=== PATIENT | male | born 1945 | race Caucasian/White ===

== ENCOUNTER 2018-05-30 20:02 | Inpatient (IN) | payer MEDICARE, SELFPAY ==
[2018-05-30 20:11] VITALS: BMI 27.1
--- NOTE | 2018-05-30 20:47 | ED PDOC ---
Arrival/HPI - General Chief Complaint: Trauma Time Seen by Provider: 05/30/18 20:22 Historian: Patient - History of Present Illness Narrative History of Present Illness (Text): 05/30/18 20:35 A 73 year old male, whose past medical history includes diabetes type 2 and hypertension, presents to the emergency department complaining of head trauma, headache, and neck pain s/p fall. Patient reports he was walking down flight of stairs, tripped, and fell over backwards, hitting his head. However per family, they are concerned that he did not trip but had episode of syncope. Family reports that patient has had multiple falls over the last 3 months and has had an unsteady gait during the same period. Family wants patient to be admitted to the hospital for evaluation. Patient denies any other complaints at this time. PMD: Dr. Siddiqui (requesting hospitalist as does not admit here) Past Medical History - Provider Review Nursing Documentation Reviewed: Yes - Cardiac Hx Hypertension: Yes - Endocrine/Metabolic Hx Diabetes Mellitus Type 2: Yes - Psychiatric Hx Psychophysiologic Disorder: No Hx Substance Use: No - Anesthesia Hx Anesthesia: No Family/Social History - Physician Review Nursing Documentation Reviewed: Yes Family/Social History: No Known Family HX Smoking Status: Never Smoked Hx Alcohol Use: No Hx Substance Use: No Allergies/Home Meds Allergies/Adverse Reactions: Allergies No Known Allergies Allergy (Verified 05/30/18 20:11) Home Medications: Home Meds Medication Instructions Recorded Confirmed Unobtainable 05/30/18 05/30/18 Review of Systems - Review of Systems Constitutional: absent: Fevers, Night Sweats Eyes: absent: Vision Changes ENT: absent: Hearing Changes Respiratory: absent: SOB Cardiovascular: absent: Chest Pain Gastrointestinal: Vomiting (1 episode BEEF LUGGER). absent: Abdominal Pain, Nausea Genitourinary Male: absent: Dysuria, Frequency, Hematuria, Urinary Output Changes Musculoskeletal: Neck Pain Neurological: Headache Psychiatric: absent: Anxiety Physical Exam Vital Signs Reviewed: Yes Vital Signs Temp Pulse Resp BP Pulse Ox 05/30/18 20:50 98.8 F 05/30/18 20:16 88 18 142/68 98 05/30/18 20:11 88 16 142/68 98 Temperature: Afebrile Blood Pressure: Normal Pulse: Regular Respiratory Rate: Normal Appearance: Positive for: Well-Appearing, Non-Toxic, Comfortable Pain Distress: None Mental Status: Positive for: Alert and Oriented X 3 - Systems Exam Head: Present: Atraumatic, Normocephalic Pupils: Present: PERRL Extroacular Muscles: Present: EOMI Conjunctiva: Present: Normal Neck: Present: Paraspinal Tenderness (cervical paraspinal tenderness) Respiratory/Chest: Present: Clear to Auscultation, Good Air Exchange. No: Respiratory Distress, Accessory Muscle Use Cardiovascular: Present: Regular Rate and Rhythm, Normal S1, S2. No: Murmurs Abdomen: No: Tenderness, Distention, Peritoneal Signs Back: Present: Normal Inspection Upper Extremity: Present: Normal Inspection. No: Cyanosis, Edema Lower Extremity: Present: Normal Inspection. No: Edema Neurological: Present: GCS=15, CN II-XII Intact, Speech Normal Skin: Present: Warm, Dry, Normal Color. No: Rashes Psychiatric: Present: Alert, Oriented x 3 Medical Decision Making ED Course and Treatment: 05/30/18 20:40 Impression: 73 year old male with head pain after fall. ?syncope vs mechanical fall Plan: -- Head CT -- Cervical Spinal CT -- Chest X-ray -- Labs -- Reassess and disposition Progress Notes: 05/30/18 21:06 EKG shows NSR at 79bpm with pr interval:220. T wave inversions in AVL, V5, v6. Troponin 0.11. No complaint of chest pain. Reports no prior cardiac evaluation. 05/30/18 22:46 CT FINDINGS: Brain: Mild to moderate brain volume loss. Periventricular and subcortical hypodensities are nonspecific and could reflect chronic microvascular ischemic changes. No definite evidence of acute intracranial hemorrhage, infarction, or mass. Ventricles: Normal. No ventriculomegaly. Bones/joints: Normal. No acute fracture. Sinuses: Normal as visualized. No acute sinusitis. Mastoid air cells: Normal as visualized. No mastoid effusion. Soft tissues: Parietal soft tissue edema. Vasculature: Calcific atherosclerosis of the bilateral carotid siphon. IMPRESSION: No definite evidence of acute intracranial hemorrhage, infarction, or mass. 05/30/18 22:50 CT c-spine 1. Multilevel degenerative changes including disc osteophytes. Findings probably worst at C5-C6 where there is probably moderate canal stenosis. MRI can be performed if clinically indicated for further evaluation. 2. No acute displaced fracture 05/30/18 22:[address] head, given aspirin. Also requesting motrin for headache. Will need observation for cardiac and neuro evaluation for frequent falls/ syncope and unsteady gait - Lab Interpretations Lab Results: 05/30/18 20:40 05/30/18 20:40 Lab Results 05/30/18 22:12: PT 11.6, INR 1.02, APTT 27.0 05/30/18 20:40: Sodium 138, Potassium 5.1 H, Chloride 102, Carbon Dioxide 22, Anion Gap 19, BUN 14, Creatinine 1.4, Est GFR ( Amer) > 60, Est GFR (Non- Af Amer) 50, Random Glucose 202 H, Calcium 9.1, Phosphorus 2.6, Magnesium 1.4 L , Total Bilirubin 0.8, AST 24, ALT 26, Alkaline Phosphatase 41, Total Creatine Kinase 139, Troponin I 0.11, Total Protein 7.9, Albumin 4.5, Globulin 3.4, Albumin/Globulin Ratio 1.3 05/30/18 20:40: WBC 10.3, RBC 3.77, Hgb 9.9 L, Hct 29.7 L, MCV 78.8 L, MCH 26.3 , MCHC 33.3, RDW 15.0 H, Plt Count 233, MPV 10.4, Gran % 78.7 H, Lymph % (Auto) 13.5 L, [place] % (Auto) 6.9 H, Eos % (Auto) 0.6 L, Baso % (Auto) 0.3, Gran # 8.07 H, Lymph # (Auto) 1.4, [place] # (Auto) 0.7 H, Eos # (Auto) 0.1, Baso # (Auto) 0.03 - RAD Interpretation Radiology Orders: 05/30/18 20:23 CERVICAL SPINE W/O CONTRAST [CT] Stat HEAD W/O CONTRAST [CT] Stat 05/30/18 20:24 CHEST PORTABLE [RAD] Stat - Medication Orders Current Medication Orders: Ibuprofen (Motrin Tab) 400 mg PO STAT STA Stop: 05/30/18 22:54 Discontinued Medications Aspirin (Aspirin Chewable) 81 mg PO STAT STA Stop: 05/30/18 22:52 - Scribe Statement The provider has reviewed the documentation as recorded by the Cinda Lopez Provider Scribe Attestation: All medical record entries made by the Scribe were at my direction and personally dictated by me. I have reviewed the chart and agree that the record accurately reflects my personal performance of the history, physical exam, medical decision making, and the department course for this patient. I have also personally directed, reviewed, and agree with the discharge instructions and disposition. Disposition/Present on Arrival - Present on Arrival Any Indicators Present on Arrival: No History of DVT/PE: No History of Uncontrolled Diabetes: No Urinary Catheter: No History of Decub. Ulcer: No History Surgical Site Infection Following: None - Disposition Have Diagnosis and Disposition been Completed?: Yes Diagnosis: Anemia, Hyperglycemia, Falls, Syncope, Unsteady gait Disposition: HOSPITALIZED Disposition Time: 22:47 Patient Plan: Observation Patient Problems: Current Active Problems Problem Status Onset Anemia Acute Hyperglycemia Acute Falls Acute Syncope Acute Unsteady gait Acute Condition: FAIR Discharge Instructions (ExitCare): Syncope (ED) Forms: [facility] (Portuguese)
[2018-05-30 20:51] LABS: BASO # 0.03 K/mm3 (0.0-2.0); BASO % 0.3 % (0.0-3.0); EOS # 0.1 (0.0-0.7); EOS % 0.6 % (1.5-5.0); GRAN # 8.07 (1.4-6.5); GRAN % 78.7 % (50.0-68.0); HEMOGLOBIN 9.9 g/dL (14.0-18.0); LYMPH # 1.4 (1.2-3.4); LYMPH % 13.5 % (22.0-35.0); MEAN CELL VOLUME 78.8 fl (80.0-105.0); MEAN CORPUSCULAR HEMOGLOBIN 26.3 pg (25.0-35.0); MEAN CORPUSCULAR HGB CONC 33.3 g/dl (31.0-37.0); MEAN PLATELET VOLUME 10.4 fl (7.0-11.0); MONO # 0.7 (0.1-0.6); MONO % 6.9 % (1.0-6.0); RBC 3.77 10^6/uL (3.5-6.1); WHITE BLOOD COUNT 10.3 10^3/ul (4.5-11.0)
[2018-05-30 21:12] LABS: ALB/GLOB RATIO 1.3 (1.1-1.8); ALBUMIN 4.5 g/dL (3.0-4.8); ALT/SGPT 26 U/L (7-56); AST/SGOT 24 U/L (17-59); BLOOD UREA NITROGEN 14 mg/dL (7-21); CALCIUM 9.1 mg/dL (8.4-10.5); GFR AFRICAN-AMERICAN > 60; GFR NON-AFRICAN AMERICAN 50
[2018-05-30 21:25] LABS: TROPONIN I 0.11 ng/mL
[2018-05-30 22:28] LABS: INR 1.02 (0.93-1.08); PROTHROMBIN TIME 11.6 SECONDS (9.4-12.5)
[2018-05-31] MEDS ORDERED: Magnesium Sulfate 1 gm in D5W 1 GM/100 ML BAG IVPB ONE (01:01)
[2018-05-31 01:33] LABS: IRON 26 ug/dL (45-180)
[2018-05-31 01:43] LABS: % IRON SATURATION 5 % (20-55); TOTAL IRON BINDING CAPACITY 499 ug/dL (261-462)
[2018-05-31 01:47] LABS: TROPONIN I 0.17 ng/mL
--- NOTE | 2018-05-31 03:01 | CP.PCM.HP ---
<Edi Bradshaw - Last Filed: 05/31/18 03:33> History of Present Illness - History of Present Illness History of Present Illness: Edi Bradshaw DO PGY1 IM Deputy Head - Hospital H&P Note 73M w/ PMH of HTN, HLD, DM [place] [facility] [place] w/ a CC of syncopal episode. Per family, pt is a poor historian and some HPI supplemented by daughter and at bedside. Pt reported hours prior to arrival he had an episode on which he experienced a brief moment dizziness/ light headedness followed by a LOC. Pt reports this is not his first episode, and family reports that similar episodes have been increasing in frequency over the past months. Per after event today pt appeared to be confused after episode. He reports some ambulatory/ gait issues at baseline as well. Denies any chest pain, palpitations, blurry vision, visual disturbances, Abd pain, N/D/C, hematuria, dysuria. Pt. did however report x1 episode NBNB vomit during EMS transport. Denies any hx of CVA or Seizure. Remainder of 12 point ROS otherwise unremarkable. Per the patient's daughter she reports that he is having some difficulty speaking; however pt. denies any slurred speech. Of note family says patient is non compliant on medication. Additional HP: In ED pt asymptomatic w/ troponin upper limit normal 0.11 at 2030 ; follow up troponin at 0200 elevated at 0.17 PMD: Dr. ERIN Siddiqui Pharmacy: [facility] PMH: HTN, HLD, DM, Home Rx: Gabapentin, Metformin, Valsartan, Rosuvastatin Social: No EtOH, Remote smoking hx, denies illicit drug use; lives with family at home; ambulates w/o assistance Present on Admission - Present on Admission Any Indicators Present on Admission: Yes History of Uncontrolled Diabetes: Yes Review of Systems - Constitutional Constitutional: As Per HPI - EENT Eyes: As Per HPI Nose/Mouth/Throat: As Per HPI - Cardiovascular Cardiovascular: As Per HPI - Respiratory Respiratory: As Per HPI - Gastrointestinal Gastrointestinal: As Per HPI - Genitourinary Genitourinary: As Per HPI - Reproductive: Male Reproductive:Male: As Per HPI - Musculoskeletal Musculoskeletal: As Per HPI - Integumentary Integumentary: As Per HPI - Neurological Neurological: As Per HPI - Psychiatric Psychiatric: As Per HPI - Endocrine Endocrine: As Per HPI - Hematologic/Lymphatic Hematologic: As Per HPI Past Patient History - Past Social History Smoking Status: Never Smoked - CARDIAC Hx Cardiac Disorders: Yes Hx Hypertension: Yes - PULMONARY Hx Respiratory Disorders: No - NEUROLOGICAL Hx Neurological Disorder: No - HEENT Hx HEENT Problems: No - RENAL Hx Chronic Kidney Disease: No - ENDOCRINE/METABOLIC Hx Endocrine Disorders: Yes Hx Diabetes Mellitus Type 2: Yes (diabetic neuropathy) - HEMATOLOGICAL/ONCOLOGICAL Hx Blood Disorders: No - INTEGUMENTARY Hx Dermatological Problems: No - MUSCULOSKELETAL/RHEUMATOLOGICAL Hx Musculoskeletal Disorders: Yes Hx Falls: Yes Hx Unsteady Gait: Yes - GASTROINTESTINAL Hx Gastrointestinal Disorders: No - GENITOURINARY/GYNECOLOGICAL Hx Genitourinary Disorders: No - PSYCHIATRIC Hx Psychophysiologic Disorder: No Hx Substance Use: No - SURGICAL HISTORY Hx Surgeries: No - ANESTHESIA Hx Anesthesia: No Meds Allergies/Adverse Reactions: Allergies Allergy/AdvReac Type Severity Reaction Status Date / Time No Known Allergies Allergy Verified 05/30/18 20:11 Physical Exam - Constitutional Appears: Well, Non-toxic, No Acute Distress - Head Exam Head Exam: ATRAUMATIC, NORMOCEPHALIC - Eye Exam Eye Exam: EOMI, PERRL. absent: Scleral icterus - ENT Exam ENT Exam: Mucous Membranes Moist, Normal Exam - Neck Exam Additional comments: +R side carotid bruit vs radiating murmur - Cardiovascular Exam Cardiovascular Exam: RRR, +S1, +S2, Systolic Murmur (high pitched) - GI/Abdominal Exam GI & Abdominal Exam: Normal Bowel Sounds, Soft. absent: Tenderness - Extremities Exam Extremities exam: Positive for: pedal pulses present (2+ PT/DP BL). Negative for: tenderness - Neurological Exam Neurological exam: Alert, CN II-XII Intact, Oriented x3 Additional comments: UE / LE Gross Strength 5/5 BL - Psychiatric Exam Psychiatric exam: Normal Affect, Normal Mood - Skin Skin Exam: Dry, Intact, Warm Results - Vital Signs Recent Vital Signs: Last Vital Signs Temp 98.9 F 05/31/18 01:26 Pulse 76 05/31/18 02:00 Resp 18 05/31/18 01:26 BP 140/57 L 05/31/18 01:26 Pulse Ox 100 05/30/18 23:00 - Labs Result Diagrams: 05/30/18 20:40 05/30/18 23:39 Labs: Laboratory Results - last 24 hr 05/30/18 05/30/18 23:39 23:39 Potassium 4.8 Troponin I 0.17 H* D Triglycerides 92 Cholesterol 110 L LDL Cholesterol Direct 41 HDL Cholesterol 46 Assessment & Plan - Assessment and Plan (Free Text) Assessment: 73M w/ PMH of HTN, HLD, DM presents to [facility] [place]29 [place] w/ a CC of syncopal episode. Found to have troponin elevation during admission. ACS Workup w/ Troponin Elevation: 2030 = 0.11; 0230 = 0.17; Pt has remained asymptomatic throughout ED and Admission EKG on admission w/ non specific ST/ T wave abnormalities Pt. given x1 dose [id number] in ED Started heparin 8 units/mg/kg A1C / Lipid AM EKG Tele Cardiology Consult Syncopal Episodes Neurogenic vs cardiogenic vs seizure EKG on adm non spec ST/T wave changes; CT head/spine negative for acute changes ; POC Carotid U/s Echo AM EKG Othostatic blood pressures EEG AM CBC/CMP/Mag/Phos EEG Neuro consult Cardio consult Seizure precaution pt/ot EVAL Microcytic Anemia pt asx/ hemodynamically stable B12/Folic Acid/Iron Study Occult Stool r/o GI bleed Hx HTN resume home valsartan; monitor pressures heart healthy diet/ low salt Hx HLD resume home rosuvastatin Hx DM A1C pending hold metformin start ISS regular accucheck Q6H GI/DVT PPX: Protonix/ Heparin Drip as above Dispo: Admit to tele for monitoring and ACS workup Pt. seen examined, and discussed at length w/ attending physician Dr. Kaden Bradshaw DO PGY1 IM internal communications writer - Date & Time Date: 05/31/18 Time: 03:44 <Kaden Soriano N - Last Filed: 05/31/18 23:58> Results - Vital Signs Recent Vital Signs: Last Vital Signs Temp 99.9 F H 05/31/18 17:27 Pulse 72 05/31/18 22:00 Resp 20 05/31/18 17:27 BP 128/57 L 05/31/18 17:27 Pulse Ox 100 05/31/18 06:00 - Labs Result Diagrams: 05/31/18 16:55 05/31/18 06:00 Labs: Laboratory Results - last 24 hr 05/31/18 05/31/18 16:55 16:55 WBC 7.5 RBC 3.65 Hgb 9.3 L Hct 28.9 L MCV 79.2 L MCH 25.5 MCHC 32.2 RDW 15.1 H Plt Count 224 MPV 10.0 Gran % 71.0 H Lymph % (Auto) 20.9 L [place] % (Auto) 7.2 H Eos % (Auto) 0.8 L Baso % (Auto) 0.1 Gran # 5.30 Lymph # (Auto) 1.6 [place] # (Auto) 0.5 Eos # (Auto) 0.1 Baso # (Auto) 0.01 APTT 30.3
[2018-05-31] MEDS: Heparin25000 units/250ml 1/2NS 25,000 UNITS/250 ML BAG IV SCH ×2 (03:16→13:11)
[2018-05-31 06:42] LABS: BASO # 0.02 K/mm3 (0.0-2.0); BASO % 0.2 % (0.0-3.0); EOS # 0.1 (0.0-0.7); GRAN # 4.97 (1.4-6.5); HEMOGLOBIN 8.8 g/dL (14.0-18.0); LYMPH # 2.3 (1.2-3.4); LYMPH % 28.9 % (22.0-35.0); MEAN CELL VOLUME 79.4 fl (80.0-105.0); MEAN CORPUSCULAR HEMOGLOBIN 25.6 pg (25.0-35.0); MEAN CORPUSCULAR HGB CONC 32.2 g/dl (31.0-37.0); MEAN PLATELET VOLUME 10.9 fl (7.0-11.0); MONO # 0.6 (0.1-0.6); MONO % 7.9 % (1.0-6.0); RBC 3.44 10^6/uL (3.5-6.1); RED CELL DISTRIBUTION WIDTH 15.2 % (11.5-14.5)
[2018-05-31 06:56] LABS: ALB/GLOB RATIO 1.3 (1.1-1.8); ALBUMIN 3.6 g/dL (3.0-4.8); CALCIUM 8.9 mg/dL (8.4-10.5)
[2018-05-31] MEDS: Insulin Reg-LOW-Coverage SC SCH ×4 (08:33→22:29)
[2018-05-31 08:36] LABS: PARTIAL THROMBOPLASTIN TIME 42.2 Seconds (25.1-36.5)
--- NOTE | 2018-05-31 08:57 | RAD ---
Date of service: 05/30/2018 HISTORY: Fall COMPARISON: No prior. FINDINGS: LUNGS: The lungs are well inflated and clear. There is mild pulmonary venous congestion. PLEURA: No significant pleural effusion identified, no pneumothorax apparent. CARDIOVASCULAR: The heart is normal in size. Atherosclerotic aortic arch calcifications are present. OSSEOUS STRUCTURES: No significant abnormalities. VISUALIZED UPPER ABDOMEN: Normal. OTHER FINDINGS: None. IMPRESSION: No acute findings.
--- NOTE | 2018-05-31 09:02 | CT ---
Date of service: 05/30/2018 PROCEDURE: CT HEAD WITHOUT CONTRAST. HISTORY: fall COMPARISON: None available. TECHNIQUE: Axial computed tomography images were obtained through the head/brain without intravenous contrast. Radiation dose: Total exam DLP = 807 mGy-cm. This CT exam was performed using one or more of the following dose reduction techniques: Automated exposure control, adjustment of the mA and/or kV according to patient size, and/or use of iterative reconstruction technique. FINDINGS: HEMORRHAGE: No intracranial hemorrhage. BRAIN: No mass effect or edema. No atrophy or chronic microvascular ischemic changes. VENTRICLES: Unremarkable. No hydrocephalus. CALVARIUM: Unremarkable. PARANASAL SINUSES: Unremarkable as visualized. No significant inflammatory changes. MASTOID AIR CELLS: Unremarkable as visualized. No inflammatory changes. OTHER FINDINGS: The report concurs with the preliminary [facility] report IMPRESSION: No acute findings
--- NOTE | 2018-05-31 09:05 | CT ---
Date of service: 05/30/2018 PROCEDURE: CT Cervical Spine without contrast HISTORY: fall, neck pain COMPARISON: None available. TECHNIQUE: Axial computed tomography images were obtained of the cervical spine without the use of intravenous contrast. Coronal and sagittal reformatted images were created and reviewed. Radiation dose: Total exam DLP = 441 mGy-cm. This CT exam was performed using one or more of the following dose reduction techniques: Automated exposure control, adjustment of the mA and/or kV according to patient size, and/or use of iterative reconstruction technique. FINDINGS: VERTEBRAE: No fracture. Normal alignment. No destructive bony lesion. DISCS/SPINAL CANAL/NEURAL FORAMINA: No significant central canal or neural foraminal stenosis. Disc degeneration at multiple levels. Severe left-sided foraminal stenosis at C3-4. Severe bilateral foraminal stenosis at C6-7. Mild foraminal stenosis at C5-6. PARASPINAL SOFT TISSUES: Unremarkable. OTHER FINDINGS: The report concurs with the preliminary [facility] report IMPRESSION: No acute findings
[2018-05-31] MEDS ORDERED: Iohexol 350 MG/100 ML VIAL ONE (09:22)
--- NOTE | 2018-05-31 09:44 | CP.PCM.CON ---
History of Present Illness - History of Present Illness History of Present Illness: Patient is a 73 year old male with past medical history of HTN, hyperlipidemia, type 2 diabetes with neuropathy presenting with chief complaint of falls. Patient states that in the past two months he has had multiple episodes of falling. The first two episodes were while he was going downstairs into his basement. The third episode was when he was ambulating outside his home. During these episodes, patient reports not being able to stand up secondary to generalized weakness. During the most recent episode, he also sustained trauma to the back of his head. He states that he has been eating and drinking at his baseline. He denies any headache, dizziness, loss of consciousness, vision changes, hearing changes, bowel or bladder incontinence associated with these falls. He also denies fevers, chills, weight loss, palpitations, chest pain, abdominal pain, changes in bowel movements. He denies history of seizures or any recent adjustments in medications. He checks his glucose and blood pressure at home regularly. He states glucose levels are usually in 170s and systolic BP is in the 140s to 150s. Patient's family reports that patient was very pale and had slowed slurred speech. However, patient was able to be aroused, was alert and oriented to person, and had no focal neurological deficits. Patient has had issues with gait stability for the past few weeks. 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 PMH: HTN, hyperlipidemia, type 2 diabetes with neuropathy Past surgical: none Social: 33 year history 1 PPD. Quit in 1985. Denies alcohol or recreational drug use. Lives at home with and daughter. FHx: Father had maxillary cancer Home medications: metformin, gabapentin, atorvastatin 12 point ROS was benign except as stated above. Past Patient History - Past Social History Smoking Status: Former Smoker Alcohol: None Drugs: Denies Home Situation {Lives}: With Family - CARDIAC Hx Cardiac Disorders: Yes Hx Hypertension: Yes - PULMONARY Hx Respiratory Disorders: No - NEUROLOGICAL Hx Neurological Disorder: No - HEENT Hx HEENT Problems: No - RENAL Hx Chronic Kidney Disease: No - ENDOCRINE/METABOLIC Hx Endocrine Disorders: Yes Hx Diabetes Mellitus Type 2: Yes (diabetic neuropathy) - HEMATOLOGICAL/ONCOLOGICAL Hx Blood Disorders: No - INTEGUMENTARY Hx Dermatological Problems: No - MUSCULOSKELETAL/RHEUMATOLOGICAL Hx Musculoskeletal Disorders: Yes Hx Falls: Yes Hx Unsteady Gait: Yes - GASTROINTESTINAL Hx Gastrointestinal Disorders: No - GENITOURINARY/GYNECOLOGICAL Hx Genitourinary Disorders: No - PSYCHIATRIC Hx Psychophysiologic Disorder: No Hx Substance Use: No - SURGICAL HISTORY Hx Surgeries: No - ANESTHESIA Hx Anesthesia: No Meds Allergies/Adverse Reactions: Allergies Allergy/AdvReac Type Severity Reaction Status Date / Time No Known Allergies Allergy Verified 05/30/18 20:11 - Medications Medications: Current Medications Atorvastatin Calcium (Lipitor) 10 mg PO DIN SHAKA Ferrous Sulfate (Feosol) 324 mg PO TID SHAKA Gabapentin (Neurontin) 300 mg PO BID SHAKA PRN Reason: Protocol Heparin Sodium/Sodium Chloride (Heparin 97042 Units/250ml 1/2 Normal Saline) 25 ,000 units in 250 mls @ 5.733 mls/hr IV .Q24H SHAKA; 8 UNITS/KG/HR PRN Reason: Protocol Last Admin: 05/31/18 03:16 Dose: 8 units/kg/hr, 5.733 mls/hr Insulin Human Regular (Humulin R Low) 0 units SC ACHS SHAKA PRN Reason: Protocol Last Admin: 05/31/18 08:33 Dose: 1 u Losartan Potassium (Cozaar) 25 mg PO DAILY SHAKA Pantoprazole Sodium (Protonix Inj) 40 mg IVP DAILY SHAKA Physical Exam - Constitutional Appears: Non-toxic, No Acute Distress - Head Exam Head Exam: NORMAL INSPECTION, NORMOCEPHALIC - Eye Exam Eye Exam: EOMI, Normal appearance, PERRL Pupil Exam: NORMAL ACCOMODATION - ENT Exam ENT Exam: Mucous Membranes Moist, Normal Exam - Neck Exam Neck exam: Positive for: Normal Inspection - Respiratory Exam Respiratory Exam: Clear to Auscultation Bilateral, NORMAL BREATHING PATTERN. absent: Rales, Rhonchi, Wheezes, Respiratory Distress - Cardiovascular Exam Cardiovascular Exam: RRR, +S1, +S2 - GI/Abdominal Exam GI & Abdominal Exam: Normal Bowel Sounds, Soft. absent: Distended, Firm, Tenderness - Extremities Exam Extremities exam: Positive for: full ROM, normal inspection - Back Exam Back exam: NORMAL INSPECTION - Neurological Exam Neurological exam: Alert, CN II-XII Intact, Normal Gait, Oriented x3 Additional comments: Muscle strength +5/5. Mild dysmetria bilaterally. Nystagmus with rightward graze. Negative Romberg. - Skin Skin Exam: Dry, Intact, Normal Color, Warm Results - Vital Signs Recent Vital Signs: Last Vital Signs Temp 98 F 05/31/18 06:00 Pulse 65 05/31/18 06:00 Resp 20 05/31/18 06:00 BP 135/59 L 05/31/18 06:00 Pulse Ox 100 05/31/18 06:00 - Labs Result Diagrams: 05/31/18 06:00 05/31/18 06:00 Labs: Laboratory Results - last 24 hr 05/30/18 05/30/18 05/31/18 23:39 23:39 05:40 WBC RBC Hgb Hct MCV MCH MCHC RDW Plt Count MPV Gran % Lymph % (Auto) [place] % (Auto) Eos % (Auto) Baso % (Auto) Gran # Lymph # (Auto) [place] # (Auto) Eos # (Auto) Baso # (Auto) APTT D-Dimer, Quantitative Sodium Potassium 4.8 Chloride Carbon Dioxide Anion Gap BUN Creatinine Est GFR ( Amer) Est GFR (Non-Af Amer) Random Glucose Calcium Phosphorus Magnesium Total Bilirubin AST ALT Alkaline Phosphatase Troponin I 0.17 H* D Total Protein Albumin Globulin Albumin/Globulin Ratio Triglycerides 92 Cholesterol 110 L LDL Cholesterol Direct 41 HDL Cholesterol 46 Blood Type O POSITIVE Blood Type Confirm Antibody Screen Negative BBK History Checked No verified bt 05/31/18 05/31/18 05/31/18 06:00 06:00 06:30 WBC 8.0 D RBC 3.44 L Hgb 8.8 L Hct 27.3 L MCV 79.4 L MCH 25.6 MCHC 32.2 RDW 15.2 H Plt Count 234 MPV 10.9 Gran % 62.0 Lymph % (Auto) 28.9 [place] % (Auto) 7.9 H Eos % (Auto) 1.0 L Baso % (Auto) 0.2 Gran # 4.97 Lymph # (Auto) 2.3 [place] # (Auto) 0.6 Eos # (Auto) 0.1 Baso # (Auto) 0.02 APTT D-Dimer, Quantitative Sodium 141 Potassium 4.3 Chloride 105 Carbon Dioxide 26 Anion Gap 15 BUN 15 Creatinine 1.5 Est GFR ( Amer) 56 Est GFR (Non-Af Amer) 46 Random Glucose 139 H Calcium 8.9 Phosphorus 3.1 Magnesium 1.9 Total Bilirubin 0.6 AST 17 D ALT 27 Alkaline Phosphatase 35 L Troponin I 0.15 H* Total Protein 6.5 Albumin 3.6 Globulin 2.9 Albumin/Globulin Ratio 1.3 Triglycerides Cholesterol LDL Cholesterol Direct HDL Cholesterol Blood Type Blood Type Confirm Antibody Screen BBK History Checked 05/31/18 05/31/18 08:15 08:15 WBC RBC Hgb Hct MCV MCH MCHC RDW Plt Count MPV Gran % Lymph % (Auto) [place] % (Auto) Eos % (Auto) Baso % (Auto) Gran # Lymph # (Auto) [place] # (Auto) Eos # (Auto) Baso # (Auto) APTT 42.2 H D-Dimer, Quantitative 496 H Sodium Potassium Chloride Carbon Dioxide Anion Gap BUN Creatinine Est GFR ( Amer) Est GFR (Non-Af Amer) Random Glucose Calcium Phosphorus Magnesium Total Bilirubin AST ALT Alkaline Phosphatase Troponin I Total Protein Albumin Globulin Albumin/Globulin Ratio Triglycerides Cholesterol LDL Cholesterol Direct HDL Cholesterol Blood Type Blood Type Confirm O POSITIVE Antibody Screen BBK History Checked Assessment & Plan - Assessment and Plan (Free Text) Assessment: Patient is a 73 year old male with past medical history of HTN, hyperlipidemia, type 2 diabetes with neuropathy admitted for workup and management of pre- syncope and found to have microcytic anemia, elevated troponins, negative CT head. Plan: Pre-syncope vs. syncopal episode - Likely neurocardiogenic in nature - Head CT w/o contrast shows no intracranial hemorrhage, mass effect, edema. No atrophy or chronic microvascular ischemic changes. - EKG shows 1st degree av block, ST depressions in lateral leads. No previous EKGs to refer to. - Followup orthostatic vital signs - Followup carotid & vertebral duplex US - Followup MRI brain w/o contrast - Followup MRA head w/o contrast for evaluation of posterior circulation - EEG preliminary read normal - Neurochecks - Cardiology consulted - PT/OT consulted Case discussed and plan approved by attending physician Dr. Zackery Sanders PGY-1
--- NOTE | 2018-05-31 10:45 | CT ---
Date of service: 05/31/2018 PROCEDURE: CT Chest with contrast (Pulmonary Angiogram) HISTORY: r/o PE COMPARISON: None available. TECHNIQUE: Axial computed tomography images were obtained of the chest in the pulmonary arterial phase of enhancement. Coronal and sagittal reformatted images were created and reviewed. Intravenous contrast dose: 100 cc of Omni 350 Radiation dose: Total exam DLP = 437 mGy-cm. This CT exam was performed using one or more of the following dose reduction techniques: Automated exposure control, adjustment of the mA and/or kV according to patient size, and/or use of iterative reconstruction technique. FINDINGS: PULMONARY ARTERIES: Unremarkable. No pulmonary embolism. AORTA: No acute findings. No thoracic aortic aneurysm. LUNGS: Unremarkable. No nodule, mass or pulmonary consolidation. PLEURAL SPACES: Small pleural effusions HEART: Unremarkable. No cardiomegaly. No significant pericardial effusion. LYMPH NODES: No lymphadenopathy. BONES, CHEST WALL: Unremarkable. No fracture or destructive lesion OTHER FINDINGS: Unremarkable. IMPRESSION: Unremarkable CT pulmonary angiogram. No pulmonary embolus.
--- NOTE | 2018-05-31 12:17 | CARD ---
APPROVED REPORT Date of service: 05/30/2018 EKG Measurement Heart [id number] <Conclusion> Sinus rhythm with 1st degree AV block ST & T wave abnormality Correlate Clinically. Abnormal ECG
[2018-05-31 12:39] LABS: FOLATE > 20.0 ng/mL
--- NOTE | 2018-05-31 14:44 | CP.PCM.CON ---
<Edmond Joseph - Last Filed: 05/31/18 20:59> History of Present Illness - History of Present Illness History of Present Illness: GI Consult Note for Dr. Munoz Service Edmond Joseph, PGY-3 IM This is a 73 yo Iranian M with PMH of HTN, HLD, DM, and reported hx of medication non-compliance (as per family report to primary team) who presented to [facility] s/p reported syncopal episode at home with fall. Patient reports no recall of actual syncope, and believes he just fell, which has happened several times at home over the last month. Patient reports no head trauma with any falls, no LOC with any falls (disputed by family), and denies any focal weakness /paresthesias. GI was consulted due to anemia (Hgb 8.8, baseline reported by family to be 11) and reported bright red blood per rectum on exam by primary team. Patient resting comfortably in bed at time of exam. Denies any hx of rectal bleeding, melena/blood in stool, diarrhea, constipation, dysuria, hematuria, fevers, chills. Reports feeling good overall. Reports routine follow up with PMD, Dr. Siddiqui, but denies ever being followed by GI. Denies ever undergoing EGD or Colonoscopy. Denies any family hx of colon cancer. No abdominal tenderness, and no PO intolerance. Of note, in addition to presenting problems, patient was also found to have indeterminate trop of 0.11 on arrival, which increased to 0.17 on recheck, but decreased to 0.15 on last trop. Cardio following and aware, pending possible cath. PMH: as above PSH: denies Social Hx: No EtOH, Remote smoking hx, denies illicit drug use; lives with family at home; ambulates w/o assistance Fam Hx: denies any fam hx of colon cancer PMD: Dr. ERIN Siddiqui Review of Systems - Review of Systems All systems: reviewed and no additional remarkable complaints except (as per HPI ) Past Patient History - Past Social History Smoking Status: Former Smoker Alcohol: None Drugs: Denies Home Situation {Lives}: With Family - CARDIAC Hx Cardiac Disorders: Yes Hx Hypertension: Yes - PULMONARY Hx Respiratory Disorders: No - NEUROLOGICAL Hx Neurological Disorder: No - HEENT Hx HEENT Problems: No - RENAL Hx Chronic Kidney Disease: No - ENDOCRINE/METABOLIC Hx Endocrine Disorders: Yes Hx Diabetes Mellitus Type 2: Yes (diabetic neuropathy) - HEMATOLOGICAL/ONCOLOGICAL Hx Blood Disorders: No - INTEGUMENTARY Hx Dermatological Problems: No - MUSCULOSKELETAL/RHEUMATOLOGICAL Hx Musculoskeletal Disorders: Yes Hx Falls: Yes Hx Unsteady Gait: Yes - GASTROINTESTINAL Hx Gastrointestinal Disorders: No - GENITOURINARY/GYNECOLOGICAL Hx Genitourinary Disorders: No - PSYCHIATRIC Hx Psychophysiologic Disorder: No Hx Substance Use: No - SURGICAL HISTORY Hx Surgeries: No - ANESTHESIA Hx Anesthesia: No Meds Allergies/Adverse Reactions: Allergies Allergy/AdvReac Type Severity Reaction Status Date / Time No Known Allergies Allergy Verified 05/30/18 20:11 - Medications Medications: Current Medications Atorvastatin Calcium (Lipitor) 40 mg PO DIN SHAKA Carvedilol (Coreg) 3.125 mg PO BID SHAKA Ferrous Sulfate (Feosol) 324 mg PO TID [facility] Last Admin: 05/31/18 13:05 Dose: 324 mg Gabapentin (Neurontin) 300 mg PO BID [facility] PRN Reason: Protocol Last Admin: 05/31/18 12:55 Dose: Not Given Insulin Human Regular (Humulin R Low) 0 units SC ACHS [facility] PRN Reason: Protocol Last Admin: 05/31/18 13:04 Dose: 1 u Losartan Potassium (Cozaar) 25 mg PO DAILY [facility] Last Admin: 05/31/18 13:05 Dose: 25 mg Pantoprazole Sodium (Protonix Ec Tab) 40 mg PO ACB [facility] Physical Exam - Constitutional Appears: Non-toxic, No Acute Distress - Head Exam Head Exam: ATRAUMATIC, NORMAL INSPECTION, NORMOCEPHALIC - Eye Exam Eye Exam: EOMI, Normal appearance. absent: Conjunctival injection, Scleral icterus Pupil Exam: absent: Fixed, Irregular - ENT Exam ENT Exam: Mucous Membranes Moist - Neck Exam Neck exam: Positive for: Normal Inspection - Respiratory Exam Respiratory Exam: Clear to Auscultation Bilateral, NORMAL BREATHING PATTERN. absent: Accessory Muscle Use, Chest Wall Tenderness, Decreased Breath Sounds, Rales, Rhonchi, Wheezes - Cardiovascular Exam Cardiovascular Exam: REGULAR RHYTHM, RRR, +S1, +S2, Systolic Murmur ( holosystolic murmur most prominent at R 2nd intercostal space but also very prominent at L 2nd intercostal space, not palpable with hand on chest). absent : Bradycardia, Tachycardia, Irregular Rhythm, JVD, +S4 - GI/Abdominal Exam GI & Abdominal Exam: Normal Bowel Sounds, Soft. absent: Diminished Bowel Sounds , Distended, Firm, Hyperactive Bowel Sounds, Hypoactive Bowel Sounds, Rigid, Tenderness - Extremities Exam Extremities exam: Negative for: calf tenderness, joint swelling, pedal edema Additional comments: healing abrasion along L anterior knee, not actively bleeding but appears fairly fresh/recent (likely 2/2 fall prior to presentation) - Back Exam Back exam: absent: CVA tenderness (L), CVA tenderness (R) - Neurological Exam Additional comments: awake and alert, oriented to self/location/year, following all commands appropriately, moving all extremities spontaneously and on command - Psychiatric Exam Psychiatric exam: Normal Affect, Normal Mood - Skin Skin Exam: Dry, Intact (except as documented on extremities exam), Normal Color , Warm Results - Vital Signs Recent Vital Signs: Last Vital Signs Temp 98 F 05/31/18 06:00 Pulse 76 05/31/18 13:05 Resp 20 05/31/18 06:00 BP 152/56 H 05/31/18 13:05 Pulse Ox 100 05/31/18 06:00 - Labs Result Diagrams: 05/31/18 16:55 05/31/18 06:00 Labs: Laboratory Results - last 24 hr 05/30/18 05/30/18 05/31/18 23:39 23:39 05:40 WBC RBC Hgb Hct MCV MCH MCHC RDW Plt Count MPV Gran % Lymph % (Auto) Brewster % (Auto) Eos % (Auto) Baso % (Auto) Gran # Lymph # (Auto) Brewster # (Auto) Eos # (Auto) Baso # (Auto) APTT D-Dimer, Quantitative Sodium Potassium 4.8 Chloride Carbon Dioxide Anion Gap BUN Creatinine Est GFR ( Amer) Est GFR (Non-Af Amer) Random Glucose Calcium Phosphorus Magnesium Total Bilirubin AST ALT Alkaline Phosphatase Troponin I 0.17 H* D Total Protein Albumin Globulin Albumin/Globulin Ratio Triglycerides 92 Cholesterol 110 L LDL Cholesterol Direct 41 HDL Cholesterol 46 Stool Occult Blood Blood Type O POSITIVE Blood Type Confirm Antibody Screen Negative BBK History Checked No verified bt 05/31/18 05/31/18 05/31/18 06:00 06:00 06:30 WBC 8.0 D RBC 3.44 L Hgb 8.8 L Hct 27.3 L MCV 79.4 L MCH 25.6 MCHC 32.2 RDW 15.2 H Plt Count 234 MPV 10.9 Gran % 62.0 Lymph % (Auto) 28.9 Brewster % (Auto) 7.9 H Eos % (Auto) 1.0 L Baso % (Auto) 0.2 Gran # 4.97 Lymph # (Auto) 2.3 Brewster # (Auto) 0.6 Eos # (Auto) 0.1 Baso # (Auto) 0.02 APTT D-Dimer, Quantitative Sodium 141 Potassium 4.3 Chloride 105 Carbon Dioxide 26 Anion Gap 15 BUN 15 Creatinine 1.5 Est GFR ( Amer) 56 Est GFR (Non-Af Amer) 46 Random Glucose 139 H Calcium 8.9 Phosphorus 3.1 Magnesium 1.9 Total Bilirubin 0.6 AST 17 D ALT 27 Alkaline Phosphatase 35 L Troponin I 0.15 H* Total Protein 6.5 Albumin 3.6 Globulin 2.9 Albumin/Globulin Ratio 1.3 Triglycerides Cholesterol LDL Cholesterol Direct HDL Cholesterol Stool Occult Blood Blood Type Blood Type Confirm Antibody Screen BBK History Checked 05/31/18 05/31/18 05/31/18 08:15 08:15 13:00 WBC RBC Hgb Hct MCV MCH MCHC RDW Plt Count MPV Gran % Lymph % (Auto) Brewster % (Auto) Eos % (Auto) Baso % (Auto) Gran # Lymph # (Auto) Brewster # (Auto) Eos # (Auto) Baso # (Auto) APTT 42.2 H D-Dimer, Quantitative 496 H Sodium Potassium Chloride Carbon Dioxide Anion Gap BUN Creatinine Est GFR ( Amer) Est GFR (Non-Af Amer) Random Glucose Calcium Phosphorus Magnesium Total Bilirubin AST ALT Alkaline Phosphatase Troponin I Total Protein Albumin Globulin Albumin/Globulin Ratio Triglycerides Cholesterol LDL Cholesterol Direct HDL Cholesterol Stool Occult Blood Negative Blood Type Blood Type Confirm O POSITIVE Antibody Screen BBK History Checked Assessment & Plan - Assessment and Plan (Free Text) Assessment: This is a 73 yo Iranian M with PMH of HTN, HLD, DM, and reported hx of medication non-compliance (as per family report to primary team) who presented to [facility] s/p reported syncopal episode at home with fall. GI was consulted due to anemia (Hgb 8.8, baseline reported by family to be 11) and reported bright red blood per rectum on exam by primary team. Plan: DM HTN HLD Reported medication non-compliance Elevated trops, NSTEMI? Ddx: acute GI bleeding 2/2 heparin drip started for elevated trops vs occult GI malignancy -Ideally, this patient needs an EGD and Colonoscopy, but in setting of acute cardiac condition, need Cardiac assessment and clearance -While cardiac cath understandable for this patient, there is a concern for possible acute GI bleed, which would be made more difficult to manage if patient has HOA placed and is on dual antiplatelet therapy, would prefer to have pt undergo endoscopic assessment for active bleeding site first (if feasible) -Heart murmur consistent with Aortic Stenosis, would advise cautious BP management as too-depressed BP will decrease preload, which is needed to enable sufficient cardiac output in setting of aortic stenosis; Echo obtained, pending official read, will f/u -if severe aortic stenosis present, then needs cardiac assessment and clearance prior to any procedure involving anesthesia -CT abd/pelvis with PO contrast ordered -Monitor H&H daily; microcytic RBCs with wide RDW suggestive of iron deficiency anemia, iron studies also supportive of iron deficiency Seen, reviewed, and discussed with attending, Dr. Munoz <Alexandr Munoz V - Last Filed: 05/31/18 22:15> Meds - Medications Medications: Current Medications Atorvastatin Calcium (Lipitor) 40 mg PO DIN [facility] Last Admin: 05/31/18 17:26 Dose: 40 mg Carvedilol (Coreg) 3.125 mg PO BID SHAKA Last Admin: 05/31/18 17:25 Dose: 3.125 mg Ferrous Sulfate (Feosol) 324 mg PO TID [facility] Last Admin: 05/31/18 17:26 Dose: 324 mg Gabapentin (Neurontin) 300 mg PO BID [facility] PRN Reason: Protocol Last Admin: 05/31/18 17:26 Dose: 300 mg Insulin Human Regular (Humulin R Low) 0 units SC ACHS [facility] PRN Reason: Protocol Last Admin: 05/31/18 18:24 Dose: 1 u Losartan Potassium (Cozaar) 25 mg PO DAILY [facility] Last Admin: 05/31/18 13:05 Dose: 25 mg Pantoprazole Sodium (Protonix Ec Tab) 40 mg PO ACB [facility] Results - Vital Signs Recent Vital Signs: Last Vital Signs Temp 99.9 F H 05/31/18 17:27 Pulse 72 05/31/18 17:27 Resp 20 05/31/18 17:27 BP 128/57 L 05/31/18 17:27 Pulse Ox 100 05/31/18 06:00 - Labs Result Diagrams: 05/31/18 16:55 05/31/18 06:00 Labs: Laboratory Results - last 24 hr 05/30/18 05/30/18 05/31/18 23:39 23:39 05:40 WBC RBC Hgb Hct MCV MCH MCHC RDW Plt Count MPV Gran % Lymph % (Auto) Brewster % (Auto) Eos % (Auto) Baso % (Auto) Gran # Lymph # (Auto) Brewster # (Auto) Eos # (Auto) Baso # (Auto) APTT D-Dimer, Quantitative Sodium Potassium 4.8 Chloride Carbon Dioxide Anion Gap BUN Creatinine Est GFR ( Amer) Est GFR (Non-Af Amer) Random Glucose Calcium Phosphorus Magnesium Total Bilirubin AST ALT Alkaline Phosphatase Troponin I 0.17 H* D Total Protein Albumin Globulin Albumin/Globulin Ratio Triglycerides 92 Cholesterol 110 L LDL Cholesterol Direct 41 HDL Cholesterol 46 Stool Occult Blood Blood Type O POSITIVE Blood Type Confirm Antibody Screen Negative BBK History Checked No verified bt 05/31/18 05/31/18 05/31/18 06:00 06:00 06:30 WBC 8.0 D RBC 3.44 L Hgb 8.8 L Hct 27.3 L MCV 79.4 L MCH 25.6 MCHC 32.2 RDW 15.2 H Plt Count 234 MPV 10.9 Gran % 62.0 Lymph % (Auto) 28.9 Brewster % (Auto) 7.9 H Eos % (Auto) 1.0 L Baso % (Auto) 0.2 Gran # 4.97 Lymph # (Auto) 2.3 Brewster # (Auto) 0.6 Eos # (Auto) 0.1 Baso # (Auto) 0.02 APTT D-Dimer, Quantitative Sodium 141 Potassium 4.3 Chloride 105 Carbon Dioxide 26 Anion Gap 15 BUN 15 Creatinine 1.5 Est GFR ( Amer) 56 Est GFR (Non-Af Amer) 46 Random Glucose 139 H Calcium 8.9 Phosphorus 3.1 Magnesium 1.9 Total Bilirubin 0.6 AST 17 D ALT 27 Alkaline Phosphatase 35 L Troponin I 0.15 H* Total Protein 6.5 Albumin 3.6 Globulin 2.9 Albumin/Globulin Ratio 1.3 Triglycerides Cholesterol LDL Cholesterol Direct HDL Cholesterol Stool Occult Blood Blood Type Blood Type Confirm Antibody Screen BBK History Checked 05/31/18 05/31/18 05/31/18 08:15 08:15 13:00 WBC RBC Hgb Hct MCV MCH MCHC RDW Plt Count MPV Gran % Lymph % (Auto) Brewster % (Auto) Eos % (Auto) Baso % (Auto) Gran # Lymph # (Auto) Brewster # (Auto) Eos # (Auto) Baso # (Auto) APTT 42.2 H D-Dimer, Quantitative 496 H Sodium Potassium Chloride Carbon Dioxide Anion Gap BUN Creatinine Est GFR ( Amer) Est GFR (Non-Af Amer) Random Glucose Calcium Phosphorus Magnesium Total Bilirubin AST ALT Alkaline Phosphatase Troponin I Total Protein Albumin Globulin Albumin/Globulin Ratio Triglycerides Cholesterol LDL Cholesterol Direct HDL Cholesterol Stool Occult Blood Negative Blood Type Blood Type Confirm O POSITIVE Antibody Screen BBK History Checked 05/31/18 05/31/18 16:55 16:55 WBC 7.5 RBC 3.65 Hgb 9.3 L Hct 28.9 L MCV 79.2 L MCH 25.5 MCHC 32.2 RDW 15.1 H Plt Count 224 MPV 10.0 Gran % 71.0 H Lymph % (Auto) 20.9 L Brewster % (Auto) 7.2 H Eos % (Auto) 0.8 L Baso % (Auto) 0.1 Gran # 5.30 Lymph # (Auto) 1.6 Brewster # (Auto) 0.5 Eos # (Auto) 0.1 Baso # (Auto) 0.01 APTT 30.3 D-Dimer, Quantitative Sodium Potassium Chloride Carbon Dioxide Anion Gap BUN Creatinine Est GFR ( Amer) Est GFR (Non-Af Amer) Random Glucose Calcium Phosphorus Magnesium Total Bilirubin AST ALT Alkaline Phosphatase Troponin I Total Protein Albumin Globulin Albumin/Globulin Ratio Triglycerides Cholesterol LDL Cholesterol Direct HDL Cholesterol Stool Occult Blood Blood Type Blood Type Confirm Antibody Screen BBK History Checked Attending/Attestation - Attestation I have personally seen and examined this patient.: Yes I have fully participated in the care of the patient.: Yes I have reviewed all pertinent clinical information: Yes Notes (Text): This is an addendum to GI consult report dictated by the Medical Assistant Cardiology.The patient was seen and examined earlier. Medical records, lab studies, imagings were reviewed. Last 24 hours events reviewed. Agreed with the above treatment plan as outlined in Medical Assistant Cardiology 's notes the with the addition of the following this patient with microcytic anemia, iron deficiency anemia aortic stenosis Admitted with a syncopal episode Blood per rectum on examination Physical examination has systolic murmur, abdomen soft no masses no tenderness Would recommend 1. CT abdomen and pelvi only po contrast in view of low GFR 2. Close follow-up of hb/hct 3. Empiric therapy with PPI Would benefit from eating endoscopy possibly colonoscopy after review of the CT and cardiac optimization and evaluation This patient never had EGD or colonoscopy 05/31/18 22:09 05/31/18 22:13
--- NOTE | 2018-05-31 14:51 | PCM.EEG ---
Electroencephalogram Report - Electroencephalogram Report Procedure Date: 05/31/18 Interpretation: Indication: Fall with confusion. Medications were reviewed. Technical: This is a digitally recorded electroencephalogram. The international 10-20 electrode placement system is used for scalp electrode placement. Eighteen channels of scalp EEG are recorded Another channel was used for for ECG. The data are stored digitally and reviewed in reformatted montages for optimal display. Background: 9 to 10 hertz alpha activity was seen. Maximal over the posterior head region. These activities are symmetric on both sides. They attenuated with eye opening. Small amount of beta activities are seen. Description: No focal slowing was seen. No seizure like activity was observed during this recording. Patient entered into periods of drowsiness and light sleep. No abnormality was seen. Impression: Normal EEG. No focal slowing no seizure like activity was observed. Correlation with clinical findings is needed.
--- NOTE | 2018-05-31 16:57 | CON ---
DATE: 05/31/2018 CARDIOLOGY CONSULT REASON FOR CONSULTATION: Recurrent syncope. HISTORY OF PRESENT ILLNESS: The patient is a 73-year-old Irish male, who has history of hypertension and diabetes mellitus. No known prior cardiac history. The patient presented because of a total of 4 consecutive syncopal episodes in a period of few weeks, the last one was yesterday when he collapsed while he was walking hitting the back of the head. According to the , the patient was unconscious for a few seconds. No reported seizure activity. The patient does not recall experiencing palpitation or dizziness prior to his collapse. Only thing that he noticed that he does not see in front of him. The patient denies retrosternal chest pain or shortness of breath. SOCIAL HISTORY: Nonsmoker. Nondrinker. , lives with his . Retired. MEDICATIONS: Cozaar 25 mg once a day, Feosol 324 mg t.i.d., Lipitor 40 mg once a day, Neurontin 300 mg twice a day, Protonix 40 mg p.o. once a day. REVIEW OF SYSTEMS: No melena. No fever or chills. The patient does not recall experiencing palpitation. No associated diaphoresis. PHYSICAL EXAMINATION: GENERAL: The patient is an elderly male who does not appear to be in any acute distress. VITAL SIGNS: Blood pressure 152/56, heart rate 76, temperature 98, respirations 20. HEENT: Bruising on the back of the head noted. NECK: No JVD. CHEST: Clear. HEART: S1 and S2 regular. Grade IV/ ejection systolic murmur over left sternal border with late peaking with an early diastolic murmur over the same area. LUNGS: Clear. ABDOMEN: Soft. EXTREMITIES: No edema. LABORATORY DATA: D-dimer is 496. PT, PTT are within normal limit. SMA-7: Sodium 141, potassium 4.3, chloride 105, CO2 of 26, glucose 139, BUN 15, creatinine 1.5, troponin 0.17 and 0.15. Hemoglobin and hematocrit 8.8 and 27.3. White count and platelet count are within normal limit. Chest CT angio with PE protocol negative for pulmonary embolism. EKG revealed sinus rhythm, first-degree AV block, ST-T wave abnormality, correlate clinically. I did review the echocardiography study, which revealed calcific aortic stenosis of moderate to severe degree. Normal ejection fraction and mild aortic and mild mitral insufficiency. ASSESSMENT: 1. Recurrent syncopal episode. 2. Aortic stenosis. 3. Borderline troponin elevation. Rule out [id number] myocardial infarction. 4. Hypertension, diabetes mellitus. RECOMMENDATIONS: Continue Cozaar 25 mg once a day, Lipitor 40 mg once a day. Start aspirin at 81 mg daily. Cardiac catheterization was recommended. The patient is at risk for and agreed for the procedure. The patient is scheduled for the procedure tomorrow around noontime. The case was discussed with referring physician, Dr. Wise and the patient will be kept n.p.o. after midnight except for meds. Metformin will be withheld. An intravenous heparin will be withheld upon arrival to the cardiac research laboratory technician. In the meantime, I will start Coreg at 3.125 mg twice a day. Jamin Vickers MD
[2018-05-31 17:02] LABS: BASO # 0.01 K/mm3 (0.0-2.0); BASO % 0.1 % (0.0-3.0); EOS # 0.1 (0.0-0.7); EOS % 0.8 % (1.5-5.0); GRAN # 5.3 (1.4-6.5); HEMOGLOBIN 9.3 g/dL (14.0-18.0); LYMPH # 1.6 (1.2-3.4); LYMPH % 20.9 % (22.0-35.0); MEAN CELL VOLUME 79.2 fl (80.0-105.0); MEAN CORPUSCULAR HEMOGLOBIN 25.5 pg (25.0-35.0); MEAN CORPUSCULAR HGB CONC 32.2 g/dl (31.0-37.0); MONO # 0.5 (0.1-0.6); MONO % 7.2 % (1.0-6.0); RBC 3.65 10^6/uL (3.5-6.1); RED CELL DISTRIBUTION WIDTH 15.1 % (11.5-14.5); WHITE BLOOD COUNT 7.5 10^3/ul (4.5-11.0)
--- NOTE | 2018-05-31 19:15 | CARD ---
APPROVED REPORT Date of service: 05/31/2018 EXAM: Two-dimensional and M-mode echocardiogram with Doppler and color Doppler. INDICATION Syncope 2D DIMENSIONS Left Atrium (2D)4.7 (1.6-4.0cm)IVSd1.6 (0.7-1.1cm) LVDd4.5 (3.9-5.9cm)LVOT Diameter1.8 (1.8-2.4cm) PWd1.4 (0.7-1.1cm)LVDs2.8 (2.5-4.0cm) FS (%) 37.1 %LVEF (%)67.2 (>50%) M-Mode DIMENSIONS Aortic Root3.20 (2.2-3.7cm)Aortic Cusp Exc.0.60 (1.5-2.0cm) Aortic Valve AoV Peak Mycppoqx866.0cm/sAoV VTI83.4cmAO Peak GR.61mmHg LVOT Peak Pgbefdel99.8cm/sLVOT VTI24.30cmAO Mean GR.33mmHg NEVIN (VMAX)0.09yz9LKN (VTI)0.01eb8KO P 1/2 [id number] Mitral Valve MV E Qbgdfuhx017.0cm/sMV A Fxdgkezp92.3cm/sE/A ratio1.1 TDI Lateral E' Peak V9.65cm/sMedial E' Peak V6.24cm/sE/Lateral E'10.9 E/Medial E'16.8 Pulmonary Valve PV Peak Pgynrpvx73.9cm/sPV Peak Grad.3mmHg Tricuspid Valve TR Peak Qognftgd670id/sRAP TAIYIOCE61zeFhOJ Peak Gr.24mmHg [id number] LEFT VENTRICLE The left ventricle is normal size. There is moderate concentric left ventricular hypertrophy. The left ventricular function is normal.EF-60-65% There is normal LV segmental wall motion. The left ventricular diastolic function is normal. No left ventricle thrombus noted on this study. There is no ventricular septal defect visualized. There is no left ventricular aneurysm. There is no mass noted in the left ventricle. RIGHT VENTRICLE The right ventricle is normal size. There is normal right ventricular wall thickness. The right ventricular systolic function is normal. ATRIA The left atrium is mildly dilated. The right atrium size is normal. The interatrial septum is intact with no evidence for an atrial septal defect. AORTIC VALVE The aortic valve is calcified and displays decreased opening. There is mild aortic regurgitation. There is moderate to severe valvular aortic stenosis. There is no aortic valvular vegetation. MITRAL VALVE The mitral valve is thickened but opens well. Mitral regurgitation is mild. There is no mitral valve stenosis. There is no evidence of mitral valve prolapse. TRICUSPID VALVE The tricuspid valve leaflets are thickened , but open well. There is trace to mild tricuspid regurgitation.RVSP-34 mmof Hg. There is no tricuspid valve stenosis. There is no tricuspid valve prolapse or vegetation. PULMONIC VALVE The pulmonic valve is borderline thickened. There is no pulmonic valvular regurgitation. There is no pulmonic valvular stenosis. GREAT VESSELS The aortic root is normal in size. The ascending aorta is normal in size. The pulmonary artery is normal. The IVC is normal in size and collapses >50% with inspiration. PERICARDIAL EFFUSION There is no pleural effusion. There is no pericardial effusion. <Conclusion> The left ventricle is normal size. There is moderate concentric left ventricular hypertrophy. The left ventricular function is normal.EF-60-65% There is mild aortic regurgitation. There is moderate to severe valvular aortic stenosis. Mitral regurgitation is mild. There is trace to mild tricuspid regurgitation.RVSP-34 mmof Hg. The IVC is normal in size and collapses >50% with inspiration. There is no pericardial effusion.
[2018-05-31] MEDS ORDERED: Iohexol 240 (50 ml) ONE (19:27)
--- NOTE | 2018-05-31 20:19 | US ---
PROCEDURE: Bilateral carotid artery duplex ultrasound HISTORY: Carotid stenosis syncope PHYSICIAN(S): Alli Blackmon MD. TECHNIQUE: Duplex sonography and color-flow Doppler were used to evaluate the carotid bifurcations and limited segments of the vertebral arteries bilaterally. FINDINGS: There is mild to moderate smooth heterogeneous plaque noted at the carotid bifurcations bilaterally. The peak systolic velocity in the proximal right internal carotid artery is 178 cm/sec. This corresponds to a 60-79 percent proximal right ICA stenosis. Mildly elevated systolic velocities are noted in the proximal right external carotid artery. There is antegrade flow in the right vertebral artery. The peak systolic velocity in the proximal left internal carotid artery is 94 cm/sec. This corresponds to a 20 to 39% proximal left ICA stenosis. Normal systolic velocities are noted in the proximal left external carotid artery. There is antegrade flow in the left vertebral artery. IMPRESSION: 1. 60-79 percent proximal right ICA stenosis 2. 20-39 percent proximal left ICA stenosis 3. Antegrade flow in both vertebral arteries. .
[2018-06-01 07:01] LABS: BASO # 0.03 K/mm3 (0.0-2.0); BASO % 0.4 % (0.0-3.0); EOS # 0.1 (0.0-0.7); EOS % 1.9 % (1.5-5.0); GRAN # 3.84 (1.4-6.5); GRAN % 52.1 % (50.0-68.0); HEMOGLOBIN 8.7 g/dL (14.0-18.0); LYMPH # 2.6 (1.2-3.4); LYMPH % 35.6 % (22.0-35.0); MEAN CELL VOLUME 78.8 fl (80.0-105.0); MEAN CORPUSCULAR HEMOGLOBIN 25.6 pg (25.0-35.0); MEAN CORPUSCULAR HGB CONC 32.5 g/dl (31.0-37.0); MEAN PLATELET VOLUME 10.7 fl (7.0-11.0); MONO # 0.7 (0.1-0.6); RBC 3.4 10^6/uL (3.5-6.1); RED CELL DISTRIBUTION WIDTH 15.1 % (11.5-14.5); WHITE BLOOD COUNT 7.4 10^3/ul (4.5-11.0)
[2018-06-01 07:14] LABS: ALB/GLOB RATIO 1.1 (1.1-1.8); ALBUMIN 3.9 g/dL (3.0-4.8); CALCIUM 9.4 mg/dL (8.4-10.5)
[2018-06-01] MEDS: Pantoprazole 40 mg EC Tab PO SCH (08:16)
[2018-06-01] MEDS: Insulin Reg-LOW-Coverage SC SCH ×4 (08:24→22:10)
--- NOTE | 2018-06-01 08:30 | CP.PCM.PN ---
<Tammy,Kovil V - Last Filed: 06/01/18 23:32> Objective - Vital Signs/Intake and Output Vital Signs (last 24 hours): Temp Pulse Resp BP Pulse Ox 97.8 F 56 L 18 113/58 L 95 06/01/18 20:00 06/01/18 20:40 06/01/18 20:40 06/01/18 20:00 06/01/18 20:40 Intake and Output: 06/01/18 06/02/18 18:59 06:59 Intake Total 640 Output Total 0 Balance 640 - Medications Medications: Current Medications Atorvastatin Calcium (Lipitor) 40 mg PO DIN [facility] Last Admin: 06/01/18 16:22 Dose: 40 mg Carvedilol (Coreg) 3.125 mg PO BID [facility] Last Admin: 06/01/18 17:25 Dose: 3.125 mg Ferrous Sulfate (Feosol) 324 mg PO TID [facility] Last Admin: 06/01/18 14:10 Dose: Not Given Gabapentin (Neurontin) 300 mg PO BID [facility] PRN Reason: Protocol Last Admin: 06/01/18 16:25 Dose: 300 mg Hydralazine HCl (Apresoline) 50 mg PO BID [facility] Last Admin: 06/01/18 17:24 Dose: 50 mg Hydralazine HCl (Apresoline) 10 mg PO QID PRN PRN Reason: For SBP>160 Sodium Chloride (Sodium Chloride 0.9%) 1,000 mls @ 50 mls/hr IV .Q20H [facility] Stop: 06/02/18 07:00 Last Admin: 06/01/18 16:21 Dose: 50 mls/hr Ibuprofen (Motrin Tab) 400 mg PO Q6H PRN PRN Reason: Pain, Mild (1-3) Last Admin: 06/01/18 17:43 Dose: 400 mg Insulin Human Regular (Humulin R Low) 0 units SC ACHS [facility] PRN Reason: Protocol Last Admin: 06/01/18 22:10 Dose: Not Given Isosorbide Mononitrate (Imdur Er) 60 mg PO DAILY [facility] Losartan Potassium (Cozaar) 25 mg PO DAILY [facility] Last Admin: 06/01/18 13:55 Dose: Not Given Pantoprazole Sodium (Protonix Ec Tab) 40 mg PO ACB [facility] Last Admin: 06/01/18 08:16 Dose: 40 mg - Labs Labs: 06/01/18 17:05 06/01/18 06:00 PT 11.6 SECONDS (9.4-12.5) 05/30/18 22:12 INR 1.02 (0.93-1.08) 05/30/18 22:12 APTT 30.3 Seconds (25.1-36.5) 05/31/18 16:55 Attending/Attestation - Attestation I have personally seen and examined this patient.: Yes I have fully participated in the care of the patient.: Yes I have reviewed all pertinent clinical information, including history, physical exam and plan: Yes Notes (Text): This is an addendum to GI progress report dictated by the Baker Pie.The patient was seen and examined earlier. Medical records, lab studies, imagings were reviewed. Last 24 hours events reviewed. Agreed with the above treatment plan as outlined in Baker Pie 's notes the with the addition of the following 06/01/18 23:33 <Edmond Joseph - Last Filed: 06/02/18 11:27> Subjective - Date & Time of Evaluation Date of Evaluation: 06/01/18 Time of Evaluation: 08:30 - Subjective Subjective: GI Progress Note for Dr. Tammy Joseph, PGY-3 IM Patient seen and examined at bedside. No acute complaints. No acute events reported overnight. After discussion with Primary Team, GI attending, and Cardio, pt will go for diagnostic cardiac cath today, further decisions regarding possible GI procedures to be made base on discoveries from cath. Objective - Vital Signs/Intake and Output Vital Signs (last 24 hours): Temp Pulse Resp BP Pulse Ox 99.0 F 64 20 144/63 97 06/01/18 06:00 06/01/18 08:18 06/01/18 06:00 06/01/18 08:18 06/01/18 06:00 Intake and Output: 06/01/18 06/01/18 06:59 18:59 Intake Total 120 Balance 120 - Medications Medications: Current Medications Atorvastatin Calcium (Lipitor) 40 mg PO DIN [facility] Last Admin: 05/31/18 17:26 Dose: 40 mg Carvedilol (Coreg) 3.125 mg PO BID [facility] Last Admin: 06/01/18 08:18 Dose: 3.125 mg Ferrous Sulfate (Feosol) 324 mg PO TID [facility] Last Admin: 05/31/18 17:26 Dose: 324 mg Gabapentin (Neurontin) 300 mg PO BID [facility] PRN Reason: Protocol Last Admin: 05/31/18 17:26 Dose: 300 mg Insulin Human Regular (Humulin R Low) 0 units SC ACHS [facility] PRN Reason: Protocol Last Admin: 06/01/18 08:24 Dose: Not Given Losartan Potassium (Cozaar) 25 mg PO DAILY [facility] Last Admin: 06/01/18 08:16 Dose: 25 mg Pantoprazole Sodium (Protonix Ec Tab) 40 mg PO ACB [facility] Last Admin: 06/01/18 08:16 Dose: 40 mg - Labs Labs: 06/01/18 06:00 06/01/18 06:00 PT 11.6 SECONDS (9.4-12.5) 05/30/18 22:12 INR 1.02 (0.93-1.08) 05/30/18 22:12 APTT 30.3 Seconds (25.1-36.5) 05/31/18 16:55 - Additional Findings Additional findings: - Constitutional Appears: Non-toxic, No Acute Distress - Head Exam Head Exam: ATRAUMATIC, NORMAL INSPECTION, NORMOCEPHALIC - Eye Exam Eye Exam: EOMI, Normal appearance. absent: Conjunctival injection, Scleral icterus Pupil Exam: absent: Fixed, Irregular - ENT Exam ENT Exam: Mucous Membranes Moist - Neck Exam Neck exam: Positive for: Normal Inspection - Respiratory Exam Respiratory Exam: Clear to Auscultation Bilateral, NORMAL BREATHING PATTERN. absent: Accessory Muscle Use, Chest Wall Tenderness, Decreased Breath Sounds, Rales, Rhonchi, Wheezes - Cardiovascular Exam Cardiovascular Exam: REGULAR RHYTHM, RRR, +S1, +S2, Systolic Murmur ( holosystolic murmur most prominent at R 2nd intercostal space but also very prominent at L 2nd intercostal space, not palpable with hand on chest). absent : Bradycardia, Tachycardia, Irregular Rhythm, JVD, +S4 - GI/Abdominal Exam GI & Abdominal Exam: Normal Bowel Sounds, Soft. absent: Diminished Bowel Sounds , Distended, Firm, Hyperactive Bowel Sounds, Hypoactive Bowel Sounds, Rigid, Tenderness - Extremities Exam Extremities exam: Negative for: calf tenderness, joint swelling, pedal edema healing abrasion along L anterior knee - Neurological Exam awake and alert, following all commands appropriately, moving all extremities spontaneously and on command, answering questions appropriately - Psychiatric Exam Psychiatric exam: Normal Affect, Normal Mood - Skin Skin Exam: Dry, Intact (except as documented on extremities exam), Normal Color , Warm Assessment and Plan - Assessment and Plan (Free Text) Assessment: This is a 73 yo Azerbaij[place] M with PMH of HTN, HLD, DM, and reported hx of medication non-compliance (as per family report to primary team) who presented to [facility] s/p reported syncopal episode at home with fall. GI was consulted due to anemia (Hgb 8.8, baseline reported by family to be 11) and reported bright red blood per rectum on exam by primary team. Plan: DM HTN HLD Reported medication non-compliance Elevated trops, NSTEMI? Ddx: acute GI bleeding 2/2 heparin drip started for elevated trops vs occult GI malignancy -Ideally, this patient needs an EGD and Colonoscopy, but in setting of acute cardiac condition, need Cardiac assessment and clearance -To undergo diagnostic cath only, as per cardio, before determining further course from both Cardiac and GI standpoint -Heart murmur consistent with Aortic Stenosis, would advise cautious BP management as too-depressed BP will decrease preload, which is needed to enable sufficient cardiac output in setting of aortic stenosis; Echo obtained, read notable for mod-severe -severe aortic stenosis present, needs cardiac assessment and clearance prior to any procedure involving anesthesia -CT abd/pelvis with PO contrast notable for small solid pulmonary nodules, no acute intra-abdominal findings, no reported masses -Monitor H&H daily; microcytic RBCs with wide RDW suggestive of iron deficiency anemia, iron studies also supportive of iron deficiency Seen, reviewed, and discussed with attending, Dr. Munoz
--- NOTE | 2018-06-01 10:29 | CT ---
Date of service: 05/31/2018 PROCEDURE: CT Abdomen and Pelvis with contrast HISTORY: syncope/anemia, GI bleed? assess for colon mass COMPARISON: None. TECHNIQUE: Oral contrast only. Radiation dose: Total exam DLP = 496.48 mGy-cm. This CT exam was performed using one or more of the following dose reduction techniques: Automated exposure control, adjustment of the mA and/or kV according to patient size, and/or use of iterative reconstruction technique. FINDINGS: LOWER THORAX: 8 mm pulmonary nodule lateral segment right middle lobe. Additional smaller pulmonary nodules identified both lower lobes non larger than 5 mm. Trace bilateral pleural effusions. LIVER: Unremarkable. No gross lesion or ductal dilatation. GALLBLADDER AND BILE DUCTS: Unremarkable. PANCREAS: Unremarkable. No gross lesion or ductal dilatation. SPLEEN: Unremarkable. ADRENALS: Unremarkable. No mass. KIDNEYS AND URETERS: Unremarkable. No hydronephrosis. No solid mass. VASCULATURE: Unremarkable. No aortic aneurysm. BOWEL: Diverticulosis without an acute inflammatory component or other associated pathologic process. APPENDIX: No abnormalities to suggest acute appendicitis. No right lower quadrant inflammatory processes identified. PERITONEUM: Unremarkable. No free fluid. No free air. LYMPH NODES: Unremarkable. No enlarged lymph nodes. BLADDER: Contrast in the urinary bladder related to recent contrast injection for CT pulmonary angiogram. REPRODUCTIVE: Unremarkable. BONES: No acute fracture. OTHER FINDINGS: None. IMPRESSION: 1. CT abdomen and pelvis: No acute findings related to/accounting for the clinical presentation. 2. There are multiple, solid, pulmonary nodules that are 6-8 mm in size. According to the 2017 Fleischner criteria, if the patient is low risk, CT at 3-6 months is recommended, then consider CT at 18-24 months. If the patient is high risk, CT at 3-6 months is recommended, then at 18-24 months Concordant results (preliminary interpretation) provided by [employer]. Procedure Completed: 21:37 Preliminary ([employer]) Report: Dictated and Authenticated: 22:07 Final Interpretation: 10:23 June 01, 2018.
--- NOTE | 2018-06-01 10:53 | CP.PCM.CON ---
History of Present Illness - History of Present Illness History of Present Illness: Myriam Sanders PGY-1, Private Duty Lpn, Neurology Consult Note No acute events overnight. Patient states he is feeling fine. Denies any falls since last reported episode, changes in vision or hearing, loss of consciousness , numbness or weakness. States he was evaluated by PT/OT and was able to ambulate with no difficulty. Past Patient History - Past Social History Smoking Status: Former Smoker Alcohol: None Drugs: Denies Home Situation {Lives}: With Family - CARDIAC Hx Cardiac Disorders: Yes Hx Hypertension: Yes - PULMONARY Hx Respiratory Disorders: No - NEUROLOGICAL Hx Neurological Disorder: No - HEENT Hx HEENT Problems: No - RENAL Hx Chronic Kidney Disease: No - ENDOCRINE/METABOLIC Hx Endocrine Disorders: Yes Hx Diabetes Mellitus Type 2: Yes (diabetic neuropathy) - HEMATOLOGICAL/ONCOLOGICAL Hx Blood Disorders: No - INTEGUMENTARY Hx Dermatological Problems: No - MUSCULOSKELETAL/RHEUMATOLOGICAL Hx Musculoskeletal Disorders: Yes Hx Falls: Yes Hx Unsteady Gait: Yes - GASTROINTESTINAL Hx Gastrointestinal Disorders: No - GENITOURINARY/GYNECOLOGICAL Hx Genitourinary Disorders: No - PSYCHIATRIC Hx Psychophysiologic Disorder: No Hx Substance Use: No - SURGICAL HISTORY Hx Surgeries: No - ANESTHESIA Hx Anesthesia: No Meds Allergies/Adverse Reactions: Allergies Allergy/AdvReac Type Severity Reaction Status Date / Time No Known Allergies Allergy Verified 05/30/18 20:11 - Medications Medications: Current Medications Atorvastatin Calcium (Lipitor) 40 mg PO DIN [facility] Last Admin: 05/31/18 17:26 Dose: 40 mg Carvedilol (Coreg) 3.125 mg PO BID [facility] Last Admin: 06/01/18 08:18 Dose: 3.125 mg Ferrous Sulfate (Feosol) 324 mg PO TID [facility] Last Admin: 05/31/18 17:26 Dose: 324 mg Gabapentin (Neurontin) 300 mg PO BID [facility] PRN Reason: Protocol Last Admin: 05/31/18 17:26 Dose: 300 mg Insulin Human Regular (Humulin R Low) 0 units SC ACHS [facility] PRN Reason: Protocol Last Admin: 06/01/18 08:24 Dose: Not Given Losartan Potassium (Cozaar) 25 mg PO DAILY [facility] Last Admin: 06/01/18 08:16 Dose: 25 mg Pantoprazole Sodium (Protonix Ec Tab) 40 mg PO ACB [facility] Last Admin: 07/19/18 08:16 Dose: 40 mg Physical Exam - Additional Findings Additional findings: - Constitutional Appears: Non-toxic, No Acute Distress - Head Exam Head Exam: NORMAL INSPECTION, NORMOCEPHALIC - Eye Exam Eye Exam: EOMI, Normal appearance, PERRL Pupil Exam: NORMAL ACCOMODATION - ENT Exam ENT Exam: Mucous Membranes Moist, Normal Exam - Neck Exam Neck exam: Positive for: Normal Inspection - Respiratory Exam Respiratory Exam: Clear to Auscultation Bilateral, NORMAL BREATHING PATTERN. absent: Rales, Rhonchi, Wheezes, Respiratory Distress - Cardiovascular Exam Cardiovascular Exam: RRR, +S1, +S2 - GI/Abdominal Exam GI & Abdominal Exam: Normal Bowel Sounds, Soft. absent: Distended, Firm, Tenderness - Extremities Exam Extremities exam: Positive for: full ROM, normal inspection - Back Exam Back exam: NORMAL INSPECTION - Neurological Exam Neurological exam: Alert, CN II-XII Intact, Normal Gait, Oriented x3 Additional comments: Muscle strength +5/5. Mild dysmetria bilaterally. Nystagmus with rightward graze. Negative Romberg. - Skin Skin Exam: Dry, Intact, Normal Color, Warm Results - Vital Signs Recent Vital Signs: Last Vital Signs Temp 99.0 F 06/01/18 06:00 Pulse 64 06/01/18 08:18 Resp 20 06/01/18 06:00 BP 144/63 06/01/18 08:18 Pulse Ox 97 06/01/18 06:00 - Labs Result Diagrams: 06/01/18 06:00 06/01/18 06:00 Labs: Laboratory Results - last 24 hr 05/31/18 05/31/18 06/01/18 16:55 16:55 06:00 WBC 7.5 7.4 RBC 3.65 3.40 L Hgb 9.3 L 8.7 L Hct 28.9 L 26.8 L MCV 79.2 L 78.8 L MCH 25.5 25.6 MCHC 32.2 32.5 RDW 15.1 H 15.1 H Plt Count 224 224 MPV 10.0 10.7 Gran % 71.0 H 52.1 Lymph % (Auto) 20.9 L 35.6 H Cassia % (Auto) 7.2 H 10.0 H Eos % (Auto) 0.8 L 1.9 Baso % (Auto) 0.1 0.4 Gran # 5.30 3.84 Lymph # (Auto) 1.6 2.6 Cassia # (Auto) 0.5 0.7 H Eos # (Auto) 0.1 0.1 Baso # (Auto) 0.01 0.03 APTT 30.3 Sodium Potassium Chloride Carbon Dioxide Anion Gap BUN Creatinine Est GFR ( Amer) Est GFR (Non-Af Amer) Random Glucose Calcium Total Bilirubin AST ALT Alkaline Phosphatase Total Protein Albumin Globulin Albumin/Globulin Ratio 06/01/18 06:00 WBC RBC Hgb Hct MCV MCH MCHC RDW Plt Count MPV Gran % Lymph % (Auto) Cassia % (Auto) Eos % (Auto) Baso % (Auto) Gran # Lymph # (Auto) Cassia # (Auto) Eos # (Auto) Baso # (Auto) APTT Sodium 138 Potassium 4.5 Chloride 102 Carbon Dioxide 26 Anion Gap 15 BUN 17 Creatinine 1.6 H Est GFR ( Amer) 52 Est GFR (Non-Af Amer) 43 Random Glucose 173 H Calcium 9.4 Total Bilirubin 0.5 AST 21 ALT 22 Alkaline Phosphatase 38 Total Protein 7.3 Albumin 3.9 Globulin 3.4 Albumin/Globulin Ratio 1.1 Assessment & Plan - Assessment and Plan (Free Text) Assessment: Patient is a 73 year old male with past medical history of HTN, hyperlipidemia, type 2 diabetes with neuropathy admitted for workup and management of pre- syncope and found to have microcytic anemia, elevated troponins, negative CT head, negative EEG. Plan: Pre-syncope vs. syncopal episode - Likely neurocardiogenic in nature - Head CT w/o contrast shows no intracranial hemorrhage, mass effect, edema. No atrophy or chronic microvascular ischemic changes. - EKG shows 1st degree av block, ST depressions in lateral leads. No previous EKGs to refer to. - Followup orthostatic vital signs - Carotid & vertebral duplex US shows 60-79% proximal right ICA stenosis, 20-39 % proximal left ICA stenosis, antegrade flow in both vertebral arteries - MRI brain w/o contrast and MRA head w/o contrast unable to taken due to patient's claustrophobia - EEG read normal - Neurochecks - Cardiology consulted - PT/OT consulted - Recommend loop recorder and patient followup with neurology after discharge - Further recommendations per Dr. Vizcarra. Case discussed and plan approved by attending physician Dr. Zackery Sanders PGY-1
[2018-06-01] MEDS ORDERED: Lidocaine 2 GM/50 ML Vial (4%) IV ONE (12:35)
[2018-06-01] MEDS ORDERED: Nitroglycerin 50mg in D5W 0 MG/0 ML BOTTLE IV ONE (12:36)
[2018-06-01] MEDS ORDERED: Iodixanol 320 MG/ML 200 ML BOTTLE IV ONE (12:36)
--- NOTE | 2018-06-01 12:46 | CP.PCM.PN ---
<Blayne Hernandez - Last Filed: 06/01/18 21:16> Subjective - Date & Time of Evaluation Date of Evaluation: 06/01/18 Time of Evaluation: 07:30 - Subjective Subjective: Blayne Hernandez DO PGY-1, Train Braker Medicine Progress Note Pt seen at bedside, states he had a bowel movement yesterday and did not notice any blood in his stool. Denies chest pain, dyspnea, abd pain, n/v, dizziness, headache, or problems with ambulation. Pt to have diagnostic catheterization. No acute concerns at this time. No acute events reported overnight. Objective - Vital Signs/Intake and Output Vital Signs (last 24 hours): Temp Pulse Resp BP Pulse Ox 97.8 F 61 16 155/69 H 97 06/01/18 12:00 06/01/18 12:00 06/01/18 12:00 06/01/18 12:00 06/01/18 06:00 Intake and Output: 06/01/18 06/01/18 06:59 18:59 Intake Total 120 Balance 120 - Medications Medications: Current Medications Atorvastatin Calcium (Lipitor) 40 mg PO DIN [facility] Last Admin: 05/31/18 17:26 Dose: 40 mg Carvedilol (Coreg) 3.125 mg PO BID [facility] Last Admin: 06/01/18 08:18 Dose: 3.125 mg Ferrous Sulfate (Feosol) 324 mg PO TID [facility] Last Admin: 05/31/18 17:26 Dose: 324 mg Gabapentin (Neurontin) 300 mg PO BID [facility] PRN Reason: Protocol Last Admin: 05/31/18 17:26 Dose: 300 mg Insulin Human Regular (Humulin R Low) 0 units SC ACHS [facility] PRN Reason: Protocol Last Admin: 06/01/18 08:24 Dose: Not Given Losartan Potassium (Cozaar) 25 mg PO DAILY [facility] Last Admin: 06/01/18 08:16 Dose: 25 mg Pantoprazole Sodium (Protonix Ec Tab) 40 mg PO ACB [facility] Last Admin: 06/01/18 08:16 Dose: 40 mg - Labs Labs: 06/01/18 06:00 06/01/18 06:00 PT 11.6 SECONDS (9.4-12.5) 05/30/18 22:12 INR 1.02 (0.93-1.08) 05/30/18 22:12 APTT 30.3 Seconds (25.1-36.5) 05/31/18 16:55 - Constitutional Appears: Non-toxic, No Acute Distress - Head Exam Head Exam: ATRAUMATIC, NORMAL INSPECTION, NORMOCEPHALIC - Eye Exam Eye Exam: EOMI, Normal appearance, PERRL - ENT Exam ENT Exam: Mucous Membranes Moist, Normal Oropharynx - Neck Exam Neck Exam: Full ROM, Normal Inspection - Respiratory Exam Respiratory Exam: Clear to Ausculation Bilateral, NORMAL BREATHING PATTERN - Cardiovascular Exam Cardiovascular Exam: REGULAR RHYTHM, +S1, +S2 Additional comments: Holosystolic murmur auscultated - GI/Abdominal Exam GI & Abdominal Exam: Soft, Normal Bowel Sounds - Extremities Exam Extremities Exam: Full ROM, Normal Capillary Refill, Normal Inspection - Back Exam Back Exam: Full ROM, NORMAL INSPECTION - Neurological Exam Neurological Exam: Alert, Awake, CN II-XII Intact, Oriented x3 - Psychiatric Exam Psychiatric exam: Normal Affect, Normal Mood - Skin Skin Exam: Dry, Intact, Normal Color, Warm Assessment and Plan - Assessment and Plan (Free Text) Assessment: 73 y o male PMhx HTN, HLD, type 2 DM with neuropathy, who presented to the ED with a chief complaint of falls 2/2 weakness, admitted for syncope work-up. Was found on admission to have new-onset anemia. Pt also found to have elevated troponins on admission. GI, Cardiology, Neurology, and Vascular Surgery consulted. Plan: ACS Workup w/ Troponin Elevation Troponins x3: 0.11, 0.17, 0.15 Pt has remained asymptomatic throughout ED and Admission EKG on admission w/ non specific ST/ T wave abnormalities Pt. given x1 dose [id number] in ED Visible red blood on rectal exam, heparin d/c'd yesterday due to possible GI bleed A1C 9.3, improved from prior level in Dr. Siddiqui's clinic Lipid panel Cardiology and GI consulted, recs appreciated Pt to have diagnostic catheterization today for possible NSTEMI, f/u results Syncopal Episodes Neurogenic vs cardiogenic vs seizure EKG on adm non spec ST/T wave changes; CT head/spine negative for acute changes Carotid U/s demonstrated 60-79% stenosis in R ICA Vascular surgery consulted, recs appreciated Echo demonstrated EF 60-65%, mild aortic regurgitation, moderate to severe aortic stenosis Orthostatic blood pressures wnl EEG showed no evidence of seizure activity Neuro consulted, recs appreciated Per PT: home without PT services at discharge Microcytic Anemia, possible iron deficiency anemia from blood loss H/H on admission 8.8/27.3 decreased from baseline of 11.0/34 as per chart in Dr. Siddiqui's clinic in March 2018 pt asx/ hemodynamically stable Cont to trend H/H Occult Stool pos Pt scheduled for EGD tomorrow as per GI C/w ferrous sulfate 324 mg PO TID Hx HTN C/w carevdilol 3.125 mg PO BID, Losartan 25 mg PO daily heart healthy diet/ low salt Hx HLD C/w atorvastatin Hx DM A1C 9.3 hold metformin ISS regular accucheck Q6H GI/DVT PPX: Protonix/ Heparin d/c'd due to possible GI bleed Pt seen, examined with, and plan d/w Dr. Wise, attending Blayne Hernandez DO PGY-1, Train Braker Pager #[phone] <Paul Wise - Last Filed: 06/02/18 07:59> Objective - Vital Signs/Intake and Output Vital Signs (last 24 hours): Temp Pulse Resp BP Pulse Ox 97.5 F L 50 L 18 113/58 L 95 06/02/18 04:00 06/02/18 04:00 06/01/18 20:40 06/01/18 20:00 06/01/18 20:40 Intake and Output: 06/02/18 06/02/18 06:59 18:59 Intake Total 1050 Output Total 800 Balance 250 - Medications Medications: Current Medications Atorvastatin Calcium (Lipitor) 40 mg PO DIN [facility] Last Admin: 06/01/18 16:22 Dose: 40 mg Carvedilol (Coreg) 3.125 mg PO BID [facility] Last Admin: 06/01/18 17:25 Dose: 3.125 mg Ferrous Sulfate (Feosol) 324 mg PO TID [facility] Last Admin: 06/01/18 14:10 Dose: Not Given Gabapentin (Neurontin) 300 mg PO BID [facility] PRN Reason: Protocol Last Admin: 06/01/18 16:25 Dose: 300 mg Hydralazine HCl (Apresoline) 50 mg PO BID [facility] Last Admin: 06/01/18 17:24 Dose: 50 mg Hydralazine HCl (Apresoline) 10 mg PO QID PRN PRN Reason: For SBP>160 Ibuprofen (Motrin Tab) 400 mg PO Q6H PRN PRN Reason: Pain, Mild (1-3) Last Admin: 06/01/18 17:43 Dose: 400 mg Insulin Human Regular (Humulin R Low) 0 units SC ACHS [facility] PRN Reason: Protocol Last Admin: 06/01/18 22:10 Dose: Not Given Isosorbide Mononitrate (Imdur Er) 60 mg PO DAILY [facility] Losartan Potassium (Cozaar) 25 mg PO DAILY [facility] Last Admin: 06/01/18 13:55 Dose: Not Given Pantoprazole Sodium (Protonix Ec Tab) 40 mg PO ACB [facility] Last Admin: 06/01/18 08:16 Dose: 40 mg - Labs Labs: 06/02/18 05:50 06/02/18 05:50 PT 11.6 SECONDS (9.4-12.5) 05/30/18 22:12 INR 1.02 (0.93-1.08) 05/30/18 22:12 APTT 30.3 Seconds (25.1-36.5) 05/31/18 16:55 Attending/Attestation - Attestation I have personally seen and examined this patient.: Yes I have fully participated in the care of the patient.: Yes I have reviewed all pertinent clinical information, including history, physical exam and plan: Yes Notes (Text): 06/01/18 73 year old male with past medical history of hypertension and diabetes who presented with complaint of falls and syncope. On admitted he was found to have elevated cardiac enzymes; possible NSTEMI and started on aspirin, statin, coreg and heparin drip. However he was also found to have new onset anemia, microcytic, rule out GIB. Aspirin and heparin drip were held. GI and cardiology are following. Plan is for diagnostic cardiac cath today. Patient may also need EGD/colonoscopy to follow. Echocardiogram also showed moderate to severe aortic stenosis. Neurology is following for syncope. Carotid doppler showed 60-79% LYSSA stenosis. Vascular surgery evaluation was requested. Creatinine slightly elevated today; losartan is held and patient is started on iv fluids. Monitor creatinine post cath and CT contrast study. Plan of care was discussed at length with daughter at bedside. Paul Wise MD Hospitalist.
[2018-06-01] MEDS ORDERED: Iodixanol 320 MG/ML 100 ML BOTTLE IV ONE (12:50)
[2018-06-01] MEDS ORDERED: Midazolam 2 MG/2 ML VIAL ONE (13:06)
--- NOTE | 2018-06-01 14:07 | CARDCATH ---
PROCEDURE DATE: 06/01/2018 LEFT HEART CATHETERIZATION The patient is a 73-year-old [place] male, who was admitted because of recurrent syncopal episode and has borderline troponin elevation and has GI bleeding. Cardiac catheterization was recommended. The procedure and its risks fully explained to the patient who understood and agreed for the procedure. PROCEDURE: After local infiltration with 1% lidocaine, a 6-Omani sheath was placed in the right femoral artery. Left and right coronary angiography were performed with 6-Omani and 5-Omani JL4 diagnostic catheter and 6-Omani JR4 diagnostic catheter. Left ventriculogram was performed with a 6-Omani AR2 diagnostic catheter. Aortogram was performed with 6-Omani pigtail catheter. The patient tolerated the procedure well without any complications. HEMODYNAMICS: There was a 40-mm [id number] gradient across the aortic valve. ANGIOGRAPHIC FINDINGS: Selective injection of left coronary artery revealed a 50% proximal left main disease. The 6-Omani catheter completely damped the pressure and instead the 5-Omani diagnostic catheter was used with significant but not complete damping at the site of the left main stenosis. Left main bifurcated into a medium-sized LAD and medium-sized circumflex artery. LAD circulation was angiographically unremarkable. Circumflex artery has critical stenosis in its middle portion, which is most likely the culprit lesion for the patient's elevated troponin. Selective injection of right coronary artery revealed a medium-sized dominant vessel that has mid segment 70% as well as distal segment 70% stenosis. A left ventriculogram performed in the MEJIAS projection revealed normal wall motion. Overall ejection fraction estimated at 55%. Aortography performed in the AO projection revealed calcific aortic root. There was mild aortic insufficiency. CONCLUSION: A 50% proximal left main disease with critical mid circumflex artery about 90% and a 70% mid and distal right coronary artery lesions with severe aortic stenosis with [id number] gradient of 40 mmHg and mild aortic insufficiency. RECOMMENDATIONS: The patient can be observed in the ICU for now. If the patient remained stable for tomorrow, upper endoscopy can be performed. However, colonoscopy may involve a significant cardiac risk and can be postponed at the next week. Further decisions about cardiac surgery will be discussed with the family as well as Dr. Bearden, whom the patient's family requested. Jamin Vickers MD [facility] # [id number] XAVIER
--- NOTE | 2018-06-01 15:00 | CP.PCM.CON ---
History of Present Illness - History of Present Illness History of Present Illness: Vascular Surgery consult note for Dr. Remy Consulted for: carotid artery stenosis Pt is a 73M with PMH of HTN, HLD, and DM who is of high functioning status who lives at home with who was brought to ER after falling from standing outside his home. Patient denies tripping, hitting his head, but sustained an abrasion to his left knee. Neighbor, who is a nurse, came to his assistance and stated that he was confused and had dysarthria for the next 10 minutes, though patient denies any confusion. Per daughter, patient had fallen 3 times prior that day and has been falling after getting light headed with increasing frequency the past month. She also noted a change in his gait. Patient denies any headache, vision changes, palpitations, chest pain, SOB, numbness or tingling, focal weakness, or any other symptoms. Patient's head CT was negative for stroke, Carotid ultrasound showed 60-79% stenosis of the R ICA, 20-39% stenosis of the L ICA, and patent antegrade vertebral arter flow. Of note EKG showed ST wave abnormalities, ECHO showed aortic stenosis, patient was found to be anemic with elevated troponins and is going for diagnostic cardiac catheterization. Per daughter, patient's mother had history of cardiac disease but no family history of strokes PMH: HTN, DM, HLD PSH: denies ALL: none Social: used to smoke 1PPD, quit 32 years ago. Denies ETOH or illicit substances Review of Systems - Review of Systems All systems: reviewed and no additional remarkable complaints except (as per HPI ) Past Patient History - Past Medical History & Family History Past Medical History?: Yes Pertinent Family History: Mother with cardiac disease - Past Social History Smoking Status: Former Smoker Alcohol: None Drugs: Denies Home Situation {Lives}: With Family - CARDIAC Hx Cardiac Disorders: Yes Hx Hypertension: Yes - PULMONARY Hx Respiratory Disorders: No - NEUROLOGICAL Hx Neurological Disorder: No - HEENT Hx HEENT Problems: No - RENAL Hx Chronic Kidney Disease: No - ENDOCRINE/METABOLIC Hx Endocrine Disorders: Yes Hx Diabetes Mellitus Type 2: Yes (diabetic neuropathy) - HEMATOLOGICAL/ONCOLOGICAL Hx Blood Disorders: No - INTEGUMENTARY Hx Dermatological Problems: No - MUSCULOSKELETAL/RHEUMATOLOGICAL Hx Musculoskeletal Disorders: Yes Hx Falls: Yes Hx Unsteady Gait: Yes - GASTROINTESTINAL Hx Gastrointestinal Disorders: No - GENITOURINARY/GYNECOLOGICAL Hx Genitourinary Disorders: No - PSYCHIATRIC Hx Psychophysiologic Disorder: No Hx Substance Use: No - SURGICAL HISTORY Hx Surgeries: No - ANESTHESIA Hx Anesthesia: No Meds Allergies/Adverse Reactions: Allergies Allergy/AdvReac Type Severity Reaction Status Date / Time No Known Allergies Allergy Verified 05/30/18 20:11 - Medications Medications: Current Medications Atorvastatin Calcium (Lipitor) 40 mg PO DIN [facility] Last Admin: 05/31/18 17:26 Dose: 40 mg Carvedilol (Coreg) 3.125 mg PO BID [facility] Last Admin: 06/01/18 13:54 Dose: Not Given Ferrous Sulfate (Feosol) 324 mg PO TID [facility] Last Admin: 06/01/18 14:10 Dose: Not Given Gabapentin (Neurontin) 300 mg PO BID [facility] PRN Reason: Protocol Last Admin: 06/01/18 13:56 Dose: Not Given Insulin Human Regular (Humulin R Low) 0 units SC ACHS [facility] PRN Reason: Protocol Last Admin: 06/01/18 13:56 Dose: Not Given Losartan Potassium (Cozaar) 25 mg PO DAILY [facility] Last Admin: 06/01/18 13:55 Dose: Not Given Pantoprazole Sodium (Protonix Ec Tab) 40 mg PO ACB [facility] Last Admin: 06/01/18 08:16 Dose: 40 mg Physical Exam - Constitutional Appears: Well, Non-toxic, No Acute Distress - Head Exam Head Exam: ATRAUMATIC, NORMAL INSPECTION, NORMOCEPHALIC - Eye Exam Eye Exam: EOMI, Normal appearance, PERRL. absent: Conjunctival injection, Scleral icterus Pupil Exam: PERRL - ENT Exam ENT Exam: Mucous Membranes Moist, Normal Oropharynx - Neck Exam Neck exam: Positive for: Normal Inspection. Negative for: Tenderness - Respiratory Exam Respiratory Exam: NORMAL BREATHING PATTERN. absent: Accessory Muscle Use, Respiratory Distress - Cardiovascular Exam Cardiovascular Exam: RRR Additional comments: V/ systolic murmur in all post, most prominent 2nd intercostal space right, radiating to BL carotids - GI/Abdominal Exam GI & Abdominal Exam: Soft. absent: Distended, Tenderness - Extremities Exam Extremities exam: Positive for: pedal pulses present. Negative for: calf tenderness, pedal edema Additional comments: left knee with superficial abrasion - Neurological Exam Neurological exam: Alert, CN II-XII Intact, Oriented x3 Additional comments: no motor sensory deficit - Psychiatric Exam Psychiatric exam: Normal Affect, Normal Mood - Skin Skin Exam: Dry, Normal Color, Warm Results - Vital Signs Recent Vital Signs: Last Vital Signs Temp 97.8 F 06/01/18 12:00 Pulse 61 06/01/18 12:00 Resp 16 06/01/18 12:00 BP 155/69 H 06/01/18 12:00 Pulse Ox 97 06/01/18 06:00 - Labs Result Diagrams: 06/01/18 17:05 06/01/18 06:00 Labs: Laboratory Results - last 24 hr 05/31/18 05/31/18 05/31/18 16:48 16:55 16:55 WBC 7.5 RBC 3.65 Hgb 9.3 L Hct 28.9 L MCV 79.2 L MCH 25.5 MCHC 32.2 RDW 15.1 H Plt Count 224 MPV 10.0 Gran % 71.0 H Lymph % (Auto) 20.9 L [place] % (Auto) 7.2 H Eos % (Auto) 0.8 L Baso % (Auto) 0.1 Gran # 5.30 Lymph # (Auto) 1.6 [place] # (Auto) 0.5 Eos # (Auto) 0.1 Baso # (Auto) 0.01 APTT 30.3 Sodium Potassium Chloride Carbon Dioxide Anion Gap BUN Creatinine Est GFR ( Amer) Est GFR (Non-Af Amer) POC Glucose (mg/dL) 154 H Random Glucose Calcium Total Bilirubin AST ALT Alkaline Phosphatase Total Protein Albumin Globulin Albumin/Globulin Ratio 05/31/18 06/01/18 06/01/18 21:44 06:00 06:00 WBC 7.4 RBC 3.40 L Hgb 8.7 L Hct 26.8 L MCV 78.8 L MCH 25.6 MCHC 32.5 RDW 15.1 H Plt Count 224 MPV 10.7 Gran % 52.1 Lymph % (Auto) 35.6 H [place] % (Auto) 10.0 H Eos % (Auto) 1.9 Baso % (Auto) 0.4 Gran # 3.84 Lymph # (Auto) 2.6 [place] # (Auto) 0.7 H Eos # (Auto) 0.1 Baso # (Auto) 0.03 APTT Sodium 138 Potassium 4.5 Chloride 102 Carbon Dioxide 26 Anion Gap 15 BUN 17 Creatinine 1.6 H Est GFR ( Amer) 52 Est GFR (Non-Af Amer) 43 POC Glucose (mg/dL) 163 H Random Glucose 173 H Calcium 9.4 Total Bilirubin 0.5 AST 21 ALT 22 Alkaline Phosphatase 38 Total Protein 7.3 Albumin 3.9 Globulin 3.4 Albumin/Globulin Ratio 1.1 06/01/18 06/01/18 07:36 11:04 WBC RBC Hgb Hct MCV MCH MCHC RDW Plt Count MPV Gran % Lymph % (Auto) [place] % (Auto) Eos % (Auto) Baso % (Auto) Gran # Lymph # (Auto) [place] # (Auto) Eos # (Auto) Baso # (Auto) APTT Sodium Potassium Chloride Carbon Dioxide Anion Gap BUN Creatinine Est GFR ( Amer) Est GFR (Non-Af Amer) POC Glucose (mg/dL) 176 H 177 H Random Glucose Calcium Total Bilirubin AST ALT Alkaline Phosphatase Total Protein Albumin Globulin Albumin/Globulin Ratio Assessment & Plan - Assessment and Plan (Free Text) Assessment: 73M with falling--likely syncopal episodes--and carotid artery stenosis of the R ICA Plan: Patient's current symptoms are likely not due to carotid artery stenosis, no immediate surgical intervention planned at this time. Patient's ultrasound results may warrant further work up and discussion with vascular surgeon to determine if Carotid endarterectomy will be beneficial in the future. Patient's cardiac status and anemia from GI bleed are currently more pressing and should be the focus of current treatment Primary management per medical team, cardiology, and GI Further recommendations per Dr. Jonel Shoemaker, PGY2
--- NOTE | 2018-06-01 15:58 | CP.PCM.CON ---
<Wander Campbell - Last Filed: 06/01/18 15:16> History of Present Illness - History of Present Illness History of Present Illness: Wander Campbell PGY-1, ICU Consult note for Dr. Montgomery This is a 73 year old [place] male who presented to the ED on 05/30 for multiple syncopal episodes for the past 3 months. Pt denies any prodromal symptoms such as dizziness or lightheadedness. He does endorse weakness in his legs which causes him to fall, at which point he is unable to get up. Pt was admitted to telemetry and work up for evaluation of the syncope was done. Carotid US showed 60-79% right ICA stenosis. Troponin was indeterminate at 0.11 on admission. Pt was also noted to have a hemoglobin of 9.9 (baseline is 11.0 per primary team), Hgb is currently 8.7. The primary care team noted bright red blood per rectum, which prompted a GI consult. For cardiac clearance, pt underwent a diagnostic cath which showed triple vessel disease (50% left main disease with critical mid circumflex artery 90%, 70% proximal and mid right coronary artery lesions), with severe aortic stenosis and a peak to peak gradient of 60. Pt was admitted to the ICU for neurological and cardiovascular monitoring s/p catheterization. Pt seen and evaluated in the ICU. He denies headache, dizziness, lightheadedness , visual changes, chest pain, shortness of breath, abdominal pain, nausea, vomiting, numbness or tingling. As per Dr. Bearden, pt should undergo upper endoscopy tomorrow, with plan to do an MRA of the neck, followed by a colonoscopy on Tuesday. Vascular surgery is following for evaluation of carotid artery stenosis. PMH: HTN, HLD, DM. Pt is noncompliant with his medications PSH: none Home Rx: Gabapentin, Metformin, Valsartan, Rosuvastatin Allergies: NKDA Social: No EtOH, former smoking history, denies illicit drug use; lives with family at home; ambulates w/o assistance Review of Systems - Review of Systems All systems: reviewed and no additional remarkable complaints except (as per HPI ) Past Patient History - Past Social History Smoking Status: Former Smoker Alcohol: None Drugs: Denies Home Situation {Lives}: With Family - CARDIAC Hx Cardiac Disorders: Yes (chronic bradycardia) Hx Hypercholesterolemia: Yes Hx Hypertension: Yes - PULMONARY Hx Respiratory Disorders: No - NEUROLOGICAL Hx Neurological Disorder: No - HEENT Hx HEENT Problems: No - RENAL Hx Chronic Kidney Disease: No - ENDOCRINE/METABOLIC Hx Endocrine Disorders: Yes Hx Diabetes Mellitus Type 2: Yes (diabetic neuropathy) - HEMATOLOGICAL/ONCOLOGICAL Hx Blood Disorders: No - INTEGUMENTARY Hx Dermatological Problems: No - MUSCULOSKELETAL/RHEUMATOLOGICAL Hx Musculoskeletal Disorders: Yes Hx Falls: Yes Hx Unsteady Gait: Yes - GASTROINTESTINAL Hx Gastrointestinal Disorders: No - GENITOURINARY/GYNECOLOGICAL Hx Genitourinary Disorders: No - PSYCHIATRIC Hx Psychophysiologic Disorder: No Hx Substance Use: No - SURGICAL HISTORY Hx Surgeries: No - ANESTHESIA Hx Anesthesia: No Meds Allergies/Adverse Reactions: Allergies Allergy/AdvReac Type Severity Reaction Status Date / Time No Known Allergies Allergy Verified 05/30/18 20:11 - Medications Medications: Current Medications Atorvastatin Calcium (Lipitor) 40 mg PO DIN [facility] Last Admin: 05/31/18 17:26 Dose: 40 mg Carvedilol (Coreg) 3.125 mg PO BID [facility] Last Admin: 06/01/18 13:54 Dose: Not Given Ferrous Sulfate (Feosol) 324 mg PO TID [facility] Last Admin: 06/01/18 14:10 Dose: Not Given Gabapentin (Neurontin) 300 mg PO BID [facility] PRN Reason: Protocol Last Admin: 06/01/18 13:56 Dose: Not Given Insulin Human Regular (Humulin R Low) 0 units SC ACHS [facility] PRN Reason: Protocol Last Admin: 06/01/18 13:56 Dose: Not Given Losartan Potassium (Cozaar) 25 mg PO DAILY [facility] Last Admin: 06/01/18 13:55 Dose: Not Given Pantoprazole Sodium (Protonix Ec Tab) 40 mg PO ACB [facility] Last Admin: 06/01/18 08:16 Dose: 40 mg Physical Exam - Constitutional Appears: Well, Non-toxic, No Acute Distress - Head Exam Head Exam: ATRAUMATIC, NORMAL INSPECTION - Eye Exam Eye Exam: EOMI, Normal appearance, PERRL - ENT Exam ENT Exam: Mucous Membranes Moist - Neck Exam Neck exam: Positive for: Normal Inspection Additional comments: (+) bruit right carotid artery - Respiratory Exam Respiratory Exam: Clear to Auscultation Bilateral, NORMAL BREATHING PATTERN - Cardiovascular Exam Cardiovascular Exam: Bradycardia, Systolic Murmur (harsh, blowing murmur, best heard in the aortic valve) - GI/Abdominal Exam GI & Abdominal Exam: Normal Bowel Sounds, Soft. absent: Tenderness - Extremities Exam Extremities exam: Positive for: normal inspection, pedal pulses present. Negative for: tenderness Additional comments: (+) pressure dressing over right groin no hematoma noted, dressing is clean, dry and intact - Neurological Exam Neurological exam: Alert, Oriented x3 - Psychiatric Exam Psychiatric exam: Normal Affect, Normal Mood - Skin Skin Exam: Dry, Normal Color, Warm Results - Vital Signs Recent Vital Signs: Last Vital Signs Temp 97.8 F 06/01/18 12:00 Pulse 61 06/01/18 12:00 Resp 16 06/01/18 12:00 BP 155/69 H 06/01/18 12:00 Pulse Ox 97 06/01/18 06:00 - Labs Result Diagrams: 06/01/18 06:00 06/01/18 06:00 Labs: Laboratory Results - last 24 hr 05/31/18 05/31/18 05/31/18 16:48 16:55 16:55 WBC 7.5 RBC 3.65 Hgb 9.3 L Hct 28.9 L MCV 79.2 L MCH 25.5 MCHC 32.2 RDW 15.1 H Plt Count 224 MPV 10.0 Gran % 71.0 H Lymph % (Auto) 20.9 L [place] % (Auto) 7.2 H Eos % (Auto) 0.8 L Baso % (Auto) 0.1 Gran # 5.30 Lymph # (Auto) 1.6 [place] # (Auto) 0.5 Eos # (Auto) 0.1 Baso # (Auto) 0.01 APTT 30.3 Sodium Potassium Chloride Carbon Dioxide Anion Gap BUN Creatinine Est GFR ( Amer) Est GFR (Non-Af Amer) POC Glucose (mg/dL) 154 H Random Glucose Calcium Total Bilirubin AST ALT Alkaline Phosphatase Total Protein Albumin Globulin Albumin/Globulin Ratio 05/31/18 06/01/18 06/01/18 21:44 06:00 06:00 WBC 7.4 RBC 3.40 L Hgb 8.7 L Hct 26.8 L MCV 78.8 L MCH 25.6 MCHC 32.5 RDW 15.1 H Plt Count 224 MPV 10.7 Gran % 52.1 Lymph % (Auto) 35.6 H [place] % (Auto) 10.0 H Eos % (Auto) 1.9 Baso % (Auto) 0.4 Gran # 3.84 Lymph # (Auto) 2.6 [place] # (Auto) 0.7 H Eos # (Auto) 0.1 Baso # (Auto) 0.03 APTT Sodium 138 Potassium 4.5 Chloride 102 Carbon Dioxide 26 Anion Gap 15 BUN 17 Creatinine 1.6 H Est GFR ( Amer) 52 Est GFR (Non-Af Amer) 43 POC Glucose (mg/dL) 163 H Random Glucose 173 H Calcium 9.4 Total Bilirubin 0.5 AST 21 ALT 22 Alkaline Phosphatase 38 Total Protein 7.3 Albumin 3.9 Globulin 3.4 Albumin/Globulin Ratio 1.1 06/01/18 06/01/18 07:36 11:04 WBC RBC Hgb Hct MCV MCH MCHC RDW Plt Count MPV Gran % Lymph % (Auto) [place] % (Auto) Eos % (Auto) Baso % (Auto) Gran # Lymph # (Auto) [place] # (Auto) Eos # (Auto) Baso # (Auto) APTT Sodium Potassium Chloride Carbon Dioxide Anion Gap BUN Creatinine Est GFR ( Amer) Est GFR (Non-Af Amer) POC Glucose (mg/dL) 176 H 177 H Random Glucose Calcium Total Bilirubin AST ALT Alkaline Phosphatase Total Protein Albumin Globulin Albumin/Globulin Ratio Assessment & Plan - Assessment and Plan (Free Text) Assessment: This is a 73 year old male with a PMHx of DM, HLD, HTN (noncompliant with meds) who presented to the ED on 05/30 for a 3 month history of syncopal episodes described as weakness in the legs causing him to fall. 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 Pt is s/p diagnostic LHC which showed triple vessel disease. Pt is cleared for endoscopy as per cardio. Pt is in ICU for post -cath monitoring. 1. post cardiac catheterization care - monitor for neurological changes - monitor for cardiovascular changes - will keep in ICU with recommendations from Dr. Vickers - BP management as per Dr. Suleiman 2. syncope - neurological work up has been negative so far - likely secondary to severe aortic stenosis, continue management as per cardio recs - BP managed as per cardio - vascular surgery is consulted, recs appreciated - PT once pt is able to ambulate - MRA recommended by cardiology - continue statin 3. anemia (iron defiiency) - Hgb stable but decreased from baseline - CBC q12h - planned EGD tomorrow, colonoscopy on tuesday - further recs per GI - continue ferrous sulfate 4. Hx Dm2 - continue ISS - accuchecks ACHS - continue CCD - diabetic education 5. HTN, noncompliant - continue with home meds - management as per cardio - mantain MAP>65 mmHg 6. PPX - continue protonix - avoiding anticoagulation at this time due to planned procedure tomorrow Case was reviewed and discussed with attending physician, Dr. Montgomery <Eduardo Montgomery - Last Filed: 06/02/18 09:39> Meds - Medications Medications: Current Medications Atorvastatin Calcium (Lipitor) 40 mg PO DIN [facility] Last Admin: 06/01/18 16:22 Dose: 40 mg Carvedilol (Coreg) 3.125 mg PO BID [facility] Last Admin: 06/01/18 13:54 Dose: Not Given Ferrous Sulfate (Feosol) 324 mg PO TID [facility] Last Admin: 06/01/18 14:10 Dose: Not Given Gabapentin (Neurontin) 300 mg PO BID [facility] PRN Reason: Protocol Last Admin: 06/01/18 13:56 Dose: Not Given Hydralazine HCl (Apresoline) 50 mg PO BID [facility] Hydralazine HCl (Apresoline) 10 mg PO QID PRN PRN Reason: For SBP>160 Sodium Chloride (Sodium Chloride 0.9%) 1,000 mls @ 50 mls/hr IV .Q20H [facility] Stop: 06/02/18 07:00 Last Admin: 06/01/18 16:21 Dose: 50 mls/hr Insulin Human Regular (Humulin R Low) 0 units SC ACHS [facility] PRN Reason: Protocol Last Admin: 06/01/18 16:22 Dose: Not Given Isosorbide Mononitrate (Imdur Er) 60 mg PO DAILY [facility] Losartan Potassium (Cozaar) 25 mg PO DAILY [facility] Last Admin: 06/01/18 13:55 Dose: Not Given Pantoprazole Sodium (Protonix Ec Tab) 40 mg PO ACB [facility] Last Admin: 06/01/18 08:16 Dose: 40 mg Results - Vital Signs Recent Vital Signs: Last Vital Signs Temp 97.8 F 06/01/18 12:00 Pulse 57 L 06/01/18 16:10 Resp 20 06/01/18 16:10 BP 149/69 06/01/18 16:03 Pulse Ox 99 06/01/18 16:10 - Labs Result Diagrams: 06/02/18 07:30 06/02/18 05:50 Labs: Laboratory Results - last 24 hr 05/31/18 05/31/18 05/31/18 16:48 16:55 16:55 WBC 7.5 RBC 3.65 Hgb 9.3 L Hct 28.9 L MCV 79.2 L MCH 25.5 MCHC 32.2 RDW 15.1 H Plt Count 224 MPV 10.0 Gran % 71.0 H Lymph % (Auto) 20.9 L [place] % (Auto) 7.2 H Eos % (Auto) 0.8 L Baso % (Auto) 0.1 Gran # 5.30 Lymph # (Auto) 1.6 [place] # (Auto) 0.5 Eos # (Auto) 0.1 Baso # (Auto) 0.01 APTT 30.3 Sodium Potassium Chloride Carbon Dioxide Anion Gap BUN Creatinine Est GFR ( Amer) Est GFR (Non-Af Amer) POC Glucose (mg/dL) 154 H Random Glucose Calcium Total Bilirubin AST ALT Alkaline Phosphatase Total Protein Albumin Globulin Albumin/Globulin Ratio 05/31/18 06/01/18 06/01/18 21:44 06:00 06:00 WBC 7.4 RBC 3.40 L Hgb 8.7 L Hct 26.8 L MCV 78.8 L MCH 25.6 MCHC 32.5 RDW 15.1 H Plt Count 224 MPV 10.7 Gran % 52.1 Lymph % (Auto) 35.6 H [place] % (Auto) 10.0 H Eos % (Auto) 1.9 Baso % (Auto) 0.4 Gran # 3.84 Lymph # (Auto) 2.6 [place] # (Auto) 0.7 H Eos # (Auto) 0.1 Baso # (Auto) 0.03 APTT Sodium 138 Potassium 4.5 Chloride 102 Carbon Dioxide 26 Anion Gap 15 BUN 17 Creatinine 1.6 H Est GFR ( Amer) 52 Est GFR (Non-Af Amer) 43 POC Glucose (mg/dL) 163 H Random Glucose 173 H Calcium 9.4 Total Bilirubin 0.5 AST 21 ALT 22 Alkaline Phosphatase 38 Total Protein 7.3 Albumin 3.9 Globulin 3.4 Albumin/Globulin Ratio 1.1 06/01/18 06/01/18 06/01/18 07:36 11:04 16:13 WBC RBC Hgb Hct MCV MCH MCHC RDW Plt Count MPV Gran % Lymph % (Auto) [place] % (Auto) Eos % (Auto) Baso % (Auto) Gran # Lymph # (Auto) [place] # (Auto) Eos # (Auto) Baso # (Auto) APTT Sodium Potassium Chloride Carbon Dioxide Anion Gap BUN Creatinine Est GFR ( Amer) Est GFR (Non-Af Amer) POC Glucose (mg/dL) 176 H 177 H 167 H Random Glucose Calcium Total Bilirubin AST ALT Alkaline Phosphatase Total Protein Albumin Globulin Albumin/Globulin Ratio Attending/Attestation - Attestation I have personally seen and examined this patient.: Yes I have fully participated in the care of the patient.: Yes I have reviewed all pertinent clinical information: Yes Notes (Text): 06/01/18 16:23 The patient was seen and examined at the bedside. Patient care was discussed with resident Medical records, lab studies were reviewed and management issues were discussed and formulated. Last 24H events reviewed. Agree with above treatment plans as outlined in ' note with addition of the following: Syncope \ CAD \ GIB \ Anemia \ BERNARDA \ DM 2 \ HTN \ Aortic Stenosis \ Pulmonary nodules -hemodynamic monitoring to maintain MAP>65 -continue coreg, statin, losartan , imdur and hydralazine as per cardiology team -pt is s\p PCI where triple vessel disease is noted and pt needs CABG after clearance -o2 supplementation to maintain Spo2>90 Pao2>60; currently comfortable on NC -f\u Bun\Cr and U\o; continue NS to prevent contrast nephropathy -PO diet (cardiac ) and aspiration precautions -ISS and BGM monitoring -LE pulse checks and groin checks post- PCI -GI team f\u; EGD planned for tomorrow -monitor serial H\H and for bleeding -neurology team following; f\u MRA -pulmonary nodule w\u and f\u when condition improves -DVT \ PUD prophylaxis CCM eval 34min
[2018-06-01] MEDS ORDERED: Sodium Chloride 0.9% 1,000 ML IV SCH ×2 (16:00→16:01)
[2018-06-01 17:16] LABS: BASO # 0.01 K/mm3 (0.0-2.0); BASO % 0.1 % (0.0-3.0); EOS # 0.1 (0.0-0.7); EOS % 2.1 % (1.5-5.0); GRAN # 3.75 (1.4-6.5); GRAN % 55.4 % (50.0-68.0); HEMOGLOBIN 8.9 g/dL (14.0-18.0); LYMPH # 2.3 (1.2-3.4); LYMPH % 33.7 % (22.0-35.0); MEAN CORPUSCULAR HEMOGLOBIN 25.2 pg (25.0-35.0); MEAN CORPUSCULAR HGB CONC 31.9 g/dl (31.0-37.0); MEAN PLATELET VOLUME 9.8 fl (7.0-11.0); MONO # 0.6 (0.1-0.6); MONO % 8.7 % (1.0-6.0); RBC 3.53 10^6/uL (3.5-6.1); RED CELL DISTRIBUTION WIDTH 14.9 % (11.5-14.5); WHITE BLOOD COUNT 6.8 10^3/ul (4.5-11.0)
[2018-06-02] MEDS ORDERED: Sodium Chloride 0.9% 1,000 ML IV SCH ×3 (02:35→13:00)
[2018-06-02 06:41] LABS: BASO # 0.03 K/mm3 (0.0-2.0); BASO % 0.5 % (0.0-3.0); EOS # 0.2 (0.0-0.7); EOS % 3.1 % (1.5-5.0); GRAN # 2.8 (1.4-6.5); GRAN % 47.8 % (50.0-68.0); HEMOGLOBIN 7.9 g/dL (14.0-18.0); LYMPH # 2.1 (1.2-3.4); LYMPH % 36.6 % (22.0-35.0); MEAN CELL VOLUME 78.3 fl (80.0-105.0); MEAN CORPUSCULAR HEMOGLOBIN 25.6 pg (25.0-35.0); MEAN CORPUSCULAR HGB CONC 32.6 g/dl (31.0-37.0); MEAN PLATELET VOLUME 10.4 fl (7.0-11.0); MONO # 0.7 (0.1-0.6); RBC 3.09 10^6/uL (3.5-6.1); RED CELL DISTRIBUTION WIDTH 15.1 % (11.5-14.5); WHITE BLOOD COUNT 5.9 10^3/ul (4.5-11.0)
[2018-06-02 07:08] LABS: ALB/GLOB RATIO 1.1 (1.1-1.8); ALBUMIN 3.5 g/dL (3.0-4.8); CALCIUM 8.6 mg/dL (8.4-10.5)
[2018-06-02 07:57] LABS: BASO # 0.02 K/mm3 (0.0-2.0); BASO % 0.4 % (0.0-3.0); EOS # 0.2 (0.0-0.7); EOS % 2.8 % (1.5-5.0); GRAN # 2.91 (1.4-6.5); GRAN % 51.1 % (50.0-68.0); LYMPH # 1.9 (1.2-3.4); LYMPH % 33.6 % (22.0-35.0); MEAN CELL VOLUME 78.1 fl (80.0-105.0); MEAN CORPUSCULAR HEMOGLOBIN 25.7 pg (25.0-35.0); MEAN CORPUSCULAR HGB CONC 32.9 g/dl (31.0-37.0); MEAN PLATELET VOLUME 9.9 fl (7.0-11.0); MONO # 0.7 (0.1-0.6); MONO % 12.1 % (1.0-6.0); RBC 3.11 10^6/uL (3.5-6.1); RED CELL DISTRIBUTION WIDTH 14.9 % (11.5-14.5); WHITE BLOOD COUNT 5.7 10^3/ul (4.5-11.0)
[2018-06-02] MEDS: Insulin Reg-LOW-Coverage SC SCH ×3 (08:02→17:39)
[2018-06-02] MEDS ORDERED: Magnesium Sulfate 1 gm in D5W 1 GM/100 ML BAG IVPB ONE (09:01)
--- NOTE | 2018-06-02 09:25 | CP.CCUPN ---
<ShannanWander - Last Filed: 06/02/18 10:22> CCU Subjective - Physician Review Subjective (Free Text): Wander Campbell DO PGY-1, ICU progress note for Dr. Montgomery Pt seen and examined at bedside. Overnight, there was an abnormality on the case monitor. Pt was asymptomatic at this time. After evaluation of the rhythm strip, the internal affairs investigator states that the pauses are due to lead malfunction as other lead shows corresponding qrs during times of "pause." Pt has no complaints at this time. Pt denies fever, headache, dizziness, weakness, lightheadedness, changes in vision, chest pain, shortness of breath, abdominal pain, n/v/d, hematochezia, melena. Pt states that his last BM was yesterday morning, and that it was normal, and nonbloody. Pt produced 800 mL of mia urine over the past 12 hours. A 12-point ROS was reviewed and is unremarkable except as above. CCU Objective - Vital Signs / Intake & Output Intake and Output (Last 8hrs): Intake & Output 06/01/18 06/02/18 06/02/18 22:59 06:59 14:59 Intake Total 640 1050 Output Total 0 800 Balance 640 250 Weight 68.039 kg Intake: IV 400 850 Left Antecubital 400 850 Oral 240 200 Output: Urine 0 800 Urine, Voided 0 800 Other: # Bowel Movements 0 - Physical Exam Head: Positive for: Atraumatic, Normocephalic Pupils: Positive for: PERRL Extroacular Muscles: Positive for: EOMI Conjunctiva: Positive for: Normal Mouth: Positive for: Moist Mucous Membranes Respiratory/Chest: Positive for: Clear to Auscultation, Good Air Exchange. Negative for: Respiratory Distress, Accessory Muscle Use Cardiovascular: Positive for: Regular Rate and Rhythm, Murmurs (harsh, blowing grade 5/6 murmur; most prominent at right 2/3 intercostal) Abdomen: Positive for: Normal Bowel Sounds. Negative for: Tenderness, Distention, Peritoneal Signs Back: Positive for: Normal Inspection Upper Extremity: Positive for: Normal Inspection. Negative for: Cyanosis, Edema Lower Extremity: Positive for: Normal Inspection, Other (catherterization site nontender; dressing is clean, dry and intact; no hematoma, bleeding, ecchymosis) . Negative for: Edema Neurological: Positive for: GCS=15, CN II-XII Intact, Speech Normal Skin: Positive for: Warm, Dry, Normal Color. Negative for: Rashes Psychiatric: Positive for: Alert, Oriented x 3 - Medications Active Medications: Active Medications Generic Name Dose Route Start Last Admin Trade Name Freq PRN Reason Stop Dose Admin Atorvastatin Calcium 40 mg 05/31/18 12:54 06/01/18 16:22 Lipitor PO 40 mg DIN SHAKA Administration Ferrous Sulfate 324 mg 05/31/18 10:00 06/01/18 14:10 Feosol PO Not Given TID SHAKA Gabapentin 300 mg 05/31/18 10:00 06/01/18 16:25 Neurontin PO 300 mg BID SHAKA Administration Protocol Hydralazine HCl 50 mg 06/01/18 18:00 06/01/18 17:24 Apresoline PO 50 mg BID SHAKA Administration Hydralazine HCl 10 mg 06/01/18 16:04 Apresoline PO QID PRN For SBP>160 Magnesium Sulfate/Dextrose 1 gm in 100 mls @ 100 mls/hr 06/02/18 09:01 Magnesium Sulfate 1 Gm/100 Ml D5w IVPB 06/02/18 10:00 ONCE ONE Insulin Human Regular 0 units 05/31/18 07:30 06/02/18 08:02 Humulin R Low SC Not Given ACHS [facility] Protocol Isosorbide Mononitrate 60 mg 06/02/18 10:00 Imdur Er PO DAILY [facility] Losartan Potassium 25 mg 05/31/18 10:00 06/01/18 13:55 Cozaar PO Not Given DAILY SHAKA Pantoprazole Sodium 40 mg 06/01/18 07:30 06/01/18 08:16 Protonix Ec Tab PO 40 mg ACB SHAKA Administration - Patient Studies Lab Studies: Lab Studies 06/02/18 06/02/18 06/02/18 Range/Units 08:34 07:30 05:50 WBC 5.7 (4.5-11.0) 10^3/ul RBC 3.11 L (3.5-6.1) 10^6/uL Hgb 8.0 L (14.0-18.0) g/dL Hct 24.3 L (42.0-52.0) % MCV 78.1 L (80.0-105.0) fl MCH 25.7 (25.0-35.0) pg MCHC 32.9 (31.0-37.0) g/dl RDW 14.9 H (11.5-14.5) % Plt Count 202 (120.0-450.0) 10^3/uL MPV 9.9 (7.0-11.0) fl Gran % 51.1 (50.0-68.0) % Lymph % (Auto) 33.6 (22.0-35.0) % [place] % (Auto) 12.1 H (1.0-6.0) % Eos % (Auto) 2.8 (1.5-5.0) % Baso % (Auto) 0.4 (0.0-3.0) % Gran # 2.91 (1.4-6.5) Lymph # (Auto) 1.9 (1.2-3.4) [place] # (Auto) 0.7 H (0.1-0.6) Eos # (Auto) 0.2 (0.0-0.7) Baso # (Auto) 0.02 (0.0-2.0) K/mm3 Sodium 140 (132-148) mmol/L Potassium 4.9 (3.6-5.0) mmol/L Chloride 104 (98-107) mmol/L Carbon Dioxide 24 (21-33) mmol/L Anion Gap 16 (10-20) BUN 31 H (7-21) mg/dL Creatinine 2.0 H (0.8-1.5) mg/dl Est GFR ( Amer) 40 Est GFR (Non-Af Amer) 33 POC Glucose (mg/dL) 161 H (65-110) mg/dL Random Glucose 163 H (70-110) mg/dL Calcium 8.6 (8.4-10.5) mg/dL Phosphorus 4.7 H (2.5-4.5) mg/dL Magnesium 1.9 (1.7-2.2) mg/dL Total Bilirubin 0.4 (0.2-1.3) mg/dL AST 19 (17-59) U/L ALT 21 (7-56) U/L Alkaline Phosphatase 34 L (38-126) U/L Total Protein 6.7 (5.8-8.3) g/dL Albumin 3.5 (3.0-4.8) g/dL Globulin 3.2 gm/dL Albumin/Globulin Ratio 1.1 (1.1-1.8) TSH 3rd Generation (0.46-4.68) mIU/mL 06/02/18 06/02/18 06/01/18 Range/Units 05:50 05:50 21:51 WBC 5.9 (4.5-11.0) 10^3/ul RBC 3.09 L (3.5-6.1) 10^6/uL Hgb 7.9 L (14.0-18.0) g/dL Hct 24.2 L (42.0-52.0) % MCV 78.3 L (80.0-105.0) fl MCH 25.6 (25.0-35.0) pg MCHC 32.6 (31.0-37.0) g/dl RDW 15.1 H (11.5-14.5) % Plt Count 218 (120.0-450.0) 10^3/uL MPV 10.4 (7.0-11.0) fl Gran % 47.8 L (50.0-68.0) % Lymph % (Auto) 36.6 H (22.0-35.0) % [place] % (Auto) 12.0 H (1.0-6.0) % Eos % (Auto) 3.1 (1.5-5.0) % Baso % (Auto) 0.5 (0.0-3.0) % Gran # 2.80 (1.4-6.5) Lymph # (Auto) 2.1 (1.2-3.4) [place] # (Auto) 0.7 H (0.1-0.6) Eos # (Auto) 0.2 (0.0-0.7) Baso # (Auto) 0.03 (0.0-2.0) K/mm3 Sodium (132-148) mmol/L Potassium (3.6-5.0) mmol/L Chloride (98-107) mmol/L Carbon Dioxide (21-33) mmol/L Anion Gap (10-20) BUN (7-21) mg/dL Creatinine (0.8-1.5) mg/dl Est GFR ( Amer) Est GFR (Non-Af Amer) POC Glucose (mg/dL) 237 H (65-110) mg/dL Random Glucose (70-110) mg/dL Calcium (8.4-10.5) mg/dL Phosphorus (2.5-4.5) mg/dL Magnesium (1.7-2.2) mg/dL Total Bilirubin (0.2-1.3) mg/dL AST (17-59) U/L ALT (7-56) U/L Alkaline Phosphatase (38-126) U/L Total Protein (5.8-8.3) g/dL Albumin (3.0-4.8) g/dL Globulin gm/dL Albumin/Globulin Ratio (1.1-1.8) TSH 3rd Generation 2.31 (0.46-4.68) mIU/mL 06/01/18 06/01/18 06/01/18 Range/Units 17:05 16:13 11:04 WBC 6.8 (4.5-11.0) 10^3/ul RBC 3.53 (3.5-6.1) 10^6/uL Hgb 8.9 L (14.0-18.0) g/dL Hct 27.9 L (42.0-52.0) % MCV 79.0 L (80.0-105.0) fl MCH 25.2 (25.0-35.0) pg MCHC 31.9 (31.0-37.0) g/dl RDW 14.9 H (11.5-14.5) % Plt Count 226 (120.0-450.0) 10^3/uL MPV 9.8 (7.0-11.0) fl Gran % 55.4 (50.0-68.0) % Lymph % (Auto) 33.7 (22.0-35.0) % [place] % (Auto) 8.7 H (1.0-6.0) % Eos % (Auto) 2.1 (1.5-5.0) % Baso % (Auto) 0.1 (0.0-3.0) % Gran # 3.75 (1.4-6.5) Lymph # (Auto) 2.3 (1.2-3.4) [place] # (Auto) 0.6 (0.1-0.6) Eos # (Auto) 0.1 (0.0-0.7) Baso # (Auto) 0.01 (0.0-2.0) K/mm3 Sodium (132-148) mmol/L Potassium (3.6-5.0) mmol/L Chloride (98-107) mmol/L Carbon Dioxide (21-33) mmol/L Anion Gap (10-20) BUN (7-21) mg/dL Creatinine (0.8-1.5) mg/dl Est GFR ( Amer) Est GFR (Non-Af Amer) POC Glucose (mg/dL) 167 H 177 H (65-110) mg/dL Random Glucose (70-110) mg/dL Calcium (8.4-10.5) mg/dL Phosphorus (2.5-4.5) mg/dL Magnesium (1.7-2.2) mg/dL Total Bilirubin (0.2-1.3) mg/dL AST (17-59) U/L ALT (7-56) U/L Alkaline Phosphatase (38-126) U/L Total Protein (5.8-8.3) g/dL Albumin (3.0-4.8) g/dL Globulin gm/dL Albumin/Globulin Ratio (1.1-1.8) TSH 3rd Generation (0.46-4.68) mIU/mL 06/01/18 05/31/18 05/31/18 Range/Units 07:36 21:44 16:48 WBC (4.5-11.0) 10^3/ul RBC (3.5-6.1) 10^6/uL Hgb (14.0-18.0) g/dL Hct (42.0-52.0) % MCV (80.0-105.0) fl MCH (25.0-35.0) pg MCHC (31.0-37.0) g/dl RDW (11.5-14.5) % Plt Count (120.0-450.0) 10^3/uL MPV (7.0-11.0) fl Gran % (50.0-68.0) % Lymph % (Auto) (22.0-35.0) % [place] % (Auto) (1.0-6.0) % Eos % (Auto) (1.5-5.0) % Baso % (Auto) (0.0-3.0) % Gran # (1.4-6.5) Lymph # (Auto) (1.2-3.4) [place] # (Auto) (0.1-0.6) Eos # (Auto) (0.0-0.7) Baso # (Auto) (0.0-2.0) K/mm3 Sodium (132-148) mmol/L Potassium (3.6-5.0) mmol/L Chloride (98-107) mmol/L Carbon Dioxide (21-33) mmol/L Anion Gap (10-20) BUN (7-21) mg/dL Creatinine (0.8-1.5) mg/dl Est GFR ( Amer) Est GFR (Non-Af Amer) POC Glucose (mg/dL) 176 H 163 H 154 H (65-110) mg/dL Random Glucose (70-110) mg/dL Calcium (8.4-10.5) mg/dL Phosphorus (2.5-4.5) mg/dL Magnesium (1.7-2.2) mg/dL Total Bilirubin (0.2-1.3) mg/dL AST (17-59) U/L ALT (7-56) U/L Alkaline Phosphatase (38-126) U/L Total Protein (5.8-8.3) g/dL Albumin (3.0-4.8) g/dL Globulin gm/dL Albumin/Globulin Ratio (1.1-1.8) TSH 3rd Generation (0.46-4.68) mIU/mL Laboratory Results - last 24 hr 05/31/18 05/31/18 06/01/18 16:48 21:44 07:36 WBC RBC Hgb Hct MCV MCH MCHC RDW Plt Count MPV Gran % Lymph % (Auto) [place] % (Auto) Eos % (Auto) Baso % (Auto) Gran # Lymph # (Auto) [place] # (Auto) Eos # (Auto) Baso # (Auto) Sodium Potassium Chloride Carbon Dioxide Anion Gap BUN Creatinine Est GFR ( Amer) Est GFR (Non-Af Amer) POC Glucose (mg/dL) 154 H 163 H 176 H Random Glucose Calcium Phosphorus Magnesium Total Bilirubin AST ALT Alkaline Phosphatase Total Protein Albumin Globulin Albumin/Globulin Ratio [facility] 3rd Generation 06/01/18 06/01/18 06/01/18 11:04 16:13 17:05 WBC 6.8 RBC 3.53 Hgb 8.9 L Hct 27.9 L MCV 79.0 L MCH 25.2 MCHC 31.9 RDW 14.9 H Plt Count 226 MPV 9.8 Gran % 55.4 Lymph % (Auto) 33.7 [place] % (Auto) 8.7 H Eos % (Auto) 2.1 Baso % (Auto) 0.1 Gran # 3.75 Lymph # (Auto) 2.3 [place] # (Auto) 0.6 Eos # (Auto) 0.1 Baso # (Auto) 0.01 Sodium Potassium Chloride Carbon Dioxide Anion Gap BUN Creatinine Est GFR ( Amer) Est GFR (Non-Af Amer) POC Glucose (mg/dL) 177 H 167 H Random Glucose Calcium Phosphorus Magnesium Total Bilirubin AST ALT Alkaline Phosphatase Total Protein Albumin Globulin Albumin/Globulin Ratio [facility] 3rd Generation 06/01/18 06/02/18 06/02/18 21:51 05:50 05:50 WBC 5.9 RBC 3.09 L Hgb 7.9 L Hct 24.2 L MCV 78.3 L MCH 25.6 MCHC 32.6 RDW 15.1 H Plt Count 218 MPV 10.4 Gran % 47.8 L Lymph % (Auto) 36.6 H [place] % (Auto) 12.0 H Eos % (Auto) 3.1 Baso % (Auto) 0.5 Gran # 2.80 Lymph # (Auto) 2.1 [place] # (Auto) 0.7 H Eos # (Auto) 0.2 Baso # (Auto) 0.03 Sodium Potassium Chloride Carbon Dioxide Anion Gap BUN Creatinine Est GFR ( Amer) Est GFR (Non-Af Amer) POC Glucose (mg/dL) 237 H Random Glucose Calcium Phosphorus Magnesium Total Bilirubin AST ALT Alkaline Phosphatase Total Protein Albumin Globulin Albumin/Globulin Ratio [facility] 3rd Generation 2.31 06/02/18 06/02/18 06/02/18 05:50 07:30 08:34 WBC 5.7 RBC 3.11 L Hgb 8.0 L Hct 24.3 L MCV 78.1 L MCH 25.7 MCHC 32.9 RDW 14.9 H Plt Count 202 MPV 9.9 Gran % 51.1 Lymph % (Auto) 33.6 [place] % (Auto) 12.1 H Eos % (Auto) 2.8 Baso % (Auto) 0.4 Gran # 2.91 Lymph # (Auto) 1.9 [place] # (Auto) 0.7 H Eos # (Auto) 0.2 Baso # (Auto) 0.02 Sodium 140 Potassium 4.9 Chloride 104 Carbon Dioxide 24 Anion Gap 16 BUN 31 H Creatinine 2.0 H Est GFR ( Amer) 40 Est GFR (Non-Af Amer) 33 POC Glucose (mg/dL) 161 H Random Glucose 163 H Calcium 8.6 Phosphorus 4.7 H Magnesium 1.9 Total Bilirubin 0.4 AST 19 ALT 21 Alkaline Phosphatase 34 L Total Protein 6.7 Albumin 3.5 Globulin 3.2 Albumin/Globulin Ratio 1.1 TSH 3rd Generation EKG/Cardiology Studies: Cardiology / EKG Studies 06/02/18 07:32 EKG [ELECTROCARDIOGRAM] Stat Comment: Reason For Exam: arrythmia PRE OP:: N Does Patient Have a Pacemaker?: No Fingerstick Blood Sugar Results: 163 Review of Systems - Review of Systems All systems: reviewed and no additional remarkable complaints except (as per HPI ) Critical Care Progress Note - Prophylaxis GI Prophylaxis GI: PPI - Prophylaxis DVT Prophylaxis DVT: SCDs - Nutrition Nutrition: Nutrition Category Date Time Status NPO Diet [DIET] Diets 06/02/18 Breakfast Ordered Assessment/Plan - Assessment and Plan (Free Text) Assessment: This is a 73 year old male with a PMHx of DM, HLD, HTN (noncompliant with meds) who presented to the ED on 05/30 for a 3 month history of syncopal episodes described as weakness in the legs causing him to fall. 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 Pt is cleared for endoscopy as per cardio, which is scheduled for this afternoon (06/02). Pt is in ICU for cardiovascular and neurological monitoring. Plan: Neuro: - monitor for mental status changes - EEG (05/30) normal - Head CT (05/30) was normal - continue home gabapentin Cardio: - BP meds as per cardio - Maintain MAP>65 mmHg - due to right ICA 60-79% stenosis, cardiology recommending MRA to evaluate the stenosis - decrease coreg dosage as per cardio due to bradycardia - management of triple vessel disease noted on LVH as per Cardio Pulm: - maintain sp2>90% - CXR (05/30) showed no active disease GI: - NPO, with scheduled EGD for this afternoon - colonoscopy for tuesday (06/05) as per GI - f/u Gi recs - continue cbc q12 to monitor hgb - continue protonix for gi ppx - continue ferrous sulfate Renal: - NS IVF for bernarda on ckd likely due to contrast from [facility] [place]; creatinine increased from 1.6 (2.0); making adequate urine - maintain euvolemia - goal urine output is 0.5-2.0 mL/kg/24 hours - continue to replete electrolytes as needed Endo: - maintain glood sugar between 140-180 as per NICE-SUGAR trial - continue ISS high - continue accucheck ACHS Heme: - continue cbc q12h - f/u EGD results and GI recs PPX: Protonix for GI; SCDs for vte, no anticoagulation due to planned EGD Disp: Pt will undergo EGD for evaluation of possible GI bleed; continue Case reviewed and discussed with attending physician, Dr. Montgomery <Eduardo Montgomery - Last Filed: 06/02/18 10:47> CCU Objective - Vital Signs / Intake & Output Vital Signs (Last 4 hours): Vital Signs Pulse Resp BP Pulse Ox 06/02/18 10:10 59 L 98/52 L 06/02/18 09:40 61 10 L 99 06/02/18 09:30 53 L 15 116/49 L 98 06/02/18 09:20 56 L 17 98 06/02/18 09:15 56 L 14 121/50 L 98 06/02/18 09:10 57 L 19 98 06/02/18 09:00 58 L 23 136/53 L 98 06/02/18 08:50 57 L 19 98 06/02/18 08:45 64 15 160/71 H 99 06/02/18 08:40 62 11 L 99 07/20/18 08:30 57 L 19 137/57 L 99 06/02/18 08:20 54 L 14 98 06/02/18 08:15 55 L 14 130/57 L 99 06/02/18 08:10 55 L 11 L 99 06/02/18 08:00 55 L 40 H 131/50 L 99 06/02/18 07:50 55 L 20 99 06/02/18 07:45 55 L 19 128/52 L 100 06/02/18 07:40 56 L 31 H 99 06/02/18 07:30 53 L 16 135/48 L 100 06/02/18 07:20 57 L 20 100 06/02/18 07:15 52 L 19 107/49 L 98 06/02/18 07:10 53 L 26 H 98 06/02/18 07:00 55 L 14 108/56 L 100 06/02/18 06:50 54 L 18 99 Intake and Output (Last 8hrs): Intake & Output 06/01/18 06/02/18 06/02/18 22:59 06:59 14:59 Intake Total 640 1050 Output Total 0 800 Balance 640 250 Weight 150 lb Intake: IV 400 850 Left Antecubital 400 850 Oral 240 200 Output: Urine 0 800 Urine, Voided 0 800 Other: # Bowel Movements 0 - Medications Active Medications: Active Medications Generic Name Dose Route Start Last Admin Trade Name Freq PRN Reason Stop Dose Admin Atorvastatin Calcium 40 mg 05/31/18 12:54 06/01/18 16:22 Lipitor PO 40 mg DIN SHAKA Administration Ferrous Sulfate 324 mg 05/31/18 10:00 06/02/18 10:11 Feosol PO 324 mg TID SHAKA Administration Gabapentin 300 mg 05/31/18 10:00 06/02/18 10:13 Neurontin PO 300 mg BID SHAKA Administration Protocol Hydralazine HCl 50 mg 06/01/18 18:00 06/02/18 10:10 Apresoline PO Not Given BID SHAKA Hydralazine HCl 10 mg 06/01/18 16:04 Apresoline PO QID PRN For SBP>160 Sodium Chloride 1,000 mls @ 50 mls/hr 06/02/18 10:00 Sodium Chloride 0.9% IV 06/03/18 23:59 .Q20H [facility] Insulin Human Regular 0 units 05/31/18 07:30 06/02/18 08:02 Humulin R Low SC Not Given ACHS [facility] Protocol Isosorbide Mononitrate 60 mg 06/02/18 10:00 Imdur Er PO DAILY SHAKA Losartan Potassium 25 mg 05/31/18 10:00 06/01/18 13:55 Cozaar PO Not Given DAILY SHAKA Pantoprazole Sodium 40 mg 06/01/18 07:30 06/02/18 10:15 Protonix Ec Tab PO 40 mg ACB SHAKA Administration - Patient Studies Lab Studies: Lab Studies 06/02/18 06/02/18 06/02/18 Range/Units 08:34 07:30 05:50 WBC 5.7 (4.5-11.0) 10^3/ul RBC 3.11 L (3.5-6.1) 10^6/uL Hgb 8.0 L (14.0-18.0) g/dL Hct 24.3 L (42.0-52.0) % MCV 78.1 L (80.0-105.0) fl MCH 25.7 (25.0-35.0) pg MCHC 32.9 (31.0-37.0) g/dl RDW 14.9 H (11.5-14.5) % Plt Count 202 (120.0-450.0) 10^3/uL MPV 9.9 (7.0-11.0) fl Gran % 51.1 (50.0-68.0) % Lymph % (Auto) 33.6 (22.0-35.0) % [place] % (Auto) 12.1 H (1.0-6.0) % Eos % (Auto) 2.8 (1.5-5.0) % Baso % (Auto) 0.4 (0.0-3.0) % Gran # 2.91 (1.4-6.5) Lymph # (Auto) 1.9 (1.2-3.4) [place] # (Auto) 0.7 H (0.1-0.6) Eos # (Auto) 0.2 (0.0-0.7) Baso # (Auto) 0.02 (0.0-2.0) K/mm3 Sodium 140 (132-148) mmol/L Potassium 4.9 (3.6-5.0) mmol/L Chloride 104 (98-107) mmol/L Carbon Dioxide 24 (21-33) mmol/L Anion Gap 16 (10-20) BUN 31 H (7-21) mg/dL Creatinine 2.0 H (0.8-1.5) mg/dl Est GFR ( Amer) 40 Est GFR (Non-Af Amer) 33 POC Glucose (mg/dL) 161 H (65-110) mg/dL Random Glucose 163 H (70-110) mg/dL Calcium 8.6 (8.4-10.5) mg/dL Phosphorus 4.7 H (2.5-4.5) mg/dL Magnesium 1.9 (1.7-2.2) mg/dL Total Bilirubin 0.4 (0.2-1.3) mg/dL AST 19 (17-59) U/L ALT 21 (7-56) U/L Alkaline Phosphatase 34 L (38-126) U/L Total Protein 6.7 (5.8-8.3) g/dL Albumin 3.5 (3.0-4.8) g/dL Globulin 3.2 gm/dL Albumin/Globulin Ratio 1.1 (1.1-1.8) TSH 3rd Generation (0.46-4.68) mIU/mL 06/02/18 06/02/18 06/01/18 Range/Units 05:50 05:50 21:51 WBC 5.9 (4.5-11.0) 10^3/ul RBC 3.09 L (3.5-6.1) 10^6/uL Hgb 7.9 L (14.0-18.0) g/dL Hct 24.2 L (42.0-52.0) % MCV 78.3 L (80.0-105.0) fl MCH 25.6 (25.0-35.0) pg MCHC 32.6 (31.0-37.0) g/dl RDW 15.1 H (11.5-14.5) % Plt Count 218 (120.0-450.0) 10^3/uL MPV 10.4 (7.0-11.0) fl Gran % 47.8 L (50.0-68.0) % Lymph % (Auto) 36.6 H (22.0-35.0) % [place] % (Auto) 12.0 H (1.0-6.0) % Eos % (Auto) 3.1 (1.5-5.0) % Baso % (Auto) 0.5 (0.0-3.0) % Gran # 2.80 (1.4-6.5) Lymph # (Auto) 2.1 (1.2-3.4) [place] # (Auto) 0.7 H (0.1-0.6) Eos # (Auto) 0.2 (0.0-0.7) Baso # (Auto) 0.03 (0.0-2.0) K/mm3 Sodium (132-148) mmol/L Potassium (3.6-5.0) mmol/L Chloride (98-107) mmol/L Carbon Dioxide (21-33) mmol/L Anion Gap (10-20) BUN (7-21) mg/dL Creatinine (0.8-1.5) mg/dl Est GFR ( Amer) Est GFR (Non-Af Amer) POC Glucose (mg/dL) 237 H (65-110) mg/dL Random Glucose (70-110) mg/dL Calcium (8.4-10.5) mg/dL Phosphorus (2.5-4.5) mg/dL Magnesium (1.7-2.2) mg/dL Total Bilirubin (0.2-1.3) mg/dL AST (17-59) U/L ALT (7-56) U/L Alkaline Phosphatase (38-126) U/L Total Protein (5.8-8.3) g/dL Albumin (3.0-4.8) g/dL Globulin gm/dL Albumin/Globulin Ratio (1.1-1.8) TSH 3rd Generation 2.31 (0.46-4.68) mIU/mL 06/01/18 06/01/18 06/01/18 Range/Units 17:05 16:13 11:04 WBC 6.8 (4.5-11.0) 10^3/ul RBC 3.53 (3.5-6.1) 10^6/uL Hgb 8.9 L (14.0-18.0) g/dL Hct 27.9 L (42.0-52.0) % MCV 79.0 L (80.0-105.0) fl MCH 25.2 (25.0-35.0) pg MCHC 31.9 (31.0-37.0) g/dl RDW 14.9 H (11.5-14.5) % Plt Count 226 (120.0-450.0) 10^3/uL MPV 9.8 (7.0-11.0) fl Gran % 55.4 (50.0-68.0) % Lymph % (Auto) 33.7 (22.0-35.0) % [place] % (Auto) 8.7 H (1.0-6.0) % Eos % (Auto) 2.1 (1.5-5.0) % Baso % (Auto) 0.1 (0.0-3.0) % Gran # 3.75 (1.4-6.5) Lymph # (Auto) 2.3 (1.2-3.4) [place] # (Auto) 0.6 (0.1-0.6) Eos # (Auto) 0.1 (0.0-0.7) Baso # (Auto) 0.01 (0.0-2.0) K/mm3 Sodium (132-148) mmol/L Potassium (3.6-5.0) mmol/L Chloride (98-107) mmol/L Carbon Dioxide (21-33) mmol/L Anion Gap (10-20) BUN (7-21) mg/dL Creatinine (0.8-1.5) mg/dl Est GFR ( Amer) Est GFR (Non-Af Amer) POC Glucose (mg/dL) 167 H 177 H (65-110) mg/dL Random Glucose (70-110) mg/dL Calcium (8.4-10.5) mg/dL Phosphorus (2.5-4.5) mg/dL Magnesium (1.7-2.2) mg/dL Total Bilirubin (0.2-1.3) mg/dL AST (17-59) U/L ALT (7-56) U/L Alkaline Phosphatase (38-126) U/L Total Protein (5.8-8.3) g/dL Albumin (3.0-4.8) g/dL Globulin gm/dL Albumin/Globulin Ratio (1.1-1.8) TSH 3rd Generation (0.46-4.68) mIU/mL 06/01/18 05/31/18 05/31/18 Range/Units 07:36 21:44 16:48 WBC (4.5-11.0) 10^3/ul RBC (3.5-6.1) 10^6/uL Hgb (14.0-18.0) g/dL Hct (42.0-52.0) % MCV (80.0-105.0) fl MCH (25.0-35.0) pg MCHC (31.0-37.0) g/dl RDW (11.5-14.5) % Plt Count (120.0-450.0) 10^3/uL MPV (7.0-11.0) fl Gran % (50.0-68.0) % Lymph % (Auto) (22.0-35.0) % [place] % (Auto) (1.0-6.0) % Eos % (Auto) (1.5-5.0) % Baso % (Auto) (0.0-3.0) % Gran # (1.4-6.5) Lymph # (Auto) (1.2-3.4) [place] # (Auto) (0.1-0.6) Eos # (Auto) (0.0-0.7) Baso # (Auto) (0.0-2.0) K/mm3 Sodium (132-148) mmol/L Potassium (3.6-5.0) mmol/L Chloride (98-107) mmol/L Carbon Dioxide (21-33) mmol/L Anion Gap (10-20) BUN (7-21) mg/dL Creatinine (0.8-1.5) mg/dl Est GFR ( Amer) Est GFR (Non-Af Amer) POC Glucose (mg/dL) 176 H 163 H 154 H (65-110) mg/dL Random Glucose (70-110) mg/dL Calcium (8.4-10.5) mg/dL Phosphorus (2.5-4.5) mg/dL Magnesium (1.7-2.2) mg/dL Total Bilirubin (0.2-1.3) mg/dL AST (17-59) U/L ALT (7-56) U/L Alkaline Phosphatase (38-126) U/L Total Protein (5.8-8.3) g/dL Albumin (3.0-4.8) g/dL Globulin gm/dL Albumin/Globulin Ratio (1.1-1.8) [facility] 3rd Generation (0.46-4.68) mIU/mL Laboratory Results - last 24 hr 05/31/18 05/31/18 06/01/18 16:48 21:44 07:36 WBC RBC Hgb Hct MCV MCH MCHC RDW Plt Count MPV Gran % Lymph % (Auto) [place] % (Auto) Eos % (Auto) Baso % (Auto) Gran # Lymph # (Auto) [place] # (Auto) Eos # (Auto) Baso # (Auto) Sodium Potassium Chloride Carbon Dioxide Anion Gap BUN Creatinine Est GFR ( Amer) Est GFR (Non-Af Amer) POC Glucose (mg/dL) 154 H 163 H 176 H Random Glucose Calcium Phosphorus Magnesium Total Bilirubin AST ALT Alkaline Phosphatase Total Protein Albumin Globulin Albumin/Globulin Ratio [facility] 3rd Generation 06/01/18 06/01/18 06/01/18 11:04 16:13 17:05 WBC 6.8 RBC 3.53 Hgb 8.9 L Hct 27.9 L MCV 79.0 L MCH 25.2 MCHC 31.9 RDW 14.9 H Plt Count 226 MPV 9.8 Gran % 55.4 Lymph % (Auto) 33.7 [place] % (Auto) 8.7 H Eos % (Auto) 2.1 Baso % (Auto) 0.1 Gran # 3.75 Lymph # (Auto) 2.3 [place] # (Auto) 0.6 Eos # (Auto) 0.1 Baso # (Auto) 0.01 Sodium Potassium Chloride Carbon Dioxide Anion Gap BUN Creatinine Est GFR ( Amer) Est GFR (Non-Af Amer) POC Glucose (mg/dL) 177 H 167 H Random Glucose Calcium Phosphorus Magnesium Total Bilirubin AST ALT Alkaline Phosphatase Total Protein Albumin Globulin Albumin/Globulin Ratio [facility] 3rd Generation 06/01/18 06/02/18 06/02/18 21:51 05:50 05:50 WBC 5.9 RBC 3.09 L Hgb 7.9 L Hct 24.2 L MCV 78.3 L MCH 25.6 MCHC 32.6 RDW 15.1 H Plt Count 218 MPV 10.4 Gran % 47.8 L Lymph % (Auto) 36.6 H [place] % (Auto) 12.0 H Eos % (Auto) 3.1 Baso % (Auto) 0.5 Gran # 2.80 Lymph # (Auto) 2.1 [place] # (Auto) 0.7 H Eos # (Auto) 0.2 Baso # (Auto) 0.03 Sodium Potassium Chloride Carbon Dioxide Anion Gap BUN Creatinine Est GFR ( Amer) Est GFR (Non-Af Amer) POC Glucose (mg/dL) 237 H Random Glucose Calcium Phosphorus Magnesium Total Bilirubin AST ALT Alkaline Phosphatase Total Protein Albumin Globulin Albumin/Globulin Ratio TSH 3rd Generation 2.31 06/02/18 06/02/18 06/02/18 05:50 07:30 08:34 WBC 5.7 RBC 3.11 L Hgb 8.0 L Hct 24.3 L MCV 78.1 L MCH 25.7 MCHC 32.9 RDW 14.9 H Plt Count 202 MPV 9.9 Gran % 51.1 Lymph % (Auto) 33.6 [place] % (Auto) 12.1 H Eos % (Auto) 2.8 Baso % (Auto) 0.4 Gran # 2.91 Lymph # (Auto) 1.9 [place] # (Auto) 0.7 H Eos # (Auto) 0.2 Baso # (Auto) 0.02 Sodium 140 Potassium 4.9 Chloride 104 Carbon Dioxide 24 Anion Gap 16 BUN 31 H Creatinine 2.0 H Est GFR ( Amer) 40 Est GFR (Non-Af Amer) 33 POC Glucose (mg/dL) 161 H Random Glucose 163 H Calcium 8.6 Phosphorus 4.7 H Magnesium 1.9 Total Bilirubin 0.4 AST 19 ALT 21 Alkaline Phosphatase 34 L Total Protein 6.7 Albumin 3.5 Globulin 3.2 Albumin/Globulin Ratio 1.1 TSH 3rd Generation EKG/Cardiology Studies: Cardiology / EKG Studies 06/02/18 02:48 EKG [ELECTROCARDIOGRAM] Routine Comment: done Reason For Exam: pause 06/02/18 07:32 EKG [ELECTROCARDIOGRAM] Stat Comment: Reason For Exam: arrythmia PRE OP:: N Does Patient Have a Pacemaker?: No Critical Care Progress Note - Nutrition Nutrition: Nutrition Category Date Time Status NPO Diet [DIET] Diets 06/02/18 Breakfast Ordered Attending/Attestation - Attestation I have personally seen and examined this patient.: Yes I have fully participated in the care of the patient.: Yes I have reviewed all pertinent clinical information: Yes Notes (Text): 06/02/18 10:45 The patient was seen and examined at the bedside. Patient care was discussed with resident Medical records, lab studies were reviewed and management issues were discussed and formulated. Last 24H events reviewed. Agree with above treatment plans as outlined in ' note with addition of the following: Syncope \\ CAD \\ GIB \\ Anemia \\ BERNARDA \\ DM 2 \\ HTN \\ Aortic Stenosis \\ Pulmonary nodules -hemodynamic monitoring to maintain MAP>65 -continue statin, imdur and hydralazine as per cardiology team -pt is s\\p PCI where triple vessel disease is noted and pt needs CABG after clearance -o2 supplementation to maintain Spo2>90 Pao2>60; currently comfortable on NC -f\\u Bun\\Cr and U\\o; continue NS; consider renal team eval if Bun\\Cr worsens -PO diet (cardiac ) and aspiration precautions -ISS and BGM monitoring -LE pulse checks and groin checks post- PCI -GI team f\\u; EGD planned for today and colonoscopy on tuesday -monitor serial H\\H and for bleeding -neurology team following; f\\u MRA -pulmonary nodule w\\u and f\\u when condition improves -DVT \\ PUD prophylaxis CCM f\\u 30min
--- NOTE | 2018-06-02 10:06 | CARD ---
APPROVED REPORT Date of service: 06/02/2018 EKG Measurement Heart [id number] <Conclusion> Sinus bradycardia with 1st degree AV block ST_T Changes. Abnormal ECG
[2018-06-02] MEDS: Pantoprazole 40 mg EC Tab PO SCH (10:15)
--- NOTE | 2018-06-02 10:59 | CARD ---
APPROVED REPORT Date of service: 06/02/2018 EKG Measurement Heart [id number] <Conclusion> Sinus bradycardia with sinus arrhythmia with 1st degree AV block ST_T Changes. Abnormal ECG
--- NOTE | 2018-06-02 11:23 | CP.PCM.PN ---
Subjective - Date & Time of Evaluation Date of Evaluation: 06/02/18 Time of Evaluation: 07:00 - Subjective Subjective: Patient seen and examine this AM. No adverse events overnight. Patient underwent cardiac diagnostic cath yesterday which found severe triple vessel disease but no intervention was performed at that time. Patient denies any light headedness, weakness, paralysis, numbness or tingling, vision changes, or any other symptoms. Objective - Vital Signs/Intake and Output Vital Signs (last 24 hours): Temp Pulse Resp BP Pulse Ox 97.5 F L 59 L 10 L 98/52 L 99 06/02/18 04:00 06/02/18 10:10 06/02/18 09:40 06/02/18 10:10 06/02/18 09:40 Intake and Output: 06/02/18 06/02/18 06:59 18:59 Intake Total 1050 Output Total 800 Balance 250 - Medications Medications: Current Medications Atorvastatin Calcium (Lipitor) 40 mg PO DIN [facility] Last Admin: 06/01/18 16:22 Dose: 40 mg Ferrous Sulfate (Feosol) 324 mg PO TID [facility] Last Admin: 06/02/18 10:11 Dose: 324 mg Gabapentin (Neurontin) 300 mg PO BID [facility] PRN Reason: Protocol Last Admin: 06/02/18 10:13 Dose: 300 mg Hydralazine HCl (Apresoline) 50 mg PO BID [facility] Last Admin: 06/02/18 10:10 Dose: Not Given Hydralazine HCl (Apresoline) 10 mg PO QID PRN PRN Reason: For SBP>160 Sodium Chloride (Sodium Chloride 0.9%) 1,000 mls @ 50 mls/hr IV .Q20H [facility] Stop: 06/03/18 23:59 Insulin Human Regular (Humulin R Low) 0 units SC ACHS [facility] PRN Reason: Protocol Last Admin: 06/02/18 08:02 Dose: Not Given Isosorbide Mononitrate (Imdur Er) 60 mg PO DAILY [facility] Losartan Potassium (Cozaar) 25 mg PO DAILY [facility] Last Admin: 06/01/18 13:55 Dose: Not Given Pantoprazole Sodium (Protonix Ec Tab) 40 mg PO ACB [facility] Last Admin: 06/02/18 10:15 Dose: 40 mg - Labs Labs: 06/02/18 07:30 06/02/18 05:50 PT 11.6 SECONDS (9.4-12.5) 05/30/18 22:12 INR 1.02 (0.93-1.08) 05/30/18 22:12 APTT 30.3 Seconds (25.1-36.5) 05/31/18 16:55 - Constitutional Appears: Well, Non-toxic, No Acute Distress - Head Exam Head Exam: ATRAUMATIC, NORMOCEPHALIC - Eye Exam Eye Exam: EOMI, Normal appearance, PERRL. absent: Conjunctival injection, Scleral icterus - ENT Exam ENT Exam: Mucous Membranes Moist, Normal Oropharynx - Respiratory Exam Respiratory Exam: NORMAL BREATHING PATTERN. absent: Accessory Muscle Use, Respiratory Distress - Cardiovascular Exam Cardiovascular Exam: RRR - GI/Abdominal Exam GI & Abdominal Exam: Soft. absent: Distended, Tenderness - Extremities Exam Extremities Exam: absent: Calf Tenderness, Pedal Edema, Tenderness - Neurological Exam Neurological Exam: Alert, Awake, CN II-XII Intact, Oriented x3. absent: Motor Sensory Deficit Neuro motor strength exam: Left Upper Extremity: 5, Right Upper Extremity: 5, Left Lower Extremity: 5, Right Lower Extremity: 5 - Psychiatric Exam Psychiatric exam: Normal Affect, Normal Mood - Skin Skin Exam: Dry, Intact, Normal Color, Warm Assessment and Plan - Assessment and Plan (Free Text) Assessment: 73M with asymptomatic 60-79% LYSSA carotid stenosis Plan: No surgical intervention at this time--patient's cardiovascular status and GI bleed are more pressing at this time. After they are stabilized patient may benefit from further work up for carotid stenosis and follow up outpatiently with vascular surgeon Continue management per primary team, GI, and cardiology Control patient's blood pressure and monitor for any signs of stroke Discussed with Dr. Remy, further recs per her Monica Shoemaker, PGY2
--- NOTE | 2018-06-02 12:33 | CP.PCM.PN ---
<Jj Peraza - Last Filed: 06/02/18 14:16> Subjective - Date & Time of Evaluation Date of Evaluation: 06/02/18 Time of Evaluation: 14:16 - Subjective Subjective: Medicine progress note for Dr. Flood's service - Ricky Peraza PGY3 Patient seen and examined at bedside. Spoke to the patient and his son at length. He is pending an EGD this afternoon to rule out GI bleed as a source of his anemia. He is currently comfortable and not complaining of any chest pain, palpitations or SOB. He reported ambulating with PT yesterday without issue. Objective - Vital Signs/Intake and Output Vital Signs (last 24 hours): Temp Pulse Resp BP Pulse Ox 97.5 F L 59 L 41 H 134/53 L 99 06/02/18 04:00 06/02/18 11:45 06/02/18 11:40 06/02/18 11:45 06/02/18 11:45 Intake and Output: 06/02/18 06/02/18 06:59 18:59 Intake Total 1050 Output Total 800 Balance 250 - Medications Medications: Current Medications Atorvastatin Calcium (Lipitor) 40 mg PO DIN [facility] Last Admin: 06/01/18 16:22 Dose: 40 mg Ferrous Sulfate (Feosol) 324 mg PO TID [facility] Last Admin: 06/02/18 10:11 Dose: 324 mg Gabapentin (Neurontin) 300 mg PO BID [facility] PRN Reason: Protocol Last Admin: 06/02/18 10:13 Dose: 300 mg Hydralazine HCl (Apresoline) 50 mg PO BID [facility] Last Admin: 06/02/18 10:10 Dose: Not Given Hydralazine HCl (Apresoline) 10 mg PO QID PRN PRN Reason: For SBP>160 Sodium Chloride (Sodium Chloride 0.9%) 1,000 mls @ 50 mls/hr IV .Q20H [facility] Stop: 06/03/18 23:59 Insulin Human Regular (Humulin R Low) 0 units SC ACHS [facility] PRN Reason: Protocol Last Admin: 06/02/18 08:02 Dose: Not Given Isosorbide Mononitrate (Imdur Er) 60 mg PO DAILY [facility] Losartan Potassium (Cozaar) 25 mg PO DAILY [facility] Last Admin: 06/01/18 13:55 Dose: Not Given Pantoprazole Sodium (Protonix Ec Tab) 40 mg PO ACB [facility] Last Admin: 06/02/18 10:15 Dose: 40 mg - Labs Labs: 06/02/18 07:30 06/02/18 05:50 PT 11.6 SECONDS (9.4-12.5) 05/30/18 22:12 INR 1.02 (0.93-1.08) 05/30/18 22:12 APTT 30.3 Seconds (25.1-36.5) 05/31/18 16:55 - Constitutional Appears: No Acute Distress - Head Exam Head Exam: ATRAUMATIC, NORMAL INSPECTION, NORMOCEPHALIC - Eye Exam Eye Exam: EOMI Pupil Exam: PERRL - ENT Exam ENT Exam: Mucous Membranes Moist - Neck Exam Neck Exam: Normal Inspection - Respiratory Exam Respiratory Exam: Clear to Ausculation Bilateral. absent: Rales, Rhonchi, Wheezes - Cardiovascular Exam Cardiovascular Exam: RRR, +S1, +S2, Murmur. absent: Gallop, JVD, Rubs Additional comments: systolic murmur - GI/Abdominal Exam GI & Abdominal Exam: Soft. absent: Distended, Firm, Guarding, Rigid, Tenderness , Rebound - Extremities Exam Extremities Exam: Normal Inspection. absent: Pedal Edema - Neurological Exam Neurological Exam: Alert, Awake, CN II-XII Intact, Oriented x3 - Psychiatric Exam Psychiatric exam: Normal Affect, Normal Mood - Skin Skin Exam: Dry, Intact, Normal Color, Warm Assessment and Plan - Assessment and Plan (Free Text) Plan: 73yo male with history of HTN, HLD, type 2 DM with neuropathy, CAD presented to [facility] with c/o weakness with report of syncopal episode. Was found on admission to have new-onset anemia. Pt also found to have elevated troponins on admission. GI, Cardiology, Neurology, and Vascular Surgery consulted. 1. NSTEMI 2. Microcytic Anemia 3. CAD 4. Right ICA stenosis 5. Mod-severe aortic stenosis 6. Weakness/Syncopal episodes 7. Hx of hypertension 8. Hx of hyperlipidemia 9. DM type 2 -Patient is presently awaiting EGD this afternoon to evaluate for possible GI bleed -Colonoscopy potentially anticipated on Tuesday -Troponin was elevated on admission and he was started on ASA/heparin drip however this was discontinued due to worsening anemia with possibility of GI bleed -Cardiac catherization was notable for left main (50%), circumflex (90%) and RCA (70%) stenosis -He is currently on ferrous sulfate for iron deficiency anemia, coreg/losartan/ atorvastatin for CAD/NSTEMI/HLD and insulin sliding scale with fingerstick coverage for DM -Protonix for GI prophlyaxis -Baseline H/H from PMD (Dr. Siddiqui's) said to be ; we will continue to trend H/H -CXR revealed no active disease -Head CT revealed no acute intracranial abnormalities -EKG reviewed and showed sinus rhythm with 1st degree AV block, ST/T wave abnormality -Carotid US revealed 60-79% stenosis in R ICA -Echocardiogram reviewed; EF 60-65%, mod-sev , mild AR, see full report -EEG showed no evidence of seizure activity -Cardiology consulted - Dr. Bearden -GI consulted - Dr. Munoz -Neurology consulted - Dr. Vizcarra -Vascular surgery consulted - Dr. Remy -[facility] > 30' -PT/OT Patient seen and case discussed/reviewed with attending, Dr. Flood <Jose Flood S - Last Filed: 06/04/18 08:26> Objective - Vital Signs/Intake and Output Vital Signs (last 24 hours): Temp Pulse Resp BP Pulse Ox 98.2 F 53 L 18 121/54 L 98 06/03/18 17:16 06/04/18 06:00 06/03/18 17:16 06/03/18 17:53 06/03/18 17:16 Intake and Output: 06/04/18 06/04/18 06:59 18:59 Intake Total 240 Balance 240 - Medications Medications: Current Medications Atorvastatin Calcium (Lipitor) 40 mg PO DIN [facility] Last Admin: 06/03/18 17:54 Dose: 40 mg Ferrous Sulfate (Feosol) 324 mg PO TID [facility] Last Admin: 06/03/18 22:45 Dose: 324 mg Gabapentin (Neurontin) 300 mg PO BID [facility] PRN Reason: Protocol Last Admin: 06/03/18 17:55 Dose: 300 mg Hydralazine HCl (Apresoline) 50 mg PO BID [facility] Last Admin: 06/03/18 17:53 Dose: Not Given Hydralazine HCl (Apresoline) 10 mg PO QID PRN PRN Reason: For SBP>160 Insulin Human Regular (Humulin R Low) 0 units SC ACHS [facility] PRN Reason: Protocol Last Admin: 06/03/18 22:41 Dose: Not Given Isosorbide Mononitrate (Imdur Er) 60 mg PO DAILY [facility] Last Admin: 06/03/18 09:15 Dose: 60 mg Losartan Potassium (Cozaar) 25 mg PO DAILY [facility] Last Admin: 06/01/18 13:55 Dose: Not Given Pantoprazole Sodium (Protonix Ec Tab) 40 mg PO ACB [facility] Last Admin: 06/03/18 09:17 Dose: 40 mg - Labs Labs: 06/04/18 06:00 06/04/18 06:00 PT 11.6 SECONDS (9.4-12.5) 05/30/18 22:12 INR 1.02 (0.93-1.08) 05/30/18 22:12 APTT 30.3 Seconds (25.1-36.5) 05/31/18 16:55 Assessment and Plan - Assessment and Plan (Free Text) Plan: Pt seen and examined. This is a late entry. I have reviewed the note of the medical assistant and agree with it. I have discussed the assessment and plan with the resident. I have reviewed the patient's labs and medications. I spoke to Dr Wise who updated me on the pt. I spoke to the pt at length in [facility] to get his history. He is awaiting endoscopy from GI. He is comfortable.
[2018-06-02] MEDS ORDERED: Propofol 10 mg/ml Inj (20 ML) ONE (15:47)
[2018-06-02 19:35] LABS: HEMOGLOBIN 8.9 g/dL (14.0-18.0); MEAN CELL VOLUME 77.7 fl (80.0-105.0); MEAN CORPUSCULAR HEMOGLOBIN 25.5 pg (25.0-35.0); MEAN CORPUSCULAR HGB CONC 32.8 g/dl (31.0-37.0); MEAN PLATELET VOLUME 10.4 fl (7.0-11.0); RBC 3.49 10^6/uL (3.5-6.1); WHITE BLOOD COUNT 6.4 10^3/ul (4.5-11.0)
--- NOTE | 2018-06-02 23:04 | PN ---
DATE: 06/02/2018 SUBJECTIVE: The patient denies any chest pain or shortness of breath. He tolerates upper endoscopy, which was consistent with gastritis and duodenitis. No overactive bleeding. PHYSICAL EXAMINATION: VITAL SIGNS: Blood pressure 162/72, heart rate 61, respirations 20, temperature 97.5. HEENT: Pale conjunctivae. CHEST: Clear. HEART: S1, S2 regular. EXTREMITIES: No hematoma, 2+ . LABORATORY DATA: Today's BUN and creatinine is 31 and 2. Glucose 163. Hemoglobin and hematocrit 8 and 24.3. White count and platelet count are within normal limits. ASSESSMENT: 1. Severe aortic stenosis and 50% left main disease with critical stenosis of circumflex artery and 70% stenosis of the right coronary artery. 2. Recurrent syncope. 3. Anemia. RECOMMENDATIONS: Continue hydralazine 10 mg p.o. four times a day p.r.n. Continue Lipitor 40 mg once a day and normal saline at 50 mL an hour. The plan is to perform a colonoscopy at the bedside on Tuesday. The case was discussed with Dr. Bearden as the patient is being considered for coronary artery bypass surgery and aortic valve replacement at Hospital. In the meantime, the patient is considered for carotid MRA prior to his coronary artery bypass and valve surgery. Jamin Vickers MD
--- NOTE | 2018-06-03 03:23 | CON ---
DATE: 06/02/2018 I was asked by Dr. Vickers to evaluate for transfer for open heart surgery. BRIEF CLINICAL HISTORY: This is a 73-year-old [place]ian male with past medical history of hypertension, diabetes and hyperlipidemia, was admitted here with recurrent syncope. The patient was seen by Dr. Vickers and did cardiac catheterization, and found to be left main disease, circumflex and distal RCA disease, as well as the echo shows severe aortic stenosis. The patient is anemic. The patient chart reviewed, CAT film reviewed, echo reviewed which was read by me 2 days ago. Discussed with the family in length. IMPRESSION: A 73-year-old male with past medical history significant for diabetes, hypertension, hyperlipidemia, admitted with recurrent syncope, [id number] myocardial infarction. Echocardiogram shows severe aortic stenosis, dated 05/31/2018, moderate to severe aortic stenosis, mild aortic regurgitation, mild mitral regurgitation, [id number] tricuspid regurgitation. Right ventricular systolic pressure 65, dated 05/31/2018. CAT shows left main disease, circumflex, and a film revealed right coronary artery disease as well. The patient has also some issues including severe anemia, renal insufficiency, and carotid duplex showed the patient had right internal carotid artery 60% to 79% stenosis, whereas the left internal carotid artery 20% to 39% stenosis. In view of above, the management would be, since the patient has baseline bradycardia, he is very active, so we will avoid the beta candida, avoid angiotensin-converting enzyme inhibitor because of renal insufficiency, today creatinine is up, we will start IV fluid gentle, continue nitrate, p.r.n. hydralazine, and if needed we can add on clonidine p.r.n. Suggested to complete the GI workup, endoscopy today, colonoscopy on Tuesday to rule out any occult malignancy. MRA to assess the carotid artery significant stenosis. If no significant carotid artery stenosis and GI workup is negative, we will transfer the patient by Tuesday to [facility] for possible aortic valve replacement plus coronary artery bypass surgery. Discussed with the patient's family. Discussed with the ICU dye room helper as well as discussed with the resident taking care of the team. Also, discussed with Dr. Munoz. We will follow with you. Stills were taken and given to office and Cardiothoracic at [facility] for possible transfer on Tuesday after the GI workup is done. As I mentioned, interim, continue IV hydration, monitor renal function, monitor H and H for GI bleed. Have him endoscopy, colonoscopy and neurologic evaluation, and vascular evaluation for right carotid artery, then we will transfer the patient on Tuesday. Thank you, Dr. Wise for providing us the opportunity in taking care of the patient, Reji Chand. Bala Bearden MD
[2018-06-03 06:15] LABS: BASO # 0.02 K/mm3 (0.0-2.0); BASO % 0.3 % (0.0-3.0); EOS # 0.2 (0.0-0.7); EOS % 2.4 % (1.5-5.0); GRAN # 3.33 (1.4-6.5); GRAN % 54.2 % (50.0-68.0); HEMOGLOBIN 8.6 g/dL (14.0-18.0); LYMPH # 2.1 (1.2-3.4); LYMPH % 33.7 % (22.0-35.0); MEAN CELL VOLUME 77.1 fl (80.0-105.0); MEAN CORPUSCULAR HEMOGLOBIN 25.2 pg (25.0-35.0); MEAN CORPUSCULAR HGB CONC 32.7 g/dl (31.0-37.0); MEAN PLATELET VOLUME 10.2 fl (7.0-11.0); MONO # 0.6 (0.1-0.6); MONO % 9.4 % (1.0-6.0); RBC 3.41 10^6/uL (3.5-6.1); RED CELL DISTRIBUTION WIDTH 15.2 % (11.5-14.5); WHITE BLOOD COUNT 6.2 10^3/ul (4.5-11.0)
[2018-06-03 07:20] LABS: ALB/GLOB RATIO 1.1 (1.1-1.8); ALBUMIN 3.6 g/dL (3.0-4.8); CALCIUM 8.8 mg/dL (8.4-10.5)
--- NOTE | 2018-06-03 08:09 | PN ---
DATE: 06/03/2018 MARRIAGE COUNSELOR MINISTER NOTE LOCATION: [facility]. SUBJECTIVE: The patient is awake and alert, comfortable in bed with no complaints of shortness of breath, cough, wheezing, chest congestion. No abdominal pain. No diarrhea. No complaints of any vomiting. The patient is scheduled for a colonoscopy on Tuesday. PHYSICAL EXAMINATION: VITAL SIGNS: Physical exam note that his temperature is 97.5, pulse is 63, respirations are 18 and BP is 165/72. SKIN: Warm and dry. HEENT: Head atraumatic, normocephalic. Eyes reactive to light. Ears, nose and throat seemed to be within normal limits. NECK: Supple. No JVD. No thyroid enlargement. No lymph nodes. HEART: Has regular rate and rhythm. Normal S1, S2. LUNGS: Reveal good breath sounds bilaterally. ABDOMEN: Soft. Decreased bowel sounds. GENITALIA AND RECTAL: Deferred. MUSCULOSKELETAL: No joint deformities. EXTREMITIES: Reveal trace lower extremity edema. NEUROLOGICAL: He seemed to be grossly intact. LABORATORY DATA: As far as laboratories are concerned, his white count is 6.2, hemoglobin is 8.6, hematocrit 26.3 with platelets of 259,000. Sodium is 142, potassium 4.8, chloride 105, CO2 of 26 with a BUN of 24, creatinine of 1.5 and a glucose of 197. IMPRESSION: This patient has coronary artery disease, noted to have triple-vessel disease. He presents with syncope and anemia and is being worked up for possible GI bleed. The patient has history of diabetes, hyperlipidemia, hypertension and coronary artery disease. PLAN: As far as our plan, he is scheduled for a colonoscopy on Tuesday and the patient is being evaluated for possible CABG or coronary artery surgery. He is to continue his hydralazine as well as his Cozaar and Lipitor, Neurontin and Protonix. The patient will be followed closely and treated aggressively along with the other consultants and the primary care doctor. Stoney Clay MD
[2018-06-03] MEDS: Insulin Reg-LOW-Coverage SC SCH ×4 (09:15→22:41)
[2018-06-03] MEDS: Pantoprazole 40 mg EC Tab PO SCH (09:17)
--- NOTE | 2018-06-03 15:13 | CP.PCM.PN ---
<Sherron Burgos - Last Filed: 06/03/18 15:13> Subjective - Date & Time of Evaluation Date of Evaluation: 06/03/18 Time of Evaluation: 11:30 - Subjective Subjective: GI Fellow PGY5 Progress Note Pt seen and evaluated at bedside, pt feeling okay this am, no acute events over night. No reports GI bleeding at this time. ROS: A 12pt ROS was negative except as above Objective - Vital Signs/Intake and Output Vital Signs (last 24 hours): Temp Pulse Resp BP Pulse Ox 97.5 F L 62 22 114/34 L 97 06/02/18 04:00 06/03/18 11:06 06/03/18 11:00 06/03/18 11:00 06/03/18 11:00 Intake and Output: 06/03/18 06/03/18 06:59 18:59 Intake Total 30 750 Output Total 1350 400 Balance -1320 350 - Medications Medications: Current Medications Atorvastatin Calcium (Lipitor) 40 mg PO DIN [facility] Last Admin: 06/02/18 17:37 Dose: 40 mg Ferrous Sulfate (Feosol) 324 mg PO TID [facility] Last Admin: 06/03/18 09:16 Dose: 324 mg Gabapentin (Neurontin) 300 mg PO BID [facility] PRN Reason: Protocol Last Admin: 06/03/18 09:16 Dose: 300 mg Hydralazine HCl (Apresoline) 50 mg PO BID [facility] Last Admin: 06/03/18 09:16 Dose: 50 mg Hydralazine HCl (Apresoline) 10 mg PO QID PRN PRN Reason: For SBP>160 Sodium Chloride (Sodium Chloride 0.9%) 1,000 mls @ 50 mls/hr IV .Q20H [facility] Stop: 06/03/18 23:59 Last Admin: 06/03/18 06:48 Dose: 50 mls/hr Insulin Human Regular (Humulin R Low) 0 units SC ACHS [facility] PRN Reason: Protocol Last Admin: 06/03/18 11:41 Dose: 3 u Isosorbide Mononitrate (Imdur Er) 60 mg PO DAILY [facility] Last Admin: 06/03/18 09:15 Dose: 60 mg Losartan Potassium (Cozaar) 25 mg PO DAILY [facility] Last Admin: 06/01/18 13:55 Dose: Not Given Pantoprazole Sodium (Protonix Ec Tab) 40 mg PO ACB [facility] Last Admin: 06/03/18 09:17 Dose: 40 mg - Labs Labs: 06/03/18 05:30 06/03/18 05:30 PT 11.6 SECONDS (9.4-12.5) 05/30/18 22:12 INR 1.02 (0.93-1.08) 05/30/18 22:12 APTT 30.3 Seconds (25.1-36.5) 05/31/18 16:55 - Constitutional Appears: Non-toxic, No Acute Distress - Head Exam Head Exam: ATRAUMATIC, NORMAL INSPECTION, NORMOCEPHALIC - Eye Exam Eye Exam: EOMI, Normal appearance, PERRL Pupil Exam: PERRL - ENT Exam ENT Exam: Mucous Membranes Moist - Neck Exam Neck Exam: Full ROM, Normal Inspection - Respiratory Exam Respiratory Exam: Clear to Ausculation Bilateral, NORMAL BREATHING PATTERN - Cardiovascular Exam Cardiovascular Exam: RRR, +S1, +S2 - GI/Abdominal Exam GI & Abdominal Exam: Soft, Normal Bowel Sounds. absent: Tenderness - Rectal Exam Rectal Exam: Deferred - Extremities Exam Extremities Exam: Full ROM, Normal Inspection - Back Exam Back Exam: NORMAL INSPECTION - Neurological Exam Neurological Exam: Alert, Awake, Oriented x3 - Psychiatric Exam Psychiatric exam: Normal Affect, Normal Mood - Skin Skin Exam: Dry, Intact, Normal Color, Warm Assessment and Plan - Assessment and Plan (Free Text) Assessment: This is a 73 yo Maur[place] M with PMH of HTN, HLD, DM, and reported hx of medication non-compliance (as per family report to primary team) who [place] [facility] reported syncopal episode at home with fall. GI was consulted due to anemia (Hgb 8.8, baseline reported by family to be 11) and reported bright red blood per rectum on exam by primary team. 1. Anemia 2. Gastritis, duodenitis with erosions 3. Elevated trops 4. Aortic stenosis 5. CAD with multivesel disease Plan: -Continue supportive care -Anemia, Hgb stable no no active gI bleeding at this time -s/p EGD with gastritis and duodentis with duodenal erosion likely from NSAID use -Continue PPI daily -Pt with cardiac disease and , plan for possible surgery with cardiology -Further management per primary team -Will continue to follow closely Seen, reviewed, and discussed with attending, Dr. Munoz <Alexandr Munoz V - Last Filed: 06/04/18 09:07> Objective - Vital Signs/Intake and Output Vital Signs (last 24 hours): Temp Pulse Resp BP Pulse Ox 98.2 F 65 18 121/54 L 98 06/03/18 17:16 06/03/18 17:16 06/03/18 17:16 06/03/18 17:53 06/03/18 17:16 Intake and Output: 06/03/18 06/04/18 18:59 06:59 Intake Total 1190 Output Total 1050 Balance 140 - Medications Medications: Current Medications Atorvastatin Calcium (Lipitor) 40 mg PO DIN [facility] Last Admin: 06/03/18 17:54 Dose: 40 mg Ferrous Sulfate (Feosol) 324 mg PO TID [facility] Last Admin: 06/03/18 15:44 Dose: 324 mg Gabapentin (Neurontin) 300 mg PO BID [facility] PRN Reason: Protocol Last Admin: 06/03/18 17:55 Dose: 300 mg Hydralazine HCl (Apresoline) 50 mg PO BID [facility] Last Admin: 06/03/18 17:53 Dose: Not Given Hydralazine HCl (Apresoline) 10 mg PO QID PRN PRN Reason: For SBP>160 Sodium Chloride (Sodium Chloride 0.9%) 1,000 mls @ 50 mls/hr IV .Q20H [facility] Stop: 06/03/18 23:59 Last Admin: 06/03/18 06:48 Dose: 50 mls/hr Insulin Human Regular (Humulin R Low) 0 units SC ACHS [facility] PRN Reason: Protocol Last Admin: 06/03/18 17:54 Dose: 3 u Isosorbide Mononitrate (Imdur Er) 60 mg PO DAILY [facility] Last Admin: 06/03/18 09:15 Dose: 60 mg Losartan Potassium (Cozaar) 25 mg PO DAILY [facility] Last Admin: 06/01/18 13:55 Dose: Not Given Pantoprazole Sodium (Protonix Ec Tab) 40 mg PO ACB [facility] Last Admin: 06/03/18 09:17 Dose: 40 mg - Labs Labs: 06/03/18 05:30 06/03/18 05:30 PT 11.6 SECONDS (9.4-12.5) 05/30/18 22:12 INR 1.02 (0.93-1.08) 05/30/18 22:12 APTT 30.3 Seconds (25.1-36.5) 05/31/18 16:55 Attending/Attestation - Attestation I have personally seen and examined this patient.: Yes I have fully participated in the care of the patient.: Yes I have reviewed all pertinent clinical information, including history, physical exam and plan: Yes Notes (Text): This is an addendum to GI progress report dictated by the GI Fellow.The patient was seen and examined earlier. Medical records, lab studies, imagings were reviewed. Last 24 hours events reviewed. Agreed with the above treatment plan as outlined in GI Fellow 's notes the with the addition of the following patient comfortable No bleeding per rectum or Abdomen soft no tenderness Scheduled for colonoscopy We will change the diet to clear liquids a.m. 06/03/18 21:37
--- NOTE | 2018-06-03 15:55 | PN ---
DATE: 06/03/2018 REASON FOR CONSULTATION AND FOLLOWUP: Covering Dr. Vickers, status post cardiac cath, triple-vessel disease, aortic stenosis, anemia, renal insufficiency. SUBJECTIVE: The patient denies any chest pain, shortness of breath, or any palpitations. OBJECTIVE: GENERAL: Not in apparent distress. VITAL SIGNS: As follows, temperature afebrile, heart rate 64, blood pressure 159/63. HEENT: PERRLA. Extraocular muscles intact. NECK: Supple. No carotid bruits or thyromegaly. CHEST: Clear to auscultation. HEART: S1 and S2 regular. ABDOMEN: Soft. EXTREMITIES: Clubbing and cyanosis negative. LABORATORY DATA: WBC 6.2, hemoglobin 8.6, hematocrit 26.3, platelet count 259. Chemistry shows sodium 140, potassium 4.8, chloride 105, carbon dioxide 26, anion gap of 15, BUN 24, creatinine 1.5. IMPRESSION: Recurrent syncope. A 73-year-old male with past medical history of diabetes and, hypertension. He presents with recurrent syncope, [id number] myocardial infarction. Workup shows aortic stenosis, severe; left main disease and circumflex artery disease, anemia, rule out colonic mass. RECOMMENDATIONS: Avoid CADENCE for now because the patient's acute kidney injury is improving. Continue hydralazine, not on beta-candida because the patient has a baseline bradycardic . Continue gentle hydration. Repeat the blood workup in the morning. The patient is cleared to go for colonoscopy tomorrow. Once the colonoscopy is done and carotid artery MRA done, Afib, found to be no significant coronary artery disease. Then we can subject the patient for open heart surgery to transfer probably Tuesday. Interim, continue IV fluid, continue hydralazine, continue atorvastatin, continue nitrates. Repeat the blood workup in the morning. We will obtain mag level also. BUN and creatinine is improving with hydration. We will continue hydration for next 12 to 14 hours. We will transfer to Telemetry. Thank you, Dr. Wise, for providing us the opportunity in taking care of the patient, Sheikh Reji. They will transfer care on Tuesday to Dr. Vickers. Bala Bearden MD [facility] # [phone]
[2018-06-04 06:42] LABS: BASO # 0.03 K/mm3 (0.0-2.0); BASO % 0.4 % (0.0-3.0); EOS # 0.2 (0.0-0.7); EOS % 2.7 % (1.5-5.0); GRAN # 3.31 (1.4-6.5); GRAN % 49.5 % (50.0-68.0); HEMOGLOBIN 8.3 g/dL (14.0-18.0); LYMPH # 2.5 (1.2-3.4); LYMPH % 37.4 % (22.0-35.0); MEAN CORPUSCULAR HEMOGLOBIN 25.4 pg (25.0-35.0); MEAN CORPUSCULAR HGB CONC 32.5 g/dl (31.0-37.0); MEAN PLATELET VOLUME 10.2 fl (7.0-11.0); MONO # 0.7 (0.1-0.6); RBC 3.27 10^6/uL (3.5-6.1); WHITE BLOOD COUNT 6.7 10^3/ul (4.5-11.0)
[2018-06-04 07:43] LABS: ALBUMIN 3.6 g/dL (3.0-4.8); ALT/SGPT 27 U/L (7-56); AST/SGOT 15 U/L (17-59); BLOOD UREA NITROGEN 21 mg/dL (7-21); CALCIUM 9.2 mg/dL (8.4-10.5); GFR AFRICAN-AMERICAN > 60; GFR NON-AFRICAN AMERICAN 54
--- NOTE | 2018-06-04 08:29 | CP.PCM.PN ---
Subjective - Date & Time of Evaluation Date of Evaluation: 06/04/18 Time of Evaluation: 06:35 - Subjective Subjective: Awake, alert, denies chest pain ,no distress Reason for consultation and follow up: Covering for Dr. Sanchez, status post cardiac catheterization, coronary artery disease, triple vessel disease,aortic stenosis,admitted due to recurrent syncope, history of hypertension and diabetes mellitus Seen and examined by me and Dr. Bearden Covering for Dr. Sanchez Objective - Vital Signs/Intake and Output Vital Signs (last 24 hours): Temp Pulse Resp BP Pulse Ox 98.2 F 53 L 18 121/54 L 98 06/03/18 17:16 06/04/18 06:00 06/03/18 17:16 06/03/18 17:53 06/03/18 17:16 Intake and Output: 06/04/18 06/04/18 06:59 18:59 Intake Total 240 Balance 240 - Medications Medications: Current Medications Atorvastatin Calcium (Lipitor) 40 mg PO DIN [facility] Last Admin: 06/03/18 17:54 Dose: 40 mg Ferrous Sulfate (Feosol) 324 mg PO TID [facility] Last Admin: 06/03/18 22:45 Dose: 324 mg Gabapentin (Neurontin) 300 mg PO BID [facility] PRN Reason: Protocol Last Admin: 06/03/18 17:55 Dose: 300 mg Hydralazine HCl (Apresoline) 50 mg PO BID [facility] Last Admin: 06/03/18 17:53 Dose: Not Given Hydralazine HCl (Apresoline) 10 mg PO QID PRN PRN Reason: For SBP>160 Insulin Human Regular (Humulin R Low) 0 units SC ACHS [facility] PRN Reason: Protocol Last Admin: 06/03/18 22:41 Dose: Not Given Isosorbide Mononitrate (Imdur Er) 60 mg PO DAILY [facility] Last Admin: 06/03/18 09:15 Dose: 60 mg Losartan Potassium (Cozaar) 25 mg PO DAILY [facility] Last Admin: 06/01/18 13:55 Dose: Not Given Pantoprazole Sodium (Protonix Ec Tab) 40 mg PO ACB [facility] Last Admin: 06/03/18 09:17 Dose: 40 mg - Labs Labs: 06/04/18 06:00 06/04/18 06:00 PT 11.6 SECONDS (9.4-12.5) 05/30/18 22:12 INR 1.02 (0.93-1.08) 05/30/18 22:12 APTT 30.3 Seconds (25.1-36.5) 05/31/18 16:55 - Constitutional Appears: No Acute Distress - Eye Exam Eye Exam: Normal appearance - ENT Exam ENT Exam: Mucous Membranes Moist - Respiratory Exam Respiratory Exam: Clear to Ausculation Bilateral, NORMAL BREATHING PATTERN - Cardiovascular Exam Cardiovascular Exam: Bradycardia, +S1, +S2 - GI/Abdominal Exam GI & Abdominal Exam: Soft, Normal Bowel Sounds - Extremities Exam Extremities Exam: Normal Capillary Refill - Neurological Exam Neurological Exam: Alert, Awake, Oriented x3 - Psychiatric Exam Psychiatric exam: Normal Affect - Skin Skin Exam: Dry, Warm Assessment and Plan - Assessment and Plan (Free Text) Assessment: A 73 year old male who came in to the ER due to syncopal episode, status post fall. History of diabetes type 2 and hypertension,status post cardiac catheterization, coronary artery disease, triple vessel disease,aortic stenosis. Plan: For colonoscopy Tuesday for transfer to [facility] for open heart surgery Denies chest pain or shortness of breath Stable heart rate and blood pressure Continue current treatment Continue current medications Care will be followed up by Dr. Sanchez on Tuesday Will follow up Plan and treatment discussed with Dr. Bearden
[2018-06-04] MEDS ORDERED: Peg-Electrolyte Oral Soln 4L (Golytely) PO ONE (09:51)
[2018-06-04] MEDS: Pantoprazole 40 mg EC Tab PO SCH (10:01)
[2018-06-04] MEDS: Insulin Reg-LOW-Coverage SC SCH ×4 (10:04→21:26)
[2018-06-04] MEDS: Sodium Chloride 0.9% 1,000 ML IV SCH (10:05)
[2018-06-04] MEDS ORDERED: Gadodiamide 287 MG/ML VIAL (20ML) IV ONE (13:23)
--- NOTE | 2018-06-04 15:09 | CP.PCM.PN ---
<Sherron Burgos - Last Filed: 06/04/18 15:09> Subjective - Date & Time of Evaluation Date of Evaluation: 06/04/18 Time of Evaluation: 11:00 - Subjective Subjective: GI Fellow PGY5 Progress Note Pt seen and evaluated at bedside, pt feeling okay, no acute events over night. No reports GI bleeding at this time. Tolerating liquid diet. ROS: A 12pt ROS was negative except as above Objective - Vital Signs/Intake and Output Vital Signs (last 24 hours): Temp Pulse Resp BP Pulse Ox 98 F 62 18 127/56 L 98 06/04/18 12:00 06/04/18 12:00 06/04/18 12:00 06/04/18 12:00 06/03/18 17:16 Intake and Output: 06/04/18 06/04/18 06:59 18:59 Intake Total 240 Balance 240 - Medications Medications: Current Medications Atorvastatin Calcium (Lipitor) 40 mg PO DIN [facility] Last Admin: 06/03/18 17:54 Dose: 40 mg Ferrous Sulfate (Feosol) 324 mg PO TID [facility] Last Admin: 06/04/18 14:19 Dose: 324 mg Gabapentin (Neurontin) 300 mg PO BID [facility] PRN Reason: Protocol Last Admin: 06/04/18 10:01 Dose: 300 mg Hydralazine HCl (Apresoline) 50 mg PO BID [facility] Last Admin: 06/04/18 10:03 Dose: 50 mg Hydralazine HCl (Apresoline) 10 mg PO QID PRN PRN Reason: For SBP>160 Sodium Chloride (Sodium Chloride 0.9%) 1,000 mls @ 50 mls/hr IV .Q20H [facility] Stop: 06/05/18 23:59 Last Admin: 06/04/18 10:05 Dose: 50 mls/hr Insulin Human Regular (Humulin R Low) 0 units SC ACHS [facility] PRN Reason: Protocol Last Admin: 06/04/18 12:23 Dose: 5 u Isosorbide Mononitrate (Imdur Er) 60 mg PO DAILY [facility] Last Admin: 06/04/18 10:00 Dose: 60 mg Lorazepam (Ativan) 1 mg IVP ONCE PRN; Protocol PRN Reason: Anxiety Losartan Potassium (Cozaar) 25 mg PO DAILY [facility] Last Admin: 06/01/18 13:55 Dose: Not Given Pantoprazole Sodium (Protonix Ec Tab) 40 mg PO ACB [facility] Last Admin: 06/04/18 10:01 Dose: 40 mg - Labs Labs: 06/04/18 06:00 06/04/18 06:00 PT 11.6 SECONDS (9.4-12.5) 05/30/18 22:12 INR 1.02 (0.93-1.08) 05/30/18 22:12 APTT 30.3 Seconds (25.1-36.5) 05/31/18 16:55 - Constitutional Appears: Non-toxic, No Acute Distress - Head Exam Head Exam: ATRAUMATIC, NORMAL INSPECTION, NORMOCEPHALIC - Eye Exam Eye Exam: EOMI, Normal appearance, PERRL Pupil Exam: PERRL - ENT Exam ENT Exam: Mucous Membranes Moist - Neck Exam Neck Exam: Normal Inspection - Respiratory Exam Respiratory Exam: Clear to Ausculation Bilateral, NORMAL BREATHING PATTERN - Cardiovascular Exam Cardiovascular Exam: REGULAR RHYTHM, +S1, +S2 - GI/Abdominal Exam GI & Abdominal Exam: Soft, Normal Bowel Sounds. absent: Tenderness, Organomegaly - Extremities Exam Extremities Exam: Full ROM - Neurological Exam Neurological Exam: Alert, Awake, Oriented x3 - Psychiatric Exam Psychiatric exam: Normal Affect, Normal Mood - Skin Skin Exam: Dry, Intact, Normal Color, Warm Assessment and Plan - Assessment and Plan (Free Text) Assessment: This is a 73 yo [place]isian M with PMH of HTN, HLD, DM, and reported hx of medication non-compliance (as per family report to primary team) who presented to [facility] s/p reported syncopal episode at home with fall. GI was consulted due to anemia (Hgb 8.8, baseline reported by family to be 11) and reported bright red blood per rectum on exam by primary team. 1. Anemia 2. Gastritis, duodenitis with erosions 3. Elevated trops 4. Aortic stenosis 5. CAD with multivessel disease Plan: -Continue supportive care -Anemia, Hgb stable no no active GI bleeding at this time -s/p EGD with gastritis and duodentis with duodenal erosion likely from NSAID use -Continue PPI daily -Pt with cardiac disease and , plan for possible surgery with cardiology -Colonoscopy planned for tomorrow -Clear liquid diet, NPO after midnight -Bowel prep with golytely -Further management per primary team -Will continue to follow closely <Alexandr Munoz V - Last Filed: 06/04/18 22:50> Objective - Vital Signs/Intake and Output Vital Signs (last 24 hours): Temp Pulse Resp BP Pulse Ox 98 F 62 18 184/77 H 98 06/04/18 12:00 06/04/18 12:00 06/04/18 12:00 06/04/18 20:27 06/03/18 17:16 Intake and Output: 06/04/18 06/05/18 18:59 06:59 Intake Total 300 Output Total 600 Balance -300 - Medications Medications: Current Medications Atorvastatin Calcium (Lipitor) 40 mg PO DIN [facility] Last Admin: 06/04/18 17:58 Dose: 40 mg Gabapentin (Neurontin) 300 mg PO BID [facility] PRN Reason: Protocol Last Admin: 06/04/18 17:59 Dose: 300 mg Hydralazine HCl (Apresoline) 50 mg PO BID [facility] Last Admin: 06/04/18 20:27 Dose: 50 mg Hydralazine HCl (Apresoline) 10 mg PO QID PRN PRN Reason: For SBP>160 Sodium Chloride (Sodium Chloride 0.9%) 1,000 mls @ 50 mls/hr IV .Q20H [facility] Stop: 06/05/18 23:59 Last Admin: 06/04/18 10:05 Dose: 50 mls/hr Insulin Human Regular (Humulin R Low) 0 units SC ACHS [facility] PRN Reason: Protocol Last Admin: 06/04/18 21:26 Dose: Not Given Isosorbide Mononitrate (Imdur Er) 60 mg PO DAILY [facility] Last Admin: 06/04/18 10:00 Dose: 60 mg Lorazepam (Ativan) 1 mg IVP ONCE PRN; Protocol PRN Reason: Anxiety Last Admin: 06/04/18 16:23 Dose: 1 mg Losartan Potassium (Cozaar) 25 mg PO DAILY [facility] Last Admin: 06/01/18 13:55 Dose: Not Given Pantoprazole Sodium (Protonix Ec Tab) 40 mg PO ACB [facility] Last Admin: 06/04/18 10:01 Dose: 40 mg - Labs Labs: 06/04/18 06:00 06/04/18 06:00 PT 11.6 SECONDS (9.4-12.5) 05/30/18 22:12 INR 1.02 (0.93-1.08) 05/30/18 22:12 APTT 30.3 Seconds (25.1-36.5) 05/31/18 16:55 Attending/Attestation - Attestation Notes (Text): This is an addendum to GI progress report dictated by the GI Fellow.The patient was seen and examined earlier. Medical records, lab studies, imagings were reviewed. Last 24 hours events reviewed. Agreed with the above treatment plan as outlined in GI Fellow 's notes the with the addition of the following patient is scheduled for colnoscopy tomorrow Follow-up of hemoglobin Continue PPI Patient was drinking GoLYTELY he time of the examination 06/04/18 22:49
--- NOTE | 2018-06-04 19:05 | CON ---
DATE: 06/04/2018 CONSULT REQUESTED BY: Dr. Wise. REASON FOR CONSULTATION: Severe anemia. HISTORY OF PRESENT ILLNESS: Mr. Chand is a 73-year-old male, admitted to the hospital with severe iron-deficiency anemia. He underwent cardiac catheterization, which shows severe triple-vessel disease. He has aortic stenosis and chronic renal insufficiency. He underwent EGD, which shows erosive gastritis. Colonoscopy is planned for Tuesday. CAT scan of the chest showed multiple pulmonary nodules, 6-8 mm in size and also in the both lower lobes. Denies any chest pain. He is comfortable in bed. No events overnight. PAST MEDICAL HISTORY: Hypertension, hyperlipidemia, diabetes mellitus type 2, history of syncopal episodes. PAST SURGICAL HISTORY: None. ALLERGIES: NO KNOWN DRUG ALLERGIES. REVIEW OF SYSTEMS: As per HPI. Rest of 12-point review of systems reviewed negative. FAMILY HISTORY: Noncontributory. PHYSICAL EXAMINATION: GENERAL: Comfortable in bed, in no acute distress. VITAL SIGNS: Temperature 98.9, heart rate 76 per minute, respiratory rate 18 per minute, blood pressure 140/70, pulse ox is 100% on room air. HEENT: Pallor positive. NECK: No lymphadenopathy. CHEST: Air entry present and equal bilateral. No added sounds. CARDIOVASCULAR: S1, S2 normal. No murmur, no gallop. ABDOMEN: Soft, nontender. No hepatosplenomegaly. EXTREMITY: No edema. CUSTOM HARVESTER: Alert, oriented x3. No focal sensorimotor deficits. LABORATORY DATA: White count 6.2, hemoglobin 8.6, hematocrit 26.3, platelet count 259. Creatinine 1.5. Electrolytes within normal limits. Iron is 26, iron saturation 5%. B12 of 442. MEDICATIONS: Lipitor 40 mg daily, iron 325 mg p.o. t.i.d., Neurontin 300 mg p.o. b.i.d., hydralazine 10 mg four times a day p.r.n., insulin sliding scale, Imdur 60 mg daily, lorazepam 1 mg IV p.r.n. for anxiety, losartan 25 mg daily, Protonix 40 mg daily, IV fluid at 50 mL an hour. ASSESSMENT: 1. Coronary artery disease, severe triple-vessel disease. He will be transferred to [facility] for coronary artery bypass surgery. 2. Severe iron-deficiency anemia. Iron saturation is 5%. He is currently on oral iron. I will discontinue oral iron because esophagogastroduodenoscopy showed erosive gastritis. It may worsen the gastritis. One dose of IV iron 200 mg to be given today. He will need continuation of IV iron postsurgery to replete iron stores. Colonoscopy is planned for tomorrow. GI, no obvious bleed. GI workup in progress. 3. Atrial fibrillation. Currently not on anticoagulation, maybe because of anemia. Reviewed Cardiology note. Hemodynamically stable. Thank you, Dr. Wise for allowing us to participate in Mr. Chand's care. Ana Chavez MD
--- NOTE | 2018-06-04 19:34 | PN ---
DATE: 06/04/2018 SUBJECTIVE: He is comfortable in bed, in no acute distress. No events overnight. He has severe anemia. Hemoglobin declined to 8.3 g/dL. He has severe triple-vessel disease, awaiting transfer to [facility] for coronary artery bypass surgery. EGD done on Tuesday showed erosive gastritis. Colonoscopy is planned for tomorrow. Chest, abdomen, pelvis showed bilateral lung nodules. REVIEW OF SYSTEMS: As per HPI. Rest of 12-point review of systems reviewed negative. MEDICATIONS: Lipitor 40 mg daily, ferrous sulfate 324 mg p.o. b.i.d., gabapentin 300 mg p.o. b.i.d., hydralazine 10 mg four times a day p.r.n., isosorbide/Imdur 60 mg daily, Ativan 1 mg daily, Cozaar 25 mg daily, Protonix 40 mg daily, sodium chloride 250 mL/hour. PHYSICAL EXAMINATION: GENERAL: Comfortable in bed, in no acute distress. VITAL SIGNS: Heart rate 67 per minute, blood pressure 166/80, respiratory rate 18 per minute, heart rate 79 per minute, oxygen saturation 98% on room air. HEENT: Pallor positive. NECK: No lymphadenopathy. CHEST: Air entry present and equal bilaterally. No added sounds. CARDIOVASCULAR: S1 and S2 normal. No murmur. No gallop. ABDOMEN: Soft, nontender. No hepatosplenomegaly. EXTREMITIES: No edema. AMUSEMENT EQUIPMENT OPERATOR: Alert and oriented x3. No focal sensory or motor deficit. SPINE: Nontender. LABORATORY DATA: White count 6.7, hemoglobin 8.3, hematocrit 25.5, and platelets 272. Sodium 142, potassium 4.6. Creatinine 1.3. Chemistries within normal limits. B12 level 442. ASSESSMENT: 1. Severe iron-deficiency anemia. 2. Erosive gastritis. 3. Bilateral pulmonary lung nodules 8 mm. 4. Coronary artery disease, triple-vessel disease. 5. Chronic kidney disease stage III. PLAN: IV iron 200 mg to be given today. We will repeat another dose on Tuesday. He will need repletion of IV iron upon discharge from the hospital. He is awaiting transfer to [facility] for coronary artery bypass surgery, colonoscopy planned for tomorrow to rule out colonic lesion attributing to severe anemia. He has bilateral lung nodules that need further workup, may be after coronary artery bypass surgery. He might need biopsy of one of the nodules as there are multiple on a noncontrast CT of abdomen and pelvis. Discussed with the patient . He agreed with the plan. Ana Chavez MD [id number]
[2018-06-05 07:11] LABS: BASO # 0.06 K/mm3 (0.0-2.0); BASO % 0.9 % (0.0-3.0); EOS # 0.3 (0.0-0.7); EOS % 4.3 % (1.5-5.0); GRAN # 4.27 (1.4-6.5); GRAN % 63.6 % (50.0-68.0); HEMOGLOBIN 8.7 g/dL (14.0-18.0); LYMPH # 1.4 (1.2-3.4); LYMPH % 21.1 % (22.0-35.0); MEAN CELL VOLUME 77.4 fl (80.0-105.0); MEAN CORPUSCULAR HEMOGLOBIN 25.6 pg (25.0-35.0); MEAN CORPUSCULAR HGB CONC 33.1 g/dl (31.0-37.0); MONO # 0.7 (0.1-0.6); MONO % 10.1 % (1.0-6.0); RBC 3.4 10^6/uL (3.5-6.1); RED CELL DISTRIBUTION WIDTH 14.9 % (11.5-14.5); WHITE BLOOD COUNT 6.7 10^3/ul (4.5-11.0)
[2018-06-05 07:31] LABS: ALB/GLOB RATIO 1.2 (1.1-1.8); ALBUMIN 3.9 g/dL (3.0-4.8); ALT/SGPT 26 U/L (7-56); AST/SGOT 24 U/L (17-59); BLOOD UREA NITROGEN 15 mg/dL (7-21); CALCIUM 9.2 mg/dL (8.4-10.5); GFR AFRICAN-AMERICAN > 60; GFR NON-AFRICAN AMERICAN > 60
[2018-06-05] MEDS: Insulin Reg-LOW-Coverage SC SCH ×4 (08:37→21:55)
[2018-06-05] MEDS: Sodium Chloride 0.9% 1,000 ML IV SCH (08:48)
[2018-06-05] MEDS: Pantoprazole 40 mg EC Tab PO SCH (09:50)
--- NOTE | 2018-06-05 10:09 | MRI ---
Date of service: 06/04/2018 PROCEDURE: MR Angiography of the neck with and without contrast HISTORY: Right carotid artey stenosis, CAD for CABG, pre-op COMPARISON: Duplex ultrasound exam 05/31/2018 TECHNIQUE: Contrast enhanced and [id number] angiography of the neck was performed. Rotating 3D maximum intensity projection images of the cervical carotid and vertebral arteries were generated. 15 cc Omniscan FINDINGS: RIGHT CAROTID ARTERIES: Common Carotid Artery: Normal. Carotid Bifurcation: Normal. Internal Carotid Artery:There is a mild to moderate stenosis of the proximal right internal carotid External Carotid Artery (proximal branches): Normal. LEFT CAROTID ARTERIES: Common Carotid Artery: Normal. Carotid Bifurcation: Normal. Internal Carotid Artery:Normal. External Carotid Artery (proximal branches): Normal. VERTEBRAL ARTERIES: Right Vertebral Artery: Normal. Left Vertebral Artery: Normal. OTHER FINDINGS: The report concurs with the preliminary [facility] report IMPRESSION: There is a mild to moderate stenosis of the proximal right internal carotid
--- NOTE | 2018-06-05 10:12 | CP.PCM.PN ---
<Jj Peraza - Last Filed: 06/05/18 10:09> Subjective - Date & Time of Evaluation Date of Evaluation: 06/05/18 Time of Evaluation: 10:09 - Subjective Subjective: Medicine progress note for Dr. Flood's service - Ricky Peraza PGY3 Patient seen and examined at bedside. No acute overnight events or new complaints reported. His hgb has been stable. He is pending colonoscopy this morning and anticipated transfer to [facility] on tuesday. He denies abdominal pain, nausea, vomiting, melena, hematochezia. Objective - Vital Signs/Intake and Output Vital Signs (last 24 hours): Temp Pulse Resp BP Pulse Ox 98.3 F 68 18 156/63 H 94 L 06/05/18 06:00 06/05/18 06:00 06/05/18 06:00 06/05/18 06:00 06/05/18 06:00 Intake and Output: 06/05/18 06/05/18 06:59 18:59 Intake Total 4650 Balance 4650 - Medications Medications: Current Medications Atorvastatin Calcium (Lipitor) 40 mg PO DIN [facility] Last Admin: 06/04/18 17:58 Dose: 40 mg Gabapentin (Neurontin) 300 mg PO BID [facility] PRN Reason: Protocol Last Admin: 06/05/18 09:50 Dose: 300 mg Hydralazine HCl (Apresoline) 50 mg PO BID [facility] Last Admin: 06/05/18 09:50 Dose: 50 mg Hydralazine HCl (Apresoline) 10 mg PO QID PRN PRN Reason: For SBP>160 Sodium Chloride (Sodium Chloride 0.9%) 1,000 mls @ 50 mls/hr IV .Q20H [facility] Stop: 06/05/18 23:59 Last Admin: 06/05/18 08:48 Dose: 50 mls/hr Insulin Human Regular (Humulin R Low) 0 units SC ACHS [facility] PRN Reason: Protocol Last Admin: 06/05/18 08:37 Dose: 1 u Isosorbide Mononitrate (Imdur Er) 60 mg PO DAILY [facility] Last Admin: 06/05/18 09:50 Dose: 60 mg Lorazepam (Ativan) 1 mg IVP ONCE PRN; Protocol PRN Reason: Anxiety Last Admin: 06/04/18 16:23 Dose: 1 mg Losartan Potassium (Cozaar) 25 mg PO DAILY [facility] Last Admin: 06/01/18 13:55 Dose: Not Given Pantoprazole Sodium (Protonix Ec Tab) 40 mg PO ACB [facility] Last Admin: 06/05/18 09:50 Dose: 40 mg - Labs Labs: 06/05/18 06:30 06/05/18 06:30 PT 11.6 SECONDS (9.4-12.5) 05/30/18 22:12 INR 1.02 (0.93-1.08) 05/30/18 22:12 APTT 30.3 Seconds (25.1-36.5) 05/31/18 16:55 - Constitutional Appears: No Acute Distress - Head Exam Head Exam: ATRAUMATIC, NORMAL INSPECTION, NORMOCEPHALIC - Eye Exam Eye Exam: EOMI Pupil Exam: PERRL - ENT Exam ENT Exam: Mucous Membranes Moist - Respiratory Exam Respiratory Exam: Clear to Ausculation Bilateral. absent: Rales, Rhonchi, Wheezes - Cardiovascular Exam Cardiovascular Exam: +S1, +S2, Murmur (systolic murmur). absent: Gallop, Rubs - GI/Abdominal Exam GI & Abdominal Exam: Soft. absent: Distended, Firm, Guarding, Rigid, Tenderness , Rebound - Extremities Exam Extremities Exam: Normal Inspection. absent: Pedal Edema - Neurological Exam Neurological Exam: Alert, Awake, CN II-XII Intact, Oriented x3 - Psychiatric Exam Psychiatric exam: Normal Affect, Normal Mood - Skin Skin Exam: Dry, Intact, Normal Color, Warm Assessment and Plan - Assessment and Plan (Free Text) Plan: 73yo male with history of HTN, HLD, type 2 DM with neuropathy, CAD presented to [facility] [place] with c/o weakness with report of syncopal episode. Was found on admission to have new-onset anemia. Pt also found to have elevated troponins on admission. GI, Cardiology, Neurology, and Vascular Surgery consulted. 1. NSTEMI 2. Microcytic Anemia 3. CAD 4. Right ICA stenosis 5. Mod-severe aortic stenosis 6. Weakness/Syncopal episodes 7. Acute kidney injury, resolved 8. Hx of hypertension 9. Hx of hyperlipidemia 10. DM type 2 -Colonoscopy is pending this morning and he has an anticipated transfer to [facility] for open heart surgery on Tuesday -EGD revealed gastritis, duodenitis with duodenal erosion thought to be from NSAID use -Troponin was elevated on admission and he was started on ASA/heparin drip however this was discontinued due to worsening anemia with possibility of GI bleed -Cardiac catherization was notable for left main (50%), circumflex (90%) and RCA (70%) stenosis -He is currently on atorvastatin for CAD/NSTEMI/HLD, hydralazine for HTN and insulin sliding scale with fingerstick coverage for DM -Losartan was held previously due to BERNARDA which has resolved at this time -He received IV iron for his multifactorial microcytic anemia that includes iron deficiency anemia -Protonix for GI prophlyaxis -Baseline H/H from PMD (Dr. Siddiqui's) said to be ; we will continue to trend H/H -CXR revealed no active disease -Head CT revealed no acute intracranial abnormalities -EKG reviewed and showed sinus rhythm with 1st degree AV block, ST/T wave abnormality -Carotid US revealed 60-79% stenosis in R ICA -Echocardiogram reviewed; EF 60-65%, mod-sev , mild AR, see full report -EEG showed no evidence of seizure activity -Cardiology consulted - Dr. Bearden -GI consulted - Dr. Munoz -Neurology consulted - Dr. Vizcarra -Vascular surgery consulted - Dr. Remy -[facility] > 30' -PT/OT Patient seen and case discussed/reviewed with attending, Dr. Flood <Jose Flood S - Last Filed: 06/05/18 22:12> Objective - Vital Signs/Intake and Output Vital Signs (last 24 hours): Temp Pulse Resp BP Pulse Ox 97.9 F 61 18 130/55 L 98 06/05/18 17:54 06/05/18 18:00 06/05/18 17:54 06/05/18 17:54 06/05/18 16:49 Intake and Output: 06/05/18 06/06/18 18:59 06:59 Intake Total 900 Balance 900 - Medications Medications: Current Medications Atorvastatin Calcium (Lipitor) 40 mg PO DIN [facility] Last Admin: 06/05/18 18:14 Dose: 40 mg Gabapentin (Neurontin) 300 mg PO BID [facility] PRN Reason: Protocol Last Admin: 06/05/18 18:14 Dose: 300 mg Hydralazine HCl (Apresoline) 50 mg PO BID [facility] Last Admin: 06/05/18 18:14 Dose: 50 mg Hydralazine HCl (Apresoline) 10 mg PO QID PRN PRN Reason: For SBP>160 Sodium Chloride (Sodium Chloride 0.9%) 1,000 mls @ 50 mls/hr IV .Q20H [facility] Stop: 06/05/18 23:59 Last Admin: 06/05/18 08:48 Dose: 50 mls/hr Sodium Chloride (Sodium Chloride 0.9%) 1,000 mls @ 100 mls/hr IV .Q10H [facility] Last Admin: 06/05/18 18:30 Dose: 100 mls/hr Insulin Human Regular (Humulin R Low) 0 units SC ACHS [facility] PRN Reason: Protocol Last Admin: 06/05/18 21:55 Dose: Not Given Isosorbide Mononitrate (Imdur Er) 60 mg PO DAILY [facility] Last Admin: 06/05/18 09:50 Dose: 60 mg Lorazepam (Ativan) 1 mg IVP ONCE PRN; Protocol PRN Reason: Anxiety Last Admin: 06/04/18 16:23 Dose: 1 mg Losartan Potassium (Cozaar) 25 mg PO DAILY [facility] Last Admin: 06/01/18 13:55 Dose: Not Given Pantoprazole Sodium (Protonix Ec Tab) 40 mg PO ACB [facility] Last Admin: 06/05/18 09:50 Dose: 40 mg - Labs Labs: 06/05/18 06:30 06/05/18 06:30 PT 11.6 SECONDS (9.4-12.5) 05/30/18 22:12 INR 1.02 (0.93-1.08) 05/30/18 22:12 APTT 30.3 Seconds (25.1-36.5) 05/31/18 16:55 Assessment and Plan - Assessment and Plan (Free Text) Plan: Pt seen and examined. I have reviewed the note of the medical collector and agree with it. I have discussed the assessment and plan with the resident. I have reviewed the patient's labs and medications. Pt for colonoscopy today. MRA of the neck has been reviewed. Pt will be going to [place] in AM for CABG. Spoke to son (Rosamaria) to give him an update. Spoke to Dr Bearden.
[2018-06-05] MEDS ORDERED: Etomidate 20 mg/10ml Inj IV ONE (15:46)
[2018-06-05] MEDS ORDERED: Propofol 10 mg/ml Inj (20 ML) ONE (15:46)
[2018-06-05] MEDS ORDERED: Phenylephrine 10 mg/ml Inj ONE (16:03)
[2018-06-05] MEDS ORDERED: Sodium Chloride 0.9% 1,000 ML IV SCH (16:30)
[2018-06-05 16:39] VITALS: O2SAT 98
--- NOTE | 2018-06-05 19:28 | PN ---
DATE: 06/05/2018 SUBJECTIVE: The patient denies any chest pain or dizziness. PHYSICAL EXAMINATION: VITAL SIGNS: Blood pressure 149/58, heart rate 66, temperature 97.5, respirations 18. HEENT: Pale conjunctivae. CHEST: Clear. HEART: S1, S2 regular. Grade 4/6 ejection systolic murmur over the left sternal border. ABDOMEN: Soft. EXTREMITIES: No edema. LABORATORY DATA: Today's SMA-7 is within normal limits except for glucose of 175. Today's hemoglobin and hematocrit 8.7 and 26.3, white count and platelet count are within normal limits. Neck MRA performed yesterday, there is [id number] stenosis of the proximal right internal carotid artery. ASSESSMENT: 1. Recurrent syncopal episode. 2. Status post [id number] myocardial infarction. 3. Severe aortic stenosis and significant left main disease with significant right coronary artery disease and critical mid circumflex artery disease. 4. Anemia. RECOMMENDATIONS: Continue hydralazine 50 mg twice a day, Cozaar 25 mg once a day, Imdur 60 mg once a day, Lipitor 40 mg once a day, Protonix 40 mg p.o. once a day. The patient is scheduled to have colonoscopy today and following that, Dr. Bearden will proceed with the transfer to [facility] once the patient is cleared for the surgery. Jamin Vickers MD
[2018-06-05 23:51] VITALS: RESP 20
[2018-06-06 05:55] VITALS: BP 150/62; TEMP 98.2
[2018-06-06 06:49] LABS: BASO # 0.04 K/mm3 (0.0-2.0); BASO % 0.5 % (0.0-3.0); EOS # 0.2 (0.0-0.7); GRAN # 4.18 (1.4-6.5); GRAN % 54.6 % (50.0-68.0); HEMOGLOBIN 8.3 g/dL (14.0-18.0); LYMPH # 2.4 (1.2-3.4); LYMPH % 31.6 % (22.0-35.0); MEAN CELL VOLUME 78.2 fl (80.0-105.0); MEAN CORPUSCULAR HEMOGLOBIN 25.5 pg (25.0-35.0); MEAN CORPUSCULAR HGB CONC 32.5 g/dl (31.0-37.0); MEAN PLATELET VOLUME 9.7 fl (7.0-11.0); MONO # 0.8 (0.1-0.6); MONO % 10.3 % (1.0-6.0); RBC 3.26 10^6/uL (3.5-6.1); RED CELL DISTRIBUTION WIDTH 15.2 % (11.5-14.5); WHITE BLOOD COUNT 7.7 10^3/ul (4.5-11.0)
[2018-06-06 07:11] LABS: BLOOD UREA NITROGEN 16 mg/dL (7-21); CALCIUM 9.3 mg/dL (8.4-10.5); GFR AFRICAN-AMERICAN > 60; GFR NON-AFRICAN AMERICAN 59
[2018-06-06] MEDS: Pantoprazole 40 mg EC Tab PO SCH (08:18)
[2018-06-06] MEDS: Insulin Reg-LOW-Coverage SC SCH ×2 (08:18→08:20)
[2018-06-06 09:38] VITALS: PULSE 75
--- NOTE | 2018-06-06 10:21 | CP.PCM.PN ---
Subjective - Date & Time of Evaluation Date of Evaluation: 06/06/18 Time of Evaluation: 07:40 - Subjective Subjective: GI Progress Note for Dr. Tammy Joseph, PGY-3 IM Patient seen and examined at bedside. No acute complaints. No acute events reported overnight. S/p EGD and colonoscopy, both negative for acute sources of bleeding, so pending transfer to [facility] for open heart surgery, possibly today. Patient denies any acute nausea, emesis, diarrhea, constipation, melena, hematochezia, lightheadedness, dizziness, chest pain, or shortness of breath. Understands results of EGD/Colonoscopy/Diagnostic cath and reason for needing transfer and open heart surgery. Objective - Vital Signs/Intake and Output Vital Signs (last 24 hours): Temp Pulse Resp BP Pulse Ox 98.2 F 75 20 150/62 98 06/06/18 05:55 06/06/18 09:32 06/06/18 05:55 06/06/18 05:55 06/06/18 05:55 Intake and Output: 06/06/18 06/06/18 06:59 18:59 Intake Total 420 Output Total 920 Balance -500 - Medications Medications: Current Medications Atorvastatin Calcium (Lipitor) 40 mg PO DIN [facility] Last Admin: 06/05/18 18:14 Dose: 40 mg Gabapentin (Neurontin) 300 mg PO BID [facility] PRN Reason: Protocol Last Admin: 06/06/18 09:32 Dose: 300 mg Hydralazine HCl (Apresoline) 50 mg PO BID [facility] Last Admin: 06/06/18 09:32 Dose: 50 mg Hydralazine HCl (Apresoline) 10 mg PO QID PRN PRN Reason: For SBP>160 Insulin Human Regular (Humulin R Low) 0 units SC ACHS [facility] PRN Reason: Protocol Last Admin: 06/06/18 08:20 Dose: 2 u Isosorbide Mononitrate (Imdur Er) 60 mg PO DAILY [facility] Last Admin: 06/06/18 09:32 Dose: 60 mg Lorazepam (Ativan) 1 mg IVP ONCE PRN; Protocol PRN Reason: Anxiety Last Admin: 06/04/18 16:23 Dose: 1 mg Losartan Potassium (Cozaar) 25 mg PO DAILY [facility] Last Admin: 06/01/18 13:55 Dose: Not Given Pantoprazole Sodium (Protonix Ec Tab) 40 mg PO ACB [facility] Last Admin: 06/06/18 08:18 Dose: 40 mg - Labs Labs: 06/06/18 06:00 06/06/18 06:00 PT 11.6 SECONDS (9.4-12.5) 05/30/18 22:12 INR 1.02 (0.93-1.08) 05/30/18 22:12 APTT 30.3 Seconds (25.1-36.5) 05/31/18 16:55 - Additional Findings Additional findings: - Constitutional Appears: Non-toxic, No Acute Distress - Head Exam Head Exam: ATRAUMATIC, NORMAL INSPECTION, NORMOCEPHALIC - Eye Exam Eye Exam: Normal appearance. absent: Conjunctival injection, Scleral icterus Pupil Exam: absent: Fixed, Irregular - ENT Exam ENT Exam: Mucous Membranes Moist - Neck Exam Neck exam: Positive for: Normal Inspection - Respiratory Exam Respiratory Exam: Clear to Auscultation Bilateral, NORMAL BREATHING PATTERN. absent: Accessory Muscle Use, Chest Wall Tenderness, Decreased Breath Sounds, Rales, Rhonchi, Wheezes - Cardiovascular Exam Cardiovascular Exam: REGULAR RHYTHM, RRR, +S1, +S2, Systolic Murmur ( holosystolic murmur most prominent at R 2nd intercostal space but also very prominent at L 2nd intercostal space). absent: Bradycardia, Tachycardia, Irregular Rhythm, JVD, +S4 - GI/Abdominal Exam GI & Abdominal Exam: Normal Bowel Sounds, Soft. absent: Diminished Bowel Sounds , Distended, Firm, Hyperactive Bowel Sounds, Hypoactive Bowel Sounds, Rigid, Tenderness - Extremities Exam Extremities exam: Healing L knee abrasion noted (improved over status on admission) Negative for: calf tenderness, joint swelling, pedal edema - Neurological Exam awake and alert, following all commands appropriately, moving all extremities spontaneously and on command, answering questions appropriately - Psychiatric Exam Psychiatric exam: Normal Affect, Normal Mood - Skin Skin Exam: Dry, Intact (except as documented on extremities exam), Normal Color , Warm Assessment and Plan - Assessment and Plan (Free Text) Assessment: This is a 73 yo [place] M with PMH of HTN, HLD, DM, and reported hx of medication non-compliance (as per family report to primary team) who presented [place] [facility] reported syncopal episode at home with fall. GI was consulted due to anemia (Hgb 8.8, baseline reported by family to be 11) and reported bright red blood per rectum on exam by primary team. Found to have elevated trops, triple vessel disease, necessitating transfer to [facility] for open heart surgery after cleared by GI. Plan: -Trop elevation on admission concerning for NSTEMI, underwent cardiac cath notable for triple vessel disease EGD/Colonoscopy obtained, no active bleeding sources identified, but notable for gastritis and duodenitis with duodenal erosions Patient instructed to avoid all home NSAID use after discharge -Heart murmur consistent with Aortic Stenosis, mod-severe on Echo -CT abd/pelvis with PO contrast notable for small solid pulmonary nodules, no acute intra-abdominal findings, no reported masses -H&H remains stable; microcytic RBCs with wide RDW suggestive of iron deficiency anemia, iron studies also supportive of iron deficiency -Pending transfer to [facility] for open heart surgery as per Cardio and Primary team Seen, reviewed, and discussed with attending, Dr. Munoz
--- NOTE | 2018-06-06 16:08 | CP.PCM.DIS ---
<Jj Peraza - Last Filed: 06/06/18 16:08> Provider - Provider Date of Admission: 05/31/18 13:58 Attending physician: Jose Flood MD Primary care physician: Ovidio Siddiqui MD Consults: Cardio GI Neuro Vascular Time Spent in preparation of Discharge (in minutes): 45 Hospital Course - Lab Results Lab Results: Micro Results 06/01/18 16:20 Naris MRSA Culture (Admit) - Final MRSA NOT DETECTED Most Recent Lab Values WBC 7.7 10^3/ul (4.5-11.0) 06/06/18 06:00 RBC 3.26 10^6/uL (3.5-6.1) L 06/06/18 06:00 Hgb 8.3 g/dL (14.0-18.0) L 06/06/18 06:00 Hct 25.5 % (42.0-52.0) L 06/06/18 06:00 MCV 78.2 fl (80.0-105.0) L 06/06/18 06:00 MCH 25.5 pg (25.0-35.0) 06/06/18 06:00 MCHC 32.5 g/dl (31.0-37.0) 06/06/18 06:00 RDW 15.2 % (11.5-14.5) H 06/06/18 06:00 Plt Count 302 10^3/uL (120.0-450.0) 06/06/18 06:00 MPV 9.7 fl (7.0-11.0) 06/06/18 06:00 Gran % 54.6 % (50.0-68.0) 06/06/18 06:00 Lymph % (Auto) 31.6 % (22.0-35.0) 06/06/18 06:00 [place] % (Auto) 10.3 % (1.0-6.0) H 06/06/18 06:00 Eos % (Auto) 3.0 % (1.5-5.0) 06/06/18 06:00 Baso % (Auto) 0.5 % (0.0-3.0) 06/06/18 06:00 Gran # 4.18 (1.4-6.5) 06/06/18 06:00 Lymph # (Auto) 2.4 (1.2-3.4) 06/06/18 06:00 [place] # (Auto) 0.8 (0.1-0.6) H 06/06/18 06:00 Eos # (Auto) 0.2 (0.0-0.7) 06/06/18 06:00 Baso # (Auto) 0.04 K/mm3 (0.0-2.0) 06/06/18 06:00 PT 11.6 SECONDS (9.4-12.5) 05/30/18 22:12 INR 1.02 (0.93-1.08) 05/30/18 22:12 APTT 30.3 Seconds (25.1-36.5) 05/31/18 16:55 D-Dimer, Quantitative 496 ng/mL (0-243) H 05/31/18 08:15 Sodium 141 mmol/L (132-148) 06/06/18 06:00 Potassium 4.2 mmol/L (3.6-5.0) 06/06/18 06:00 Chloride 105 mmol/L (98-107) 06/06/18 06:00 Carbon Dioxide 24 mmol/L (21-33) 06/06/18 06:00 Anion Gap 16 (10-20) 06/06/18 06:00 BUN 16 mg/dL (7-21) 06/06/18 06:00 Creatinine 1.2 mg/dl (0.8-1.5) 06/06/18 06:00 Est GFR ( Amer) > 60 06/06/18 06:00 Est GFR (Non-Af Amer) 59 06/06/18 06:00 POC Glucose (mg/dL) 212 mg/dL (65-110) H 06/06/18 07:48 Random Glucose 200 mg/dL (70-110) H 06/06/18 06:00 Hemoglobin A1c 9.3 % (4.2-6.5) H 05/30/18 20:40 Calcium 9.3 mg/dL (8.4-10.5) 06/06/18 06:00 Phosphorus 3.5 mg/dL (2.5-4.5) 06/06/18 06:00 Magnesium 1.7 mg/dL (1.7-2.2) 06/06/18 06:00 Iron 26 ug/dL (45-180) L 05/30/18 20:40 TIBC 499 ug/dL (261-462) H 05/30/18 20:40 % Saturation 5 % (20-55) L 05/30/18 20:40 Total Bilirubin 0.5 mg/dL (0.2-1.3) 06/05/18 06:30 AST 24 U/L (17-59) 06/05/18 06:30 ALT 26 U/L (7-56) 06/05/18 06:30 Alkaline Phosphatase 39 U/L (38-126) 06/05/18 06:30 Total Creatine Kinase 139 U/L (35-230) 05/30/18 20:40 Troponin I 0.15 ng/mL H* 05/31/18 06:30 Total Protein 7.3 g/dL (5.8-8.3) 06/05/18 06:30 Albumin 3.9 g/dL (3.0-4.8) 06/05/18 06:30 Globulin 3.3 gm/dL 06/05/18 06:30 Albumin/Globulin Ratio 1.2 (1.1-1.8) 06/05/18 06:30 Triglycerides 92 mg/dL (35-160) 05/30/18 23:39 Cholesterol 110 mg/dL (130-200) L 05/30/18 23:39 LDL Cholesterol Direct 41 mg/dL (0-129) 05/30/18 23:39 HDL Cholesterol 46 mg/dL (29-60) 05/30/18 23:39 Vitamin B12 442 pg/mL (239-931) 05/30/18 20:40 Folate > 20.0 ng/mL 05/30/18 20:40 TSH 3rd Generation 2.31 mIU/mL (0.46-4.68) 06/02/18 05:50 Stool Occult Blood Negative (NEGATIVE) 05/31/18 13:00 Blood Type O POSITIVE 05/31/18 05:40 Blood Type Confirm O POSITIVE 05/31/18 08:15 Antibody Screen Negative 05/31/18 05:40 BBK History Checked No verified bt 05/31/18 05:40 - Hospital Course Hospital Course: Patient is a 73yo male with history of HTN, HLD, type 2 DM with neuropathy, CAD that reported to [facility] with dizziness with loss of consciousness. Family had reported similar episodes have been increasing in frequency over the past months and stated that patient appeared to be confused. On evaluation, patient was noted to have elevated troponin and was started on ACS protocol for NSTEMI treatment including ASA/heparin drip. He subsequently underwent a cardiac catherization which was notable for multivessel disease including left main (50%), circumflex (90%) and RCA (70%) stenosis. He developed worsening anemia with hgb < 8 and aspirin/heparin were discontinued due to concerns of GI bleed. He underwent GI evaluation with EGD that revealed gastritis, duodenitis with duodenal erosion thought to be from NSAID use. Colonoscopy showed no evidence of bleeding, diverticulosis. Hemoglobin remained stable and patient ultimately required no blood transfusions. Neurology was also consulted for concerns of loss of consciousness/CVA. CXR revealed no active disease, Head CT revealed no acute intracranial abnormalities and EKG reviewed and showed sinus rhythm with 1st degree AV block, ST/T wave abnormality. Carotid US revealed 60- 79% stenosis in R ICA, Echocardiogram showed EF 60-65%, mod-sev , mild AR, and EEG showed no evidence of seizure activity. Vascular surgery was consulted for R ICA stenosis and recommended no surgical intervention at this time. He was subsequently coordinated for transfer to [facility] for open-heart surgery due to multivessel coronary artery disease. Workup/plan was discussed with the family in detail and all questions were answered. Family was agreeable to plan proposed and he was transferred to [facility] for further treatment. Discharge Exam - Head Exam Head Exam: ATRAUMATIC, NORMAL INSPECTION, NORMOCEPHALIC - Eye Exam Eye Exam: EOMI Pupil Exam: PERRL - Neck Exam Neck exam: Normal Inspection - Respiratory Exam Respiratory Exam: Clear to PA & Lateral. absent: Rales, Rhonchi, Wheezes - Cardiovascular Exam Cardiovascular Exam: RRR, +S1, +S2, Systolic Murmur. absent: Gallop, Rubs - GI/Abdominal Exam GI & Abdominal Exam: Normal Bowel Sounds, Soft. absent: Distended, Firm, Guarding, Tenderness - Neurological Exam Neurological exam: Alert, CN II-XII Intact, Oriented x3 - Psychiatric Exam Psychiatric exam: Normal Affect, Normal Mood - Skin Skin Exam: Dry, Intact, Normal Color, Warm Discharge Plan - Follow Up Plan Condition: FAIR Disposition: Transfer [facility] Instructions: Preventing Falls, Normocytic Normochromic Anemia (DC), Syncope ( DC), Weakness (GEN), Diabetic Hyperglycemia (DC) Additional Instructions: You are being discharged from [facility] and transferred to [facility] for further treatment. Your doctor at [facility] will coordinate your medical treatments. Referrals: Ovidio Siddiqui MD [Primary Care Provider] - <Jose Flood - Last Filed: 06/06/18 23:23> Provider - Provider Date of Admission: 05/31/18 13:58 Attending physician: Jose Flood MD Primary care physician: Ovidio Siddiqui MD Hospital Course - Lab Results Lab Results: Micro Results 06/01/18 16:20 Naris MRSA Culture (Admit) - Final MRSA NOT DETECTED Most Recent Lab Values WBC 7.7 10^3/ul (4.5-11.0) 06/06/18 06:00 RBC 3.26 10^6/uL (3.5-6.1) L 06/06/18 06:00 Hgb 8.3 g/dL (14.0-18.0) L 06/06/18 06:00 Hct 25.5 % (42.0-52.0) L 06/06/18 06:00 MCV 78.2 fl (80.0-105.0) L 06/06/18 06:00 MCH 25.5 pg (25.0-35.0) 06/06/18 06:00 MCHC 32.5 g/dl (31.0-37.0) 06/06/18 06:00 RDW 15.2 % (11.5-14.5) H 06/06/18 06:00 Plt Count 302 10^3/uL (120.0-450.0) 06/06/18 06:00 MPV 9.7 fl (7.0-11.0) 06/06/18 06:00 Gran % 54.6 % (50.0-68.0) 06/06/18 06:00 Lymph % (Auto) 31.6 % (22.0-35.0) 06/06/18 06:00 [place] % (Auto) 10.3 % (1.0-6.0) H 06/06/18 06:00 Eos % (Auto) 3.0 % (1.5-5.0) 06/06/18 06:00 Baso % (Auto) 0.5 % (0.0-3.0) 06/06/18 06:00 Gran # 4.18 (1.4-6.5) 06/06/18 06:00 Lymph # (Auto) 2.4 (1.2-3.4) 06/06/18 06:00 [place] # (Auto) 0.8 (0.1-0.6) H 06/06/18 06:00 Eos # (Auto) 0.2 (0.0-0.7) 06/06/18 06:00 Baso # (Auto) 0.04 K/mm3 (0.0-2.0) 06/06/18 06:00 PT 11.6 SECONDS (9.4-12.5) 05/30/18 22:12 INR 1.02 (0.93-1.08) 05/30/18 22:12 APTT 30.3 Seconds (25.1-36.5) 05/31/18 16:55 D-Dimer, Quantitative 496 ng/mL (0-243) H 05/31/18 08:15 Sodium 141 mmol/L (132-148) 06/06/18 06:00 Potassium 4.2 mmol/L (3.6-5.0) 06/06/18 06:00 Chloride 105 mmol/L (98-107) 06/06/18 06:00 Carbon Dioxide 24 mmol/L (21-33) 06/06/18 06:00 Anion Gap 16 (10-20) 06/06/18 06:00 BUN 16 mg/dL (7-21) 06/06/18 06:00 Creatinine 1.2 mg/dl (0.8-1.5) 06/06/18 06:00 Est GFR ( Amer) > 60 06/06/18 06:00 Est GFR (Non-Af Amer) 59 06/06/18 06:00 POC Glucose (mg/dL) 212 mg/dL (65-110) H 06/06/18 07:48 Random Glucose 200 mg/dL (70-110) H 06/06/18 06:00 Hemoglobin A1c 9.3 % (4.2-6.5) H 05/30/18 20:40 Calcium 9.3 mg/dL (8.4-10.5) 06/06/18 06:00 Phosphorus 3.5 mg/dL (2.5-4.5) 06/06/18 06:00 Magnesium 1.7 mg/dL (1.7-2.2) 06/06/18 06:00 Iron 26 ug/dL (45-180) L 05/30/18 20:40 TIBC 499 ug/dL (261-462) H 05/30/18 20:40 % Saturation 5 % (20-55) L 05/30/18 20:40 Total Bilirubin 0.5 mg/dL (0.2-1.3) 06/05/18 06:30 AST 24 U/L (17-59) 06/05/18 06:30 ALT 26 U/L (7-56) 06/05/18 06:30 Alkaline Phosphatase 39 U/L (38-126) 06/05/18 06:30 Total Creatine Kinase 139 U/L (35-230) 05/30/18 20:40 Troponin I 0.15 ng/mL H* 05/31/18 06:30 Total Protein 7.3 g/dL (5.8-8.3) 06/05/18 06:30 Albumin 3.9 g/dL (3.0-4.8) 06/05/18 06:30 Globulin 3.3 gm/dL 06/05/18 06:30 Albumin/Globulin Ratio 1.2 (1.1-1.8) 06/05/18 06:30 Triglycerides 92 mg/dL (35-160) 05/30/18 23:39 Cholesterol 110 mg/dL (130-200) L 05/30/18 23:39 LDL Cholesterol Direct 41 mg/dL (0-129) 05/30/18 23:39 HDL Cholesterol 46 mg/dL (29-60) 05/30/18 23:39 Vitamin B12 442 pg/mL (239-931) 05/30/18 20:40 Folate > 20.0 ng/mL 05/30/18 20:40 TSH 3rd Generation 2.31 mIU/mL (0.46-4.68) 06/02/18 05:50 Stool Occult Blood Negative (NEGATIVE) 05/31/18 13:00 Blood Type O POSITIVE 05/31/18 05:40 Blood Type Confirm O POSITIVE 05/31/18 08:15 Antibody Screen Negative 05/31/18 05:40 BBK History Checked No verified bt 05/31/18 05:40 - Hospital Course Hospital Course: Pt seen and examined. I have reviewed the note of the medical equipment technician and agree with it. I have discussed the assessment and plan with the resident. I have reviewed the patient's labs and medications. Pt leaving for [facility]. He is going to get surgery. Pt is comfortable. Spoke to Dr Bearden. Colonoscopy reviewed. He will f/u with me in the office.
--- NOTE | 2018-06-06 16:47 | PN ---
DATE: 06/06/2018 REASON FOR CONSULTATION AND FOLLOWUP: Coronary artery disease, aortic stenosis, carotid artery stenosis, anemia. SUBJECTIVE: The patient denies any chest pain, shortness of breath, or any palpitations. PHYSICAL EXAMINATION: GENERAL: Not in apparent distress. VITAL SIGNS: Temperature afebrile, heart rate 75, blood pressure 150/62. HEENT: PERRLA. Extraocular muscles intact. NECK: Supple. No carotid bruit. No thyromegaly. CHEST: Clear to auscultation. HEART: S1 and S2 regular. ABDOMEN: Soft. EXTREMITIES: Clubbing and cyanosis negative. LABORATORY DATA: Blood workup as follows: WBC 7.7, hemoglobin 8.3, hematocrit 25.5, and platelet count 302. Chemistry shows sodium 141, potassium 4.2, chloride 105, carbon dioxide 24, anion gap of 16, BUN 16, creatinine 1.2. MRA of the carotid shows [id number] right coronary artery disease. ASSESSMENT: Yesterday, the patient underwent a colonoscopy. No active source of bleeding, no occult malignancy noted.. Discussed with Dr. Munoz. Aortic stenosis, triple vessels disease, diabetes, hypertension, hyperlipidemia. RECOMMENDATIONS: The patient will be transferred to [facility] under Dr. Siddiqui's service for a possible AVR and CABG. I discussed with Dr. Flood, discussed with Dr. Vickers. Called daughter, named Iesha, #[phone] and updated the patient's condition and possible transfer today. Thank you, Dr. Flood, for providing us the opportunity in taking care of the patient, Reji Chand. Bala Bearden MD
== END 2018-06-06 10:46 | disposition short-term general hospital (02) | DRG 281 ==
LOC: ED 20:02 → ERH 22:47 → 2RNO 05-31 00:03 → OBSVTOIN 05-31 13:58 → CCU 06-01 14:35 → 2RSO 06-03 12:40
PROVIDERS: ADMIT Hospitalist; ATTEND Internal Medicine Nephrology
PROC: 4A023N7 Measurement of Cardiac Sampling and Pressure, Left Heart, Percutaneous Approach (ICD-10-PCS; principal; 2018-06-01)
PROC: B2151ZZ Fluoroscopy of Left Heart using Low Osmolar Contrast (ICD-10-PCS; 2018-06-01)
PROC: B2111ZZ Fluoroscopy of Multiple Coronary Arteries using Low Osmolar Contrast (ICD-10-PCS; 2018-06-01)
PROC: 0DB98ZX Excision of Duodenum, Via Natural or Artificial Opening Endoscopic, Diagnostic (ICD-10-PCS; 2018-06-02)
PROC: 0DB68ZX Excision of Stomach, Via Natural or Artificial Opening Endoscopic, Diagnostic (ICD-10-PCS; 2018-06-02)
PROC: 0DJD8ZZ Inspection of Lower Intestinal Tract, Via Natural or Artificial Opening Endoscopic (ICD-10-PCS; 2018-06-05)
DX: I21.4 Non-ST elevation (NSTEMI) myocardial infarction (principal); K92.2 Gastrointestinal hemorrhage, unspecified; N17.9 Acute kidney failure, unspecified; I25.10 Atherosclerotic heart disease of native coronary artery without angina pectoris; I48.91 Unspecified atrial fibrillation; I65.21 Occlusion and stenosis of right carotid artery; K26.9 Duodenal ulcer, unspecified as acute or chronic, without hemorrhage or perforation; K29.80 Duodenitis without bleeding; I08.3 Combined rheumatic disorders of mitral, aortic and tricuspid valves; D50.9 Iron deficiency anemia, unspecified; E11.40 Type 2 diabetes mellitus with diabetic neuropathy, unspecified; E11.65 Type 2 diabetes mellitus with hyperglycemia; I12.9 Hypertensive chronic kidney disease with stage 1 through stage 4 chronic kidney disease, or unspecified chronic kidney disease; N18.3 Chronic kidney disease, stage 3 (moderate); E11.22 Type 2 diabetes mellitus with diabetic chronic kidney disease; E78.00 Pure hypercholesterolemia, unspecified; E78.5 Hyperlipidemia, unspecified; M25.78 Osteophyte, vertebrae; M48.02 Spinal stenosis, cervical region; S09.90XA Unspecified injury of head, initial encounter; S80.212A Abrasion, left knee, initial encounter; W01.0XXA Fall on same level from slipping, tripping and stumbling without subsequent striking against object, initial encounter; Z87.891 Personal history of nicotine dependence; Z91.14 Patient's other noncompliance with medication regimen; Z91.19 Patient's noncompliance with other medical treatment and regimen; K57.30 Diverticulosis of large intestine without perforation or abscess without bleeding; K29.50 Unspecified chronic gastritis without bleeding; K64.8 Other hemorrhoids

== ENCOUNTER 2018-08-13 00:41 | Inpatient (IN) | payer MEDICARE, BC ==
[2018-08-13 00:54] VITALS: BMI 21.4
--- NOTE | 2018-08-13 01:12 | ED PDOC ---
Arrival/HPI - General Chief Complaint: Weakness/Neurological Deficit Time Seen by Provider: 08/13/18 00:53 Historian: Patient, Family - History of Present Illness Narrative History of Present Illness (Text): 08/13/18 01:12 73 year old male, whose past medical history diabetes, significant cardiac history, s/p CABG and a valve replacement on 06/07/18 at [facility], presents to the emergency department complaining of worsening weakness and back pain for the past 2 weeks. As per daughter, patient also had some episodes of vomiting and loss of appetite. Patient denies any fever, chills, chest pain, shortness of breath, abdominal pain, nausea, diarrhea, urinary symptoms, neck pain, headache, dizziness, or any other complaints. PMD: Dr. Jose Flood Test Rack Operator: Dr. Bearden Time/Duration: Other (2 weeks) Symptom Onset: Gradual Symptom Course: Unchanged Activities at Onset: Light Past Medical History - Provider Review Nursing Documentation Reviewed: Yes - Cardiac Hx Cardiac Disorders: Yes (S/P CABG 06/07/2018 and valve replacement) - Pulmonary Hx Respiratory Disorders: No - Neurological Hx Neurological Disorder: No - HEENT Hx HEENT Disorder: No - Renal Hx Renal Disorder: No - Endocrine/Metabolic Hx Diabetes Mellitus Type 2: Yes - Hematological/Oncological Hx Blood Transfusions: Yes - Integumentary Hx Dermatological Disorder: No - Musculoskeletal/Rheumatological Hx Musculoskeletal Disorders: Yes Hx Falls: Yes Hx Unsteady Gait: Yes - Gastrointestinal Hx Gastrointestinal Disorders: No - Genitourinary/Gynecological Hx Genitourinary Disorders: No - Psychiatric Hx Psychophysiologic Disorder: No Hx Substance Use: No - Surgical History Hx Cardiac Catheterization: No Hx Coronary Stent: No - Anesthesia Hx Anesthesia: Yes Hx Anesthesia Reactions: No Hx Malignant Hyperthermia: No Family/Social History - Physician Review Nursing Documentation Reviewed: Yes Family/Social History: No Known Family HX Smoking Status: Former Smoker Hx Alcohol Use: No Hx Substance Use: No Allergies/Home Meds Allergies/Adverse Reactions: Allergies No Known Allergies Allergy (Verified 08/13/18 00:52) Home Medications: Home Meds Medication Instructions Recorded Confirmed Aspirin [Aspirin Chewable] 81 mg PO DAILY 07/15/18 08/13/18 Gabapentin [Neurontin] 100 mg PO TID 07/15/18 08/13/18 Metoprolol Tartrate [Lopressor] 50 mg PO Q12H 07/15/18 08/13/18 Pantoprazole Sodium [Protonix] 40 mg PO DAILY 07/15/18 08/13/18 Review of Systems - Physician Review All systems were reviewed & negative as marked: Yes - Review of Systems Constitutional: absent: Fevers, Other (Chills) Respiratory: absent: SOB Cardiovascular: absent: Chest Pain Gastrointestinal: Vomiting, Appetite Changes (loss of appetite ). absent: Abdominal Pain, Diarrhea, Nausea Genitourinary Male: absent: Dysuria, Frequency, Hematuria Musculoskeletal: Back Pain. absent: Neck Pain Neurological: Other (weakness). absent: Headache, Dizziness Physical Exam - Physical Exam Narrative Physical Exam (Text): Gen: VS reviewed, alert, lethargic, well developed, nontoxic, mild distress. ENT: dry mucus membrane. normal pharynx. Eye: EOMI, PERRL. Neck: no JVD, supple, no adenopathy. CV: regular rate, regular rhythm, no rubs, no murmur, no gallops, S1, S2, pulses equal and strong. Pulm: no distress, clear to auscultation, no wheeze, no rhonchi, breath sounds equal, no rales. Abd: soft, nontender, no guarding, no rebound, no rigidity, normal bowel sounds. Back: Focal Tenderness to the mid lumbar spine L1, No deformity. No skin breakdown. Ext: no edema. Skin: good color, no rash, no cyanosis. Psych: responds appropriately to questions, normal affect. Neuro: Lethargic, oriented x 3, CN2-12 intact grossly, motor intact, sensation intact. Vital Signs Reviewed: Yes Vital Signs Temp Pulse Resp BP Pulse Ox 08/13/18 01:01 97.8 F 73 20 143/66 98 Temperature: Afebrile Blood Pressure: Normal Pulse: Regular Respiratory Rate: Normal Finger Stick Blood Glucose: 140 Medical Decision Making ED Course and Treatment: 08/13/18 01:15 Impression: 73 year old male presents complaining of weakness and back pain for the past 2 weeks associated with some episodes of vomiting and loss of appetite. Plan: -- Labs -- VBG -- CT Head w/o Contrast -- CT Lumbar spine w/o Contrast -- Labs -- EKG -- CXR -- IV Fluids -- Urine Culture, UA -- Urinary straight cath -- Reassess and disposition Prior Visits: Notes and results from previous visits were reviewed. Patient was last seen in the emergency department on presents for slurred speech, trouble eating, nausea, and dizziness for the past week. Patient was admitted. Progress Notes: 08/13/18 04:[address] Boland who is aware and agrees with the plan. Accept patient into her service. 08/13/18 04:40 patient to be admitted for weakness, deconditioning, low back pain which appears to be stemming from multi level lumbar HNP. the possibility of spinal epidural remains remote but if pain is persistent/progressive an MRI should be considered. Medical records from the rehab center state that the patient should be taking xarelto for 3 months post surgery however xarelto is not on his current medications list-this missing piece of information should be investigated. Transfer records show that the patient has a hx of PAF, for this reason I will place patient on remote tele or initial admission. 08/13/18 04:46 - Lab Interpretations Lab Results: Lab Results 08/13/18 00:50: POC Glucose (mg/dL) 140 H I have reviewed the lab results: Yes - RAD Interpretation Narrative RAD Interpretations (Text): 08/13/18 03:18 cxr my read: no ptx, no pleural effusion, ?linear dense irregularity in the right lower lung field EXAM: CT of the lumbar spine without contrast Signed on: 08/13/18 4:05 BY: Eduardo Pena M.D. Findings: There is boarderline central canal stenosis at each of these levels. IMPRESSION: 1. No acute fracture or traumatic injury. 2. Moderate spondylosis with moderately severe degenerative disc disease at L2/L3, L3/L4, and L4/L5 3. Disc bulges are appreciated at L1/L2, L2/L3, L3/L4, and L4/L5, Mild central canal narrowing is noted at each of these levels. There is moderate bilateral neural foraminal narrowing at L1/L2, L2/L3, and L3/L4. 4. Levoscoliosis as described. EXAM: CT Head w/o IV Contrast Signed on: 08/13/18 4:04 BY: Eduardo Pena M.D. IMPRESSION: 1. There is generalized parenchymal atrophy noted as demonstrated by symmetrical dilation of ventricles and sulci. 2. Chronic periventricular and subcortical microvascular disease is seen. 3. No acute intacranial pathology. Radiology Orders: 08/13/18 01:00 CHEST PORTABLE [RAD] [employer] Director: ED Physician, Radiologist - EKG Interpretation EKG Interpretation (Text): 08/13/18 03:01 0056: sinus rhythm at 74 bpm, 1st degree av block, nml qrs, lateral anad inf t wve inversions which worse from prior ekg on 07.15.2018 Interpreted by ED Physician: Yes Type: 12 lead EKG - Scribe Statement The provider has reviewed the documentation as recorded by the Lisaibe Nicolette Garcia Provider Scribe Attestation: All medical record entries made by the Scribe were at my direction and personally dictated by me. I have reviewed the chart and agree that the record accurately reflects my personal performance of the history, physical exam, medical decision making, and the department course for this patient. I have also personally directed, reviewed, and agree with the discharge instructions and disposition. Disposition/Present on Arrival - Present on Arrival Any Indicators Present on Arrival: No History of DVT/PE: No History of Uncontrolled Diabetes: No Urinary Catheter: No History of Decub. Ulcer: No History Surgical Site Infection Following: None - Disposition Have Diagnosis and Disposition been Completed?: Yes Diagnosis: Failure to thrive Disposition: HOSPITALIZED Disposition Time: 04:48 Patient Plan: Admission Condition: FAIR Referrals: Jose Flood MD [Primary Care Provider] - Follow up with primary Forms: [employer] (Croatian)
[2018-08-13 01:44] LABS: BASO # 0.02 K/mm3 (0.0-2.0); BASO % 0.2 % (0.0-3.0); EOS # 0.1 (0.0-0.7); EOS % 0.8 % (1.5-5.0); GRAN # 8.47 (1.4-6.5); GRAN % 67.2 % (50.0-68.0); LYMPH % 23.7 % (22.0-35.0); MEAN CELL VOLUME 84.2 fl (80.0-105.0); MEAN CORPUSCULAR HEMOGLOBIN 28.3 pg (25.0-35.0); MEAN CORPUSCULAR HGB CONC 33.6 g/dl (31.0-37.0); MEAN PLATELET VOLUME 8.9 fl (7.0-11.0); MONO % 8.1 % (1.0-6.0); RBC 4.24 10^6/uL (3.5-6.1); RED CELL DISTRIBUTION WIDTH 15.5 % (11.5-14.5); WHITE BLOOD COUNT 12.6 10^3/ul (4.5-11.0)
[2018-08-13] MEDS: Sodium Chloride 0.9% 1,000 ML IV SCH ×2 (01:45→17:33)
[2018-08-13 01:53] LABS: INR 1.13; PROTHROMBIN TIME 12.9 SECONDS (9.4-12.5)
[2018-08-13 01:57] LABS: VENOUS BLOOD GAS BASE EXCESS 4.3 mmol/L (0.0-2.0); VENOUS BLOOD GAS PO2 33 mm/Hg (30-55); VENOUS BLOOD PH 7.41 (7.32-7.43)
[2018-08-13 02:09] LABS: ALB/GLOB RATIO 0.9 (1.1-1.8); ALBUMIN 3.4 g/dL (3.0-4.8); ALT/SGPT 19 U/L (7-56); AST/SGOT 23 U/L (17-59); BLOOD UREA NITROGEN 17 mg/dL (7-21); CALCIUM 9.3 mg/dL (8.4-10.5); GFR NON-AFRICAN AMERICAN > 60; LIPASE 58 U/L (23-300)
[2018-08-13 02:13] LABS: TROPONIN I 0.02 ng/mL
[2018-08-13 04:28] LABS: URINE BILIRUBIN NEGATIVE (NEGATIVE); URINE BLOOD NEGATIVE (NEGATIVE); URINE GLUCOSE (UA) NEGATIVE (NEGATIVE); URINE LEUKOCYTE ESTERASE NEGATIVE Leu/uL (NEGATIVE); URINE PROTEIN NEGATIVE mg/dL (<30 mg/dL)
[2018-08-13 04:29] LABS: URINE APPEARANCE CLEAR (CLEAR); URINE COLOR YELLOW (YELLOW)
--- NOTE | 2018-08-13 08:15 | CT ---
Date of service: 08/13/2018 PROCEDURE: CT Lumbar Spine without contrast HISTORY: pain COMPARISON: None available. TECHNIQUE: Axial computed tomography images were obtained of the lumbar spine without the use of intravenous contrast. Coronal and sagittal reformatted images were created and reviewed. Radiation dose: Total exam DLP = 518.29 mGy-cm. This CT exam was performed using one or more of the following dose reduction techniques: Automated exposure control, adjustment of the mA and/or kV according to patient size, and/or use of iterative reconstruction technique. FINDINGS: VERTEBRAE: No acute fracture. Scoliosis, secondary degenerative change at multiple levels. DISCS/SPINAL CANAL/NEURAL FORAMINA: L1-2: Unremarkable. L2-3: Degenerative changes primarily disc space narrowing and anterior posterior osteophyte formation. L3-4: Degenerative changes including disc space narrowing and non marginal osteophyte formation. L4-5: Mild degenerative change L5-S1: Unremarkable. PARASPINAL SOFT TISSUES: Unremarkable. OTHER FINDINGS: None. IMPRESSION: No acute findings related to/accounting for the clinical presentation. Additional benign and/or incidental findings described above. Concordant results (preliminary interpretation) provided by [facility]. Procedure Completed: 02:35 Preliminary Report: Dictated and Authenticated: 04:05 Final Interpretation: 08:13.
--- NOTE | 2018-08-13 09:30 | CARD ---
APPROVED REPORT Date of service: 08/13/2018 EKG Measurement Heart [id number] <Conclusion> Sinus rhythm with 1st degree AV block Septal infarct, age undetermined T wave abnormality, consider inferolateral ischemia Prolonged QTc
--- NOTE | 2018-08-13 09:59 | CT ---
Date of service: 08/13/2018 PROCEDURE: CT HEAD WITHOUT CONTRAST. HISTORY: weakness COMPARISON: 07/20/2018. TECHNIQUE: Axial computed tomography images were obtained through the head/brain without intravenous contrast. Supplemental Coronal and Sagittal projections created and reviewed. Radiation dose: Total exam DLP = 997.59 mGy-cm. This CT exam was performed using one or more of the following dose reduction techniques: Automated exposure control, adjustment of the mA and/or kV according to patient size, and/or use of iterative reconstruction technique. FINDINGS: HEMORRHAGE: No intracranial hemorrhage. BRAIN: No mass effect or edema. Cortical atrophy and chronic microvascular ischemic change. Most prominent findings identified adjacent to the left sylvian fissure. VENTRICLES: Unremarkable. No hydrocephalus. CALVARIUM: Unremarkable. PARANASAL SINUSES: Unremarkable as visualized. No significant inflammatory changes. MASTOID AIR CELLS: Unremarkable as visualized. No inflammatory changes. OTHER FINDINGS: None. IMPRESSION: No acute intracranial abnormalities. No significant findings to account for the clinical presentation. No significant interval change compared to the prior examination(s). Concordant results (preliminary interpretation) provided by [facility]. Procedure Completed: 02:31. Preliminary Report: Dictated and Authenticated: 04:04. Final Interpretation: 09:57.
--- NOTE | 2018-08-13 10:19 | RAD ---
Date of service: 08/13/2018 HISTORY: Chest pain COMPARISON: 07/15/2018. FINDINGS: LUNGS: No active pulmonary disease. Linear atelectasis/scarring again identified right lower lobe PLEURA: No significant pleural effusion identified, no pneumothorax apparent. CARDIOVASCULAR: No radiographic findings to suggest acute or significant cardiovascular disease. Incidental Finding(s): Postoperative changes related to sternotomy. OSSEOUS STRUCTURES: No significant abnormalities. VISUALIZED UPPER ABDOMEN: Normal. OTHER FINDINGS: None. IMPRESSION: No active disease. No significant interval change compared to the prior examination(s).
[2018-08-13] MEDS: Pantoprazole 40 mg EC Tab PO SCH (11:13)
[2018-08-13] MEDS ORDERED: Vancomycin 1gm in NS 250ml 1 GM/250 ML BAG IVPB STA (11:45)
[2018-08-13] MEDS: Cefepime 1gm in NS 100ml 1 GM/100 ML BAG IVPB SCH ×2 (11:54→21:09)
[2018-08-13 11:55] LABS: ARTERIAL BLOOD GAS HCO3 21.6 mmol/L (21-28); ARTERIAL BLOOD GAS PCO2 29 mm/Hg (35-45); ARTERIAL BLOOD GAS PH 7.48 (7.35-7.45); ARTERIAL BLOOD GAS TCO2 22.5 mmol.L (22-28)
[2018-08-13] MEDS: Vancomycin 1gm in NS 250ml 1 GM/250 ML BAG IVPB SCH ×2 (13:15→22:23)
[2018-08-13] MEDS: Levalbuterol 1.25 MG/3 ML Inhal Soln UD IH SCH ×2 (13:35→21:10)
--- NOTE | 2018-08-13 16:51 | CT ---
Date of service: 08/13/2018 PROCEDURE: CT Chest without contrast HISTORY: Shortness of breath. COMPARISON: August 13, 2018. Single-view chest. 07/15/2018 CT abdomen and pelvis including lower lung schulte. TECHNIQUE: Contiguous axial images were obtained through the chest without intravenous contrast enhancement. Sagittal and coronal reconstructions were performed. Radiation dose (DLP): 378.76 mGy-cm. This CT exam was performed using one or more of the following dose reduction techniques: Automated exposure control, adjustment of the mA and/or kV according to patient size, and/or use of iterative reconstruction technique. FINDINGS: LUNGS: Stable 8 mm pulmonary nodule lateral segment right lower lobe. Improved aeration of the right lower lobe with residual atelectasis. There are no focal infiltrates identified. MEDIASTINUM: Unremarkable thoracic aorta. No aneurysm. Cardiomegaly. No evidence of acute, significant cardiovascular disease. Aortic valve prosthesis again identified. Main pulmonary artery unremarkable. No vascular congestion. No lymphadenopathy. PLEURA: Resolution of previously identified pleural effusion. BONES: No fracture. No destructive lesion. UPPER ABDOMEN: Grossly unremarkable. OTHER FINDINGS: None. IMPRESSION: Improved aeration at the lung bases particularly right lower lobe. Stable 8 mm pulmonary nodule right lower lobe.
--- NOTE | 2018-08-13 16:59 | RAD ---
Date of service: 08/13/2018 HISTORY: BACK PAIN No history of trauma provided COMPARISON: No prior. FINDINGS: BONES: Dextroscoliosis, secondary degenerative change. DISC SPACES: Multilevel disc degeneration. Disc space narrowing, non marginal osteophyte formation. SOFT TISSUES: Normal. OTHER FINDINGS: None. IMPRESSION: No acute findings related to/accounting for the clinical presentation. Additional benign and/or incidental findings described above.
[2018-08-14] MEDS: Levalbuterol 1.25 MG/3 ML Inhal Soln UD IH SCH ×4 (02:25→21:10)
--- NOTE | 2018-08-14 02:39 | HP ---
HISTORY OF PRESENT ILLNESS: Patient is a 73-year-old, known to me from previous admission. Patient was visited by his daughter in the usp. She found him to be losing weight, not eating well, did not look good, complaining of back pain. So, she advised the rehab facility staff to transfer him to emergency room. PAST MEDICAL HISTORY: Patient has significant past medical history of: 1. Open heart surgery, had aortic valve replacement in 05/2018 in [facility], and had cardiac cath done in 05/2018 and was found to have multivessel disease. 2. Hypertension. 3. Coronary artery disease. 4. Spt-jajhyls-yzsqznlkp diabetes. 5. Generalized osteoarthritis. 6. History of peptic ulcer disease. ALLERGIES: PATIENT IS NOT ALLERGIC TO ANY MEDICATION. MEDICATIONS: In the usp, he is on isosorbide. He is also on Xarelto, diazepam 2 mg every 12, Protonix 40 daily, multivitamin, lisinopril 2.5 daily, gabapentin 100 three times a day, ferrous sulfate, carvedilol, aspirin 81 daily. SOCIAL HISTORY: He is , lives with his , has a handicapped child. REVIEW OF SYSTEMS: Generalized weakness, poor oral intake, shortness of breath, and complaining of back pain. PHYSICAL EXAMINATION: GENERAL: He is awake, alert, oriented, but looks sick. VITAL SIGNS: He had temperature of 101, pulse 102, respirations 18, blood pressure 115/93. LUNGS: Bilateral soft crackle at bases. HEART: S1 and S2 audible. ABDOMEN: Soft and nontender. No rebound. No guarding. NEUROLOGIC: Patient is awake and alert, able to communicate. Complaining of intractable back pain. EXTREMITIES: Bilateral legs, able to move both extremities, bend and flex the knees. No motor deficit. LABORATORY EXAM: WBC is 12.6, hemoglobin 12, hematocrit 35.7, platelets 307. Chemistry: Sodium 133, potassium 4.8, chloride 96, CO2 of , BUN 17, creatinine 0.8, blood sugar 178. Urine is unremarkable. X-rays unremarkable. CT of the lumbar spine is negative. CT scan of the head is negative. ASSESSMENT: 1. Sepsis, probably pulmonary etiology. I will order for CT scan of the chest. Patient has been started on IV antibiotics, nebulizer treatment. 2. Recent open heart surgery, status post valve replacement. 3. Pco-ddorres-rzqmtslgy diabetes. 4. Hypertension. 5. Hyperlipidemia. PLAN: I will order for CT of the chest. We will continue on antibiotic treatment. Continue him on Maxipime. ID consult by Dr. Smiley and Cardiology consult by Dr. Bearden have been requested. We will follow up his CBC and CMP in a.m. Naveed Boland MD
--- NOTE | 2018-08-14 03:19 | CON ---
DATE: 08/13/2018 REASON FOR CONSULTATION: Coronary artery disease status post coronary artery bypass surgery and aortic valve replacement recently as well as history of TIA. HISTORY OF PRESENT ILLNESS: The patient is a 73-year-old [place] male who underwent recently coronary artery bypass surgery and aortic valve replacement for left main disease as well as severe aortic stenosis on 06/07. The patient was admitted on 07/15 with the TIA. The patient stated that he could not feel or move his feet at that time. Initial head CT scan at that time was negative for acute findings and head and neck CT angio revealed no evidence of occlusion of the cervical or intracerebral circulation. The patient was admitted at this time because of worsening back pain according to his daughter as well as loss of appetite and episodes of vomiting. The patient denies any retrosternal chest pain or dizziness. SOCIAL HISTORY: Nonsmoker. He is , lives with his . MEDICATIONS: Aspirin 81 mg once a day, Coreg 3.125 mg once a day, Lopressor 50 mg once a day, IV Maxipime 1 g every 12 hours, Protonix 40 mg p.o. once a day, Valium 2 mg p.o. every 12 hours, Xopenex inhaler every 6 hours, Zestril 2.5 mg daily. REVIEW OF SYSTEMS: No reported seizures or ventricular tachycardia or hypotension while on telemetry monitoring. PHYSICAL EXAMINATION: GENERAL: The patient is an elderly male who does not appear to be in acute distress. VITAL SIGNS: Blood pressure 150/93, temperature is 101 degrees Fahrenheit at 11:20 a.m., heart rate 102. HEENT: Head normocephalic. CHEST: Diminished breath sounds over the bases. HEART: S1 and S2, regular. ABDOMEN: Soft. EXTREMITIES: No edema. LABORATORY DATA: Hemoglobin/hematocrit 12 and 35.7, white count 12.6, platelet count 307,000. SMA-7, sodium 133, potassium 4.8, chloride 96, CO2 27, glucose 147, BUN 17, creatinine 0.8. Lumbar spine CT scan, no acute findings. Head CT scan without contrast, no acute intracranial abnormality. EKG revealed sinus rhythm at rate of 74, lateral ischemic inferolateral T-wave changes. Chest x-ray revealed no active disease. ASSESSMENT: 1. Status post bioprosthetic aortic valve placement and coronary bypass surgery on 06/07. 2. Lateral ischemic EKG changes, rule out myocardial infarction. 3. Low back pain. 4. Hypertension. RECOMMENDATIONS: Continue aspirin 81 mg once a day, Coreg 3.125 mg twice a day, Lopressor 50 mg twice a day, IV Maxipime at 1 g twice a day, normal saline 75 mL an hour, vancomycin 1 g every 12 hours, Zestril 2.5 mg daily. Obtain two sets of blood cultures. I will obtain x-ray of the thoracic spine. Monitor daily EKGs and serial cardiac enzymes in view of the lateral ischemic T-wave changes. Jamin Vickers MD
[2018-08-14] MEDS: Pantoprazole 40 mg EC Tab PO SCH (05:37)
--- NOTE | 2018-08-14 06:47 | CP.PCM.PN ---
<Brenna Sow - Last Filed: 08/14/18 10:40> Subjective - Date & Time of Evaluation Date of Evaluation: 08/14/18 Time of Evaluation: 07:00 - Subjective Subjective: Medicine Progress Note for Toan Pimentel PGY3 Patient seen and examined at bedside. As per nursing staff, there were no acute overnight events. Patient reports still having lower back pain and is unable to stand or turn over. He denies chest pain, shortness of breath, fever/chills, nausea/vomiting/diarrhea, numbness/tingling, dysuria or hematuria. Patient's daughter stated that patient has been losing weight due to poor appetite. As per our records patient has lost >20lbs over the past 2 months. Objective - Vital Signs/Intake and Output Vital Signs (last 24 hours): Temp Pulse Resp BP Pulse Ox 97.7 F 105 H 19 107/59 L 97 08/13/18 16:44 08/14/18 06:00 08/13/18 16:44 08/13/18 17:32 08/13/18 16:44 Intake and Output: 08/13/18 08/14/18 18:59 06:59 Intake Total 1100 Output Total 200 Balance 900 - Medications Medications: Current Medications Acetaminophen (Tylenol 325mg Tab) 650 mg PO Q6H PRN PRN Reason: Pain, Mild (1-3) Last Admin: 08/13/18 09:06 Dose: 650 mg Aspirin (Aspirin Chewable) 81 mg PO DAILY [facility] Last Admin: 08/13/18 09:19 Dose: 81 mg Carvedilol (Coreg) 3.125 mg PO BID [facility] Last Admin: 08/13/18 17:32 Dose: 3.125 mg Diazepam (Valium) 2 mg PO Q12 [facility]; Protocol Last Admin: 08/13/18 11:27 Dose: 2 mg Gabapentin (Neurontin) 100 mg PO TID [facility]; Protocol Last Admin: 08/13/18 17:29 Dose: 100 mg Sodium Chloride (Sodium Chloride 0.9%) 1,000 mls @ 75 mls/hr IV .[id number] [facility] Last Admin: 08/13/18 17:33 Dose: 75 mls/hr Vancomycin HCl (Vancomycin 1gm) 1 gm in 250 mls @ 167 mls/hr IVPB Q12 [facility]; Protocol Last Admin: 08/13/18 22:23 Dose: 167 mls/hr Cefepime HCl (Maxipime 1gm) 1 gm in 100 mls @ 100 mls/hr IVPB Q12 [facility]; Protocol Last Admin: 08/13/18 21:09 Dose: 100 mls/hr Levalbuterol HCl (Xopenex) 1.25 mg IH [id number] [facility] Last Admin: 08/13/18 21:10 Dose: Not Given Lisinopril (Zestril) 2.5 mg PO DAILY [facility] Last Admin: 08/13/18 09:19 Dose: 2.5 mg Metoprolol Tartrate (Lopressor) 50 mg PO Q12H [facility] Last Admin: 08/13/18 09:21 Dose: 50 mg Multivitamins (Thera Tab) 1 tab PO 0800 [facility] Pantoprazole Sodium (Protonix Ec Tab) 40 mg PO 0630 [facility] Last Admin: 08/14/18 05:37 Dose: 40 mg - Labs Labs: 08/13/18 01:30 08/13/18 01:30 PT 12.9 SECONDS (9.4-12.5) H 08/13/18 01:30 INR 1.13 08/13/18 01:30 APTT 33.0 Seconds (25.1-36.5) 08/13/18 01:30 - Constitutional Appears: No Acute Distress - Head Exam Head Exam: ATRAUMATIC, NORMAL INSPECTION, NORMOCEPHALIC - Eye Exam Eye Exam: Normal appearance, PERRL Pupil Exam: NORMAL ACCOMODATION, PERRL - ENT Exam ENT Exam: Mucous Membranes Moist - Neck Exam Neck Exam: Full ROM, Normal Inspection. absent: Thyromegaly - Respiratory Exam Respiratory Exam: Clear to Ausculation Bilateral, NORMAL BREATHING PATTERN. absent: Rales, Rhonchi, Respiratory Distress - Cardiovascular Exam Cardiovascular Exam: REGULAR RHYTHM, +S1, +S2. absent: Gallop, Rubs, Murmur - GI/Abdominal Exam GI & Abdominal Exam: Soft, Normal Bowel Sounds. absent: Rigid, Tenderness, Mass, Rebound - Extremities Exam Extremities Exam: Normal Inspection. absent: Calf Tenderness, Pedal Edema - Back Exam Additional comments: deferred- patient refused to let me examine - Neurological Exam Neurological Exam: Alert, Awake, CN II-XII Intact, Oriented x3 - Psychiatric Exam Psychiatric exam: Normal Affect, Normal Mood - Skin Skin Exam: Dry, Warm Assessment and Plan - Assessment and Plan (Free Text) Assessment: This is a 73yo male with past medical history of HTN, CAD s/p CABG 05/2018, AV replacement (open in 05/2018), NIDDM, OA, peptic ulcer disease who was admitted for 1. Sepsis - Fever + leukocytosis - underlying etiology unknown (U/A negative, CT chest negative, no GI sympt oms) 2. Back pain - chronic - Lumbar CT showed degenerative changes L2-L4 - Thoracic spine XR showed multilevel degenerative disc changes 3. CAD w/ recent CABG and valve replacement - last echo done 07/15/2018 4. Failure to thrive 5. NIDDM 6. HTN Plan: ID on consult for fever and leukocytosis. Septic work up pending. Patient is on doxycycline, Vanc and Maxipime. Cardiology is on consult. Continue Coreg, Lisinopril and ASA. I spoke with Dr. Bearden and patient had bioprosthetic valve and does not need to be on Xeralto. Will supplement diet with ensure for poor PO intake and get finished goods planner referral. Pain control for back pain. Patient will need physical therapy. Case seen, discussed and reviewed with Dr. Flood. Toan Sow PGY3 <Jose Flood S - Last Filed: 08/14/18 22:23> Objective - Vital Signs/Intake and Output Vital Signs (last 24 hours): Temp Pulse Resp BP Pulse Ox 98.7 F 84 19 115/58 L 95 08/14/18 18:00 08/14/18 18:00 08/14/18 18:00 08/14/18 18:00 08/14/18 18:00 Intake and Output: 08/14/18 08/15/18 18:59 06:59 Intake Total 1910 Output Total 250 Balance 1660 - Medications Medications: Current Medications Acetaminophen (Tylenol 325mg Tab) 650 mg PO Q6H PRN PRN Reason: Pain, Mild (1-3) Last Admin: 08/13/18 09:06 Dose: 650 mg Aspirin (Aspirin Chewable) 81 mg PO DAILY [facility] Last Admin: 08/14/18 09:48 Dose: 81 mg Carvedilol (Coreg) 3.125 mg PO BID [facility] Last Admin: 08/14/18 17:49 Dose: Not Given Doxycycline Hyclate (Doryx) 100 mg PO Q12 [facility]; Protocol Last Admin: 08/14/18 22:03 Dose: 100 mg Gabapentin (Neurontin) 100 mg PO TID [facility]; Protocol Last Admin: 08/14/18 17:51 Dose: 100 mg Vancomycin HCl (Vancomycin 1gm) 1 gm in 250 mls @ 167 mls/hr IVPB Q12 [facility]; Protocol Last Admin: 08/14/18 09:51 Dose: 167 mls/hr Cefepime HCl (Maxipime 1gm) 1 gm in 100 mls @ 100 mls/hr IVPB Q8 [facility]; Protocol Last Admin: 08/14/18 22:03 Dose: 100 mls/hr Insulin Human Lispro (Humalog Low) 0 units SC ACHS [facility]; Protocol Last Admin: 08/14/18 22:04 Dose: Not Given Levalbuterol HCl (Xopenex) 1.25 mg IH [id number] [facility] Last Admin: 08/14/18 21:10 Dose: 1.25 mg Lisinopril (Zestril) 2.5 mg PO DAILY [facility] Last Admin: 08/14/18 09:52 Dose: 2.5 mg Metoprolol Tartrate (Lopressor) 50 mg PO Q12H [facility] Last Admin: 08/13/18 09:21 Dose: 50 mg Multivitamins (Thera Tab) 1 tab PO 0800 [facility] Last Admin: 08/14/18 09:51 Dose: 1 tab Oxycodone/Acetaminophen (Percocet 5/325 Mg Tab) 1 tab PO Q6H PRN PRN Reason: Pain, severe (8-10) Stop: 08/17/18 10:32 Pantoprazole Sodium (Protonix Ec Tab) 40 mg PO 0630 [facility] Last Admin: 08/14/18 05:37 Dose: 40 mg - Labs Labs: 08/14/18 07:00 08/14/18 07:00 PT 12.9 SECONDS (9.4-12.5) H 08/13/18 01:30 INR 1.13 08/13/18 01:30 APTT 33.0 Seconds (25.1-36.5) 08/13/18 01:30 Assessment and Plan - Assessment and Plan (Free Text) Plan: Pt seen and examined by me. I have reviewed the note by the emergency medical services coordinator. The case was discussed and reviewed with the resident. I reviewed the medications and labs.Pt with fever. He has UCx and BCx that are pending. He is on IV Abx. Cardio to evaluate the pt. Will continue with [facility]. Spoke at length with to update her. She and the pt would like to go to [place] for acute rehab. Pt will most likely not qualify. Second choice is [facility]. If not accept ed will go back to the pt's current [facility]. He is slowly declining and was not able to recover from previous surgery and infections. He has used many of his days for rehab. I did upate the about his issue and warned her about the days he has left. Pt will be ready once cultures results are back and ID can switch to PO Abx or send on IV Abx. Prognosis is guarded.
--- NOTE | 2018-08-14 06:52 | CP.PCM.PN ---
Subjective - Date & Time of Evaluation Date of Evaluation: 08/14/18 Time of Evaluation: 06:15 - Subjective Subjective: Easily awaken, no distress,denies chest pain Reason for consultation and follow up: Cardiac evaluation of coronary artery disease, status post CABG and valve replacement on 06/07/18 at [facility]. Admitted for and vomiting and no appetite and back pain. Seen and examined by me and Dr. Bearden Objective - Vital Signs/Intake and Output Vital Signs (last 24 hours): Temp Pulse Resp BP Pulse Ox 97.7 F 105 H 19 107/59 L 97 08/13/18 16:44 08/14/18 06:00 08/13/18 16:44 08/13/18 17:32 08/13/18 16:44 Intake and Output: 08/13/18 08/14/18 18:59 06:59 Intake Total 1100 Output Total 200 Balance 900 - Medications Medications: Current Medications Acetaminophen (Tylenol 325mg Tab) 650 mg PO Q6H PRN PRN Reason: Pain, Mild (1-3) Last Admin: 08/13/18 09:06 Dose: 650 mg Aspirin (Aspirin Chewable) 81 mg PO DAILY [facility] Last Admin: 08/13/18 09:19 Dose: 81 mg Carvedilol (Coreg) 3.125 mg PO BID [facility] Last Admin: 08/13/18 17:32 Dose: 3.125 mg Diazepam (Valium) 2 mg PO Q12 [facility]; Protocol Last Admin: 08/13/18 11:27 Dose: 2 mg Gabapentin (Neurontin) 100 mg PO TID [facility]; Protocol Last Admin: 08/13/18 17:29 Dose: 100 mg Sodium Chloride (Sodium Chloride 0.9%) 1,000 mls @ 75 mls/hr IV .[id number] [facility] Last Admin: 08/13/18 17:33 Dose: 75 mls/hr Vancomycin HCl (Vancomycin 1gm) 1 gm in 250 mls @ 167 mls/hr IVPB Q12 [facility]; Protocol Last Admin: 08/13/18 22:23 Dose: 167 mls/hr Cefepime HCl (Maxipime 1gm) 1 gm in 100 mls @ 100 mls/hr IVPB Q12 [facility]; Protocol Last Admin: 08/13/18 21:09 Dose: 100 mls/hr Levalbuterol HCl (Xopenex) 1.25 mg IH [id number] [facility] Last Admin: 08/13/18 21:10 Dose: Not Given Lisinopril (Zestril) 2.5 mg PO DAILY [facility] Last Admin: 08/13/18 09:19 Dose: 2.5 mg Metoprolol Tartrate (Lopressor) 50 mg PO Q12H [facility] Last Admin: 08/13/18 09:21 Dose: 50 mg Multivitamins (Thera Tab) 1 tab PO 0800 [facility] Pantoprazole Sodium (Protonix Ec Tab) 40 mg PO 0630 [facility] Last Admin: 08/14/18 05:37 Dose: 40 mg - Labs Labs: 08/13/18 01:30 08/13/18 01:30 PT 12.9 SECONDS (9.4-12.5) H 08/13/18 01:30 INR 1.13 08/13/18 01:30 APTT 33.0 Seconds (25.1-36.5) 08/13/18 01:30 - Constitutional Appears: No Acute Distress - ENT Exam ENT Exam: Mucous Membranes Dry - Respiratory Exam Respiratory Exam: Clear to Ausculation Bilateral, NORMAL BREATHING PATTERN - Cardiovascular Exam Cardiovascular Exam: REGULAR RHYTHM, +S1, +S2 Additional comments: Telemetry NSR 90's - GI/Abdominal Exam GI & Abdominal Exam: Soft, Normal Bowel Sounds - Extremities Exam Extremities Exam: Full ROM, Normal Capillary Refill - Back Exam Additional comments: back pain - Neurological Exam Neurological Exam: Alert, Awake, Oriented x3 - Psychiatric Exam Psychiatric exam: Normal Affect - Skin Skin Exam: Dry, Intact, Warm Assessment and Plan - Assessment and Plan (Free Text) Assessment: A 73 year old male who was brought to the ER due to nausea and vomiting,loss of appetite and back pain. History of diabetes, coronary artery disease with recent surgery of CABG and aortic valve replacement at [facility] last May 2018.Recently discharged from [facility] due to severe anemia requiring blood transfusion. GI work up was done. EKG- lateral ischemic inferolateral T wave changes. Troponin negative. Recent cardiac work up: 06/01/18- Cardiac catheterization at [facility] Proximal Left main 50% stenosis Mid Circumflex 90% stenosis Mid and distal RCA 70% stenosis Severe aortic stenosis He was referred to [facility] and had CABG and AVR on May07/15/18- ECHO- normal LV function, mildly impaired systolic function, Mild MR/TR mild pulmonary hypertension 07/18/18 [facility] scan- Normal LV function,LVEF 55% Plan: No distress, denies chest pain Heart rate and blood pressure stable Continue IV hydration On IV antibiotics Continue current treatment Continue current medications Will follow up Plan and treatment discussed with Dr. Bearden
[2018-08-14 07:44] LABS: BASO # 0.03 K/mm3 (0.0-2.0); BASO % 0.2 % (0.0-3.0); EOS # 0.1 (0.0-0.7); EOS % 0.3 % (1.5-5.0); GRAN # 12.14 (1.4-6.5); GRAN % 73.4 % (50.0-68.0); HEMOGLOBIN 10.4 g/dL (14.0-18.0); LYMPH # 3.1 (1.2-3.4); LYMPH % 18.7 % (22.0-35.0); MEAN CELL VOLUME 83.3 fl (80.0-105.0); MEAN CORPUSCULAR HEMOGLOBIN 27.6 pg (25.0-35.0); MEAN CORPUSCULAR HGB CONC 33.1 g/dl (31.0-37.0); MONO # 1.2 (0.1-0.6); MONO % 7.4 % (1.0-6.0); RBC 3.77 10^6/uL (3.5-6.1); RED CELL DISTRIBUTION WIDTH 15.7 % (11.5-14.5); WHITE BLOOD COUNT 16.5 10^3/ul (4.5-11.0)
[2018-08-14 08:11] LABS: ALB/GLOB RATIO 0.8 (1.1-1.8); ALBUMIN 2.9 g/dL (3.0-4.8); ALT/SGPT 12 U/L (7-56); AST/SGOT 26 U/L (17-59); BLOOD UREA NITROGEN 12 mg/dL (7-21); GFR NON-AFRICAN AMERICAN > 60
[2018-08-14] MEDS: Cefepime 1gm in NS 100ml 1 GM/100 ML BAG IVPB SCH ×3 (09:50→22:03)
[2018-08-14] MEDS: Vancomycin 1gm in NS 250ml 1 GM/250 ML BAG IVPB SCH ×2 (09:51→23:33)
[2018-08-14] MEDS: Multivitamin Therapeutic Tab PO SCH (09:51)
--- NOTE | 2018-08-14 10:13 | CP.PCM.CON ---
<Shelby Reid - Last Filed: 08/14/18 13:11> History of Present Illness - History of Present Illness History of Present Illness: PGY-3 Resident ID consult note for Dr. Mcghee Reason for consult: Sepsis Patient is a 73 y/o with PMHx of DM, CAD s/p CABG, valvular heart replacement ( 06/07/18), presenting with back pain, and generalized weakness. Patient states the back pain has been there prior to his valvular replacement in May, however has gotten worst 2 weeks ago. Denies falling, no trauma, denies bowel or bladder incontinent. States he was able to ambulate prior to two weeks ago, now unable to move his jose de jesus lower extremities without assistance. Admits to loss of appetites, not sure if he lost weight. Denies vomiting, no diarrhea, dysurea, denies abdominal pain, fever and chills. Denies cough. Left a message for patient's spouse, awaiting a call back. PMhx: DM, CAD s/p CABG, valvular heart replacement PSHx: CABG, valvular replacement FMHx: non contributory Social: deneis tobacco, alcohol or illicit drug use. Allergy: BKDA Home meds: Asa, coreg, metoprolol, lisinopril, valium Review of Systems - Constitutional Constitutional: Anorexia, Fatigue, Headache, Lethargy, Weakness. absent: Chills, Fever, Increased Appetite, Weight Loss - EENT Eyes: absent: Blurred Vision Ears: absent: Dizziness Nose/Mouth/Throat: absent: Nasal Congestion - Cardiovascular Cardiovascular: absent: Chest Pain, Chest Pain at Rest, Chest Pain with Activity, Claudication, Dyspnea, Edema, Leg Edema, Palpitations, Syncope - Respiratory Respiratory: absent: Cough, Dyspnea, Wheezing, Snoring - Gastrointestinal Gastrointestinal: absent: Abdominal Pain, Belching, Bloating, Constipation, Diarrhea, Dyspepsia, Dysphagia, Early Satiety, Excessive Flatus, Heartburn, Nausea - Genitourinary Genitourinary: absent: Dysuria, Pyuria, Urinary Urgency - Musculoskeletal Musculoskeletal: Atrophy, Back Pain. absent: Numbness, Stiffness, Tingling - Integumentary Integumentary: Dry Skin. absent: Erythema - Neurological Neurological: absent: Confusion, Dizziness, Syncope, Weakness - Psychiatric Psychiatric: Change in Appetite. absent: Anxiety - Endocrine Endocrine: Fatigue. absent: Heat Intolorance, Palpitations, Polydipsia, Polyphagia, Polyuria - Hematologic/Lymphatic Hematologic: absent: Easy Bleeding, Easy Bruising, Lymphadenopathy Past Patient History - Past Medical History & Family History Past Medical History?: Yes - Past Social History Smoking Status: Never Smoked Alcohol: None Drugs: Denies Home Situation {Lives}: With Family - CARDIAC Hx Cardiac Disorders: Yes - PULMONARY Hx Respiratory Disorders: No - NEUROLOGICAL Hx Neurological Disorder: No - HEENT Hx HEENT Problems: No - RENAL Hx Chronic Kidney Disease: No - ENDOCRINE/METABOLIC Hx Diabetes Mellitus Type 2: Yes - HEMATOLOGICAL/ONCOLOGICAL Hx Blood Disorders: No - INTEGUMENTARY Hx Dermatological Problems: No - MUSCULOSKELETAL/RHEUMATOLOGICAL Hx Musculoskeletal Disorders: Yes Hx Falls: Yes (06/12/18) Hx Unsteady Gait: Yes - GASTROINTESTINAL Hx Gastrointestinal Disorders: No - GENITOURINARY/GYNECOLOGICAL Hx Genitourinary Disorders: No - PSYCHIATRIC Hx Psychophysiologic Disorder: No Hx Substance Use: No - SURGICAL HISTORY Hx Surgeries: Yes Hx Cardiac Catheterization: No Hx Coronary Stent: No Hx Valve Replacement: Yes (s/p valve replacement 05/2018) - ANESTHESIA Hx Anesthesia: Yes Hx Anesthesia Reactions: No Hx Malignant Hyperthermia: No Meds Allergies/Adverse Reactions: Allergies Allergy/AdvReac Type Severity Reaction Status Date / Time No Known Allergies Allergy Verified 08/13/18 00:52 - Medications Medications: Current Medications Acetaminophen (Tylenol 325mg Tab) 650 mg PO Q6H PRN PRN Reason: Pain, Mild (1-3) Last Admin: 08/13/18 09:06 Dose: 650 mg Aspirin (Aspirin Chewable) 81 mg PO DAILY [facility] Last Admin: 08/14/18 09:48 Dose: 81 mg Carvedilol (Coreg) 3.125 mg PO BID [facility] Last Admin: 08/14/18 09:48 Dose: 3.125 mg Diazepam (Valium) 2 mg PO Q12 [facility]; Protocol Last Admin: 08/14/18 09:51 Dose: 2 mg Doxycycline Hyclate (Doryx) 100 mg PO Q12 [facility]; Protocol Gabapentin (Neurontin) 100 mg PO TID [facility]; Protocol Last Admin: 08/14/18 09:51 Dose: 100 mg Sodium Chloride (Sodium Chloride 0.9%) 1,000 mls @ 75 mls/hr IV [id number] [facility] Last Admin: 08/13/18 17:33 Dose: 75 mls/hr Vancomycin HCl (Vancomycin 1gm) 1 gm in 250 mls @ 167 mls/hr IVPB Q12 [facility]; Protocol Last Admin: 08/14/18 09:51 Dose: 167 mls/hr Cefepime HCl (Maxipime 1gm) 1 gm in 100 mls @ 100 mls/hr IVPB Q8 [facility]; Protocol Levalbuterol HCl (Xopenex) 1.25 mg IH [id number] [facility] Last Admin: 08/14/18 09:48 Dose: 1.25 mg Lisinopril (Zestril) 2.5 mg PO DAILY [facility] Last Admin: 08/14/18 09:52 Dose: 2.5 mg Metoprolol Tartrate (Lopressor) 50 mg PO Q12H [facility] Last Admin: 08/13/18 09:21 Dose: 50 mg Multivitamins (Thera Tab) 1 tab PO 0800 [facility] Last Admin: 08/14/18 09:51 Dose: 1 tab Pantoprazole Sodium (Protonix Ec Tab) 40 mg PO 0630 [facility] Last Admin: 08/14/18 05:37 Dose: 40 mg Physical Exam - Constitutional Appears: No Acute Distress, Cachectic, Chronically Ill - Head Exam Head Exam: ATRAUMATIC, NORMAL INSPECTION, NORMOCEPHALIC - Eye Exam Eye Exam: Normal appearance Pupil Exam: NORMAL ACCOMODATION - ENT Exam ENT Exam: Mucous Membranes Moist - Neck Exam Neck exam: Positive for: Tenderness. Negative for: Lymphadenopathy, Meningismus Additional comments: Old surgical scar on the right lateral aspect of the neck - Respiratory Exam Respiratory Exam: Clear to Auscultation Bilateral, NORMAL BREATHING PATTERN. absent: Rales, Rhonchi, Wheezes, Respiratory Distress, Stridor - Cardiovascular Exam Cardiovascular Exam: REGULAR RHYTHM, +S1, +S2, Systolic Murmur - GI/Abdominal Exam GI & Abdominal Exam: Normal Bowel Sounds, Soft. absent: Distended, Firm, Guarding, Rebound, Rigid, Tenderness - Extremities Exam Extremities exam: Positive for: normal inspection. Negative for: pedal edema, tenderness Additional comments: atrophic lower extremities. - Back Exam Back exam: tenderness - Neurological Exam Neurological exam: Alert, Oriented x3, Reflexes Normal - Psychiatric Exam Psychiatric exam: Normal Affect, Normal Mood - Skin Skin Exam: Normal Color, Warm Results - Vital Signs Recent Vital Signs: Last Vital Signs Temp 100.1 F H 08/14/18 09:02 Pulse 101 H 08/14/18 09:52 Resp 20 08/14/18 09:02 BP 132/74 08/14/18 09:52 Pulse Ox 97 08/14/18 09:02 - Labs Result Diagrams: 08/14/18 07:00 08/14/18 07:00 Labs: Laboratory Results - last 24 hr 08/13/18 08/13/18 08/13/18 11:16 11:50 21:29 WBC RBC Hgb Hct MCV MCH MCHC RDW Plt Count MPV Gran % Lymph % (Auto) [place] % (Auto) Eos % (Auto) Baso % (Auto) Gran # Lymph # (Auto) [place] # (Auto) Eos # (Auto) Baso # (Auto) pCO2 29 L pO2 101.0 H HCO3 21.6 ABG pH 7.48 H ABG Total CO2 22.5 ABG O2 Saturation 99.0 H ABG Base Excess -0.8 ABG Potassium 4.2 Sodium 132.0 Chloride 102.0 Glucose 167 H Lactate 0.9 FiO2 28.0 Potassium Carbon Dioxide Anion Gap BUN Creatinine Est GFR ( Amer) Est GFR (Non-Af Amer) POC Glucose (mg/dL) 178 H 151 H Random Glucose Calcium Total Bilirubin AST ALT Alkaline Phosphatase Total Protein Albumin Globulin Albumin/Globulin Ratio Arterial Blood Potassium 4.2 08/14/18 08/14/18 08/14/18 07:00 07:00 07:16 WBC 16.5 H D RBC 3.77 Hgb 10.4 L Hct 31.4 L MCV 83.3 MCH 27.6 MCHC 33.1 RDW 15.7 H Plt Count 319 MPV 9.0 Gran % 73.4 H Lymph % (Auto) 18.7 L [place] % (Auto) 7.4 H Eos % (Auto) 0.3 L Baso % (Auto) 0.2 Gran # 12.14 H Lymph # (Auto) 3.1 [place] # (Auto) 1.2 H Eos # (Auto) 0.1 Baso # (Auto) 0.03 pCO2 pO2 HCO3 ABG pH ABG Total CO2 ABG O2 Saturation ABG Base Excess ABG Potassium Sodium 131 L Chloride 98 Glucose Lactate FiO2 Potassium 4.5 Carbon Dioxide 22 Anion Gap 16 BUN 12 Creatinine 0.6 L Est GFR ( Amer) > 60 Est GFR (Non-Af Amer) > 60 POC Glucose (mg/dL) 141 H Random Glucose 148 H Calcium 9.0 Total Bilirubin 0.6 AST 26 ALT 12 Alkaline Phosphatase 88 Total Protein 6.5 Albumin 2.9 L Globulin 3.5 Albumin/Globulin Ratio 0.8 L Arterial Blood Potassium Assessment & Plan - Assessment and Plan (Free Text) Assessment: Patient is a 73 y/o presenting with worsening back pain and weakness for 2 weeks, was admitted with failure to thrive, and ID is consulted for possible sepsis. SIRS with unknown source, r/o bandemia, endocartitis, less likely pneumonia, less likely uti, Back pain- r/o spinal compressions, abscess Failure to thrive physical deoconditioning DM, CAD s/p CABG, valvular heart replacement Plan: Tmax of 101, with worsening leukocytosis ( 16.5), ua with trace ketones, negative for UTI, chest x-ray with no significant findings. CT chest revealed improved in aeration at the right lung bases, and 8 mm pulm nodule ( stable compared to prior imaging from May). Procal and urine legionella are ordered. Blood cultures x3 to r/o bacteremia/endocarditis. Started on vanco and cefepime pending cultures, MRI of the spine and echo to rule out endocardititis. For back pain- L spine CT and thoracic plain films with no acute findings, pending MRI. Patient seen, examined and case discussed in detail with Dr. Mcghee. - Date & Time Date: 08/14/18 Time: 11:15 <Juan R Mcghee - Last Filed: 08/14/18 23:01> Meds - Medications Medications: Current Medications Acetaminophen (Tylenol 325mg Tab) 650 mg PO Q6H PRN PRN Reason: Pain, Mild (1-3) Last Admin: 08/13/18 09:06 Dose: 650 mg Aspirin (Aspirin Chewable) 81 mg PO DAILY [facility] Last Admin: 08/14/18 09:48 Dose: 81 mg Carvedilol (Coreg) 3.125 mg PO BID [facility] Last Admin: 08/14/18 17:49 Dose: Not Given Doxycycline Hyclate (Doryx) 100 mg PO Q12 [facility]; Protocol Last Admin: 08/14/18 22:03 Dose: 100 mg Gabapentin (Neurontin) 100 mg PO TID [facility]; Protocol Last Admin: 08/14/18 17:51 Dose: 100 mg Vancomycin HCl (Vancomycin 1gm) 1 gm in 250 mls @ 167 mls/hr IVPB Q12 [facility]; Protocol Last Admin: 08/14/18 09:51 Dose: 167 mls/hr Cefepime HCl (Maxipime 1gm) 1 gm in 100 mls @ 100 mls/hr IVPB Q8 [facility]; Protocol Last Admin: 08/14/18 22:03 Dose: 100 mls/hr Insulin Human Lispro (Humalog Low) 0 units SC ACHS [facility]; Protocol Last Admin: 08/14/18 22:04 Dose: Not Given Levalbuterol HCl (Xopenex) 1.25 mg IH [id number] [facility] Last Admin: 08/14/18 21:10 Dose: 1.25 mg Lisinopril (Zestril) 2.5 mg PO DAILY [facility] Last Admin: 08/14/18 09:52 Dose: 2.5 mg Metoprolol Tartrate (Lopressor) 50 mg PO Q12H [facility] Last Admin: 08/13/18 09:21 Dose: 50 mg Multivitamins (Thera Tab) 1 tab PO 0800 [facility] Last Admin: 08/14/18 09:51 Dose: 1 tab Oxycodone/Acetaminophen (Percocet 5/325 Mg Tab) 1 tab PO Q6H PRN PRN Reason: Pain, severe (8-10) Stop: 08/17/18 10:32 Pantoprazole Sodium (Protonix Ec Tab) 40 mg PO 0630 [facility] Last Admin: 08/14/18 05:37 Dose: 40 mg Results - Vital Signs Recent Vital Signs: Last Vital Signs Temp 98.7 F 08/14/18 18:00 Pulse 84 08/14/18 18:00 Resp 19 08/14/18 18:00 BP 115/58 L 08/14/18 18:00 Pulse Ox 95 08/14/18 18:00 - Labs Result Diagrams: 08/14/18 07:00 08/14/18 07:00 Labs: Laboratory Results - last 24 hr 08/14/18 08/14/18 08/14/18 07:00 07:00 07:00 WBC 16.5 H D RBC 3.77 Hgb 10.4 L Hct 31.4 L MCV 83.3 MCH 27.6 MCHC 33.1 RDW 15.7 H Plt Count 319 MPV 9.0 Gran % 73.4 H Lymph % (Auto) 18.7 L [place] % (Auto) 7.4 H Eos % (Auto) 0.3 L Baso % (Auto) 0.2 Gran # 12.14 H Lymph # (Auto) 3.1 [place] # (Auto) 1.2 H Eos # (Auto) 0.1 Baso # (Auto) 0.03 Sodium 131 L Potassium 4.5 Chloride 98 Carbon Dioxide 22 Anion Gap 16 BUN 12 Creatinine 0.6 L Est GFR ( Amer) > 60 Est GFR (Non-Af Amer) > 60 POC Glucose (mg/dL) Random Glucose 148 H Calcium 9.0 Total Bilirubin 0.6 AST 26 ALT 12 Alkaline Phosphatase 88 Total Protein 6.5 Albumin 2.9 L Globulin 3.5 Albumin/Globulin Ratio 0.8 L Procalcitonin 1.35 H 08/14/18 08/14/18 08/14/18 07:16 11:03 16:19 WBC RBC Hgb Hct MCV MCH MCHC RDW Plt Count MPV Gran % Lymph % (Auto) [place] % (Auto) Eos % (Auto) Baso % (Auto) Gran # Lymph # (Auto) [place] # (Auto) Eos # (Auto) Baso # (Auto) Sodium Potassium Chloride Carbon Dioxide Anion Gap BUN Creatinine Est GFR ( Amer) Est GFR (Non-Af Amer) POC Glucose (mg/dL) 141 H 194 H 235 H Random Glucose Calcium Total Bilirubin AST ALT Alkaline Phosphatase Total Protein Albumin Globulin Albumin/Globulin Ratio Procalcitonin 08/14/18 21:26 WBC RBC Hgb Hct MCV MCH MCHC RDW Plt Count MPV Gran % Lymph % (Auto) [place] % (Auto) Eos % (Auto) Baso % (Auto) Gran # Lymph # (Auto) [place] # (Auto) Eos # (Auto) Baso # (Auto) Sodium Potassium Chloride Carbon Dioxide Anion Gap BUN Creatinine Est GFR ( Amer) Est GFR (Non-Af Amer) POC Glucose (mg/dL) 169 H Random Glucose Calcium Total Bilirubin AST ALT Alkaline Phosphatase Total Protein Albumin Globulin Albumin/Globulin Ratio Procalcitonin Assessment & Plan - Assessment and Plan (Free Text) Plan: Infectious Diseases Attending Physician Addendum Patient seen, examined, discussed with medical technologist generalist. I have reviewed the pertinent clinical information. I agree with the above findings, assessment and plan and in addition, we have started Vancomycin for sepsis from coagulase negative staph bacteremia R/O endocarditis in this patient with aortic valve replacement, R/O pneumonia. Also added Cefepime and Doxycycline pending PCT and repeat CXR. Asked for MRI of C-spine since he is complaining of pain in the neck (but no meningismus present). Will ask for 2D echo - if this is negative, will need ANGELIA since 2 sets of blood cx are positive. Ordered repeat blood cx and will follow up those results. Will get Vanco trough before the 4th dose.
[2018-08-14] MEDS: Insulin Lispro (humaLOG) LOW Coverage SC SCH ×3 (12:10→22:04)
--- NOTE | 2018-08-14 19:11 | PN ---
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 I look my previous note dated 07/21/2018, where the same question was raised last night for continuation of the Xarelto. There was no hard indication to start Xarelto. Last time also, I made a call to Dr. Antonio Siddiqui at [facility]. The patient has a bioprosthetic aortic valve. No arrhythmia postop noted, so does not need Xarelto. Though it was in the rehab, again very soft indication. So last time, we discontinued it. Again, the patient does not need Xarelto because the patient had a history of GI bleed on last admission and admitted with a hemoglobin of 7.2. No further episodes of any arrhythmia after that noted (we will not restart Xarelto). Also the patient on admission, one bottle has positive blood culture, awaiting for the second blood culture and repeat another blood culture. If the repeat blood culture is positive, then consider ANGELIA or echo because the patient has a bioprosthetic aortic valve, but so far no evidence of any arrhythmia or endocarditis noted, but we will follow the blood culture. Further recommendations depending on hospital course. We will follow with you. Also, we will repeat blood culture tomorrow morning. Thank you, Dr. Flood, for providing us the opportunity in taking care of the patient, Reji Chand. Bala Bearden MD
[2018-08-15] MEDS: Levalbuterol 1.25 MG/3 ML Inhal Soln UD IH SCH ×4 (03:55→20:46)
[2018-08-15] MEDS: Cefepime 1gm in NS 100ml 1 GM/100 ML BAG IVPB SCH ×3 (05:33→22:11)
[2018-08-15] MEDS: Pantoprazole 40 mg EC Tab PO SCH (05:34)
--- NOTE | 2018-08-15 06:22 | CP.PCM.PN ---
Addendum entered and electronically signed by Brenna Sow DO 08/15/18 12:35: I spoke with Dr. Bearden who will plan to do a ANGELIA in 1-2 days Original Note: <Brenna Sow - Last Filed: 08/15/18 12:03> Subjective - Date & Time of Evaluation Date of Evaluation: 08/15/18 Time of Evaluation: 07:00 - Subjective Subjective: Medicine Progress Note for Toan Pimentel PGY3 Patient seen and examined at bedside. There were no acute overnight events as per nursing staff. Patient is complaining of low back pain this morning. He denies chest pain, shortness of breath, nausea/vomiting/diarrhea, fever/chills, numbness/tingling, dysuria or hematuria. Objective - Vital Signs/Intake and Output Vital Signs (last 24 hours): Temp Pulse Resp BP Pulse Ox 98.7 F 108 H 19 115/58 L 95 08/14/18 18:00 08/15/18 02:00 08/14/18 18:00 08/14/18 18:00 08/14/18 18:00 Intake and Output: 08/14/18 08/15/18 18:59 06:59 Intake Total 1910 Output Total 250 Balance 1660 - Medications Medications: Current Medications Acetaminophen (Tylenol 325mg Tab) 650 mg PO Q6H PRN PRN Reason: Pain, Mild (1-3) Last Admin: 08/13/18 09:06 Dose: 650 mg Aspirin (Aspirin Chewable) 81 mg PO DAILY [facility] Last Admin: 08/14/18 09:48 Dose: 81 mg Carvedilol (Coreg) 3.125 mg PO BID [facility] Last Admin: 08/14/18 17:49 Dose: Not Given Doxycycline Hyclate (Doryx) 100 mg PO Q12 [facility]; Protocol Last Admin: 08/14/18 22:03 Dose: 100 mg Gabapentin (Neurontin) 100 mg PO TID [facility]; Protocol Last Admin: 08/14/18 17:51 Dose: 100 mg Vancomycin HCl (Vancomycin 1gm) 1 gm in 250 mls @ 167 mls/hr IVPB Q12 [facility]; Protocol Last Admin: 08/14/18 23:33 Dose: 167 mls/hr Cefepime HCl (Maxipime 1gm) 1 gm in 100 mls @ 100 mls/hr IVPB Q8 [facility]; Protocol Last Admin: 08/15/18 05:33 Dose: 100 mls/hr Insulin Human Lispro (Humalog Low) 0 units SC ACHS [facility]; Protocol Last Admin: 08/14/18 22:04 Dose: Not Given Levalbuterol HCl (Xopenex) 1.25 mg IH [id number] [facility] Last Admin: 08/15/18 03:55 Dose: Not Given Lisinopril (Zestril) 2.5 mg PO DAILY [facility] Last Admin: 08/14/18 09:52 Dose: 2.5 mg Metoprolol Tartrate (Lopressor) 50 mg PO Q12H [facility] Last Admin: 08/13/18 09:21 Dose: 50 mg Multivitamins (Thera Tab) 1 tab PO 0800 [facility] Last Admin: 08/14/18 09:51 Dose: 1 tab Oxycodone/Acetaminophen (Percocet 5/325 Mg Tab) 1 tab PO Q6H PRN PRN Reason: Pain, severe (8-10) Stop: 08/17/18 10:32 Pantoprazole Sodium (Protonix Ec Tab) 40 mg PO 0600 [facility] Last Admin: 08/15/18 05:34 Dose: 40 mg - Labs Labs: 08/14/18 07:00 08/14/18 07:00 PT 12.9 SECONDS (9.4-12.5) H 08/13/18 01:30 INR 1.13 08/13/18 01:30 APTT 33.0 Seconds (25.1-36.5) 08/13/18 01:30 - Constitutional Appears: No Acute Distress - Head Exam Head Exam: ATRAUMATIC, NORMAL INSPECTION, NORMOCEPHALIC - Eye Exam Eye Exam: Normal appearance, PERRL Pupil Exam: NORMAL ACCOMODATION - ENT Exam ENT Exam: Mucous Membranes Moist - Neck Exam Neck Exam: Full ROM - Respiratory Exam Respiratory Exam: Clear to Ausculation Bilateral, NORMAL BREATHING PATTERN. absent: Rales, Rhonchi, Wheezes - Cardiovascular Exam Cardiovascular Exam: REGULAR RHYTHM, +S1, +S2. absent: Gallop, Rubs, Murmur - GI/Abdominal Exam GI & Abdominal Exam: Soft, Normal Bowel Sounds. absent: Rigid, Tenderness, Mass, Rebound - Extremities Exam Extremities Exam: Normal Inspection. absent: Calf Tenderness, Pedal Edema - Back Exam Additional comments: refused back exam - Neurological Exam Neurological Exam: Alert, Awake, CN II-XII Intact, Oriented x3 - Psychiatric Exam Psychiatric exam: Normal Affect, Normal Mood - Skin Skin Exam: Dry, Warm Assessment and Plan - Assessment and Plan (Free Text) Assessment: This is a 73yo male with past medical history of HTN, CAD s/p CABG 05/2018, AV replacement (open in 05/2018), NIDDM, OA, peptic ulcer disease who was admitted for 1. Bacteremia - + for Coag neg staph - Rule out AV valve as source 2. Back pain - chronic - Lumbar CT showed degenerative changes L2-L4 - Thoracic spine XR showed multilevel degenerative disc changes 3. CAD w/ recent CABG and valve replacement - last echo done 07/15/2018 4. Failure to thrive 5. NIDDM 6. HTN Plan: ID on consult. Will continue Cefepime, Doxy and Vanc. Repeat echo pending. Cardiology consulted. Patient will continue Coreg, Lisinopril and ASA. Pain is controlled. Continue multivitamin and supplemental nutrition. Patient will have MRI of spine to rule out any other acute etiology for infection. Patient could benefit from chronic pain management as outpatient upon d/c. Patient will need to go to [facility] once stable for discharge. He was encouraged to eat more and participate in physical therapy today. Case seen, discussed and reviewed with Dr. Flood. Toan Sow PGY3 <Jose Flood S - Last Filed: 08/15/18 15:57> Objective - Vital Signs/Intake and Output Vital Signs (last 24 hours): Temp Pulse Resp BP Pulse Ox 97.8 F 95 H 20 126/72 100 08/15/18 08:05 08/15/18 09:33 08/15/18 08:05 08/15/18 09:33 08/15/18 08:05 - Medications Medications: Current Medications Acetaminophen (Tylenol 325mg Tab) 650 mg PO Q6H PRN PRN Reason: Pain, Mild (1-3) Last Admin: 08/15/18 07:30 Dose: 650 mg Aspirin (Aspirin Chewable) 81 mg PO DAILY [facility] Last Admin: 08/15/18 09:31 Dose: 81 mg Carvedilol (Coreg) 3.125 mg PO BID [facility] Last Admin: 08/15/18 09:31 Dose: 3.125 mg Doxycycline Hyclate (Doryx) 100 mg PO Q12 [facility]; Protocol Last Admin: 08/15/18 09:32 Dose: 100 mg Gabapentin (Neurontin) 100 mg PO TID [facility]; Protocol Last Admin: 08/15/18 14:12 Dose: 100 mg Vancomycin HCl (Vancomycin 1gm) 1 gm in 250 mls @ 167 mls/hr IVPB Q12 [facility]; Protocol Last Admin: 08/15/18 09:33 Dose: 167 mls/hr Cefepime HCl (Maxipime 1gm) 1 gm in 100 mls @ 100 mls/hr IVPB Q8 [facility]; Protocol Last Admin: 08/15/18 14:11 Dose: 100 mls/hr Insulin Human Lispro (Humalog Low) 0 units SC ACHS [facility]; Protocol Last Admin: 08/15/18 11:56 Dose: 3 units Levalbuterol HCl (Xopenex) 1.25 mg IH [id number] [facility] Last Admin: 08/15/18 13:28 Dose: 1.25 mg Lisinopril (Zestril) 2.5 mg PO DAILY [facility] Last Admin: 08/15/18 09:33 Dose: 2.5 mg Metoprolol Tartrate (Lopressor) 50 mg PO Q12H [facility] Last Admin: 08/13/18 09:21 Dose: 50 mg Multivitamins (Thera Tab) 1 tab PO 0800 [facility] Last Admin: 08/15/18 09:32 Dose: 1 tab Oxycodone/Acetaminophen (Percocet 5/325 Mg Tab) 1 tab PO Q6H PRN PRN Reason: Pain, severe (8-10) Stop: 08/17/18 10:32 Last Admin: 08/15/18 09:36 Dose: 1 tab Pantoprazole Sodium (Protonix Ec Tab) 40 mg PO 0600 [facility] Last Admin: 08/15/18 05:34 Dose: 40 mg - Labs Labs: 08/15/18 08:19 08/15/18 08:19 PT 12.9 SECONDS (9.4-12.5) H 08/13/18 01:30 INR 1.13 08/13/18 01:30 APTT 33.0 Seconds (25.1-36.5) 08/13/18 01:30 Assessment and Plan - Assessment and Plan (Free Text) Assessment: Pt seen and examined by me. I have reviewed the note by the medical/surgery registered nurse. The case was discussed and reviewed with the resident. I reviewed the medications and labs. Pt with BCx + will get echo and wait for final results. Pt is going to get MRI of back. He is getting PT but is not cooperating. He was advised about using more pain meds if he has pain. Spoke to to give her update.
--- NOTE | 2018-08-15 06:59 | CP.PCM.PN ---
Subjective - Date & Time of Evaluation Date of Evaluation: 08/15/18 Time of Evaluation: 06:15 - Subjective Subjective: No distress, awake,denies chest pain Reason for consultation and follow up: Cardiac evaluation of coronary artery disease, status post CABG and valve replacement on 06/07/18 at [facility]. Admitted for and vomiting and no appetite and back pain. Seen and examined by me and Dr. Bearden Objective - Vital Signs/Intake and Output Vital Signs (last 24 hours): Temp Pulse Resp BP Pulse Ox 98.7 F 108 H 19 115/58 L 95 08/14/18 18:00 08/15/18 02:00 08/14/18 18:00 08/14/18 18:00 08/14/18 18:00 Intake and Output: 08/14/18 08/15/18 18:59 06:59 Intake Total 1910 Output Total 250 Balance 1660 - Medications Medications: Current Medications Acetaminophen (Tylenol 325mg Tab) 650 mg PO Q6H PRN PRN Reason: Pain, Mild (1-3) Last Admin: 08/13/18 09:06 Dose: 650 mg Aspirin (Aspirin Chewable) 81 mg PO DAILY [facility] Last Admin: 08/14/18 09:48 Dose: 81 mg Carvedilol (Coreg) 3.125 mg PO BID [facility] Last Admin: 08/14/18 17:49 Dose: Not Given Doxycycline Hyclate (Doryx) 100 mg PO Q12 [facility]; Protocol Last Admin: 08/14/18 22:03 Dose: 100 mg Gabapentin (Neurontin) 100 mg PO TID [facility]A; Protocol Last Admin: 08/14/18 17:51 Dose: 100 mg Vancomycin HCl (Vancomycin 1gm) 1 gm in 250 mls @ 167 mls/hr IVPB Q12 [facility]; Protocol Last Admin: 08/14/18 23:33 Dose: 167 mls/hr Cefepime HCl (Maxipime 1gm) 1 gm in 100 mls @ 100 mls/hr IVPB Q8 [facility]; Protocol Last Admin: 08/15/18 05:33 Dose: 100 mls/hr Insulin Human Lispro (Humalog Low) 0 units SC ACHS [facility]; Protocol Last Admin: 08/14/18 22:04 Dose: Not Given Levalbuterol HCl (Xopenex) 1.25 mg IH [id number] [facility] Last Admin: 08/15/18 03:55 Dose: Not Given Lisinopril (Zestril) 2.5 mg PO DAILY [facility] Last Admin: 08/14/18 09:52 Dose: 2.5 mg Metoprolol Tartrate (Lopressor) 50 mg PO Q12H [facility] Last Admin: 08/13/18 09:21 Dose: 50 mg Multivitamins (Thera Tab) 1 tab PO 0800 [facility] Last Admin: 08/14/18 09:51 Dose: 1 tab Oxycodone/Acetaminophen (Percocet 5/325 Mg Tab) 1 tab PO Q6H PRN PRN Reason: Pain, severe (8-10) Stop: 08/17/18 10:32 Pantoprazole Sodium (Protonix Ec Tab) 40 mg PO 0600 [facility] Last Admin: 08/15/18 05:34 Dose: 40 mg - Labs Labs: 08/14/18 07:00 08/14/18 07:00 PT 12.9 SECONDS (9.4-12.5) H 08/13/18 01:30 INR 1.13 08/13/18 01:30 APTT 33.0 Seconds (25.1-36.5) 08/13/18 01:30 - Constitutional Appears: No Acute Distress - Head Exam Head Exam: NORMOCEPHALIC - ENT Exam ENT Exam: Mucous Membranes Dry - Respiratory Exam Respiratory Exam: Decreased Breath Sounds, Clear to Ausculation Bilateral, NORMAL BREATHING PATTERN - Cardiovascular Exam Cardiovascular Exam: Tachycardia, +S1, +S2 Additional comments: Telemetry 100's ST - Extremities Exam Extremities Exam: Normal Capillary Refill Additional comments: no edema - Neurological Exam Neurological Exam: Alert, Awake, Oriented x3 - Psychiatric Exam Psychiatric exam: Normal Affect, Normal Mood - Skin Skin Exam: Intact, Warm Assessment and Plan - Assessment and Plan (Free Text) Assessment: A 73 year old male who was brought to the ER due to nausea and vomiting,loss of appetite and back pain. History of diabetes, coronary artery disease with recent surgery of CABG and aortic valve replacement at [facility] last May 2018.Recently discharged from [facility] due to severe anemia requiring blood transfusion. GI work up was done. EKG- lateral ischemic inferolateral T wave changes. Troponin negative. Patient was on Xarelto after open heart surgery but discontinued due to GI bleeding. Patient's heart rate is normal sinus rhythm. No need to restart Xarelto.Also patient had a bioprosthetic aortic valve (no need to anticoagulate as per surgeon Dr. Siddiqui). Recent cardiac work up: 06/01/18- Cardiac catheterization at [facility] [place] Proximal Left main 50% stenosis Mid Circumflex 90% stenosis Mid and distal RCA 70% stenosis Severe aortic stenosis He was referred to [facility] and had CABG and AVR on May07/15/18- ECHO- normal LV function, mildly impaired systolic function, Mild MR/TR mild pulmonary hypertension 07/18/18 MuGA scan- Normal LV function,LVEF 55% Plan: Hold Xarelto (history of GI bleed and no arrythmias,bioprosthetic aortic valve) No distress, denies chest pain Heart rate and blood pressure stable Cardiac status stable Continue IV hydration Repeat blood culture (If positive blood culture, for ANGELIA to rule out endocarditis) Continue IV antibiotics as per ID Continue current treatment Continue current medications Physical therapy Nutritional support Will follow up Plan and treatment discussed with Dr. Bearden
--- NOTE | 2018-08-15 08:06 | PN ---
DATE: 08/14/2018 This note is an addendum to the initial progress note dictated by our nurse practitioner, Annika Lindsey. REASON FOR THE CONSULTATION AND FOLLOWUP: Cardiac evaluation and followup. Admitted with nausea, vomiting, back pain, history of coronary artery disease, history of CABG, history of AVR on 06/07/2018. Denies any chest pain, shortness of breath, or any palpitation. The patient is complaining of weak, inability to walk, and back pain. The patient had a recent workup. As mentioned in our nurse practitioner's note, César that the patient has AVR and CABG on 06/07/2018. Recent echo on 07/15/2018, normal LV function, mildly impaired function, mild MR, mild TR. MUGA scan shows ejection fraction of 55%. We will follow the blood culture. If blood culture remains positive, then we will do ANGELIA, For the time being, we will follow the blood culture. We will repeat the blood culture this morning as well. There is a question if the patient needs repeat echo.? Since regular Echo in post AVR yield rate is low, so will not proceed for Echo rather ANGELIA. We will follow ESR, Blood C &S and also he does not need Xarelto, as dictated in previous record. Thank you, Dr. Flood, for providing us the opportunity in taking care of Reji Chand. Bala Bearden MD [facility]
[2018-08-15] MEDS: Insulin Lispro (humaLOG) LOW Coverage SC SCH ×3 (08:18→17:28)
[2018-08-15 08:24] LABS: BASO # 0.02 K/mm3 (0.0-2.0); BASO % 0.2 % (0.0-3.0); EOS # 0.1 (0.0-0.7); EOS % 0.4 % (1.5-5.0); GRAN # 9.85 (1.4-6.5); GRAN % 75.1 % (50.0-68.0); HEMOGLOBIN 9.9 g/dL (14.0-18.0); LYMPH # 2.4 (1.2-3.4); LYMPH % 18.3 % (22.0-35.0); MEAN CELL VOLUME 83.6 fl (80.0-105.0); MEAN CORPUSCULAR HEMOGLOBIN 27.5 pg (25.0-35.0); MEAN CORPUSCULAR HGB CONC 32.9 g/dl (31.0-37.0); MONO # 0.8 (0.1-0.6); RBC 3.6 10^6/uL (3.5-6.1); RED CELL DISTRIBUTION WIDTH 15.7 % (11.5-14.5); WHITE BLOOD COUNT 13.1 10^3/ul (4.5-11.0)
[2018-08-15 08:42] LABS: ALB/GLOB RATIO 0.8 (1.1-1.8); ALBUMIN 2.9 g/dL (3.0-4.8); ALT/SGPT 25 U/L (7-56); AST/SGOT 36 U/L (17-59); BLOOD UREA NITROGEN 11 mg/dL (7-21); CALCIUM 9.1 mg/dL (8.4-10.5); GFR NON-AFRICAN AMERICAN > 60; HDL CHOLESTEROL 17 mg/dL (29-60)
[2018-08-15 08:44] LABS: LDL CHOLESTEROL 90 mg/dL (0-129)
[2018-08-15] MEDS: Multivitamin Therapeutic Tab PO SCH (09:32)
[2018-08-15] MEDS: Vancomycin 1gm in NS 250ml 1 GM/250 ML BAG IVPB SCH (09:33)
[2018-08-15] MEDS: Oxycodone/Acetaminophen 5/325 mg Tab PO PRN ×2 (09:36→17:29)
[2018-08-15] MEDS ORDERED: Magnesium Sulfate 2 gm/50 ml 2 GM/50 ML BAG IVPB ONE (12:08)
--- NOTE | 2018-08-15 16:46 | PN ---
DATE: 08/15/2018 REASON FOR CONSULTATION: Followup cardiac evaluation, history of coronary artery disease, history of CABG, history of AVR. Discussed with the yesterday. Discussed with the patient. Added on sed rate and repeat blood culture this morning. Awaiting for the repeat blood culture. Since the echo is low yield rate, we will not proceed further with echo. No evidence of congestive heart failure, no evidence of new murmur on examination, but since the patient has Staph aureus, we will repeat blood culture, follow up sed rate. If repeat blood culture is still positive and WBC elevated, consider ANGELIA. We will schedule in a day or two. Discussed with the , discussed with the patient to rule out endocarditis because the patient has a newly placed bioprosthetic AVR and CABG dated 06/07/2018, 8 to 10 weeks ago. Continue physical therapy. We will follow with you. ANGELIA on and keep n.p.o. after Tuesday midnight. We will update the patient's condition. Thank you, Dr. Flood, for providing us the opportunity in taking care of Reji Chand. Bala Bearden MD
--- NOTE | 2018-08-16 01:48 | PN ---
DATE: 08/15/2018 SUBJECTIVE: The patient is in bed, no acute distress, nontoxic. PHYSICAL EXAMINATION: VITAL SIGNS: On exam, temperature is 97, blood pressure is 120/70, respiratory rate of 18. HEENT: Examination of HEENT is unremarkable. NECK: Supple. LUNGS: Have decreased breath sounds. HEART: Normal S1, S2. ABDOMEN: Soft. LABORATORY DATA: Laboratory examination reveals the patient's white count of 13,000, hemoglobin of 9, BUN of 11, creatinine of 0.6. Urinalysis is noted. Microbiology reveals coag-negative Staph in both blood cultures. Urine cultures, no growth. Vertebral cultures are gram-positive cocci. Review of orders reveals the patient to be on vancomycin. ASSESSMENT AND PLAN: A 73-year-old male with diabetes mellitus, coronary artery disease, coronary bypass graft, valve replacement on 06/07/2018. Presenting with back pain, leukocytosis with sepsis with a coagulase-negative Staphylococcus bacteremia. Must rule out prosthetic valve endocarditis. On vancomycin. The patient's temperature is on the downward trend. Always, the cultures are positive. Waiting for an echo. I discussed with Dr. Bearden. Repeat cultures are positive. Vancomycin trough level was ordered, waiting for that. We will readjust the antibiotics for prosthetic valve endocarditis. Waiting for an MRI of the spine because of the back pain to rule out diskitis or osteomyelitis and echo. Waiting for identification of the coagulase-negative Staphylococcus and sensitivity is pending. We will follow closely with you. May require replacement of valve. We will order repeat blood cultures from today are pending. We will follow with you. Brent Smiley MD
[2018-08-16] MEDS: Cefepime 1gm in NS 100ml 1 GM/100 ML BAG IVPB SCH ×3 (05:43→23:08)
[2018-08-16] MEDS: Pantoprazole 40 mg EC Tab PO SCH (05:44)
[2018-08-16 07:06] LABS: HEMOGLOBIN 9.7 g/dL (14.0-18.0); MEAN CELL VOLUME 83.5 fl (80.0-105.0); MEAN CORPUSCULAR HEMOGLOBIN 27.2 pg (25.0-35.0); MEAN CORPUSCULAR HGB CONC 32.6 g/dl (31.0-37.0); MEAN PLATELET VOLUME 9.2 fl (7.0-11.0); RBC 3.57 10^6/uL (3.5-6.1); RED CELL DISTRIBUTION WIDTH 15.4 % (11.5-14.5); WHITE BLOOD COUNT 13.5 10^3/ul (4.5-11.0)
[2018-08-16 07:12] LABS: ALB/GLOB RATIO 0.8 (1.1-1.8); ALBUMIN 2.8 g/dL (3.0-4.8); ALT/SGPT 58 U/L (7-56); AST/SGOT 42 U/L (17-59); BLOOD UREA NITROGEN 11 mg/dL (7-21); CALCIUM 8.9 mg/dL (8.4-10.5); GFR NON-AFRICAN AMERICAN > 60
--- NOTE | 2018-08-16 07:17 | CP.PCM.PN ---
Subjective - Date & Time of Evaluation Date of Evaluation: 08/16/18 Time of Evaluation: 06:15 - Subjective Subjective: awake,alert,denies chest pain, no distress, complaining of back pain. Reason for consultation and follow up: Cardiac evaluation of coronary artery disease, status post CABG and valve replacement on 06/07/18 at [facility]. Admitted for and vomiting and no appetite and back pain. Seen and examined by me and Dr. Bearden Objective - Vital Signs/Intake and Output Vital Signs (last 24 hours): Temp Pulse Resp BP Pulse Ox 97.9 F 96 H 20 120/73 97 08/15/18 16:36 08/15/18 18:00 08/15/18 16:36 08/15/18 17:26 08/15/18 16:36 - Medications Medications: Current Medications Acetaminophen (Tylenol 325mg Tab) 650 mg PO Q6H PRN PRN Reason: Pain, Mild (1-3) Last Admin: 08/16/18 06:34 Dose: 650 mg Aspirin (Aspirin Chewable) 81 mg PO DAILY [facility] Last Admin: 08/15/18 09:31 Dose: 81 mg Carvedilol (Coreg) 3.125 mg PO BID [facility] Last Admin: 08/15/18 17:26 Dose: 3.125 mg Doxycycline Hyclate (Doryx) 100 mg PO Q12 [facility]; Protocol Last Admin: 08/15/18 22:11 Dose: 100 mg Gabapentin (Neurontin) 100 mg PO TID [facility]AKA; Protocol Last Admin: 08/15/18 14:12 Dose: 100 mg Vancomycin HCl (Vancomycin 1gm) 1 gm in 250 mls @ 167 mls/hr IVPB Q12 [facility]; Protocol Last Admin: 08/15/18 09:33 Dose: 167 mls/hr Cefepime HCl (Maxipime 1gm) 1 gm in 100 mls @ 100 mls/hr IVPB Q8 [facility]; Protocol Last Admin: 08/16/18 05:43 Dose: 100 mls/hr Insulin Human Lispro (Humalog Low) 0 units SC ACHS SHAKA; Protocol Last Admin: 08/15/18 17:28 Dose: 2 units Levalbuterol HCl (Xopenex) 1.25 mg IH [id number] [facility] Last Admin: 08/15/18 20:46 Dose: 1.25 mg Lisinopril (Zestril) 2.5 mg PO DAILY [facility] Last Admin: 08/15/18 09:33 Dose: 2.5 mg Metoprolol Tartrate (Lopressor) 50 mg PO Q12H [facility] Last Admin: 08/13/18 09:21 Dose: 50 mg Multivitamins (Thera Tab) 1 tab PO 0800 [facility] Last Admin: 08/15/18 09:32 Dose: 1 tab Oxycodone/Acetaminophen (Percocet 5/325 Mg Tab) 1 tab PO Q6H PRN PRN Reason: Pain, severe (8-10) Stop: 08/17/18 10:32 Last Admin: 08/15/18 17:29 Dose: 1 tab Pantoprazole Sodium (Protonix Ec Tab) 40 mg PO 0600 [facility] Last Admin: 08/16/18 05:44 Dose: 40 mg - Labs Labs: 08/16/18 06:15 08/16/18 06:15 PT 12.9 SECONDS (9.4-12.5) H 08/13/18 01:30 INR 1.13 08/13/18 01:30 APTT 33.0 Seconds (25.1-36.5) 08/13/18 01:30 - Constitutional Appears: Non-toxic, No Acute Distress - Head Exam Head Exam: NORMAL INSPECTION, NORMOCEPHALIC - Eye Exam Eye Exam: Normal appearance - ENT Exam ENT Exam: Mucous Membranes Dry - Respiratory Exam Respiratory Exam: Decreased Breath Sounds, Clear to Ausculation Bilateral, NORMAL BREATHING PATTERN - Cardiovascular Exam Cardiovascular Exam: REGULAR RHYTHM, +S1, +S2 Additional comments: telemetry NSR 90's - GI/Abdominal Exam GI & Abdominal Exam: Soft, Normal Bowel Sounds - Extremities Exam Extremities Exam: Normal Capillary Refill Additional comments: no edema - Neurological Exam Neurological Exam: Alert, Awake, Oriented x3 - Psychiatric Exam Psychiatric exam: Normal Affect, Normal Mood - Skin Skin Exam: Dry, Intact, Normal Color, Warm Assessment and Plan - Assessment and Plan (Free Text) Assessment: A 73 year old male who was brought to the ER due to nausea and vomiting,loss of appetite and back pain. History of diabetes, coronary artery disease with recent surgery of CABG and aortic valve replacement at [facility] last May 2018.Recently discharged from [facility] [place] due to severe anemia requiring blood transfusion. GI work up was done. EKG- lateral ischemic inferolateral T wave changes. Troponin negative. Patient was on Xarelto after open heart surgery but discontinued due to GI bleeding. Patient's heart rate is normal sinus rhythm. No need to restart Xarelto.Also patient had a bioprosthetic aortic valve (no need to anticoagulate as per surgeon Dr. iSddiqui). Hold Xarelto due to history of GI bleeding,so far no arrythmias maintained on normal sinus rhythm, bioprosthetic aortic valve (no anticoagulation needed.) Recent cardiac work up: 06/01/18- Cardiac catheterization at [facility] Proximal Left main 50% stenosis Mid Circumflex 90% stenosis Mid and distal RCA 70% stenosis Severe aortic stenosis He was referred to [facility] and had CABG and AVR on May07/15/18- ECHO- normal LV function, mildly impaired systolic function, Mild MR/TR mild pulmonary hypertension 07/18/18 MuGA scan- Normal LV function,LVEF 55% Plan: Blood cultures came back positive For ANGELIA on to rule out endocarditis/vegetation NPO post midnight No distress, denies chest pain Heart rate and blood pressure stable Cardiac status stable Back pain given Tylenol PRN Continue IV antibiotics as per ID On ASA 81 mg daily,Coreg 3.125 mg BID,Zestril 2.5 mg daily, Lopressor 50 mg every 12 hours Continue current treatment Continue current medications Physical therapy Nutritional support Chart reviewed Will follow up Plan and treatment discussed with Dr. Suleiman Brown
[2018-08-16] MEDS: Levalbuterol 1.25 MG/3 ML Inhal Soln UD IH SCH ×3 (07:50→22:07)
[2018-08-16] MEDS: Insulin Lispro (humaLOG) LOW Coverage SC SCH ×4 (08:07→23:08)
--- NOTE | 2018-08-16 08:11 | CP.PCM.PN ---
<Brenna Sow - Last Filed: 08/16/18 11:14> Subjective - Date & Time of Evaluation Date of Evaluation: 08/16/18 Time of Evaluation: 07:00 - Subjective Subjective: Medicine Progress Note for Toan Pimentel PGY3 Patient seen and examined at bedside. There were no acute overnight events as per nursing staff. Patient complains of sore throat, but no cough, shortness of breath, nausea/vomiting/diarrhea, fever/chills, numbness/tingling, dysuria or hematuria. Patient still complains of lower back pain. Objective - Vital Signs/Intake and Output Vital Signs (last 24 hours): Temp Pulse Resp BP Pulse Ox 98.1 F 92 H 20 126/74 97 08/16/18 06:00 08/16/18 06:00 08/16/18 06:00 08/16/18 06:00 08/16/18 06:00 - Medications Medications: Current Medications Acetaminophen (Tylenol 325mg Tab) 650 mg PO Q6H PRN PRN Reason: Pain, Mild (1-3) Last Admin: 08/16/18 06:34 Dose: 650 mg Aspirin (Aspirin Chewable) 81 mg PO DAILY [facility] Last Admin: 08/15/18 09:31 Dose: 81 mg Carvedilol (Coreg) 3.125 mg PO BID [facility] Last Admin: 08/15/18 17:26 Dose: 3.125 mg Doxycycline Hyclate (Doryx) 100 mg PO Q12 [facility]; Protocol Last Admin: 08/15/18 22:11 Dose: 100 mg Gabapentin (Neurontin) 100 mg PO TID [facility]; Protocol Last Admin: 08/15/18 14:12 Dose: 100 mg Vancomycin HCl (Vancomycin 1gm) 1 gm in 250 mls @ 167 mls/hr IVPB Q12 [facility]; Protocol Last Admin: 08/15/18 09:33 Dose: 167 mls/hr Cefepime HCl (Maxipime 1gm) 1 gm in 100 mls @ 100 mls/hr IVPB Q8 [facility]; Protocol Last Admin: 08/16/18 05:43 Dose: 100 mls/hr Insulin Human Lispro (Humalog Low) 0 units SC ACHS SHAKA; Protocol Last Admin: 08/15/18 17:28 Dose: 2 units Levalbuterol HCl (Xopenex) 1.25 mg IH [id number] [facility] Last Admin: 08/16/18 07:50 Dose: Not Given Lisinopril (Zestril) 2.5 mg PO DAILY [facility] Last Admin: 08/15/18 09:33 Dose: 2.5 mg Metoprolol Tartrate (Lopressor) 50 mg PO Q12H [facility] Last Admin: 08/13/18 09:21 Dose: 50 mg Multivitamins (Thera Tab) 1 tab PO 0800 [facility] Last Admin: 08/15/18 09:32 Dose: 1 tab Oxycodone/Acetaminophen (Percocet 5/325 Mg Tab) 1 tab PO Q6H PRN PRN Reason: Pain, severe (8-10) Stop: 08/17/18 10:32 Last Admin: 08/15/18 17:29 Dose: 1 tab Pantoprazole Sodium (Protonix Ec Tab) 40 mg PO 0600 [facility] Last Admin: 08/16/18 05:44 Dose: 40 mg - Labs Labs: 08/16/18 06:15 08/16/18 06:15 PT 12.9 SECONDS (9.4-12.5) H 08/13/18 01:30 INR 1.13 08/13/18 01:30 APTT 33.0 Seconds (25.1-36.5) 08/13/18 01:30 - Constitutional Appears: No Acute Distress - Head Exam Head Exam: ATRAUMATIC, NORMAL INSPECTION, NORMOCEPHALIC - Eye Exam Eye Exam: Normal appearance, PERRL Pupil Exam: NORMAL ACCOMODATION, PERRL - ENT Exam ENT Exam: Mucous Membranes Moist, Normal Oropharynx - Neck Exam Neck Exam: Full ROM, Normal Inspection - Respiratory Exam Respiratory Exam: Clear to Ausculation Bilateral, NORMAL BREATHING PATTERN. absent: Rales, Rhonchi, Wheezes - Cardiovascular Exam Cardiovascular Exam: REGULAR RHYTHM, +S1, +S2. absent: Gallop, Rubs, Murmur - GI/Abdominal Exam GI & Abdominal Exam: Soft, Normal Bowel Sounds. absent: Rigid, Tenderness, Mass, Rebound - Extremities Exam Extremities Exam: Normal Inspection. absent: Calf Tenderness, Pedal Edema - Back Exam Additional comments: refused back exam - Neurological Exam Neurological Exam: Alert, Awake, CN II-XII Intact, Oriented x3 - Skin Skin Exam: Dry, Warm Assessment and Plan - Assessment and Plan (Free Text) Assessment: 1. Bacteremia - +3 blood cultures for Coag neg staph - Rule out AV valve as source v. spinal infection 2. Back pain - chronic - Lumbar CT showed degenerative changes L2-L4 - Thoracic spine XR showed multilevel degenerative disc changes 3. CAD w/ recent CABG and valve replacement - last echo done 07/15/2018 4. Failure to thrive 5. Sore throat 6. Constipation 7. DM type II 8. Essential HTN Plan: Labs and imaging reviewed. I spoke with Dr. Bearden today who will perform ANGELIA tomorrow. Patient had AV valve placed >60 days ago. Patient will get MRI of spine for back pain as well as possible source for bacteremia. Patient was refusing MRI due to anxiety. I spoke with (who was at bedside) at length and discussed the importance of the MRI. As well as the importance of physical therapy since patient has refused in the past. Patient and agreed with plan. Neurology is consulted. Will give viscous Lidocaine for sore throat and Miralax for constipation. He is on Vanc, Doxy and Cefepime for bacteremia. ID is following patient. Will continue Coreg and Lisinopril for HTN. Pain is controlled. case seen, discussed and reviewed with Dr. Flood. Toan Sow PGY3 <Jose Flood S - Last Filed: 08/22/18 20:27> Objective - Vital Signs/Intake and Output Vital Signs (last 24 hours): Temp Pulse Resp BP Pulse Ox 98 F 87 20 135/76 96 08/22/18 08:46 08/22/18 09:57 08/22/18 08:46 08/22/18 09:57 08/22/18 08:46 - Labs Labs: 08/22/18 06:10 08/22/18 06:10 PT 12.9 SECONDS (9.4-12.5) H 08/13/18 01:30 INR 1.13 08/13/18 01:30 APTT 33.0 Seconds (25.1-36.5) 08/13/18 01:30 Assessment and Plan - Assessment and Plan (Free Text) Plan: Pt seen and examined by me. This is a late entry.I have reviewed the note by the medical device sales consultant. The case was discussed and reviewed with the resident. I reviewed the medications and labs. Pt with sepsis and is on IV Abx. He will get a ANGELIA. Spoke to Dr Bearden. Prognosis is guarded. Spoke to to give update. He will need aggressive PT. His pain is not well controlled and he was advised to ask for pain meds as well as Percocet. Pt is being followed by ID.
[2018-08-16] MEDS: Multivitamin Therapeutic Tab PO SCH (09:08)
[2018-08-16] MEDS: Vancomycin 1gm in NS 250ml 1 GM/250 ML BAG IVPB SCH ×2 (09:09→23:09)
[2018-08-16] MEDS ORDERED: HYDROmorphone 1 mg/ml ISec IVP ONE (09:46)
[2018-08-16] MEDS: POLYETHYLENE GLYCOL 3350 17 GM/Dose PACKET PO SCH ×2 (10:30→17:11)
--- NOTE | 2018-08-16 13:09 | PN ---
DATE: 08/16/2018 REASON FOR THE CONSULTATION AND FOLLOWUP: Failure to thrive, blood culture persistently positive. The patient has recent history of CABG and history of AVR dated 06/07/2018, 8 to 10 weeks ago. Now, repeat blood cultures are still positive; sedimentation rate is 125, high suspicious for endocarditis. We will do the ANGELIA tomorrow, keep n.p.o. after 12 midnight. Discussed and explained to the of the patient, Fe Chand, on telephone number [phone]. Explained to the patient that the patient needs ANGELIA. Further recommendation would be made after the ANGELIA. There is a concern that repeat blood culture still persistently positive, the patient is going for the MRI. In the interim, continue antibiotic. Discussed with Dr. Flood. Discussed with Dr. Smiley. Discussed with resident taking care of the patient, Brenna Sow. We will also inform Dr. Antonio Siddiqui about the patient's blood culture persistently positive anticipating the ANGELIA result update him. This note is an addendum to the initial progress note dictated by the nurse practitioner. Bala Bearden MD
[2018-08-17] MEDS: Pantoprazole 40 mg EC Tab PO SCH (05:48)
[2018-08-17] MEDS: Cefepime 1gm in NS 100ml 1 GM/100 ML BAG IVPB SCH ×2 (05:48→14:25)
--- NOTE | 2018-08-17 06:26 | CP.PCM.PN ---
<Brenna Sow - Last Filed: 08/17/18 13:49> Subjective - Date & Time of Evaluation Date of Evaluation: 08/17/18 Time of Evaluation: 07:00 - Subjective Subjective: Medicine Progress Note for Toan Pimentel PGY3 Patient seen and examined at bedside. There were no acute overnight events as per nursing staff. Patient states he continue to have low back pain but he denies chest pain, shortness of breath, nausea/vomiting/diarrhea, fever/chills, numbness/tinlging, dysuria or hematuria. Objective - Vital Signs/Intake and Output Vital Signs (last 24 hours): Temp Pulse Resp BP Pulse Ox 97.6 F 96 H 18 122/78 96 08/16/18 18:00 08/16/18 18:00 08/16/18 18:00 08/16/18 18:00 08/16/18 18:00 Intake and Output: 08/16/18 08/17/18 18:59 06:59 Intake Total 1310 Output Total 900 Balance 410 - Medications Medications: Current Medications Acetaminophen (Tylenol 325mg Tab) 650 mg PO Q6H PRN PRN Reason: Pain, Mild (1-3) Last Admin: 08/17/18 03:23 Dose: 650 mg Aspirin (Aspirin Chewable) 81 mg PO DAILY [facility] Last Admin: 08/16/18 09:05 Dose: 81 mg Carvedilol (Coreg) 3.125 mg PO BID [facility] Last Admin: 08/16/18 17:08 Dose: 3.125 mg Doxycycline Hyclate (Doryx) 100 mg PO Q12 [facility]; Protocol Last Admin: 08/16/18 23:07 Dose: 100 mg Gabapentin (Neurontin) 100 mg PO TID [facility]; Protocol Last Admin: 08/16/18 17:11 Dose: 100 mg Vancomycin HCl (Vancomycin 1gm) 1 gm in 250 mls @ 167 mls/hr IVPB Q12 [facility]; Protocol Last Admin: 08/16/18 23:09 Dose: 167 mls/hr Cefepime HCl (Maxipime 1gm) 1 gm in 100 mls @ 100 mls/hr IVPB Q8 [facility]; Protocol Last Admin: 08/17/18 05:48 Dose: 100 mls/hr Insulin Human Lispro (Humalog Low) 0 units SC ACHS [facility]; Protocol Last Admin: 08/16/18 23:08 Dose: Not Given Levalbuterol HCl (Xopenex) 1.25 mg IH [id number] [facility] Last Admin: 08/16/18 22:07 Dose: 1.25 mg Lidocaine HCl (Lidocaine 2% Viscous) 15 ml MM Q3H PRN PRN Reason: Sore Throat Lisinopril (Zestril) 2.5 mg PO DAILY [facility] Last Admin: 08/16/18 09:09 Dose: 2.5 mg Metoprolol Tartrate (Lopressor) 50 mg PO Q12H [facility] Last Admin: 08/13/18 09:21 Dose: 50 mg Multivitamins (Thera Tab) 1 tab PO 0800 [facility] Last Admin: 08/16/18 09:08 Dose: 1 tab Oxycodone/Acetaminophen (Percocet 5/325 Mg Tab) 1 tab PO Q6H PRN PRN Reason: Pain, severe (8-10) Stop: 08/17/18 10:32 Last Admin: 08/15/18 17:29 Dose: 1 tab Pantoprazole Sodium (Protonix Ec Tab) 40 mg PO 0600 [facility] Last Admin: 08/17/18 05:48 Dose: 40 mg Polyethylene Glycol (Miralax) 17 gm PO BID [facility] Last Admin: 08/16/18 17:11 Dose: 17 gm - Labs Labs: 08/16/18 06:15 08/16/18 06:15 PT 12.9 SECONDS (9.4-12.5) H 08/13/18 01:30 INR 1.13 08/13/18 01:30 APTT 33.0 Seconds (25.1-36.5) 08/13/18 01:30 - Constitutional Appears: No Acute Distress - Head Exam Head Exam: ATRAUMATIC, NORMAL INSPECTION, NORMOCEPHALIC - Eye Exam Eye Exam: Normal appearance, PERRL Pupil Exam: NORMAL ACCOMODATION - ENT Exam ENT Exam: Mucous Membranes Moist - Respiratory Exam Respiratory Exam: Clear to Ausculation Bilateral, NORMAL BREATHING PATTERN. absent: Rales, Rhonchi, Wheezes - Cardiovascular Exam Cardiovascular Exam: REGULAR RHYTHM, +S1, +S2, Murmur (systolic ). absent: Gallop, Rubs - GI/Abdominal Exam GI & Abdominal Exam: Soft, Normal Bowel Sounds. absent: Rigid, Tenderness, Mass, Rebound - Extremities Exam Extremities Exam: Normal Inspection. absent: Calf Tenderness, Pedal Edema - Neurological Exam Neurological Exam: Alert, Awake, CN II-XII Intact, Oriented x3 - Psychiatric Exam Psychiatric exam: Normal Affect, Normal Mood - Skin Skin Exam: Dry, Warm Assessment and Plan - Assessment and Plan (Free Text) Assessment: 1. Bacteremia - +3 blood cultures for Coag neg staph - Rule out AV valve as source v. spinal infection 2. Back pain - Lumbar CT showed degenerative changes L2-L4 - Thoracic spine XR showed multilevel degenerative disc changes 3. CAD w/ recent CABG and aortic valve replacement - last echo done 07/15/2018 4. Failure to thrive 5. Constipation 6. DM type II 7. Essential HTN Plan: Labs and imaging reviewed. Patient will have MRI of spine today. Neurology on consult for back pain. Patient will also have ANGELIA to rule out vegetations on the prothestic valve. If patient is found to have aortic valve endocarditis, patient will need to be transferred back to [facility] where he had the valve done. He is on Cefepime, doxycycline and Vancomycin. Pain is controlled. Patient tolerating diet. Miralax for constipation. Continue Coreg and Lisinopril for HTN. Case seen, discussed and reviewed with Dr. Flood. Toan Sow PGY3 <Jose Flood S - Last Filed: 08/22/18 20:11> Objective - Vital Signs/Intake and Output Vital Signs (last 24 hours): Temp Pulse Resp BP Pulse Ox 98 F 87 20 135/76 96 08/22/18 08:46 08/22/18 09:57 08/22/18 08:46 08/22/18 09:57 08/22/18 08:46 - Labs Labs: 08/22/18 06:10 08/22/18 06:10 PT 12.9 SECONDS (9.4-12.5) H 08/13/18 01:30 INR 1.13 08/13/18 01:30 APTT 33.0 Seconds (25.1-36.5) 08/13/18 01:30 Assessment and Plan - Assessment and Plan (Free Text) Plan: Pt seen and examined by me. This is a late entry.I have reviewed the note by the lead medical technologist. The case was discussed and reviewed with the resident. I reviewed the medications and labs. Pt with sepsis and is on IV Abx. Pt to get ANGELIA. Spoke to Dr Bearden. Humaira for constipation. He is getting PT. Pain is controlled with Tylenol and Percocet. MRI was reviewed. BP is controlled. Neurology to see pt for back pain.
[2018-08-17 06:34] LABS: HEMOGLOBIN 9.6 g/dL (14.0-18.0); MEAN CELL VOLUME 83.2 fl (80.0-105.0); MEAN CORPUSCULAR HEMOGLOBIN 27.4 pg (25.0-35.0); MEAN CORPUSCULAR HGB CONC 32.9 g/dl (31.0-37.0); MEAN PLATELET VOLUME 8.8 fl (7.0-11.0); RBC 3.51 10^6/uL (3.5-6.1); RED CELL DISTRIBUTION WIDTH 15.3 % (11.5-14.5); WHITE BLOOD COUNT 13.4 10^3/ul (4.5-11.0)
[2018-08-17 07:01] LABS: ALB/GLOB RATIO 0.8 (1.1-1.8); ALBUMIN 2.8 g/dL (3.0-4.8); ALT/SGPT 81 U/L (7-56); AST/SGOT 53 U/L (17-59); BLOOD UREA NITROGEN 12 mg/dL (7-21); CALCIUM 9.2 mg/dL (8.4-10.5); GFR NON-AFRICAN AMERICAN > 60
[2018-08-17] MEDS ORDERED: HYDROmorphone 1 mg/ml ISec IVP ONE (07:04)
--- NOTE | 2018-08-17 07:13 | CP.PCM.PN ---
Subjective - Date & Time of Evaluation Date of Evaluation: 08/17/18 Time of Evaluation: 07:50 - Subjective Subjective: awake,alert,denies chest pain, no distress, denies back pain. Reason for consultation and follow up: Cardiac evaluation of coronary artery disease, status post CABG and valve replacement on 06/07/18 at [facility]. Admitted for and vomiting and no appetite and back pain. Seen and examined by me and Dr. Bearden Objective - Vital Signs/Intake and Output Vital Signs (last 24 hours): Temp Pulse Resp BP Pulse Ox 97.6 F 96 H 18 122/78 96 08/16/18 18:00 08/16/18 18:00 08/16/18 18:00 08/16/18 18:00 08/16/18 18:00 Intake and Output: 08/17/18 08/17/18 06:59 18:59 Intake Total 267 Output Total 1000 Balance -733 - Medications Medications: Current Medications Acetaminophen (Tylenol 325mg Tab) 650 mg PO Q6H PRN PRN Reason: Pain, Mild (1-3) Last Admin: 08/17/18 03:23 Dose: 650 mg Aspirin (Aspirin Chewable) 81 mg PO DAILY [facility] Last Admin: 08/16/18 09:05 Dose: 81 mg Carvedilol (Coreg) 3.125 mg PO BID [facility] Last Admin: 08/16/18 17:08 Dose: 3.125 mg Doxycycline Hyclate (Doryx) 100 mg PO Q12 [facility]; Protocol Last Admin: 08/16/18 23:07 Dose: 100 mg Gabapentin (Neurontin) 100 mg PO TID [facility]; Protocol Last Admin: 08/16/18 17:11 Dose: 100 mg Vancomycin HCl (Vancomycin 1gm) 1 gm in 250 mls @ 167 mls/hr IVPB Q12 [facility]; Protocol Last Admin: 08/16/18 23:09 Dose: 167 mls/hr Cefepime HCl (Maxipime 1gm) 1 gm in 100 mls @ 100 mls/hr IVPB Q8 [facility]; Protocol Last Admin: 08/17/18 05:48 Dose: 100 mls/hr Insulin Human Lispro (Humalog Low) 0 units SC ACHS [facility]; Protocol Last Admin: 08/16/18 23:08 Dose: Not Given Levalbuterol HCl (Xopenex) 1.25 mg IH [id number] [facility] Last Admin: 08/16/18 22:07 Dose: 1.25 mg Lidocaine HCl (Lidocaine 2% Viscous) 15 ml MM Q3H PRN PRN Reason: Sore Throat Lisinopril (Zestril) 2.5 mg PO DAILY [facility] Last Admin: 08/16/18 09:09 Dose: 2.5 mg Metoprolol Tartrate (Lopressor) 50 mg PO Q12H [facility] Last Admin: 08/13/18 09:21 Dose: 50 mg Multivitamins (Thera Tab) 1 tab PO 0800 [facility] Last Admin: 08/16/18 09:08 Dose: 1 tab Oxycodone/Acetaminophen (Percocet 5/325 Mg Tab) 1 tab PO Q6H PRN PRN Reason: Pain, severe (8-10) Stop: 08/17/18 10:32 Last Admin: 08/15/18 17:29 Dose: 1 tab Pantoprazole Sodium (Protonix Ec Tab) 40 mg PO 0600 [facility] Last Admin: 08/17/18 05:48 Dose: 40 mg Polyethylene Glycol (Miralax) 17 gm PO BID [facility] Last Admin: 08/16/18 17:11 Dose: 17 gm - Labs Labs: 08/17/18 06:00 08/17/18 06:00 PT 12.9 SECONDS (9.4-12.5) H 08/13/18 01:30 INR 1.13 08/13/18 01:30 APTT 33.0 Seconds (25.1-36.5) 08/13/18 01:30 - Constitutional Appears: Non-toxic, No Acute Distress - Head Exam Head Exam: NORMAL INSPECTION, NORMOCEPHALIC - Eye Exam Eye Exam: Normal appearance - ENT Exam ENT Exam: Mucous Membranes Dry - Respiratory Exam Respiratory Exam: Decreased Breath Sounds, Clear to Ausculation Bilateral, NORMAL BREATHING PATTERN - Cardiovascular Exam Cardiovascular Exam: +S1, +S2 - GI/Abdominal Exam GI & Abdominal Exam: Soft, Normal Bowel Sounds - Neurological Exam Neurological Exam: Alert, Awake, Oriented x3 - Psychiatric Exam Psychiatric exam: Normal Affect, Normal Mood - Skin Skin Exam: Dry, Intact, Normal Color, Warm Assessment and Plan - Assessment and Plan (Free Text) Assessment: A 73 year old male who was brought to the ER due to nausea and vomiting,loss of appetite and back pain. History of diabetes, coronary artery disease with recent surgery of CABG and aortic valve replacement at [facility] last May 2018.Recently discharged from [facility] due to severe anemia requiring blood transfusion. GI work up was done. EKG- lateral ischemic inferolateral T wave changes. Troponin negative. Patient was on Xarelto after open heart surgery but discontinued due to GI bleeding. Patient's heart rate is normal sinus rhythm. No need to restart Xarelto.Also patient had a bioprosthetic aortic valve (no need to anticoagulate as per surgeon Dr. Siddiqui). Hold Xarelto due to history of GI bleeding,so far no arrythmias maintained on normal sinus rhythm, bioprosthetic aortic valve (no anticoagulation needed.)Blood cultures came back positive,for ANGELIA today to rule out endocarditis. Recent cardiac work up: 06/01/18- Cardiac catheterization at [facility] Proximal Left main 50% stenosis Mid Circumflex 90% stenosis Mid and distal RCA 70% stenosis Severe aortic stenosis He was referred to [facility] and had CABG and AVR on May07/15/18- ECHO- normal LV function, mildly impaired systolic function, Mild MR/TR mild pulmonary hypertension 07/18/18 MuGA scan- Normal LV function,LVEF 55% A Plan: For ANGELIA today to rule out endocarditis/vegetation NPO post midnight No distress, denies chest pain Heart rate and blood pressure stable Cardiac status stable Continue IV antibiotics as per ID On ASA 81 mg daily,Coreg 3.125 mg BID,Zestril 2.5 mg daily, Lopressor 50 mg every 12 hours Continue current treatment Continue current medications Physical therapy Nutritional support Chart reviewed Will follow up Plan and treatment discussed with Dr. Suleiman Brown
[2018-08-17] MEDS: Levalbuterol 1.25 MG/3 ML Inhal Soln UD IH SCH ×3 (07:46→20:00)
--- NOTE | 2018-08-17 08:07 | PN ---
DATE: 08/16/2018 SUBJECTIVE: The patient was seen earlier this morning in room 368, bed 2. The patient is in no acute distress, nontoxic. PHYSICAL EXAMINATION VITAL SIGNS: Temperature is 97, blood pressure is 120/70, respiratory rate of 18, heart rate of 96. HEENT: Examination of HEENT is unremarkable. NECK: Supple. LUNGS: Have decreased breath sounds. HEART: Normal S1, S2. ABDOMEN: Soft, nontender. LABORATORY DATA: Reveals the white count of 13,500. Chemistries are noted. Urinalysis is reviewed. Urine for Legionella antigen is negative. Microbiology reveals coag-negative Staph. Repeat cultures are positive. ASSESSMENT AND PLAN: A 73-year-old male with diabetes, coronary artery disease, coronary artery bypass graft, valve replacement on 06/07/2018, presenting with back pain, leukocytosis, sepsis, coagulase-negative staphylococcus, bacteremia, must rule out prosthetic valve, endocarditis, on vancomycin. Awaiting for echo. Case discussed with Dr. Bearden. Reviewed Dr. Bearden's note. He has planned to do a transesophageal echocardiography tomorrow. We will follow with you. The patient's vancomycin trough level is pending. Review of medications reveals the patient to get the vancomycin 10 a.m. and 10 p.m. We will order a 9 a.m. vancomycin trough level in a.m. Brent Smiley MD
[2018-08-17] MEDS ORDERED: Gadodiamide 287 MG/ML VIAL (15ML) IV ONE (09:26)
[2018-08-17] MEDS: Vancomycin 1gm in NS 250ml 1 GM/250 ML BAG IVPB SCH ×3 (10:32→22:53)
[2018-08-17] MEDS: Insulin Lispro (humaLOG) LOW Coverage SC SCH ×4 (10:32→21:55)
[2018-08-17] MEDS: POLYETHYLENE GLYCOL 3350 17 GM/Dose PACKET PO SCH ×2 (10:40→17:17)
[2018-08-17] MEDS: Multivitamin Therapeutic Tab PO SCH (12:29)
[2018-08-17] MEDS ORDERED: Dexamethasone 4 mg/1 ml IVP STA (16:19)
--- NOTE | 2018-08-17 16:40 | MRI ---
Date of service: 08/17/2018 PROCEDURE: MR CERVICAL SPINE WITHOUT CONTRAST HISTORY: neck pain r/o infection COMPARISON: None available. TECHNIQUE: Multiecho multiplanar sequences were performed through the cervical spine without the use of intravenous contrast. Intravenous contrast was not administered. FINDINGS: There is 4 mm degenerative anterior listhesis of C3 on C4. There is reversal of normal cervical lordosis with mild cervical kyphosis. There is abnormal T2 and STIR hyperintense marrow signal at C5 and C6 vertebral bodies, increased T2 signal in the anterior disc at C5-6. There is no acute fracture or traumatic anterior listhesis. The craniocervical junction is normal. C2-C3: Broad-based disc osteophyte complex with superimposed left posterolateral and foraminal disc protrusions in conjunction with mild facet arthropathy result in severe neural foraminal narrowing. No spinal canal stenosis. C3-C4: Broad-based disc osteophyte complex and mild spinal canal stenosis. Asymmetric left uncovertebral joint hypertrophy in conjunction with severe left facet arthropathy result in severe left neural foraminal narrowing. Also noted is moderate right neural foraminal narrowing. C4-C5: Disc osteophyte complex with superimposed broad-based central, left paracentral and foraminal disc protrusions result in mild spinal canal stenosis and severe left neural foraminal narrowing with probable impingement of the exiting left C5 nerve root. C5-C6: Broad-based disc osteophyte complex and mild spinal canal stenosis. Mild bilateral facet arthropathy contribute to mild right and moderate left neural foraminal narrowing. C6-C7: Broad-based central disc protrusion indents the ventral thecal sac and in conjunction with mild ligamentum flavum infolding result in moderate spinal canal stenosis. Also noted is superimposed left foraminal disc protrusion which likely impinge on this the exiting left C7 nerve root. Mild bilateral facet arthropathy contributes to mild right and severe left neural foraminal narrowing C7-T1: No disc herniation, spinal canal stenosis or neural foraminal narrowing. OTHER FINDINGS: None. IMPRESSION: Abnormal marrow signal and abnormal signal in the anterior disc at C5-6 is nonspecific and could be related to advanced degenerative disc disease however discitis osteomyelitis cannot be entirely excluded in the absence of intravenous contrast. No evidence of epidural fluid collection. Multilevel degenerative disc disease, worse at C6-7 with a broad-based central disc protrusion and moderate spinal canal stenosis. Superimposed left foraminal disc protrusion impinges on the exiting left C7 nerve root. No evidence of cord compression or intrinsic cord signal abnormality. Additional comments as described above.
--- NOTE | 2018-08-17 17:19 | MRI ---
Date of service: 08/17/2018 PROCEDURE: MR LUMBAR SPINE WITH AND WITHOUT CONTRAST HISTORY: Back pain, r/o infection COMPARISON: None available. TECHNIQUE: Multiecho multiplanar sequences were performed through the lumbar spine with and without the use of intravenous contrast. 15 cc Omniscan was injected intravenously. FINDINGS: There is normal alignment of the lumbar vertebral bodies. There is normal lumbar lordosis. There is no acute fracture. There is abnormal T1 hypointense and T2/stir hyperintense signal with mild corresponding enhancement at L2-3 and L4-5. There is also mild T2 hyperintense signal in the L2-3 and L4-5 discs without corresponding enhancement. No evidence of bone destruction. The conus medullaris terminates at a normal level and the cone of roots of cauda equina are normal. T12-L1: Mild posterior disc bulge and spinal canal stenosis. No neural foraminal narrowing. L1-2: Diffuse posterior disc bulge without spinal canal stenosis. Moderate bilateral facet arthropathy contribute to mild neural foraminal narrowing. L2-3: Diffuse posterior disc bulge without spinal canal stenosis. Moderate bilateral facet arthropathy contribute to mild neural foraminal narrowing. L3-4: Diffuse posterior disc bulge indents the ventral thecal sac with mild spinal canal stenosis. Moderate bilateral facet arthropathy contribute to severe right and mild left neural foraminal narrowing. L4-5: Diffuse posterior disc bulge with superimposed broad-based central disc protrusion indents the ventral thecal sac with mild spinal canal stenosis. Moderate bilateral facet arthropathy contribute to moderate to severe neural foraminal narrowing. L5-S1: No disc herniation, spinal canal stenosis or neural foraminal narrowing. OTHER FINDINGS: There is fatty atrophy of the paraspinous muscles. Image portion of the retroperitoneum is within normal limits. IMPRESSION: 1. Multilevel endplate marrow changes at L2-3 and L4-5 with mild associated enhancement, mild abnormal signal in the L2-3 and L4-5 discs without corresponding enhancement and no evidence of paraspinous or epidural fluid collection, these findings are likely related to advanced degenerative disc disease. The possibility of osteomyelitis is less likely however cannot be entirely excluded. Follow-up MRI in 2-4 weeks interval is recommended for further evaluation. 2. Multilevel degenerative disc disease, worse at L4-5 with diffuse posterior disc bulge and broad-based central disc protrusion with mild spinal canal stenosis. Also noted is moderate bilateral facet arthropathy which contributes to moderate to severe neural foraminal narrowing.
--- NOTE | 2018-08-17 20:05 | CON ---
DATE: 08/17/2018 NEUROLOGY CONSULTATION CHIEF COMPLAINT: Back pain. HISTORY OF PRESENT ILLNESS: This is a 73-year-old male with history of hypertension, type 2 diabetes mellitus, aortic valve replacement in 05/2018, bioprosthetic valve, osteoarthritis, vertigo, who came into the emergency room for failure to thrive, poor p.o. intake, was found to have leukocytosis and fevers, found to have bacteremia with positive three blood cultures with coag negative, and has been going to have a ANGELIA to rule out any vegetation of the bioprosthetic valve. He has low back pain radiating down to the buttocks and both legs and occasionally some underlying neck pain. He underwent an MRI of the cervical spine, which showed abnormal signal abnormality in the anterior disk of C5-C6, which could be related to arthritis with possible diskitis, but cannot be included without the absence of IV contrast. Has moderate spinal canal stenosis at C6-C7 impinging the exiting left C7 nerve root. In addition, on MRI of the lumbosacral spine, he has multiple endplate marrow changes at L2-L3, L4-L5 with mild enhancement, mild signal abnormality at L2-L3 and L4-L5 disk with enhancement. No evidence of paraspinous or any epidural infection, but there is from the advanced disk disease, possibly osteomyelitis cannot be excluded unless he do an interval followup MRI in about 2 to 4 weeks. He has severe degenerative changes more so at L4-L5, which is currently responsible with his pain with severe neuroforaminal narrowing. Currently, he is able to lift up his legs, but is painful when he did a straight leg testing and his symptoms are more radicular. He is on gabapentin 100 mg p.o. t.i.d. for neuropathic pain. We will give him one dose. Began Toradol 30 mg IV every 6 hours and we will discontinue the Dilaudid since this is making delirium. PAST MEDICAL HISTORY: As above. SOCIAL HISTORY: No illicit drug use, smoking, or EtOH abuse. MEDICATIONS: Reviewed by nurse per reconciliation sheet. FAMILY HISTORY: Noncontributory. REVIEW OF SYSTEMS: Fourteen-point review of systems is negative except as per the HPI. LABORATORY DATA: Sodium is 130, potassium 4, chloride of 96, carbon dioxide 26. BUN of 12, creatinine 0.5. Random glucose 183. PHYSICAL EXAMINATION: VITAL SIGNS: Temperature 98.1, pulse rate of 89, blood pressure 135/77, respiratory rate 19, oxygen saturation 97% by room air. GENERAL: Patient is sitting up in bed, in no acute distress. HEENT: Atraumatic, normocephalic. PERRLA. Extraocular muscles intact. NECK: Supple. No JVD, no adenopathy noted. LUNGS: Clear to auscultation. No adventitious sounds. HEART: S1, S2. Regular rate and rhythm. Has systolic murmur in the aortic area. ABDOMEN: Soft, nontender, and nondistended. Bowel sounds are present. EXTREMITIES: No clubbing. No cyanosis. Peripheral pulses 2+ felt bilaterally. NEUROLOGIC: Patient is alert and oriented to person, place, month, and year. Speech is fluent without any errors. Cranial nerves II through XII intact. Motor exam: Moves all extremities equally. No pronator drift seen. Sensory exam: Decreased light touch and pinprick up to the calves bilaterally. Decreased vibration of the toes. DTRs are 2+ throughout and 1 at both knees and ankles. Coordination: [id number] intact. No dysmetria noted. Gait is deferred for now. MUSCULOSKELETAL: Has lumbosacral tightness and straight leg testing is positive for pain above 15 degrees. IMPRESSION AND PLAN: This is a 73-year-old male with history of hypertension; type 2 diabetes mellitus; aortic valve replacement, bioprosthetic valve in 05/2018; severe osteoarthritis; vertigo; came from prison for failure to thrive, poor p.o. intake, lethargic, found to have fevers and leukocytosis with positive three blood cultures, coagulase negative staphylococcus infection. The patient has been offered to have a transesophageal echocardiogram to rule out any vegetations on the prosthetic valve. I was consulted for back pain and his back pain is mostly lumbosacral, radiating down to both legs, most likely secondary to severe advanced degenerative disease, which was seen on MRI of the lumbosacral spine, subsequently worse at L4-L5 with severe neuroforaminal stenosis and has osteoarthritic changes from L2 to L5, but there is no evidence of any epidural paraspinal infection. In addition, in the cervical spine, he has abnormal signal abnormality in the anterior disk C5-C6 indicating diskitis possibly, but osteomyelitis cannot be ruled out. We will need to repeat the MRIs in about 2 to 3 weeks. He has severe degenerative disk disease worse at C6-C7 impinging the left C7 nerve root, but no cord compression. At this time, the patient will benefit from subacute rehab for his underlying back pain, Toradol 30 mg intravenously every 6 hours for acute onset of pain. In addition, we will order a derm patch and will need physical therapy. We will give one dose of dexamethasone IV push for acute onset of pain to decrease the inflammation and we will need a ANGELIA evaluation for an aortic valve endocarditis given his blood culture positive results. At this time, physical therapy and occupational therapy evaluation. Thank you for this consult. Juan Ramon Gomez MD
--- NOTE | 2018-08-17 23:14 | PN ---
DATE: 08/17/2018 SUBJECTIVE: Patient denies any chest pain, shortness of breath, feeling very weak. History of aortic valve replacement bioprosthetic, and 3-vessels CABG on 06/07/2018. Repeat blood cultures are positive, sed rate is elevated. MRI of the lumbosacral spine was done, multilevel degenerative changes noted on the lumbosacral spine in addition to the patient's prolapsed intervertebral disk, but no evidence of cord compression and as mentioned, repeat blood cultures persistently positive. The patient was scheduled for ANGELIA this afternoon because of a lot of emergencies could not be accommodated, we will do tomorrow 07:30 morning ANGELIA to rule out endocarditis. Also informed . ____ about the patient having persistent bacteremia. For possibilities the patient's ANGELIA showed positive consider redo valve surgery. We will follow this note in addition to our and dictated by nurse practitioner, Annika Lindsey. We will keep n.p.o. after 12 midnight for ANGELIA in the morning. Thank you, ____, for providing us the opportunity in taking care of the patient Reji Chand. Bala Bearden MD
[2018-08-18] MEDS: Levalbuterol 1.25 MG/3 ML Inhal Soln UD IH SCH ×4 (01:20→19:29)
--- NOTE | 2018-08-18 01:32 | PN ---
DATE: 08/17/2018 SUBJECTIVE: The patient is in bed, in no acute distress. Nontoxic. PHYSICAL EXAMINATION VITAL SIGNS: Temperature of 98, blood pressure is 130/70, respiratory rate of 19, heart rate of 125. HEENT: Examination of HEENT is unremarkable. NECK: Supple. LUNGS: Have decreased breath sounds. HEART: Normal S1, S2. ABDOMEN: Soft, nontender. LABORATORY DATA: Reveals the white count of 13,400. Chemistries reveals the BUN of 12, creatinine of 0.5. Urinalysis is noted. Serology is reviewed. Microbiology reveals the patient's blood cultures are again O positive for coag-negative Staph. The patient had an MRI of the cervical spine and MRI of the lumbar spine. Results are reviewed. Multiple nonspecific disk disease. 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 We will repeat blood cultures again. The patient's echo is pending and vancomycin trough is not collected. The patient receives the vancomycin 10 in the morning and 10 at night. We will order a vancomycin trough level for tomorrow morning at 9 a.m. an hour before to 10 o'clock dose and we will check on the sensitivity of the coagulase-negative Staphylococcus, appears to be sensitive. We will follow closely with you. Awaiting for echo. Brent Smiley MD
[2018-08-18] MEDS: Pantoprazole 40 mg EC Tab PO SCH (06:06)
--- NOTE | 2018-08-18 06:49 | CP.PCM.PN ---
<Brenna Sow - Last Filed: 08/18/18 11:36> Subjective - Date & Time of Evaluation Date of Evaluation: 08/18/18 Time of Evaluation: 07:00 - Subjective Subjective: Medicine Progress Note for Toan Pimentel PGY3 Patient seen and examined at bedside. There were no acute overnight events as per nursing staff. He had some confusion this AM. Patient denies chest pain, shortness of breath, nausea/vomiting/diarrhea, fever/chills, numbness/tinlging, dysuria or hematuria. Objective - Vital Signs/Intake and Output Vital Signs (last 24 hours): Temp Pulse Resp BP Pulse Ox 98.1 F 125 H 19 133/79 97 08/17/18 17:03 08/17/18 17:16 08/17/18 17:03 08/17/18 17:16 08/17/18 17:03 Intake and Output: 08/17/18 08/18/18 18:59 06:59 Intake Total 820 Output Total 1100 100 Balance -280 -100 - Medications Medications: Current Medications Acetaminophen (Tylenol 325mg Tab) 650 mg PO Q6H PRN PRN Reason: Pain, Mild (1-3) Last Admin: 08/17/18 17:18 Dose: 650 mg Aspirin (Aspirin Chewable) 81 mg PO DAILY [facility] Last Admin: 08/17/18 14:26 Dose: 81 mg Carvedilol (Coreg) 3.125 mg PO BID [facility] Last Admin: 08/17/18 17:16 Dose: 3.125 mg Gabapentin (Neurontin) 100 mg PO TID [facility]; Protocol Last Admin: 08/17/18 17:18 Dose: 100 mg Vancomycin HCl (Vancomycin 1gm) 1 gm in 250 mls @ 167 mls/hr IVPB Q12 [facility]; Protocol Last Admin: 08/17/18 22:53 Dose: 167 mls/hr Gentamicin Sulfate 40 mg/ (Sodium Chloride) 101 mls @ 100 mls/hr IVPB Q8H [facility]; Protocol Stop: 08/25/18 20:16 Last Admin: 08/18/18 06:06 Dose: 100 mls/hr Insulin Human Lispro (Humalog Low) 0 units SC ACHS [facility]; Protocol Last Admin: 08/17/18 21:55 Dose: Not Given Ketorolac Tromethamine (Toradol) 30 mg IVP Q6 PRN PRN Reason: Pain, moderate (4-7) Levalbuterol HCl (Xopenex) 1.25 mg IH [id number] [facility] Last Admin: 08/18/18 01:20 Dose: 1.25 mg Lidocaine HCl (Lidocaine 2% Viscous) 15 ml MM Q3H PRN PRN Reason: Sore Throat Lisinopril (Zestril) 2.5 mg PO DAILY [facility] Last Admin: 08/17/18 10:45 Dose: 2.5 mg Metoprolol Tartrate (Lopressor) 50 mg PO Q12H [facility] Last Admin: 08/13/18 09:21 Dose: 50 mg Multivitamins (Thera Tab) 1 tab PO 0800 [facility] Last Admin: 08/17/18 12:29 Dose: Not Given Oxycodone/Acetaminophen (Percocet 5/325 Mg Tab) 1 tab PO Q6H PRN PRN Reason: Pain, severe (8-10) Stop: 08/20/18 13:56 Pantoprazole Sodium (Protonix Ec Tab) 40 mg PO 0600 [facility] Last Admin: 08/18/18 06:06 Dose: 40 mg Polyethylene Glycol (Miralax) 17 gm PO BID [facility] Last Admin: 08/17/18 17:17 Dose: 17 gm Rifampin (Rifampin Cap) 300 mg PO Q8H [facility]; Protocol Stop: 08/26/18 20:16 Last Admin: 08/18/18 06:05 Dose: 300 mg - Labs Labs: 08/17/18 06:00 08/17/18 06:00 PT 12.9 SECONDS (9.4-12.5) H 08/13/18 01:30 INR 1.13 08/13/18 01:30 APTT 33.0 Seconds (25.1-36.5) 08/13/18 01:30 - Constitutional Appears: No Acute Distress - Head Exam Head Exam: ATRAUMATIC, NORMAL INSPECTION, NORMOCEPHALIC - Eye Exam Eye Exam: Normal appearance, PERRL Pupil Exam: NORMAL ACCOMODATION, PERRL - ENT Exam ENT Exam: Mucous Membranes Moist - Respiratory Exam Respiratory Exam: Clear to Ausculation Bilateral, NORMAL BREATHING PATTERN. absent: Rales, Rhonchi, Wheezes - Cardiovascular Exam Cardiovascular Exam: REGULAR RHYTHM, +S1, +S2, Murmur. absent: Gallop, Rubs - GI/Abdominal Exam GI & Abdominal Exam: Soft, Normal Bowel Sounds. absent: Rigid, Tenderness, Mass, Rebound - Extremities Exam Extremities Exam: Normal Inspection. absent: Calf Tenderness, Pedal Edema - Neurological Exam Neurological Exam: Alert, Awake, CN II-XII Intact, Oriented x3 - Skin Skin Exam: Dry, Intact, Warm Assessment and Plan - Assessment and Plan (Free Text) Assessment: 1. Bacteremia - +4 blood cultures for Coag neg staph - Rule out AV valve as source v. spinal infection 2. Back pain - Lumbar CT showed degenerative changes L2-L4 - Thoracic spine XR showed multilevel degenerative disc changes - MRI lumbar spine showed multi-level degen disc dz worse in L4-L5 w/ post disc bulge - MRI cervical/thoracic spine showed multi-level degen disc dz worse in C6-C7 3. CAD w/ recent CABG and aortic valve replacement - last echo done 07/15/2018 4. Failure to thrive 5. Constipation 6. DM type II 7. Essential HTN Plan: Labs and imaging reviewed. As per Dr. Bearden, ANGELIA this AM was negative for vegetations. MRI was negative for diskitis. ID is on consult and will place pat ient on Daptomycin from Gentamicin, Vanc and Rifampin. Patient will get PICC line. Pain is controlled and is on stool softeners. Coreg and lisinopril for HTN. Patient tolerating diet. Case seen, discussed and reviewed with Dr. Flood. Toan oSw PGY3 <Jose Flood S - Last Filed: 08/20/18 19:33> Objective - Vital Signs/Intake and Output Vital Signs (last 24 hours): Temp Pulse Resp BP Pulse Ox 98.0 F 80 19 120/64 98 08/20/18 17:47 08/20/18 18:03 08/20/18 17:47 08/20/18 18:03 08/20/18 17:47 - Medications Medications: Current Medications Acetaminophen (Tylenol 325mg Tab) 650 mg PO Q6H PRN PRN Reason: Pain, Mild (1-3) Last Admin: 08/20/18 01:24 Dose: 650 mg Acetaminophen (Tylenol 325 Mg Supp) 325 mg RC Q6H PRN PRN Reason: Fever >100.4 F Last Admin: 08/20/18 13:37 Dose: 325 mg Aspirin (Aspirin Chewable) 81 mg PO DAILY [facility] Last Admin: 08/20/18 12:18 Dose: 81 mg Carvedilol (Coreg) 3.125 mg PO BID [facility] Last Admin: 08/20/18 18:03 Dose: 3.125 mg Gabapentin (Neurontin) 100 mg PO TID [facility]; Protocol Last Admin: 08/20/18 15:33 Dose: 100 mg Daptomycin 340 mg/ Sodium (Chloride) 100 mls @ 200 mls/hr IV Q24H [facility] Stop: 08/23/18 13:16 Last Admin: 08/20/18 16:20 Dose: 200 mls/hr Vancomycin HCl (Vancomycin 1gm) 1 gm in 250 mls @ 167 mls/hr IVPB Q12H [facility]; Protocol Last Admin: 08/20/18 15:35 Dose: 167 mls/hr Meropenem (Merrem Iv 1 Gm Premix) 1 gm in 50 mls @ 100 mls/hr IVPB Q8 [facility]; Protocol Sodium Chloride (Sodium Chloride 0.9%) 1,000 mls @ 75 mls/hr IV [id number] [facility] Last Admin: 08/20/18 17:57 Dose: 75 mls/hr Insulin Human Lispro (Humalog Low) 0 units SC ACHS [facility]; Protocol Last Admin: 08/20/18 17:55 Dose: 2 units Ketorolac Tromethamine (Toradol) 30 mg IVP Q6 PRN PRN Reason: Pain, moderate (4-7) Last Admin: 08/19/18 21:22 Dose: 30 mg Levalbuterol HCl (Xopenex) 1.25 mg IH [id number] [facility] Last Admin: 08/20/18 14:50 Dose: 1.25 mg Lisinopril (Zestril) 2.5 mg PO DAILY [facility] Last Admin: 08/20/18 12:19 Dose: 2.5 mg Multivitamins (Thera Tab) 1 tab PO 0800 [facility] Last Admin: 08/20/18 08:16 Dose: 1 tab Oxycodone/Acetaminophen (Percocet 5/325 Mg Tab) 1 tab PO Q4H PRN PRN Reason: Pain, severe (8-10) Stop: 08/23/18 16:31 Pantoprazole Sodium (Protonix Ec Tab) 40 mg PO 0600 [facility] Last Admin: 08/20/18 05:07 Dose: 40 mg Polyethylene Glycol (Miralax) 17 gm PO BID [facility] Last Admin: 08/20/18 17:57 Dose: 17 gm - Labs Labs: 08/20/18 13:30 08/20/18 13:30 PT 12.9 SECONDS (9.4-12.5) H 08/13/18 01:30 INR 1.13 08/13/18 01:30 APTT 33.0 Seconds (25.1-36.5) 08/13/18 01:30 Assessment and Plan - Assessment and Plan (Free Text) Plan: Pt seen and examined by me. This is a late entry. I have reviewed the note by the outside medical sales representative. The case was discussed and reviewed with the resident. I reviewed the medications and labs. Pt with ANGELIA that was negative. He has sepsis. Repeat BCx will be done. He can go to [facility] and continue 4 weeks of IV Abx. He will need more PT. Spoke at length with . Pt is at risk of noscomial infections in the hospital. Eating but could be better. MRI showed no active infection. Neuro following.
--- NOTE | 2018-08-18 07:03 | CP.PCM.PN ---
Subjective - Date & Time of Evaluation Date of Evaluation: 08/18/18 Time of Evaluation: 06:20 - Subjective Subjective: Awake,alert,denies chest pain, no distress, Reason for consultation and follow up: Cardiac evaluation of coronary artery disease, status post CABG and valve replacement on 06/07/18 at [facility]. Admitted for and vomiting and no appetite and back pain. Seen and examined by me and Dr. Bearden Objective - Vital Signs/Intake and Output Vital Signs (last 24 hours): Temp Pulse Resp BP Pulse Ox 98.1 F 125 H 19 133/79 97 08/17/18 17:03 08/17/18 17:16 08/17/18 17:03 08/17/18 17:16 08/17/18 17:03 Intake and Output: 08/18/18 08/18/18 06:59 18:59 Output Total 100 Balance -100 - Medications Medications: Current Medications Acetaminophen (Tylenol 325mg Tab) 650 mg PO Q6H PRN PRN Reason: Pain, Mild (1-3) Last Admin: 08/17/18 17:18 Dose: 650 mg Aspirin (Aspirin Chewable) 81 mg PO DAILY [facility] Last Admin: 08/17/18 14:26 Dose: 81 mg Carvedilol (Coreg) 3.125 mg PO BID [facility] Last Admin: 08/17/18 17:16 Dose: 3.125 mg Gabapentin (Neurontin) 100 mg PO TID [facility]; Protocol Last Admin: 08/17/18 17:18 Dose: 100 mg Vancomycin HCl (Vancomycin 1gm) 1 gm in 250 mls @ 167 mls/hr IVPB Q12 [facility]; Protocol Last Admin: 08/17/18 22:53 Dose: 167 mls/hr Gentamicin Sulfate 40 mg/ (Sodium Chloride) 101 mls @ 100 mls/hr IVPB Q8H [facility]; Protocol Stop: 08/25/18 20:16 Last Admin: 08/18/18 06:06 Dose: 100 mls/hr Insulin Human Lispro (Humalog Low) 0 units SC ACHS [facility]; Protocol Last Admin: 08/17/18 21:55 Dose: Not Given Ketorolac Tromethamine (Toradol) 30 mg IVP Q6 PRN PRN Reason: Pain, moderate (4-7) Levalbuterol HCl (Xopenex) 1.25 mg IH [id number] [facility] Last Admin: 08/18/18 01:20 Dose: 1.25 mg Lidocaine HCl (Lidocaine 2% Viscous) 15 ml MM Q3H PRN PRN Reason: Sore Throat Lisinopril (Zestril) 2.5 mg PO DAILY [facility] Last Admin: 08/17/18 10:45 Dose: 2.5 mg Metoprolol Tartrate (Lopressor) 50 mg PO Q12H [facility] Last Admin: 08/13/18 09:21 Dose: 50 mg Multivitamins (Thera Tab) 1 tab PO 0800 [facility] Last Admin: 08/17/18 12:29 Dose: Not Given Oxycodone/Acetaminophen (Percocet 5/325 Mg Tab) 1 tab PO Q6H PRN PRN Reason: Pain, severe (8-10) Stop: 08/20/18 13:56 Pantoprazole Sodium (Protonix Ec Tab) 40 mg PO 0600 [facility] Last Admin: 08/18/18 06:06 Dose: 40 mg Polyethylene Glycol (Miralax) 17 gm PO BID [facility] Last Admin: 08/17/18 17:17 Dose: 17 gm Rifampin (Rifampin Cap) 300 mg PO Q8H [facility]; Protocol Stop: 08/26/18 20:16 Last Admin: 08/18/18 06:05 Dose: 300 mg - Labs Labs: 08/17/18 06:00 08/17/18 06:00 PT 12.9 SECONDS (9.4-12.5) H 08/13/18 01:30 INR 1.13 08/13/18 01:30 APTT 33.0 Seconds (25.1-36.5) 08/13/18 01:30 - Constitutional Appears: Non-toxic, No Acute Distress - Head Exam Head Exam: NORMAL INSPECTION, NORMOCEPHALIC - Eye Exam Eye Exam: Normal appearance - ENT Exam ENT Exam: Mucous Membranes Dry - Respiratory Exam Respiratory Exam: Decreased Breath Sounds, Clear to Ausculation Bilateral, NORMAL BREATHING PATTERN - Cardiovascular Exam Cardiovascular Exam: +S1, +S2 - GI/Abdominal Exam GI & Abdominal Exam: Soft, Normal Bowel Sounds - Extremities Exam Extremities Exam: Normal Capillary Refill - Neurological Exam Neurological Exam: Alert, Awake, Oriented x3 - Psychiatric Exam Psychiatric exam: Normal Affect, Normal Mood - Skin Skin Exam: Dry, Normal Color, Warm Assessment and Plan - Assessment and Plan (Free Text) Assessment: A 73 year old male who was brought to the ER due to nausea and vomiting,loss of appetite and back pain. History of diabetes, coronary artery disease with recent surgery of CABG and aortic valve replacement at [facility] last May 2018.Recently discharged from [facility] [place] due to severe anemia requiring blood transfusion. GI work up was done. EKG- lateral ischemic inferolateral T wave changes. Troponin negative. Patient was on Xarelto after open heart surgery but discontinued due to GI blee ding. Patient's heart rate is normal sinus rhythm. No need to restart Xarelto.Also patient had a bioprosthetic aortic valve (no need to anticoagulate as per surgeon Dr. Siddiqui). Hold Xarelto due to history of GI bleeding,so far no arrythmias maintained on normal sinus rhythm, bioprosthetic aortic valve (no anticoagulation needed. Blood cultures came back positive,rescheduled for ANGELIA today to rule out endocarditis. Recent cardiac work up: 06/01/18- Cardiac catheterization at [facility] [place] Proximal Left main 50% stenosis Mid Circumflex 90% stenosis Mid and distal RCA 70% stenosis Severe aortic stenosis He was referred to [facility] and had CABG and AVR on May07/15/18- ECHO- normal LV function, mildly impaired systolic function, Mild MR/TR mild pulmonary hypertension 07/18/18 MuGA scan- Normal LV function,LVEF 55% Plan: ANGELIA not done yesterday For ANGELIA today to rule out endocarditis/vegetation NPO post midnight No distress, denies chest pain Heart rate and blood pressure stable Cardiac status stable Continue IV antibiotics as per ID On ASA 81 mg daily,Coreg 3.125 mg BID,Zestril 2.5 mg daily, Lopressor 50 mg every 12 hours Continue current treatment Continue current medications Physical therapy Nutritional support Chart reviewed Will follow up Plan and treatment discussed with Dr. Suleiman Brown
[2018-08-18] MEDS ORDERED: Flumazenil 0.1 mg/ml Inj (5ml) IVP ONE (07:47)
[2018-08-18] MEDS ORDERED: Naloxone 0.4 mg/ml Inj (Adult) ONE (07:47)
[2018-08-18] MEDS ORDERED: Midazolam 2 MG/2 ML VIAL ONE (07:47)
[2018-08-18] MEDS ORDERED: Midazolam 2 MG/2 ML VIAL IV ONE ×3 (08:20→08:24)
[2018-08-18] MEDS ORDERED: Sodium Chloride 0.9% 1,000 ML IV SCH (09:00)
[2018-08-18] MEDS: Insulin Lispro (humaLOG) LOW Coverage SC SCH ×4 (10:04→21:42)
[2018-08-18] MEDS: POLYETHYLENE GLYCOL 3350 17 GM/Dose PACKET PO SCH ×2 (10:05→17:35)
[2018-08-18] MEDS: Vancomycin 1gm in NS 250ml 1 GM/250 ML BAG IVPB SCH (10:06)
[2018-08-18] MEDS: Multivitamin Therapeutic Tab PO SCH (10:06)
[2018-08-18] MEDS ORDERED: DAPTOmycin 500 mg Inj (Cubicin) IV SCH (13:00)
--- NOTE | 2018-08-18 13:05 | CP.PCM.PN ---
Subjective - Date & Time of Evaluation Date of Evaluation: 08/18/18 Time of Evaluation: 08:40 - Subjective Subjective: No fevers, not in distress. Objective - Vital Signs/Intake and Output Vital Signs (last 24 hours): Temp Pulse Resp BP Pulse Ox 98.1 F 125 H 19 133/79 97 08/17/18 17:03 08/17/18 17:16 08/17/18 17:03 08/17/18 17:16 08/17/18 17:03 Intake and Output: 08/17/18 08/18/18 18:59 06:59 Intake Total 820 Output Total 1100 Balance -280 - Medications Medications: Current Medications Acetaminophen (Tylenol 325mg Tab) 650 mg PO Q6H PRN PRN Reason: Pain, Mild (1-3) Last Admin: 08/17/18 17:18 Dose: 650 mg Aspirin (Aspirin Chewable) 81 mg PO DAILY [facility] Last Admin: 08/17/18 14:26 Dose: 81 mg Carvedilol (Coreg) 3.125 mg PO BID [facility] Last Admin: 08/17/18 17:16 Dose: 3.125 mg Gabapentin (Neurontin) 100 mg PO TID [facility]; Protocol Last Admin: 08/17/18 17:18 Dose: 100 mg Vancomycin HCl (Vancomycin 1gm) 1 gm in 250 mls @ 167 mls/hr IVPB Q12 [facility]; Protocol Last Admin: 08/17/18 22:53 Dose: 167 mls/hr Gentamicin Sulfate 40 mg/ (Sodium Chloride) 101 mls @ 100 mls/hr IVPB Q8H [facility]; Protocol Stop: 08/25/18 20:16 Last Admin: 08/17/18 22:41 Dose: 100 mls/hr Insulin Human Lispro (Humalog Low) 0 units SC ACHS [facility]; Protocol Last Admin: 08/17/18 21:55 Dose: Not Given Ketorolac Tromethamine (Toradol) 30 mg IVP Q6 PRN PRN Reason: Pain, moderate (4-7) Levalbuterol HCl (Xopenex) 1.25 mg IH [id number] [facility] Last Admin: 08/17/18 20:00 Dose: 1.25 mg Lidocaine HCl (Lidocaine 2% Viscous) 15 ml MM Q3H PRN PRN Reason: Sore Throat Lisinopril (Zestril) 2.5 mg PO DAILY [facility] Last Admin: 08/17/18 10:45 Dose: 2.5 mg Metoprolol Tartrate (Lopressor) 50 mg PO Q12H [facility] Last Admin: 08/13/18 09:21 Dose: 50 mg Multivitamins (Thera Tab) 1 tab PO 0800 [facility] Last Admin: 08/17/18 12:29 Dose: Not Given Oxycodone/Acetaminophen (Percocet 5/325 Mg Tab) 1 tab PO Q6H PRN PRN Reason: Pain, severe (8-10) Stop: 08/20/18 13:56 Pantoprazole Sodium (Protonix Ec Tab) 40 mg PO 0600 [facility] Last Admin: 08/17/18 05:48 Dose: 40 mg Polyethylene Glycol (Miralax) 17 gm PO BID [facility] Last Admin: 08/17/18 17:17 Dose: 17 gm Rifampin (Rifampin Cap) 300 mg PO Q8H [facility]; Protocol Stop: 08/26/18 20:16 Last Admin: 08/17/18 22:41 Dose: 300 mg - Labs Labs: 08/17/18 06:00 08/17/18 06:00 PT 12.9 SECONDS (9.4-12.5) H 08/13/18 01:30 INR 1.13 08/13/18 01:30 APTT 33.0 Seconds (25.1-36.5) 08/13/18 01:30 - Constitutional Appears: Chronically Ill - Head Exam Head Exam: NORMAL INSPECTION - Respiratory Exam Respiratory Exam: Decreased Breath Sounds - Cardiovascular Exam Cardiovascular Exam: +S1, +S2 - GI/Abdominal Exam GI & Abdominal Exam: Soft. absent: Tenderness Assessment and Plan - Assessment and Plan (Free Text) Plan: Assessment sepsis from coagulase negative staph bacteremia R/O endocarditis in this patient with aortic valve replacement, R/O pneumonia DM CAD S/P CABG S/P aortic valve replacement Plan Will switch Vancomycin and Gentamicin to Daptomycin (I have discussed this with Dr. Smiley) and continue Rifampin for now pending ANGELIA results - bacteremia is persistent and will need prolonged antibiotics follow up repeat blood cx (done 08/17/2018) will continue to monitor clinically follow up CPK level
--- NOTE | 2018-08-18 16:09 | PN ---
DATE: 08/18/2018 REASON FOR DICTATION: Coronary artery disease, CABG, status post aortic valve replacement on 06/07/2018, persistent bacteremia. Patient underwent ANGELIA, that showed preserved LV function, ejection fraction 55% to 60%, a small loculated anterior pericardial effusion, severe mitral regurgitation, [id number] tricuspid regurgitation, RV systolic pressure 40, normal RA and RV size, enlarged left atrium, preserved LV function. No vegetation noted. No evidence of endocarditis. Discussed with Dr. Flood, informed the family. Thank you, Dr. Flood, for providing us the opportunity in taking care of the patient, Reji Chand. This note is an addition to our nurse practitioner dictated this morning, Annika Lindsey APN. Bala Bearden MD cc: Jose Flood MD
--- NOTE | 2018-08-18 18:56 | CARD ---
APPROVED REPORT Date of service: 08/18/2018 EXAM: Transesophageal echocardiogram with color flow Doppler. INDICATION Infection : Rule out subacute bacterial endocarditis ENDOCARDITIS 2D DIMENSIONS Left Atrium (2D)4.8 (1.6-4.0cm) Mitral Valve E/A ratio0.0 TDI E/Lateral E'0.0E/Medial E'0.0 Tricuspid Valve TR Peak [id number] Peak Gr.28mmHg [id number] Reason For Test : Rule out endocarditis. PROCEDURE After obtaining informed consent, patient underwent transesophageal echo in the Echo Lab. Type of Sedation : Conscious Sedation Sedation was administered by Dr. Cortney galvan. Sedation was achieved with Versed anfd fentanyl 2 mg and 100 mcg intravenously. Echo enhancement indication: R/O Septal defect. The ANGELIA was performed complications. Throughout the procedure, the blood pressure, pulse oximetry, cardiac rhythm, and rate were monitored. The patient tolerated the procedure without adverse effects. Recovery from conscious sedation was uneventful and vital signs were stable. LEFT VENTRICLE The left ventricle is normal size. There is mild concentric left ventricular hypertrophy. The left ventricular function is normal.EF-55-60% There is normal LV segmental wall motion. The left ventricular diastolic function is normal. No left ventricle thrombus noted on this study. There is no ventricular septal defect visualized. There is no left ventricular aneurysm. There is no mass noted in the left ventricle. RIGHT VENTRICLE The right ventricle is normal size. There is normal right ventricular wall thickness. The right ventricular systolic function is normal. ATRIA The left atrium is mildly dilated. The right atrium size is normal. The interatrial septum is intact with no evidence for an atrial septal defect. AORTIC VALVE There are no vegetations present on this prosthetic aortic valve. There is a bioprosthetic aortic valve prosthesis, Functioning Normal MITRAL VALVE Mitral annular calcification is mild. There is no evidence of mitral valve prolapse. There is no mitral valve stenosis. Mitral regurgitation is severe. TRICUSPID VALVE The tricuspid valve leaflets are thickened , but open well. There is mild to moderate tricuspid regurgitation.RVSP-38 mmof hg There is no tricuspid valve prolapse or vegetation. There is no tricuspid valve stenosis. PULMONIC VALVE The pulmonary valve is normal in structure. There is trivial pulmonic valvular regurgitation. There is no pulmonic valvular stenosis. GREAT VESSELS The aortic root is normal in size. The ascending aorta is normal in size. The pulmonary artery is normal. The IVC is normal in size and collapses >50% with inspiration. PERICARDIAL EFFUSION posterior loculated smal pericardial effusion ( S/p OHS) There is no pleural effusion. <Conclusion> The left ventricle is normal size. There is mild concentric left ventricular hypertrophy. There are no vegetations present on this prosthetic aortic valve. There is a bioprosthetic aortic valve prosthesis, Functioning Normal Mitral regurgitation is severe. There is mild to moderate tricuspid regurgitation.RVSP-38 mmof hg posterior loculated smal pericardial effusion ( S/p OHS). No evidence of vegetation noted in this study.
[2018-08-19] MEDS: Levalbuterol 1.25 MG/3 ML Inhal Soln UD IH SCH ×6 (01:47→19:41)
[2018-08-19] MEDS: Pantoprazole 40 mg EC Tab PO SCH (05:52)
--- NOTE | 2018-08-19 06:31 | CP.PCM.PN ---
<Brenna Sow - Last Filed: 08/19/18 12:44> Subjective - Date & Time of Evaluation Date of Evaluation: 08/19/18 Time of Evaluation: 07:00 - Subjective Subjective: Medicine Progress Note for Toan Pimentel PGY3 Patient seen and examined at bedside. There were no acute overnight events as per nursing staff. Patient reports having some constipation. He denies chest pain, shortness of breath, nausea/vomiting/diarrhea, fever/chills, numbness/tingling, dysuria or hematuria. Objective - Vital Signs/Intake and Output Vital Signs (last 24 hours): Temp Pulse Resp BP Pulse Ox 97.5 F L 78 19 140/69 96 08/18/18 17:06 08/18/18 17:32 08/18/18 17:06 08/18/18 17:32 08/18/18 17:06 Intake and Output: 08/18/18 08/19/18 18:59 06:59 Intake Total 75 Balance 75 - Medications Medications: Current Medications Acetaminophen (Tylenol 325mg Tab) 650 mg PO Q6H PRN PRN Reason: Pain, Mild (1-3) Last Admin: 08/19/18 01:09 Dose: 650 mg Aspirin (Aspirin Chewable) 81 mg PO DAILY [facility] Last Admin: 08/18/18 10:03 Dose: 81 mg Carvedilol (Coreg) 3.125 mg PO BID [facility] Last Admin: 08/18/18 17:32 Dose: 3.125 mg Gabapentin (Neurontin) 100 mg PO TID [facility]; Protocol Last Admin: 08/18/18 17:36 Dose: 100 mg Daptomycin 340 mg/ Sodium (Chloride) 100 mls @ 200 mls/hr IV Q24H [facility] Stop: 08/23/18 13:16 Last Admin: 08/18/18 15:35 Dose: 200 mls/hr Insulin Human Lispro (Humalog Low) 0 units SC ACHS [facility]; Protocol Last Admin: 08/18/18 21:42 Dose: Not Given Ketorolac Tromethamine (Toradol) 30 mg IVP Q6 PRN PRN Reason: Pain, moderate (4-7) Levalbuterol HCl (Xopenex) 1.25 mg IH [id number] [facility] Last Admin: 08/19/18 02:03 Dose: 1.25 mg Lidocaine HCl (Lidocaine 2% Viscous) 15 ml MM Q3H PRN PRN Reason: Sore Throat Lisinopril (Zestril) 2.5 mg PO DAILY [facility] Last Admin: 08/18/18 10:07 Dose: 2.5 mg Multivitamins (Thera Tab) 1 tab PO 0800 [facility] Last Admin: 08/18/18 10:06 Dose: 1 tab Oxycodone/Acetaminophen (Percocet 5/325 Mg Tab) 1 tab PO Q6H PRN PRN Reason: Pain, severe (8-10) Stop: 08/20/18 13:56 Pantoprazole Sodium (Protonix Ec Tab) 40 mg PO 0600 [facility] Last Admin: 08/19/18 05:52 Dose: 40 mg Polyethylene Glycol (Miralax) 17 gm PO BID [facility] Last Admin: 08/18/18 17:35 Dose: 17 gm Rifampin (Rifampin Cap) 300 mg PO Q8H [facility]; Protocol Stop: 08/26/18 20:16 Last Admin: 08/19/18 05:52 Dose: 300 mg - Labs Labs: 08/17/18 06:00 08/17/18 06:00 PT 12.9 SECONDS (9.4-12.5) H 08/13/18 01:30 INR 1.13 08/13/18 01:30 APTT 33.0 Seconds (25.1-36.5) 08/13/18 01:30 - Constitutional Appears: No Acute Distress - Head Exam Head Exam: ATRAUMATIC, NORMAL INSPECTION, NORMOCEPHALIC - Eye Exam Eye Exam: Normal appearance, PERRL Pupil Exam: NORMAL ACCOMODATION, PERRL - ENT Exam ENT Exam: Mucous Membranes Moist - Respiratory Exam Respiratory Exam: Clear to Ausculation Bilateral, NORMAL BREATHING PATTERN. absent: Rales, Rhonchi, Wheezes - Cardiovascular Exam Cardiovascular Exam: REGULAR RHYTHM, +S1, +S2. absent: Gallop, Rubs, Murmur - GI/Abdominal Exam GI & Abdominal Exam: Soft, Normal Bowel Sounds. absent: Rigid, Tenderness, Mass, Rebound - Extremities Exam Extremities Exam: Normal Capillary Refill, Normal Inspection. absent: Calf Tenderness, Pedal Edema - Neurological Exam Neurological Exam: Alert, Awake, CN II-XII Intact, Oriented x3 - Psychiatric Exam Psychiatric exam: Normal Affect, Normal Mood - Skin Skin Exam: Dry, Intact, Warm Assessment and Plan - Assessment and Plan (Free Text) Assessment: 1. Bacteremia - +4 blood cultures for Coag neg staph - ANGELIA negative for vegetations on AV valve 2. Back pain - Lumbar CT showed degenerative changes L2-L4 - Thoracic spine XR showed multilevel degenerative disc changes - MRI lumbar spine showed multi-level degen disc dz worse in L4-L5 w/ post disc bulge - MRI cervical/thoracic spine showed multi-level degen disc dz worse in C6-C7 3. CAD w/ recent CABG and prosthetic aortic valve replacement - last echo done 07/15/2018 4. Failure to thrive 5. Constipation 6. DM type II 7. Essential HTN Plan: Labs and imaging reviewed. Will give patient enema for constipation. Repeat cultures pending. Patient has PICC. He is on Daptomycin and Riframin. ID is following. Cardiology on consult. Continue Coreg and Lisinopril for HTN. Pain is controlled and patient is tolerating diet. Patient will go to [facility] upon d/c. Case seen, discussed and reviewed with Dr. Flood. Toan Sow PGY3 <Jose Flood S - Last Filed: 08/19/18 14:38> Objective - Vital Signs/Intake and Output Vital Signs (last 24 hours): Temp Pulse Resp BP Pulse Ox 97.5 F L 84 20 136/69 98 08/19/18 08:23 08/19/18 10:16 08/19/18 08:23 08/19/18 10:16 08/19/18 08:23 Intake and Output: 08/19/18 08/19/18 06:59 18:59 Intake Total 360 Output Total 50 Balance 310 - Medications Medications: Current Medications Acetaminophen (Tylenol 325mg Tab) 650 mg PO Q6H PRN PRN Reason: Pain, Mild (1-3) Last Admin: 08/19/18 12:06 Dose: 650 mg Aspirin (Aspirin Chewable) 81 mg PO DAILY [facility] Last Admin: 08/19/18 10:14 Dose: 81 mg Carvedilol (Coreg) 3.125 mg PO BID [facility] Last Admin: 08/19/18 10:14 Dose: 3.125 mg Gabapentin (Neurontin) 100 mg PO TID [facility]; Protocol Last Admin: 08/19/18 10:15 Dose: 100 mg Daptomycin 340 mg/ Sodium (Chloride) 100 mls @ 200 mls/hr IV Q24H [facility] Stop: 08/23/18 13:16 Last Admin: 08/18/18 15:35 Dose: 200 mls/hr Insulin Human Lispro (Humalog Low) 0 units SC ACHS [facility]; Protocol Last Admin: 08/19/18 12:03 Dose: 1 units Ketorolac Tromethamine (Toradol) 30 mg IVP Q6 PRN PRN Reason: Pain, moderate (4-7) Levalbuterol HCl (Xopenex) 1.25 mg IH [id number] [facility] Last Admin: 08/19/18 14:32 Dose: 1.25 mg Lidocaine HCl (Lidocaine 2% Viscous) 15 ml MM Q3H PRN PRN Reason: Sore Throat Lisinopril (Zestril) 2.5 mg PO DAILY [facility] Last Admin: 08/19/18 10:16 Dose: 2.5 mg Multivitamins (Thera Tab) 1 tab PO 0800 [facility] Last Admin: 08/19/18 08:15 Dose: 1 tab Oxycodone/Acetaminophen (Percocet 5/325 Mg Tab) 1 tab PO Q6H PRN PRN Reason: Pain, severe (8-10) Stop: 08/20/18 13:56 Pantoprazole Sodium (Protonix Ec Tab) 40 mg PO 0600 [facility] Last Admin: 08/19/18 05:52 Dose: 40 mg Polyethylene Glycol (Miralax) 17 gm PO BID [facility] Last Admin: 08/19/18 10:15 Dose: 17 gm Rifampin (Rifampin Cap) 300 mg PO Q8H [facility]; Protocol Stop: 08/26/18 20:16 Last Admin: 08/19/18 12:08 Dose: 300 mg - Labs Labs: 08/17/18 06:00 08/17/18 06:00 PT 12.9 SECONDS (9.4-12.5) H 08/13/18 01:30 INR 1.13 08/13/18 01:30 APTT 33.0 Seconds (25.1-36.5) 08/13/18 01:30 Assessment and Plan - Assessment and Plan (Free Text) Plan: Pt seen and examined by me. I have reviewed the note by the medical lab tech instructor. The case was discussed and reviewed with the resident. I reviewed the medications and labs. Pt with sepsis and repeat BCx is negative. He is on Daptomycin. Spoke to to update. Pt with PICC line for IV Abx. He was given an enema for constipation. HTN is controlled. ID following. He has back pain that is controlled with pain meds. ANGELIA is negative for vegetations.
--- NOTE | 2018-08-19 08:07 | CP.PCM.PN ---
Subjective - Date & Time of Evaluation Date of Evaluation: 08/19/18 Time of Evaluation: 06:50 - Subjective Subjective: No distress,awake,alert,denies chest pain, lying in bed Reason for consultation and follow up: Cardiac evaluation of coronary artery d isease, status post CABG and valve replacement on 06/07/18 at [facility]. Admitted for and vomiting and no appetite and back pain. Seen and examined by me and Dr. Bearden Objective - Vital Signs/Intake and Output Vital Signs (last 24 hours): Temp Pulse Resp BP Pulse Ox 97.5 F L 78 19 140/69 96 08/18/18 17:06 08/18/18 17:32 08/18/18 17:06 08/18/18 17:32 08/18/18 17:06 Intake and Output: 08/19/18 08/19/18 06:59 18:59 Intake Total 360 Output Total 50 Balance 310 - Medications Medications: Current Medications Acetaminophen (Tylenol 325mg Tab) 650 mg PO Q6H PRN PRN Reason: Pain, Mild (1-3) Last Admin: 08/19/18 01:09 Dose: 650 mg Aspirin (Aspirin Chewable) 81 mg PO DAILY [facility] Last Admin: 08/18/18 10:03 Dose: 81 mg Carvedilol (Coreg) 3.125 mg PO BID [facility] Last Admin: 08/18/18 17:32 Dose: 3.125 mg Gabapentin (Neurontin) 100 mg PO TID [facility]; Protocol Last Admin: 08/18/18 17:36 Dose: 100 mg Daptomycin 340 mg/ Sodium (Chloride) 100 mls @ 200 mls/hr IV Q24H [facility] Stop: 08/23/18 13:16 Last Admin: 08/18/18 15:35 Dose: 200 mls/hr Insulin Human Lispro (Humalog Low) 0 units SC ACHS [facility]; Protocol Last Admin: 08/18/18 21:42 Dose: Not Given Ketorolac Tromethamine (Toradol) 30 mg IVP Q6 PRN PRN Reason: Pain, moderate (4-7) Levalbuterol HCl (Xopenex) 1.25 mg IH [id number] [facility] Last Admin: 08/19/18 08:01 Dose: Not Given Lidocaine HCl (Lidocaine 2% Viscous) 15 ml MM Q3H PRN PRN Reason: Sore Throat Lisinopril (Zestril) 2.5 mg PO DAILY [facility] Last Admin: 08/18/18 10:07 Dose: 2.5 mg Multivitamins (Thera Tab) 1 tab PO 0800 [facility] Last Admin: 08/18/18 10:06 Dose: 1 tab Oxycodone/Acetaminophen (Percocet 5/325 Mg Tab) 1 tab PO Q6H PRN PRN Reason: Pain, severe (8-10) Stop: 08/20/18 13:56 Pantoprazole Sodium (Protonix Ec Tab) 40 mg PO 0600 [facility] Last Admin: 08/19/18 05:52 Dose: 40 mg Polyethylene Glycol (Miralax) 17 gm PO BID [facility] Last Admin: 08/18/18 17:35 Dose: 17 gm Rifampin (Rifampin Cap) 300 mg PO Q8H [facility]; Protocol Stop: 08/26/18 20:16 Last Admin: 08/19/18 05:52 Dose: 300 mg - Labs Labs: 08/17/18 06:00 08/17/18 06:00 PT 12.9 SECONDS (9.4-12.5) H 08/13/18 01:30 INR 1.13 08/13/18 01:30 APTT 33.0 Seconds (25.1-36.5) 08/13/18 01:30 - Constitutional Appears: Non-toxic, No Acute Distress - Head Exam Head Exam: NORMOCEPHALIC - Eye Exam Eye Exam: Normal appearance - ENT Exam ENT Exam: Mucous Membranes Dry - Respiratory Exam Respiratory Exam: Decreased Breath Sounds, Clear to Ausculation Bilateral, NORMAL BREATHING PATTERN - Cardiovascular Exam Cardiovascular Exam: +S1, +S2 - GI/Abdominal Exam GI & Abdominal Exam: Soft, Normal Bowel Sounds - Neurological Exam Neurological Exam: Alert, Awake, Oriented x3 - Psychiatric Exam Psychiatric exam: Depressed - Skin Skin Exam: Dry, Normal Color, Warm Assessment and Plan - Assessment and Plan (Free Text) Assessment: A 73 year old male who was brought to the ER due to nausea and vomiting,loss of appetite and back pain. History of diabetes, coronary artery disease with recent surgery of CABG and aortic valve replacement at [facility] last May 2018.[place] [facility] [place] severe [place] requiring blood transfusion. GI work up was done. EKG- lateral ischemic inferolateral T wave changes. Troponin negative. Patient was on Xarelto after open heart surgery but discontinued due to GI bleeding. Patient's heart rate is normal sinus rhythm. No need to restart Xarelto.Also patient had a bioprosthetic aortic valve (no need to anticoagulate as per surgeon Dr. Siddiqui). Hold Xarelto due to history of GI bleeding,so far no arrythmias maintained on normal sinus rhythm, bioprosthetic aortic valve (no anticoagulation needed) Blood cultures came back positive,ANGELIA done, ruled out endocarditis, no vegetations. Plan: ANGELIA done yesterday, ruled out endocarditis, no vegetation normal functioning of the bioprosthetic aortic valve Severe mitral regurgitation,moderate tricuspid regurgitation RVSP 38 mmHg, small pericardial effusion. No distress, denies chest pain Heart rate and blood pressure stable Cardiac status stable Bacteremia, Continue IV antibiotics as per ID On ASA 81 mg daily,Coreg 3.125 mg BID,Zestril 2.5 mg daily, Lopressor 50 mg every 12 hours Continue current treatment Continue current medications Physical therapy No appetite Nutritional support Chart reviewed Will follow up Plan and treatment discussed with Dr. Suleiman Borwn
[2018-08-19] MEDS: Multivitamin Therapeutic Tab PO SCH (08:15)
[2018-08-19] MEDS: Insulin Lispro (humaLOG) LOW Coverage SC SCH ×4 (08:17→21:23)
[2018-08-19] MEDS: POLYETHYLENE GLYCOL 3350 17 GM/Dose PACKET PO SCH ×2 (10:15→17:35)
--- NOTE | 2018-08-19 17:03 | CP.PCM.PN ---
Subjective - Date & Time of Evaluation Date of Evaluation: 08/19/18 Time of Evaluation: 13:20 - Subjective Subjective: Resting comfortably in bed, no fevers. Still with back pain but it is less. No nausea or diarrhea. Objective - Vital Signs/Intake and Output Vital Signs (last 24 hours): Temp Pulse Resp BP Pulse Ox 97.5 F L 84 20 136/69 98 08/19/18 08:23 08/19/18 10:16 08/19/18 08:23 08/19/18 10:16 08/19/18 08:23 Intake and Output: 08/19/18 08/19/18 06:59 18:59 Intake Total 360 Output Total 50 Balance 310 - Medications Medications: Current Medications Acetaminophen (Tylenol 325mg Tab) 650 mg PO Q6H PRN PRN Reason: Pain, Mild (1-3) Last Admin: 08/19/18 12:06 Dose: 650 mg Aspirin (Aspirin Chewable) 81 mg PO DAILY [facility] Last Admin: 08/19/18 10:14 Dose: 81 mg Carvedilol (Coreg) 3.125 mg PO BID [facility] Last Admin: 08/19/18 10:14 Dose: 3.125 mg Gabapentin (Neurontin) 100 mg PO TID [facility]; Protocol Last Admin: 08/19/18 10:15 Dose: 100 mg Daptomycin 340 mg/ Sodium (Chloride) 100 mls @ 200 mls/hr IV Q24H [facility] Stop: 08/23/18 13:16 Last Admin: 08/18/18 15:35 Dose: 200 mls/hr Insulin Human Lispro (Humalog Low) 0 units SC ACHS [facility]; Protocol Last Admin: 08/19/18 12:03 Dose: 1 units Ketorolac Tromethamine (Toradol) 30 mg IVP Q6 PRN PRN Reason: Pain, moderate (4-7) Levalbuterol HCl (Xopenex) 1.25 mg IH [id number] [facility] Last Admin: 08/19/18 08:29 Dose: 1.25 mg Lidocaine HCl (Lidocaine 2% Viscous) 15 ml MM Q3H PRN PRN Reason: Sore Throat Lisinopril (Zestril) 2.5 mg PO DAILY [facility] Last Admin: 08/19/18 10:16 Dose: 2.5 mg Multivitamins (Thera Tab) 1 tab PO 0800 [facility] Last Admin: 08/19/18 08:15 Dose: 1 tab Oxycodone/Acetaminophen (Percocet 5/325 Mg Tab) 1 tab PO Q6H PRN PRN Reason: Pain, severe (8-10) Stop: 08/20/18 13:56 Pantoprazole Sodium (Protonix Ec Tab) 40 mg PO 0600 [facility] Last Admin: 08/19/18 05:52 Dose: 40 mg Polyethylene Glycol (Miralax) 17 gm PO BID [facility] Last Admin: 08/19/18 10:15 Dose: 17 gm Rifampin (Rifampin Cap) 300 mg PO Q8H [facility]; Protocol Stop: 08/26/18 20:16 Last Admin: 08/19/18 12:08 Dose: 300 mg - Labs Labs: 08/17/18 06:00 08/17/18 06:00 PT 12.9 SECONDS (9.4-12.5) H 08/13/18 01:30 INR 1.13 08/13/18 01:30 APTT 33.0 Seconds (25.1-36.5) 08/13/18 01:30 - Constitutional Appears: No Acute Distress, Cachectic, Chronically Ill - Head Exam Head Exam: NORMAL INSPECTION - Respiratory Exam Respiratory Exam: Decreased Breath Sounds - Cardiovascular Exam Cardiovascular Exam: +S1, +S2 - GI/Abdominal Exam GI & Abdominal Exam: Soft. absent: Tenderness Assessment and Plan - Assessment and Plan (Free Text) Plan: Assessment sepsis from coagulase negative staph bacteremia R/O endocarditis in this patient with aortic valve replacement DM CAD S/P CABG S/P aortic valve replacement Plan continue Daptomycin (I have discussed this with Dr. Smiley) and may d/c Rifampin since ANGELIA is negative for valvular vegetations especially the prosthetic vavle - bacteremia is persistent and will need prolonged antibiotics (i.e 4 weeks) with weekly CRP, CBC, CMP, CPK repeat blood cx (done 08/17/2018) are now negative will continue to monitor clinically follow up CPK level
[2018-08-20] MEDS: Levalbuterol 1.25 MG/3 ML Inhal Soln UD IH SCH ×4 (01:27→19:33)
[2018-08-20] MEDS: Pantoprazole 40 mg EC Tab PO SCH (05:07)
[2018-08-20 06:30] LABS: HEMOGLOBIN 8.8 g/dL (14.0-18.0); MEAN CELL VOLUME 83.6 fl (80.0-105.0); MEAN CORPUSCULAR HEMOGLOBIN 27.2 pg (25.0-35.0); MEAN CORPUSCULAR HGB CONC 32.5 g/dl (31.0-37.0); RBC 3.24 10^6/uL (3.5-6.1); RED CELL DISTRIBUTION WIDTH 15.4 % (11.5-14.5); WHITE BLOOD COUNT 11.5 10^3/ul (4.5-11.0)
--- NOTE | 2018-08-20 06:38 | CP.PCM.PN ---
<Brenna Sow - Last Filed: 08/20/18 09:05> Subjective - Date & Time of Evaluation Date of Evaluation: 08/20/18 Time of Evaluation: 07:00 - Subjective Subjective: Medicine Progress Note for Toan Pimentel PGY3 Patient seen and examined at bedside. There were no acute overnight events as per nursing staff. Patient states he feels better today and had a BM yesterday and this morning. Patient reports mild pain in his neck, but denies headache, vision changes, chest pain, shortness of breath, nausea/vomiting/diarrhea, fever/chills, dysuria or hematuria. Objective - Vital Signs/Intake and Output Vital Signs (last 24 hours): Temp Pulse Resp BP Pulse Ox 97.9 F 79 19 114/60 99 08/19/18 18:00 08/19/18 18:00 08/19/18 18:00 08/19/18 18:00 08/19/18 18:00 Intake and Output: 08/19/18 08/20/18 18:59 06:59 Intake Total 1000 Output Total 100 Balance 900 - Medications Medications: Current Medications Acetaminophen (Tylenol 325mg Tab) 650 mg PO Q6H PRN PRN Reason: Pain, Mild (1-3) Last Admin: 08/20/18 01:24 Dose: 650 mg Aspirin (Aspirin Chewable) 81 mg PO DAILY [facility] Last Admin: 08/19/18 10:14 Dose: 81 mg Carvedilol (Coreg) 3.125 mg PO BID [facility] Last Admin: 08/19/18 17:34 Dose: 3.125 mg Gabapentin (Neurontin) 100 mg PO TID [facility]; Protocol Last Admin: 08/19/18 17:36 Dose: 100 mg Daptomycin 340 mg/ Sodium (Chloride) 100 mls @ 200 mls/hr IV Q24H [facility] Stop: 08/23/18 13:16 Last Admin: 08/19/18 13:53 Dose: 200 mls/hr Insulin Human Lispro (Humalog Low) 0 units SC ACHS [facility]; Protocol Last Admin: 08/19/18 21:23 Dose: Not Given Ketorolac Tromethamine (Toradol) 30 mg IVP Q6 PRN PRN Reason: Pain, moderate (4-7) Last Admin: 10/06/18 21:22 Dose: 30 mg Levalbuterol HCl (Xopenex) 1.25 mg IH [id number] [facility] Last Admin: 08/20/18 01:27 Dose: Not Given Lidocaine HCl (Lidocaine 2% Viscous) 15 ml MM Q3H PRN PRN Reason: Sore Throat Lisinopril (Zestril) 2.5 mg PO DAILY [facility] Last Admin: 08/19/18 10:16 Dose: 2.5 mg Multivitamins (Thera Tab) 1 tab PO 0800 [facility] Last Admin: 08/19/18 08:15 Dose: 1 tab Oxycodone/Acetaminophen (Percocet 5/325 Mg Tab) 1 tab PO Q6H PRN PRN Reason: Pain, severe (8-10) Stop: 08/20/18 13:56 Pantoprazole Sodium (Protonix Ec Tab) 40 mg PO 0600 [facility] Last Admin: 08/20/18 05:07 Dose: 40 mg Polyethylene Glycol (Miralax) 17 gm PO BID [facility] Last Admin: 08/19/18 17:35 Dose: 17 gm Rifampin (Rifampin Cap) 300 mg PO Q8H [facility]; Protocol Stop: 08/26/18 20:16 Last Admin: 08/20/18 05:07 Dose: 300 mg - Labs Labs: 08/17/18 06:00 08/17/18 06:00 PT 12.9 SECONDS (9.4-12.5) H 08/13/18 01:30 INR 1.13 08/13/18 01:30 APTT 33.0 Seconds (25.1-36.5) 08/13/18 01:30 - Constitutional Appears: No Acute Distress - Head Exam Head Exam: ATRAUMATIC, NORMAL INSPECTION, NORMOCEPHALIC - Eye Exam Eye Exam: Normal appearance, PERRL Pupil Exam: NORMAL ACCOMODATION - ENT Exam ENT Exam: Mucous Membranes Moist - Neck Exam Neck Exam: Full ROM, Normal Inspection, Tenderness (mild paraspinal ). absent: Lymphadenopathy - Respiratory Exam Respiratory Exam: Clear to Ausculation Bilateral, NORMAL BREATHING PATTERN. absent: Rales, Rhonchi, Wheezes - Cardiovascular Exam Cardiovascular Exam: REGULAR RHYTHM, +S1, +S2. absent: Gallop, Rubs, Murmur - GI/Abdominal Exam GI & Abdominal Exam: Soft, Normal Bowel Sounds. absent: Rigid, Tenderness, Mass, Rebound - Extremities Exam Extremities Exam: Normal Inspection. absent: Calf Tenderness, Pedal Edema - Neurological Exam Neurological Exam: Alert, Awake, CN II-XII Intact, Oriented x3 - Psychiatric Exam Psychiatric exam: Normal Affect, Normal Mood - Skin Skin Exam: Dry, Warm Assessment and Plan - Assessment and Plan (Free Text) Assessment: 1. Bacteremia - +4 blood cultures for Coag neg staph - ANGELIA negative for vegetations on AV valve 2. Back pain - Lumbar CT showed degenerative changes L2-L4 - Thoracic spine XR showed multilevel degenerative disc changes - MRI lumbar spine showed multi-level degen disc dz worse in L4-L5 w/ post disc bulge - MRI cervical/thoracic spine showed multi-level degen disc dz worse in C6-C7 3. CAD w/ recent CABG and prosthetic aortic valve replacement - last echo done 07/15/2018 4. Failure to thrive 5. Constipation 6. DM type II 7. Essential HTN Plan: Labs and imaging reviewed. Constipation resolved. Repeat blood cultures negative thus far. Continue Daptomycin and Rifampin as per ID. Continue BP meds Coreg and Lisinopril as per Cardiology. Patient has PICC and will need IV antibiotics for 4 weeks. He is tolerating his diet and pain is controlled. Possible plan for d/c to [facility] tomorrow. Case seen, discussed and reviewed with Dr. Flood. Toan Sow PGY3 <Jose Flood S - Last Filed: 08/20/18 19:12> Objective - Vital Signs/Intake and Output Vital Signs (last 24 hours): Temp Pulse Resp BP Pulse Ox 98.0 F 80 19 120/64 98 08/20/18 17:47 08/20/18 18:03 08/20/18 17:47 08/20/18 18:03 08/20/18 17:47 - Medications Medications: Current Medications Acetaminophen (Tylenol 325mg Tab) 650 mg PO Q6H PRN PRN Reason: Pain, Mild (1-3) Last Admin: 08/20/18 01:24 Dose: 650 mg Acetaminophen (Tylenol 325 Mg Supp) 325 mg RC Q6H PRN PRN Reason: Fever >100.4 F Last Admin: 08/20/18 13:37 Dose: 325 mg Aspirin (Aspirin Chewable) 81 mg PO DAILY [facility] Last Admin: 08/20/18 12:18 Dose: 81 mg Carvedilol (Coreg) 3.125 mg PO BID [facility] Last Admin: 08/20/18 18:03 Dose: 3.125 mg Gabapentin (Neurontin) 100 mg PO TID [facility]; Protocol Last Admin: 08/20/18 15:33 Dose: 100 mg Daptomycin 340 mg/ Sodium (Chloride) 100 mls @ 200 mls/hr IV Q24H [facility] Stop: 08/23/18 13:16 Last Admin: 08/20/18 16:20 Dose: 200 mls/hr Vancomycin HCl (Vancomycin 1gm) 1 gm in 250 mls @ 167 mls/hr IVPB Q12H [facility]; Protocol Last Admin: 08/20/18 15:35 Dose: 167 mls/hr Meropenem (Merrem Iv 1 Gm Premix) 1 gm in 50 mls @ 100 mls/hr IVPB Q8 [facility]; Protocol Sodium Chloride (Sodium Chloride 0.9%) 1,000 mls @ 75 mls/hr IV .[id number] [facility] Last Admin: 08/20/18 17:57 Dose: 75 mls/hr Insulin Human Lispro (Humalog Low) 0 units SC ACHS [facility]; Protocol Last Admin: 08/20/18 17:55 Dose: 2 units Ketorolac Tromethamine (Toradol) 30 mg IVP Q6 PRN PRN Reason: Pain, moderate (4-7) Last Admin: 08/19/18 21:22 Dose: 30 mg Levalbuterol HCl (Xopenex) 1.25 mg IH [id number] [facility] Last Admin: 08/20/18 14:50 Dose: 1.25 mg Lisinopril (Zestril) 2.5 mg PO DAILY [facility] Last Admin: 08/20/18 12:19 Dose: 2.5 mg Multivitamins (Thera Tab) 1 tab PO 0800 [facility] Last Admin: 08/20/18 08:16 Dose: 1 tab Oxycodone/Acetaminophen (Percocet 5/325 Mg Tab) 1 tab PO Q4H PRN PRN Reason: Pain, severe (8-10) Stop: 08/23/18 16:31 Pantoprazole Sodium (Protonix Ec Tab) 40 mg PO 0600 [facility] Last Admin: 08/20/18 05:07 Dose: 40 mg Polyethylene Glycol (Miralax) 17 gm PO BID [facility] Last Admin: 08/20/18 17:57 Dose: 17 gm - Labs Labs: 08/20/18 13:30 08/20/18 13:30 PT 12.9 SECONDS (9.4-12.5) H 08/13/18 01:30 INR 1.13 08/13/18 01:30 APTT 33.0 Seconds (25.1-36.5) 08/13/18 01:30 Assessment and Plan - Assessment and Plan (Free Text) Plan: Pt seen and examined by me. I have reviewed the note by the medical claims representative. The case was discussed and reviewed with the resident. I reviewed the medications and labs. Pt with sepsis. Spoke to today to give an update about the discharge. Pt is frail and at risk of having further complications. She will continue with Daptomycin at the [facility]. Pain is controlled. He could participate in PT more. He is tolerating his diet but could eat more calories. He does forgot the info that I have been updating him. He sometimes asks the same questions that were answered previously. He asks for results that have already been told to him. He has a poor prognosis for his ability to recover fully from his acute medical issues over the last few months. I did let the know about his PT prognosis.
[2018-08-20 06:44] LABS: ALB/GLOB RATIO 0.8 (1.1-1.8); ALBUMIN 2.6 g/dL (3.0-4.8); ALT/SGPT 51 U/L (7-56); AST/SGOT 24 U/L (17-59); BLOOD UREA NITROGEN 20 mg/dL (7-21); GFR NON-AFRICAN AMERICAN > 60
[2018-08-20] MEDS: Insulin Lispro (humaLOG) LOW Coverage SC SCH ×4 (08:08→21:20)
[2018-08-20] MEDS: Multivitamin Therapeutic Tab PO SCH (08:16)
[2018-08-20] MEDS: Oxycodone/Acetaminophen 5/325 mg Tab PO PRN ×3 (08:16→19:36)
--- NOTE | 2018-08-20 08:36 | CP.PCM.PN ---
Subjective - Date & Time of Evaluation Date of Evaluation: 08/20/18 Time of Evaluation: 06:40 - Subjective Subjective: Awake,alert,denies chest pain, lying in bed,no distress Reason for consultation and follow up: Cardiac evaluation of coronary artery d isease, status post CABG and valve replacement on 06/07/18 at [facility]. Admitted for and vomiting and no appetite and back pain. Seen and examined by me and Dr. Bearden Objective - Vital Signs/Intake and Output Vital Signs (last 24 hours): Temp Pulse Resp BP Pulse Ox 97.4 F L 75 18 150/72 100 08/20/18 08:19 08/20/18 08:19 08/20/18 08:19 08/20/18 08:19 08/20/18 08:19 Intake and Output: 08/20/18 08/20/18 06:59 18:59 Intake Total 1360 Output Total 500 Balance 860 - Medications Medications: Current Medications Acetaminophen (Tylenol 325mg Tab) 650 mg PO Q6H PRN PRN Reason: Pain, Mild (1-3) Last Admin: 08/20/18 01:24 Dose: 650 mg Aspirin (Aspirin Chewable) 81 mg PO DAILY [facility] Last Admin: 08/19/18 10:14 Dose: 81 mg Carvedilol (Coreg) 3.125 mg PO BID [facility] Last Admin: 08/19/18 17:34 Dose: 3.125 mg Gabapentin (Neurontin) 100 mg PO TID [facility]; Protocol Last Admin: 08/19/18 17:36 Dose: 100 mg Daptomycin 340 mg/ Sodium (Chloride) 100 mls @ 200 mls/hr IV Q24H [facility] Stop: 08/23/18 13:16 Last Admin: 08/19/18 13:53 Dose: 200 mls/hr Insulin Human Lispro (Humalog Low) 0 units SC ACHS [facility]; Protocol Last Admin: 08/20/18 08:08 Dose: 1 units Ketorolac Tromethamine (Toradol) 30 mg IVP Q6 PRN PRN Reason: Pain, moderate (4-7) Last Admin: 08/19/18 21:22 Dose: 30 mg Levalbuterol HCl (Xopenex) 1.25 mg IH [id number] [facility] Last Admin: 08/20/18 08:26 Dose: 1.25 mg Lisinopril (Zestril) 2.5 mg PO DAILY [facility] Last Admin: 08/19/18 10:16 Dose: 2.5 mg Multivitamins (Thera Tab) 1 tab PO 0800 [facility] Last Admin: 08/20/18 08:16 Dose: 1 tab Oxycodone/Acetaminophen (Percocet 5/325 Mg Tab) 1 tab PO Q6H PRN PRN Reason: Pain, severe (8-10) Stop: 08/20/18 13:56 Last Admin: 08/20/18 08:16 Dose: 1 tab Pantoprazole Sodium (Protonix Ec Tab) 40 mg PO 0600 [facility] Last Admin: 08/20/18 05:07 Dose: 40 mg Polyethylene Glycol (Miralax) 17 gm PO BID [facility] Last Admin: 08/19/18 17:35 Dose: 17 gm Rifampin (Rifampin Cap) 300 mg PO Q8H [facility]; Protocol Stop: 08/26/18 20:16 Last Admin: 08/20/18 05:07 Dose: 300 mg - Labs Labs: 08/20/18 05:30 08/20/18 05:30 PT 12.9 SECONDS (9.4-12.5) H 08/13/18 01:30 INR 1.13 08/13/18 01:30 APTT 33.0 Seconds (25.1-36.5) 08/13/18 01:30 - Constitutional Appears: Non-toxic, No Acute Distress - Head Exam Head Exam: NORMAL INSPECTION, NORMOCEPHALIC - Eye Exam Eye Exam: Normal appearance - ENT Exam ENT Exam: Mucous Membranes Dry - Respiratory Exam Respiratory Exam: Decreased Breath Sounds, Clear to Ausculation Bilateral, NORMAL BREATHING PATTERN - Cardiovascular Exam Cardiovascular Exam: +S1, +S2 - GI/Abdominal Exam GI & Abdominal Exam: Soft, Normal Bowel Sounds - Extremities Exam Extremities Exam: Normal Capillary Refill Additional comments: no edema - Neurological Exam Neurological Exam: Alert, Awake, Oriented x3 - Skin Skin Exam: Dry, Intact, Normal Color, Warm Assessment and Plan - Assessment and Plan (Free Text) Assessment: A 73 year old male who was brought to the ER due to nausea and vomiting,loss of appetite and back pain. History of diabetes, coronary artery disease with recent surgery of CABG and aortic valve replacement at [facility] last May 2018.[place] [facility] [place] severe [place] requiring blood transfusion. GI work up was done. EKG- lateral ischemic inferolateral T wave changes. Troponin negative. Patient was on Xarelto after open heart surgery but discontinued due to GI bleeding. Patient's heart rate is normal sinus rhythm. No need to restart Xarelto.Also patient had a bioprosthetic aortic valve (no need to anticoagulate as per surgeon Dr. Siddiqui). Hold Xarelto due to history of GI bleeding,so far no arrythmias maintained on normal sinus rhythm, bioprosthetic aortic valve (no anticoagulation needed) Blood cultures came back positive,ANGELIA done, ruled out endocarditis, no vegetation, normal functioning of the bioprosthetic aortic valve, Severe mitral regurgitation, moderate tricuspid regurgitation, RVSP 38 mmHg, small pericardial effusion.ID on consult. on IV antibiotics for bacteremia. Plan: No distress, denies chest pain Heart rate and blood pressure stable Cardiac status stable, ANGELIA negative for vegetations/endocarditis Bacteremia, Continue IV antibiotics as per ID On ASA 81 mg daily,Coreg 3.125 mg BID,Zestril 2.5 mg daily, Lopressor 50 mg every 12 hours Continue current treatment Continue current medications Physical therapy No appetite Nutritional support Chart reviewed Will follow up Plan and treatment discussed with Dr. Bearden
[2018-08-20] MEDS: POLYETHYLENE GLYCOL 3350 17 GM/Dose PACKET PO SCH ×2 (12:19→17:57)
[2018-08-20 13:54] LABS: URINE APPEARANCE CLOUDY (CLEAR); URINE BILIRUBIN NEGATIVE (NEGATIVE); URINE COLOR ORANGE (YELLOW); URINE GLUCOSE (UA) 100 mg/dL (NEGATIVE)
[2018-08-20 13:55] LABS: PH,URINE 5.5 (4.7-8.0); URINE BLOOD NEGATIVE (NEGATIVE); URINE LEUKOCYTE ESTERASE TRACE Leu/uL (NEGATIVE); URINE PROTEIN TRACE mg/dL (<30 mg/dL)
[2018-08-20 14:06] LABS: HEMOGLOBIN 10.4 g/dL (14.0-18.0); RBC 3.79 10^6/uL (3.5-6.1); WHITE BLOOD COUNT 20.7 10^3/ul (4.5-11.0)
[2018-08-20 14:07] LABS: MEAN CELL VOLUME 84.7 fl (80.0-105.0); MEAN CORPUSCULAR HEMOGLOBIN 27.4 pg (25.0-35.0); MEAN CORPUSCULAR HGB CONC 32.4 g/dl (31.0-37.0); MEAN PLATELET VOLUME 9.4 fl (7.0-11.0); RED CELL DISTRIBUTION WIDTH 15.3 % (11.5-14.5)
[2018-08-20 14:17] LABS: ALB/GLOB RATIO 0.9 (1.1-1.8); ALBUMIN 3.2 g/dL (3.0-4.8); ALT/SGPT 49 U/L (7-56); AST/SGOT 21 U/L (17-59); BLOOD UREA NITROGEN 19 mg/dL (7-21); CALCIUM 9.3 mg/dL (8.4-10.5); GFR NON-AFRICAN AMERICAN > 60
[2018-08-20 14:19] LABS: VENOUS BLOOD GAS BASE EXCESS -3.8 mmol/L (0.0-2.0); VENOUS BLOOD GAS PO2 41 mm/Hg (30-55); VENOUS BLOOD PH 7.35 (7.32-7.43)
[2018-08-20] MEDS ORDERED: Sodium Chloride 0.9% 2,000 ML IV STA (14:25)
[2018-08-20 14:26] LABS: URINE RBC 0 - 2 /hpf (0-2)
--- NOTE | 2018-08-20 14:26 | RAD ---
Date of service: 08/20/2018 HISTORY: r/o pna COMPARISON: 08/13/2018 FINDINGS: LUNGS: No active pulmonary disease. Linear atelectasis at the right lung base PLEURA: No significant pleural effusion identified, no pneumothorax apparent. CARDIOVASCULAR: Normal. OSSEOUS STRUCTURES: No significant abnormalities. VISUALIZED UPPER ABDOMEN: Normal. OTHER FINDINGS: None. IMPRESSION: No active disease.
[2018-08-20 14:27] LABS: URINE BACTERIA MANY (NEG)
[2018-08-20] MEDS ORDERED: Sodium Chloride 0.9% 100 ML IV SCH ×2 (14:30→14:52)
[2018-08-20] MEDS ORDERED: Meropenem IV 1 gm in NS 1 GM/50 ML BAG IVPB SCH (14:45)
[2018-08-20] MEDS: Vancomycin 1gm in NS 250ml 1 GM/250 ML BAG IVPB SCH (15:35)
--- NOTE | 2018-08-20 15:41 | PCM.SEPTIC ---
Sepsis Progress Note - Reassessment Type Date of Evaluation: 08/20/18 Time of Evaluation: 14:33 Reassessment Type: Non-invasive reassessment - Non Invasive Reassessment Were the most recent vital sign reviewed: Yes Vital Sign (Latest): Temp Pulse Resp BP Pulse Ox 100.2 F H 75 18 150/72 100 08/20/18 13:37 08/20/18 12:19 08/20/18 08:19 08/20/18 12:19 08/20/18 08:19 Cardiovascular: Yes: Regular Rate, Rhythm, Tachycardia Respiratory: Yes: Normal Breath Sounds. No: Respiratory Distress Capillary Refill: Normal (Less than 2 sec) Skin: Normal Color, Warm Fluid Challenge performed: Yes
[2018-08-20] MEDS ORDERED: Sodium Chloride 0.9% 1,000 ML IV SCH (16:15)
--- NOTE | 2018-08-20 16:30 | CP.PCM.PN ---
Subjective - Date & Time of Evaluation Date of Evaluation: 08/20/18 Time of Evaluation: 16:15 - Subjective Subjective: Patient is feeling weak, has some nausea and vomiting, systolic blood pressure was in the 90's, no fevers. Objective - Vital Signs/Intake and Output Vital Signs (last 24 hours): Temp Pulse Resp BP Pulse Ox 97.4 F L 75 18 150/72 100 08/20/18 08:19 08/20/18 08:19 08/20/18 08:19 08/20/18 08:19 08/20/18 08:19 Intake and Output: 08/20/18 08/20/18 06:59 18:59 Intake Total 1360 Output Total 500 Balance 860 - Medications Medications: Current Medications Acetaminophen (Tylenol 325mg Tab) 650 mg PO Q6H PRN PRN Reason: Pain, Mild (1-3) Last Admin: 08/20/18 01:24 Dose: 650 mg Aspirin (Aspirin Chewable) 81 mg PO DAILY [facility] Last Admin: 08/19/18 10:14 Dose: 81 mg Carvedilol (Coreg) 3.125 mg PO BID [facility] Last Admin: 08/19/18 17:34 Dose: 3.125 mg Gabapentin (Neurontin) 100 mg PO TID [facility]; Protocol Last Admin: 08/19/18 17:36 Dose: 100 mg Daptomycin 340 mg/ Sodium (Chloride) 100 mls @ 200 mls/hr IV Q24H [facility] Stop: 08/23/18 13:16 Last Admin: 08/19/18 13:53 Dose: 200 mls/hr Insulin Human Lispro (Humalog Low) 0 units SC ACHS [facility]; Protocol Last Admin: 08/20/18 08:08 Dose: 1 units Ketorolac Tromethamine (Toradol) 30 mg IVP Q6 PRN PRN Reason: Pain, moderate (4-7) Last Admin: 08/19/18 21:22 Dose: 30 mg Levalbuterol HCl (Xopenex) 1.25 mg IH [id number] [facility] Last Admin: 08/20/18 08:26 Dose: 1.25 mg Lisinopril (Zestril) 2.5 mg PO DAILY [facility] Last Admin: 08/19/18 10:16 Dose: 2.5 mg Multivitamins (Thera Tab) 1 tab PO 0800 [facility] Last Admin: 08/20/18 08:16 Dose: 1 tab Oxycodone/Acetaminophen (Percocet 5/325 Mg Tab) 1 tab PO Q6H PRN PRN Reason: Pain, severe (8-10) Stop: 08/20/18 13:56 Last Admin: 08/20/18 08:16 Dose: 1 tab Pantoprazole Sodium (Protonix Ec Tab) 40 mg PO 0600 [facility] Last Admin: 08/20/18 05:07 Dose: 40 mg Polyethylene Glycol (Miralax) 17 gm PO BID [facility] Last Admin: 08/19/18 17:35 Dose: 17 gm Rifampin (Rifampin Cap) 300 mg PO Q8H [facility]; Protocol Stop: 08/26/18 20:16 Last Admin: 08/20/18 05:07 Dose: 300 mg - Labs Labs: 08/20/18 05:30 08/20/18 05:30 PT 12.9 SECONDS (9.4-12.5) H 08/13/18 01:30 INR 1.13 08/13/18 01:30 APTT 33.0 Seconds (25.1-36.5) 08/13/18 01:30 - Constitutional Appears: Chronically Ill - Head Exam Head Exam: NORMAL INSPECTION - Respiratory Exam Respiratory Exam: Decreased Breath Sounds - Cardiovascular Exam Cardiovascular Exam: +S1, +S2 - GI/Abdominal Exam GI & Abdominal Exam: Soft. absent: Tenderness Assessment and Plan - Assessment and Plan (Free Text) Plan: Assessment sepsis from coagulase negative staph bacteremia R/O endocarditis in this patient with aortic valve replacement; new onset SIRS with N/V, R/O sepsis from intra- abdominal infection DM CAD S/P CABG S/P aortic valve replacement Plan continue Daptomycin (I have discussed this with Dr. Smiley) and may d/c Rifampin since ANGELIA is negative for valvular vegetations especially the prosthetic valve - bacteremia is persistent and will need prolonged antibiotics (i.e 4 weeks) with weekly CRP, CBC, CMP, CPK will repeat blood and urine cx and check CT A/P, add Merrem and Vancomycin for now; CXR today is clear will continue to monitor clinically follow up CPK level
[2018-08-20 17:15] LABS: VENOUS BLOOD GAS BASE EXCESS -0.5 mmol/L (0.0-2.0); VENOUS BLOOD GAS PO2 51 mm/Hg (30-55); VENOUS BLOOD PH 7.44 (7.32-7.43)
[2018-08-20] MEDS: Meropenem IV 1 gm in NS 1 GM/50 ML BAG IVPB SCH (21:19)
[2018-08-21] MEDS: Levalbuterol 1.25 MG/3 ML Inhal Soln UD IH SCH ×2 (01:24→08:27)
[2018-08-21] MEDS: Vancomycin 1gm in NS 250ml 1 GM/250 ML BAG IVPB SCH ×2 (01:45→15:32)
[2018-08-21] MEDS: Oxycodone/Acetaminophen 5/325 mg Tab PO PRN ×3 (03:44→17:38)
[2018-08-21] MEDS: Pantoprazole 40 mg EC Tab PO SCH (05:09)
[2018-08-21] MEDS: Meropenem IV 1 gm in NS 1 GM/50 ML BAG IVPB SCH ×3 (05:09→21:01)
[2018-08-21 06:02] LABS: HEMOGLOBIN 8.2 g/dL (14.0-18.0); MEAN CELL VOLUME 84.5 fl (80.0-105.0); MEAN CORPUSCULAR HEMOGLOBIN 27.7 pg (25.0-35.0); MEAN CORPUSCULAR HGB CONC 32.8 g/dl (31.0-37.0); RBC 2.96 10^6/uL (3.5-6.1); RED CELL DISTRIBUTION WIDTH 15.5 % (11.5-14.5); WHITE BLOOD COUNT 16.7 10^3/ul (4.5-11.0)
--- NOTE | 2018-08-21 06:25 | CP.PCM.PN ---
<Brenna Sow - Last Filed: 08/21/18 10:06> Subjective - Date & Time of Evaluation Date of Evaluation: 08/21/18 Time of Evaluation: 07:00 - Subjective Subjective: Medicine Progress Note For Toan Pimentel PGY3 Patient seen and examined at bedside. Yesterday patient had fever of 101.8 with elevated lactate. Code sepsis called and given IV fluids. Patient did not have any other episodes of fever. He feels much better today. Patient reports having some back pain, he denies chest pain, shortness of breath, nause a/vomiting/diarrhea, fever/chills, numbness/tingling, dysuria/hematuria. Objective - Vital Signs/Intake and Output Vital Signs (last 24 hours): Temp Pulse Resp BP Pulse Ox 98.0 F 69 19 120/64 98 08/20/18 17:47 08/21/18 05:42 08/20/18 17:47 08/20/18 18:03 08/20/18 17:47 Intake and Output: 08/20/18 08/21/18 18:59 06:59 Intake Total 2110 Output Total 101 Balance 2008 - Medications Medications: Current Medications Acetaminophen (Tylenol 325mg Tab) 650 mg PO Q6H PRN PRN Reason: Pain, Mild (1-3) Last Admin: 08/21/18 01:40 Dose: 650 mg Acetaminophen (Tylenol 325 Mg Supp) 325 mg RC Q6H PRN PRN Reason: Fever >100.4 F Last Admin: 08/20/18 13:37 Dose: 325 mg Aspirin (Aspirin Chewable) 81 mg PO DAILY [facility] Last Admin: 08/20/18 12:18 Dose: 81 mg Carvedilol (Coreg) 3.125 mg PO BID [facility] Last Admin: 08/20/18 18:03 Dose: 3.125 mg Gabapentin (Neurontin) 100 mg PO TID [facility]; Protocol Last Admin: 08/20/18 19:36 Dose: 100 mg Daptomycin 340 mg/ Sodium (Chloride) 100 mls @ 200 mls/hr IV Q24H [facility] Stop: 08/23/18 13:16 Last Admin: 08/20/18 16:20 Dose: 200 mls/hr Vancomycin HCl (Vancomycin 1gm) 1 gm in 250 mls @ 167 mls/hr IVPB Q12H [facility]; Protocol Last Admin: 08/21/18 01:45 Dose: 167 mls/hr Meropenem (Merrem Iv 1 Gm Premix) 1 gm in 50 mls @ 100 mls/hr IVPB Q8 [facility]; Protocol Last Admin: 08/21/18 05:09 Dose: 100 mls/hr Sodium Chloride (Sodium Chloride 0.9%) 1,000 mls @ 75 mls/hr IV .[id number] [facility] Last Admin: 08/20/18 17:57 Dose: 75 mls/hr Insulin Human Lispro (Humalog Low) 0 units SC ACHS [facility]; Protocol Last Admin: 08/20/18 21:20 Dose: Not Given Ketorolac Tromethamine (Toradol) 30 mg IVP Q6 PRN PRN Reason: Pain, moderate (4-7) Last Admin: 08/19/18 21:22 Dose: 30 mg Levalbuterol HCl (Xopenex) 1.25 mg IH [id number] [facility] Last Admin: 08/21/18 01:24 Dose: Not Given Lisinopril (Zestril) 2.5 mg PO DAILY [facility] Last Admin: 08/20/18 12:19 Dose: 2.5 mg Multivitamins (Thera Tab) 1 tab PO 0800 [facility] Last Admin: 08/20/18 08:16 Dose: 1 tab Oxycodone/Acetaminophen (Percocet 5/325 Mg Tab) 1 tab PO Q4H PRN PRN Reason: Pain, severe (8-10) Stop: 08/23/18 16:31 Last Admin: 08/21/18 03:44 Dose: 1 tab Pantoprazole Sodium (Protonix Ec Tab) 40 mg PO 0600 [facility] Last Admin: 08/21/18 05:09 Dose: 40 mg Polyethylene Glycol (Miralax) 17 gm PO BID [facility] Last Admin: 08/20/18 17:57 Dose: 17 gm - Labs Labs: 08/21/18 05:30 08/20/18 13:30 PT 12.9 SECONDS (9.4-12.5) H 08/13/18 01:30 INR 1.13 08/13/18 01:30 APTT 33.0 Seconds (25.1-36.5) 08/13/18 01:30 - Constitutional Appears: No Acute Distress - Head Exam Head Exam: ATRAUMATIC, NORMAL INSPECTION, NORMOCEPHALIC - Eye Exam Eye Exam: Normal appearance, PERRL Pupil Exam: NORMAL ACCOMODATION, PERRL - ENT Exam ENT Exam: Mucous Membranes Moist - Neck Exam Neck Exam: Full ROM - Respiratory Exam Respiratory Exam: Clear to Ausculation Bilateral, NORMAL BREATHING PATTERN. absent: Rales, Rhonchi, Wheezes - Cardiovascular Exam Cardiovascular Exam: REGULAR RHYTHM, +S1, +S2, Murmur. absent: Gallop, Rubs - GI/Abdominal Exam GI & Abdominal Exam: Soft, Normal Bowel Sounds. absent: Rigid, Tenderness, Mass, Rebound - Extremities Exam Extremities Exam: Normal Capillary Refill, Normal Inspection. absent: Calf Tenderness, Pedal Edema - Neurological Exam Neurological Exam: Alert, CN II-XII Intact, Oriented x3 - Psychiatric Exam Psychiatric exam: Normal Affect, Normal Mood - Skin Skin Exam: Dry, Intact, Warm Assessment and Plan - Assessment and Plan (Free Text) Assessment: 1. Sepsis - secondary to UTI on top of underlying bacteremia - UA positive - repeat cultures pending 2. Bacteremia - +4 blood cultures for Coag neg staph - ANGELIA negative for vegetations on AV valve 3. Back pain - Lumbar CT showed degenerative changes L2-L4 - Thoracic spine XR showed multilevel degenerative disc changes - MRI lumbar spine showed multi-level degen disc dz worse in L4-L5 w/ post disc bulge - MRI cervical/thoracic spine showed multi-level degen disc dz worse in C6-C7 4. CAD w/ recent CABG and prosthetic aortic valve replacement - last echo done 07/15/2018 5. Failure to thrive 6. Constipation- resolved 7. DM type II 8. Essential HTN Plan: Labs and imaging reviewed. Repeat septic work up pending. CT AP done pending final read. ID on consult. Patient placed on Merrem, Vanc and Dapto. Lactate is now normal and patient afebrile. Continue Coreg and Lisinopril for HTN. Pain is controlled and patient is tolerating diet. Encouraged patient to participate in physical therapy and encouraged to eat more. Cardiology is on consult. Plan to d/c to [facility] once medically stable. Case seen, discussed and reviewed with Dr. Flood. Toan Sow PGY3 <Jose Flood S - Last Filed: 08/22/18 19:47> Objective - Vital Signs/Intake and Output Vital Signs (last 24 hours): Temp Pulse Resp BP Pulse Ox 98 F 87 20 135/76 96 08/22/18 08:46 08/22/18 09:57 08/22/18 08:46 08/22/18 09:57 08/22/18 08:46 - Labs Labs: 08/22/18 06:10 08/22/18 06:10 PT 12.9 SECONDS (9.4-12.5) H 08/13/18 01:30 INR 1.13 08/13/18 01:30 APTT 33.0 Seconds (25.1-36.5) 08/13/18 01:30 Assessment and Plan - Assessment and Plan (Free Text) Plan: Pt seen and examined by me. This is a late entry.I have reviewed the note by the medical facilities section director. The case was discussed and reviewed with the resident. I reviewed the medications and labs. Pt with sepsis and on IV Abx. Pt is being seen by ID. He will need continue with 4 weeks of Abx. Pt is on Lisinopril for HTN. He will go to [facility]. Fever resolved. Eating well.
[2018-08-21 07:01] LABS: BLOOD UREA NITROGEN 17 mg/dL (7-21); CALCIUM 8.2 mg/dL (8.4-10.5); GFR NON-AFRICAN AMERICAN > 60
--- NOTE | 2018-08-21 07:55 | CP.PCM.PN ---
Subjective - Date & Time of Evaluation Date of Evaluation: 08/21/18 Time of Evaluation: 06:50 - Subjective Subjective: Awake,alert, lying in bed,no distress,feels okay Reason for consultation and follow up: Cardiac evaluation of coronary artery disease, status post CABG and valve replacement on 06/07/18 at [facility]. Admitted for and vomiting and no appetite and back pain. Seen and examined by me and Dr. Bearden Objective - Vital Signs/Intake and Output Vital Signs (last 24 hours): Temp Pulse Resp BP Pulse Ox 98.0 F 69 19 120/64 98 08/20/18 17:47 08/21/18 05:42 08/20/18 17:47 08/20/18 18:03 08/20/18 17:47 Intake and Output: 08/21/18 08/21/18 06:59 18:59 Intake Total 3035 Output Total 576 Balance 2459 - Medications Medications: Current Medications Acetaminophen (Tylenol 325mg Tab) 650 mg PO Q6H PRN PRN Reason: Pain, Mild (1-3) Last Admin: 08/21/18 01:40 Dose: 650 mg Acetaminophen (Tylenol 325 Mg Supp) 325 mg RC Q6H PRN PRN Reason: Fever >100.4 F Last Admin: 08/20/18 13:37 Dose: 325 mg Aspirin (Aspirin Chewable) 81 mg PO DAILY [facility] Last Admin: 08/20/18 12:18 Dose: 81 mg Carvedilol (Coreg) 3.125 mg PO BID [facility] Last Admin: 08/20/18 18:03 Dose: 3.125 mg Gabapentin (Neurontin) 100 mg PO TID [facility]; Protocol Last Admin: 08/20/18 19:36 Dose: 100 mg Daptomycin 340 mg/ Sodium (Chloride) 100 mls @ 200 mls/hr IV Q24H [facility] Stop: 08/23/18 13:16 Last Admin: 08/20/18 16:20 Dose: 200 mls/hr Vancomycin HCl (Vancomycin 1gm) 1 gm in 250 mls @ 167 mls/hr IVPB Q12H [facility]; Protocol Last Admin: 08/21/18 01:45 Dose: 167 mls/hr Meropenem (Merrem Iv 1 Gm Premix) 1 gm in 50 mls @ 100 mls/hr IVPB Q8 [facility]; Protocol Last Admin: 08/21/18 05:09 Dose: 100 mls/hr Sodium Chloride (Sodium Chloride 0.9%) 1,000 mls @ 75 mls/hr IV .[id number] [facility] Last Admin: 08/20/18 17:57 Dose: 75 mls/hr Insulin Human Lispro (Humalog Low) 0 units SC ACHS [facility]; Protocol Last Admin: 08/20/18 21:20 Dose: Not Given Ketorolac Tromethamine (Toradol) 30 mg IVP Q6 PRN PRN Reason: Pain, moderate (4-7) Last Admin: 08/19/18 21:22 Dose: 30 mg Levalbuterol HCl (Xopenex) 1.25 mg IH [id number] [facility] Last Admin: 08/21/18 01:24 Dose: Not Given Lisinopril (Zestril) 2.5 mg PO DAILY [facility] Last Admin: 08/20/18 12:19 Dose: 2.5 mg Multivitamins (Thera Tab) 1 tab PO 0800 [facility] Last Admin: 08/20/18 08:16 Dose: 1 tab Oxycodone/Acetaminophen (Percocet 5/325 Mg Tab) 1 tab PO Q4H PRN PRN Reason: Pain, severe (8-10) Stop: 08/23/18 16:31 Last Admin: 08/21/18 03:44 Dose: 1 tab Pantoprazole Sodium (Protonix Ec Tab) 40 mg PO 0600 [facility] Last Admin: 08/21/18 05:09 Dose: 40 mg Polyethylene Glycol (Miralax) 17 gm PO BID [facility] Last Admin: 08/20/18 17:57 Dose: 17 gm - Labs Labs: 08/21/18 05:30 08/21/18 05:30 PT 12.9 SECONDS (9.4-12.5) H 08/13/18 01:30 INR 1.13 08/13/18 01:30 APTT 33.0 Seconds (25.1-36.5) 08/13/18 01:30 - Constitutional Appears: Non-toxic, No Acute Distress - Head Exam Head Exam: NORMOCEPHALIC - Eye Exam Eye Exam: Normal appearance - ENT Exam ENT Exam: Mucous Membranes Moist - Respiratory Exam Respiratory Exam: Decreased Breath Sounds, Clear to Ausculation Bilateral, NORMAL BREATHING PATTERN - Cardiovascular Exam Cardiovascular Exam: +S1, +S2 - Extremities Exam Extremities Exam: Full ROM, Normal Capillary Refill - Neurological Exam Neurological Exam: Alert, Awake, Oriented x3 - Psychiatric Exam Psychiatric exam: Normal Affect, Normal Mood - Skin Skin Exam: Dry, Intact, Normal Color, Warm Assessment and Plan - Assessment and Plan (Free Text) Assessment: A 73 year old male who was brought to the ER due to nausea and vomiting,loss of appetite and back pain. History of diabetes, coronary artery disease with recent surgery of CABG and aortic valve replacement at [facility] last May 2018.Recently discharged from [facility] [place] due to severe anemia requiring blood transfusion. GI work up was done. EKG- lateral ischemic inferolateral T wave changes. Troponin negative. Patient was on Xarelto after open heart surgery but discontinued due to GI bleeding. Patient's heart rate is normal sinus rhythm. No need to restart Xarelto.Also patient had a bioprosthetic aortic valve (no need to anticoagulate as per surgeon Dr. Siddiqui). Hold Xarelto due to history of GI bleeding,so far no arrythmias maintained on normal sinus rhythm, bioprosthetic aortic valve (no anticoagulation needed) Blood cultures came back positive,ANGELIA done, ruled out endocarditis, no vegetation, normal functioning of the bioprosthetic aortic valve, Severe mitral regurgitation, moderate tricuspid regurgitation, RVSP 38 mmHg, small pericardial effusion.ID on consult. on IV antibiotics for bacteremia. Plan: Elevated temperature yesterday with bouts of nausea and vomiting Code sepsis initiated. IV bolus administered, Tylenol for fever Patient already on antibiotics. Today, No distress, denies chest pain Heart rate and blood pressure stable Cardiac status stable, ANGELIA negative for vegetations/endocarditis Bacteremia, Continue IV antibiotics as per ID On ASA 81 mg daily,Coreg 3.125 mg BID,Zestril 2.5 mg daily, Lopressor 50 mg every 12 hours Continue current treatment Continue current medications Physical therapy No appetite, encouraged intake of Ensure Nutritional support Chart reviewed Will follow up Plan and treatment discussed with Dr. Bearden
[2018-08-21] MEDS: Insulin Lispro (humaLOG) LOW Coverage SC SCH ×4 (08:02→22:42)
--- NOTE | 2018-08-21 08:27 | PN ---
DATE: 08/19/2018 REASON FOR CONSULTATION AND FOLLOWUP: Coronary artery disease status post CABG, status post aortic valve replacement on 06/07/2018, persistently bacteremia. Yesterday, the patient underwent ANGELIA negative for endocarditis. RECOMMENDATION: Continue broad-spectrum antibiotic. Follow up repeat blood culture. Consider the gallium scan if source could not be found. We will discuss with ID. This note is an addendum to initial dictated by our nurse practitioner, Annika Lindsey. Bala Bearden MD
--- NOTE | 2018-08-21 09:12 | PN ---
DATE: 08/20/2018 SUBJECTIVE: The patient underwent ANGELIA, negative for endocarditis, preserved LV function. Repeat blood culture dated from 08/18/2018 is negative. RECOMMENDATIONS: Continue IV antibiotic, possible discharge to rehab facility. Source of infection could not be found. If needed, consider a gallium scan, but the ANGELIA was negative for endocarditis. This note is in addition to our note dictated by the nurse practitioner, Annika Lindsey. We will follow with you. [facility] status is stable. Bala Bearden MD
[2018-08-21 09:18] LABS: MEAN CELL VOLUME 84.1 fl (80.0-105.0); MEAN CORPUSCULAR HEMOGLOBIN 26.9 pg (25.0-35.0); RBC 3.34 10^6/uL (3.5-6.1); RED CELL DISTRIBUTION WIDTH 15.6 % (11.5-14.5); WHITE BLOOD COUNT 16.3 10^3/ul (4.5-11.0)
[2018-08-21] MEDS: Multivitamin Therapeutic Tab PO SCH (09:35)
[2018-08-21] MEDS: POLYETHYLENE GLYCOL 3350 17 GM/Dose PACKET PO SCH ×2 (09:36→17:38)
--- NOTE | 2018-08-21 10:44 | CT ---
Date of service: 08/20/2018 PROCEDURE: CT Abdomen and Pelvis without intravenous contrast HISTORY: sepsis/uti COMPARISON: None. TECHNIQUE: Without contrast.. Contrast dose: Radiation dose: Total exam DLP = 547 mGy-cm. This CT exam was performed using one or more of the following dose reduction techniques: Automated exposure control, adjustment of the mA and/or kV according to patient size, and/or use of iterative reconstruction technique. FINDINGS: LOWER THORAX: There is a pericardial effusion measuring 19 mm in thickness. Small nodule in the right middle lobe LIVER: Unremarkable. No gross lesion or ductal dilatation. GALLBLADDER AND BILE DUCTS: Unremarkable. PANCREAS: Unremarkable. No gross lesion or ductal dilatation. SPLEEN: Unremarkable. ADRENALS: Unremarkable. No mass. KIDNEYS AND URETERS: Unremarkable. No hydronephrosis. No solid mass. VASCULATURE: Unremarkable. No aortic aneurysm. BOWEL: Unremarkable. No obstruction. No gross mural thickening. [id number] constipation APPENDIX: Unremarkable. Normal appendix. PERITONEUM: Unremarkable. No free fluid. No free air. LYMPH NODES: Unremarkable. No enlarged lymph nodes. BLADDER: Unremarkable. REPRODUCTIVE: Unremarkable. BONES: No acute fracture. OTHER FINDINGS: The report concurs with the preliminary [facility] report IMPRESSION: No acute intra-abdominal findings. Moderate size pericardial effusion
--- NOTE | 2018-08-21 10:46 | CP.PCM.PN ---
<Shelby Reid - Last Filed: 08/21/18 13:58> Subjective - Date & Time of Evaluation Date of Evaluation: 08/21/18 Time of Evaluation: 08:00 - Subjective Subjective: PGY-3 Resident ID progress note for Dr. Mcghee Code sepsis was called yesterday due to new SIRS criteria. Afebrile overnight. States the back pain is improving. Denies abdominal pain, no nausea, vomiting or diarrhea. Objective - Vital Signs/Intake and Output Vital Signs (last 24 hours): Temp Pulse Resp BP Pulse Ox 97.4 F L 71 20 123/69 99 08/21/18 08:20 08/21/18 09:35 08/21/18 08:20 08/21/18 09:35 08/21/18 08:20 Intake and Output: 08/21/18 08/21/18 06:59 18:59 Intake Total 3035 Output Total 576 Balance 2459 - Medications Medications: Current Medications Acetaminophen (Tylenol 325mg Tab) 650 mg PO Q6H PRN PRN Reason: Pain, Mild (1-3) Last Admin: 08/21/18 01:40 Dose: 650 mg Acetaminophen (Tylenol 325 Mg Supp) 325 mg RC Q6H PRN PRN Reason: Fever >100.4 F Last Admin: 08/20/18 13:37 Dose: 325 mg Aspirin (Aspirin Chewable) 81 mg PO DAILY [facility] Last Admin: 08/21/18 09:35 Dose: 81 mg Carvedilol (Coreg) 3.125 mg PO BID [facility] Last Admin: 08/21/18 09:35 Dose: 3.125 mg Gabapentin (Neurontin) 100 mg PO TID [facility]; Protocol Last Admin: 08/21/18 09:35 Dose: 100 mg Daptomycin 340 mg/ Sodium (Chloride) 100 mls @ 200 mls/hr IV Q24H [facility] Stop: 08/23/18 13:16 Last Admin: 08/20/18 16:20 Dose: 200 mls/hr Vancomycin HCl (Vancomycin 1gm) 1 gm in 250 mls @ 167 mls/hr IVPB Q12H [facility]; Protocol Last Admin: 08/21/18 01:45 Dose: 167 mls/hr Meropenem (Merrem Iv 1 Gm Premix) 1 gm in 50 mls @ 100 mls/hr IVPB Q8 [facility]; Protocol Last Admin: 08/21/18 05:09 Dose: 100 mls/hr Insulin Human Lispro (Humalog Low) 0 units SC ACHS [facility]; Protocol Last Admin: 08/21/18 08:02 Dose: Not Given Ketorolac Tromethamine (Toradol) 30 mg IVP Q6 PRN PRN Reason: Pain, moderate (4-7) Last Admin: 08/19/18 21:22 Dose: 30 mg Lisinopril (Zestril) 2.5 mg PO DAILY [facility] Last Admin: 08/21/18 09:35 Dose: 2.5 mg Multivitamins (Thera Tab) 1 tab PO 0800 [facility] Last Admin: 08/21/18 09:35 Dose: 1 tab Oxycodone/Acetaminophen (Percocet 5/325 Mg Tab) 1 tab PO Q4H PRN PRN Reason: Pain, severe (8-10) Stop: 08/23/18 16:31 Last Admin: 08/21/18 09:39 Dose: 1 tab Polyethylene Glycol (Miralax) 17 gm PO BID [facility] Last Admin: 08/21/18 09:36 Dose: 17 gm - Labs Labs: 08/21/18 07:44 08/21/18 05:30 PT 12.9 SECONDS (9.4-12.5) H 08/13/18 01:30 INR 1.13 08/13/18 01:30 APTT 33.0 Seconds (25.1-36.5) 08/13/18 01:30 - Constitutional Appears: No Acute Distress, Older Than Stated Age, Cachectic, Chronically Ill - Head Exam Head Exam: ATRAUMATIC, NORMAL INSPECTION, NORMOCEPHALIC - Eye Exam Eye Exam: Normal appearance - ENT Exam ENT Exam: Mucous Membranes Dry - Neck Exam Neck Exam: Tenderness Additional comments: old surgical like scar on the right aspect of the neck - Respiratory Exam Respiratory Exam: Clear to Ausculation Bilateral, NORMAL BREATHING PATTERN. absent: Rales, Rhonchi, Wheezes, Respiratory Distress, Stridor - Cardiovascular Exam Cardiovascular Exam: REGULAR RHYTHM, +S1, +S2, Murmur - GI/Abdominal Exam GI & Abdominal Exam: Soft, Normal Bowel Sounds. absent: Distended, Firm, Guarding, Rigid, Tenderness - Extremities Exam Extremities Exam: Normal Inspection. absent: Pedal Edema - Neurological Exam Neurological Exam: Alert, Awake, Oriented x3 - Psychiatric Exam Psychiatric exam: Normal Affect, Normal Mood - Skin Skin Exam: Dry, Warm Assessment and Plan - Assessment and Plan (Free Text) Assessment: Patient is a 73 y/o male with Sepsis from coagulase negative staph bacteremia s/p ANGELIA, with no vegetation New onset SIRS yesterday, CT abdomen and pelvis with no intra-abdominal infection, pending repeat blood cultures. DM CAD S/P CABG S/P aortic valve replacement Back pain Plan: Tmax 100.2. Repeat blood cultures on 08/18 with no growth, pending cultures from the . CT abdomen and pelvis with no acute findings, MRI with no acute finding. + leukocytosis. Patient will need 4 weeks of IV antibiotics giving prolonged bacteremia in the setting of prosthetic valve, despite negative ANGELIA. Continue with daptomycin and merrem. Also on vancomycin pending repeat blood cultures. Patient seen, examined and case discussed with Dr. Mcghee. <Juan R Mcghee - Last Filed: 08/21/18 22:07> Objective - Vital Signs/Intake and Output Vital Signs (last 24 hours): Temp Pulse Resp BP Pulse Ox 97.3 F L 85 18 163/79 H 99 08/21/18 16:50 08/21/18 18:00 08/21/18 16:50 08/21/18 17:37 08/21/18 16:50 Intake and Output: 08/21/18 08/22/18 18:59 06:59 Intake Total 1480 Output Total 800 Balance 680 - Medications Medications: Current Medications Acetaminophen (Tylenol 325mg Tab) 650 mg PO Q6H PRN PRN Reason: Pain, Mild (1-3) Last Admin: 08/21/18 01:40 Dose: 650 mg Acetaminophen (Tylenol 325 Mg Supp) 325 mg RC Q6H PRN PRN Reason: Fever >100.4 F Last Admin: 08/20/18 13:37 Dose: 325 mg Aspirin (Aspirin Chewable) 81 mg PO DAILY [facility] Last Admin: 08/21/18 09:35 Dose: 81 mg Carvedilol (Coreg) 3.125 mg PO BID [facility] Last Admin: 08/21/18 17:37 Dose: 3.125 mg Gabapentin (Neurontin) 100 mg PO TID [facility]; Protocol Last Admin: 10/08/18 17:37 Dose: 100 mg Daptomycin 340 mg/ Sodium (Chloride) 100 mls @ 200 mls/hr IV Q24H [facility] Stop: 08/23/18 13:16 Last Admin: 08/21/18 13:07 Dose: 200 mls/hr Meropenem (Merrem Iv 1 Gm Premix) 1 gm in 50 mls @ 100 mls/hr IVPB Q8 [facility]; Protocol Last Admin: 08/21/18 21:01 Dose: 100 mls/hr Insulin Human Lispro (Humalog Low) 0 units SC ACHS [facility]; Protocol Last Admin: 08/21/18 17:37 Dose: 1 units Ketorolac Tromethamine (Toradol) 15 mg IVP Q6 PRN PRN Reason: Pain, moderate (4-7) Last Admin: 08/21/18 20:54 Dose: 15 mg Lisinopril (Zestril) 2.5 mg PO DAILY [facility] Last Admin: 08/21/18 09:35 Dose: 2.5 mg Multivitamins (Thera Tab) 1 tab PO 0800 [facility] Last Admin: 08/21/18 09:35 Dose: 1 tab Oxycodone/Acetaminophen (Percocet 5/325 Mg Tab) 1 tab PO Q4H PRN PRN Reason: Pain, severe (8-10) Stop: 08/23/18 16:31 Last Admin: 08/21/18 17:38 Dose: 1 tab Polyethylene Glycol (Miralax) 17 gm PO BID [facility] Last Admin: 08/21/18 17:38 Dose: 17 gm - Labs Labs: 08/21/18 07:44 08/21/18 05:30 PT 12.9 SECONDS (9.4-12.5) H 08/13/18 01:30 INR 1.13 08/13/18 01:30 APTT 33.0 Seconds (25.1-36.5) 08/13/18 01:30 Assessment and Plan - Assessment and Plan (Free Text) Plan: Infectious diseases attending physician attestation Patient seen and examined, discussed with biomedical analytical scientist. I agree with the above findings, assessment and plan, In addition: Assessment sepsis from coagulase negative staph bacteremia R/O endocarditis in this patient with aortic valve replacement; new onset SIRS with N/V, R/O sepsis from intra- abdominal infection DM CAD S/P CABG S/P aortic valve replacement Plan continue Daptomycin; ANGELIA is negative for valvular vegetations especially the prosthetic valve - bacteremia is persistent and will need prolonged antibiotics (i.e 4 weeks) with weekly CRP, CBC, CMP, CPK repeat blood and urine cx are negative so far and CT A/P and CXR are negative, continue Merrem for now and will d/c Vancomycin will continue to monitor clinically
[2018-08-22] MEDS ORDERED: Vancomycin 1gm in NS 250ml 1 GM/250 ML BAG IVPB SCH
[2018-08-22 04:00] VITALS: RESP 20
[2018-08-22] MEDS: Oxycodone/Acetaminophen 5/325 mg Tab PO PRN ×2 (04:07→09:58)
[2018-08-22] MEDS: Meropenem IV 1 gm in NS 1 GM/50 ML BAG IVPB SCH (05:36)
[2018-08-22 06:36] LABS: HEMOGLOBIN 8.6 g/dL (14.0-18.0); MEAN CELL VOLUME 84.5 fl (80.0-105.0); MEAN CORPUSCULAR HEMOGLOBIN 26.7 pg (25.0-35.0); MEAN CORPUSCULAR HGB CONC 31.6 g/dl (31.0-37.0); MEAN PLATELET VOLUME 9.2 fl (7.0-11.0); RBC 3.22 10^6/uL (3.5-6.1); RED CELL DISTRIBUTION WIDTH 15.8 % (11.5-14.5); WHITE BLOOD COUNT 14.5 10^3/ul (4.5-11.0)
--- NOTE | 2018-08-22 06:51 | CP.PCM.PN ---
Objective - Vital Signs/Intake and Output Vital Signs (last 24 hours): Temp Pulse Resp BP Pulse Ox 97.7 F 74 20 146/74 99 08/22/18 00:00 08/22/18 00:00 08/22/18 00:00 08/22/18 00:00 08/22/18 00:00 Intake and Output: 08/21/18 08/22/18 18:59 06:59 Intake Total 1480 Output Total 800 Balance 680 - Medications Medications: Current Medications Acetaminophen (Tylenol 325mg Tab) 650 mg PO Q6H PRN PRN Reason: Pain, Mild (1-3) Last Admin: 08/21/18 01:40 Dose: 650 mg Acetaminophen (Tylenol 325 Mg Supp) 325 mg RC Q6H PRN PRN Reason: Fever >100.4 F Last Admin: 08/20/18 13:37 Dose: 325 mg Aspirin (Aspirin Chewable) 81 mg PO DAILY [facility] Last Admin: 08/21/18 09:35 Dose: 81 mg Carvedilol (Coreg) 3.125 mg PO BID [facility] Last Admin: 08/21/18 17:37 Dose: 3.125 mg Gabapentin (Neurontin) 100 mg PO TID [facility]; Protocol Last Admin: 08/21/18 17:37 Dose: 100 mg Daptomycin 340 mg/ Sodium (Chloride) 100 mls @ 200 mls/hr IV Q24H [facility] Stop: 08/23/18 13:16 Last Admin: 08/21/18 13:07 Dose: 200 mls/hr Meropenem (Merrem Iv 1 Gm Premix) 1 gm in 50 mls @ 100 mls/hr IVPB Q8 [facility]; Protocol Last Admin: 08/22/18 05:36 Dose: 100 mls/hr Insulin Human Lispro (Humalog Low) 0 units SC ACHS [facility]; Protocol Last Admin: 08/21/18 22:42 Dose: Not Given Ketorolac Tromethamine (Toradol) 15 mg IVP Q6 PRN PRN Reason: Pain, moderate (4-7) Last Admin: 08/21/18 20:54 Dose: 15 mg Lisinopril (Zestril) 2.5 mg PO DAILY [facility] Last Admin: 08/21/18 09:35 Dose: 2.5 mg Multivitamins (Thera Tab) 1 tab PO 0800 [facility] Last Admin: 08/21/18 09:35 Dose: 1 tab Oxycodone/Acetaminophen (Percocet 5/325 Mg Tab) 1 tab PO Q4H PRN PRN Reason: Pain, severe (8-10) Stop: 08/23/18 16:31 Last Admin: 08/22/18 04:07 Dose: 1 tab Polyethylene Glycol (Miralax) 17 gm PO BID [facility] Last Admin: 08/21/18 17:38 Dose: 17 gm - Labs Labs: 08/22/18 06:10 08/21/18 05:30 PT 12.9 SECONDS (9.4-12.5) H 08/13/18 01:30 INR 1.13 08/13/18 01:30 APTT 33.0 Seconds (25.1-36.5) 08/13/18 01:30
--- NOTE | 2018-08-22 06:54 | CP.PCM.PN ---
Subjective - Date & Time of Evaluation Date of Evaluation: 08/22/18 Time of Evaluation: 06:20 - Subjective Subjective: Feels okay,awake,alert, lying in bed,no distress Reason for consultation and follow up: Cardiac evaluation of coronary artery disease, status post CABG and valve replacement on 06/07/18 at [facility]. Admitted for and vomiting and no appetite and back pain. Seen and examined by me and Dr. Bearden Objective - Vital Signs/Intake and Output Vital Signs (last 24 hours): Temp Pulse Resp BP Pulse Ox 97.7 F 74 20 146/74 99 08/22/18 00:00 08/22/18 00:00 08/22/18 00:00 08/22/18 00:00 08/22/18 00:00 Intake and Output: 08/21/18 08/22/18 18:59 06:59 Intake Total 1480 Output Total 800 Balance 680 - Medications Medications: Current Medications Acetaminophen (Tylenol 325mg Tab) 650 mg PO Q6H PRN PRN Reason: Pain, Mild (1-3) Last Admin: 08/21/18 01:40 Dose: 650 mg Acetaminophen (Tylenol 325 Mg Supp) 325 mg RC Q6H PRN PRN Reason: Fever >100.4 F Last Admin: 08/20/18 13:37 Dose: 325 mg Aspirin (Aspirin Chewable) 81 mg PO DAILY [facility] Last Admin: 08/21/18 09:35 Dose: 81 mg Carvedilol (Coreg) 3.125 mg PO BID [facility] Last Admin: 08/21/18 17:37 Dose: 3.125 mg Gabapentin (Neurontin) 100 mg PO TID [facility]; Protocol Last Admin: 08/21/18 17:37 Dose: 100 mg Daptomycin 340 mg/ Sodium (Chloride) 100 mls @ 200 mls/hr IV Q24H [facility] Stop: 08/23/18 13:16 Last Admin: 08/21/18 13:07 Dose: 200 mls/hr Meropenem (Merrem Iv 1 Gm Premix) 1 gm in 50 mls @ 100 mls/hr IVPB Q8 [facility]; Protocol Last Admin: 08/22/18 05:36 Dose: 100 mls/hr Insulin Human Lispro (Humalog Low) 0 units SC ACHS [facility]; Protocol Last Admin: 08/21/18 22:42 Dose: Not Given Ketorolac Tromethamine (Toradol) 15 mg IVP Q6 PRN PRN Reason: Pain, moderate (4-7) Last Admin: 08/21/18 20:54 Dose: 15 mg Lisinopril (Zestril) 2.5 mg PO DAILY [facility] Last Admin: 08/21/18 09:35 Dose: 2.5 mg Multivitamins (Thera Tab) 1 tab PO 0800 [facility] Last Admin: 08/21/18 09:35 Dose: 1 tab Oxycodone/Acetaminophen (Percocet 5/325 Mg Tab) 1 tab PO Q4H PRN PRN Reason: Pain, severe (8-10) Stop: 08/23/18 16:31 Last Admin: 08/22/18 04:07 Dose: 1 tab Polyethylene Glycol (Miralax) 17 gm PO BID [facility] Last Admin: 08/21/18 17:38 Dose: 17 gm - Labs Labs: 08/22/18 06:10 08/21/18 05:30 PT 12.9 SECONDS (9.4-12.5) H 08/13/18 01:30 INR 1.13 08/13/18 01:30 APTT 33.0 Seconds (25.1-36.5) 08/13/18 01:30 - Constitutional Appears: Non-toxic, No Acute Distress - Head Exam Head Exam: NORMAL INSPECTION, NORMOCEPHALIC - ENT Exam ENT Exam: Mucous Membranes Moist - Respiratory Exam Respiratory Exam: Decreased Breath Sounds, Clear to Ausculation Bilateral, NORMAL BREATHING PATTERN - Cardiovascular Exam Cardiovascular Exam: REGULAR RHYTHM, +S1, +S2 Additional comments: Telemetry NSR 70's - Extremities Exam Extremities Exam: Full ROM, Normal Capillary Refill - Neurological Exam Neurological Exam: Alert, Awake, Oriented x3 - Psychiatric Exam Psychiatric exam: Normal Affect, Normal Mood - Skin Skin Exam: Dry, Normal Color, Warm Assessment and Plan - Assessment and Plan (Free Text) Assessment: A 73 year old male who was brought to the ER due to nausea and vomiting,loss of appetite and back pain. History of diabetes, coronary artery disease with recent surgery of CABG and aortic valve replacement at [facility] last May 2018.Recently discharged from [facility] due to severe anemia requiring blood transfusion. GI work up was done. EKG- lateral ischemic inferolateral T wave changes. Troponin negative. Patient was on Xarelto after open heart surgery but discontinued due to GI bleeding. Patient's heart rate is normal sinus rhythm. No need to restart Xarelto.Also patient had a bioprosthetic aortic valve (no need to anticoagulate as per surgeon Dr. Siddiqui). Hold Xarelto due to history of GI bleeding,so far no arrythmias maintained on normal sinus rhythm, bioprosthetic aortic valve (no anticoagulation needed) Blood cultures came back positive,ANGELIA done, ruled out endocarditis, no vegetation, normal functioning of the bioprosthetic aortic valve, Severe mitral regurgitation, moderate tricuspid regurgitation, RVSP 38 mmHg, small pericardial effusion.ID on consult. on IV antibiotics for bacteremia. Episode of elevated temperature with bouts of nausea and vomiting,Code sepsis initiated. IV bolus administered, Tylenol for fever. Bacteremia, Continue IV antibiotics as per ID. Plan: Feels okay,no distress Heart rate and blood pressure stable Cardiac status stable, Bacteremia, Continue IV antibiotics as per ID On ASA 81 mg daily,Coreg 3.125 mg BID,Zestril 2.5 mg daily, Lopressor 50 mg every 12 hours Continue current treatment Continue current medications Physical therapy No appetite, encouraged intake of Ensure Nutritional support Chart reviewed Being evaluated for rehab placement Will follow up Plan and treatment discussed with Dr. Bearden
[2018-08-22 07:15] LABS: ALB/GLOB RATIO 0.8 (1.1-1.8); ALBUMIN 2.6 g/dL (3.0-4.8); ALT/SGPT 44 U/L (7-56); AST/SGOT 22 U/L (17-59); BLOOD UREA NITROGEN 13 mg/dL (7-21); CALCIUM 8.6 mg/dL (8.4-10.5); GFR NON-AFRICAN AMERICAN > 60
--- NOTE | 2018-08-22 07:57 | CP.PCM.DIS ---
Addendum entered and electronically signed by Brenna Sow DO 08/22/18 13:08: I spoke with ID patient will not need Merrem. Original Note: <Brenna Sow - Last Filed: 08/22/18 08:53> Provider - Provider Date of Admission: 08/13/18 04:43 Attending physician: Jose Flood MD Primary care physician: Jose Flood MD Consults: ID: Baljit Cardio: Suleiman Neuro: Jason Time Spent in preparation of Discharge (in minutes): 45 Hospital Course - Lab Results Lab Results: Micro Results 08/18/18 07:00 Blood Blood Culture - Preliminary NO GROWTH AFTER 4 DAYS 08/20/18 17:05 Blood Blood Culture - Preliminary NO GROWTH AFTER 24 HOURS 08/20/18 17:05 Blood Blood Culture - Preliminary NO GROWTH AFTER 24 HOURS 08/18/18 10:15 Blood Blood Culture - Preliminary NO GROWTH AFTER 3 DAYS 08/15/18 10:00 Blood-Venous Blood Culture - Final Coagulase Neg Staphylococcus 08/15/18 10:00 Blood-Venous Gram Stain - Final 08/15/18 08:19 Blood-Venous Blood Culture - Final Staphylococcus Sp Coag Neg 08/15/18 08:19 Blood-Venous Gram Stain - Final 08/14/18 13:50 Blood-Venous S.aureus & Coag-Neg Staph PNA FISH - Final TEST NOT PERFORMED 08/14/18 13:50 Blood-Venous Blood Culture - Final Coagulase Neg Staphylococcus 08/14/18 13:50 Blood-Venous Gram Stain - Final 08/13/18 12:20 Blood-Venous Blood Culture - Final Coagulase Neg Staphylococcus 08/13/18 12:20 Blood-Venous Gram Stain - Final 08/13/18 12:15 Blood-Venous S.aureus & Coag-Neg Staph PNA FISH - Final 08/13/18 12:15 Blood-Venous Blood Culture - Final Coagulase Neg Staphylococcus 08/13/18 12:15 Blood-Venous Gram Stain - Final 08/13/18 14:25 Urine Urine Culture - Final No Growth (<1,000 CFU/ML) 08/13/18 03:45 Urine,Catheterized Urine Culture - Final No Growth (<1,000 CFU/ML) Most Recent Lab Values WBC 14.5 10^3/ul (4.5-11.0) H 08/22/18 06:10 RBC 3.22 10^6/uL (3.5-6.1) L 08/22/18 06:10 Hgb 8.6 g/dL (14.0-18.0) L 08/22/18 06:10 Hct 27.2 % (42.0-52.0) L 08/22/18 06:10 MCV 84.5 fl (80.0-105.0) 08/22/18 06:10 MCH 26.7 pg (25.0-35.0) 08/22/18 06:10 MCHC 31.6 g/dl (31.0-37.0) 08/22/18 06:10 RDW 15.8 % (11.5-14.5) H 08/22/18 06:10 Plt Count 288 10^3/uL (120.0-450.0) 08/22/18 06:10 MPV 9.2 fl (7.0-11.0) 08/22/18 06:10 Gran % 75.1 % (50.0-68.0) H 08/15/18 08:19 Lymph % (Auto) 18.3 % (22.0-35.0) L 08/15/18 08:19 Gilmer % (Auto) 6.0 % (1.0-6.0) 08/15/18 08:19 Eos % (Auto) 0.4 % (1.5-5.0) L 08/15/18 08:19 Baso % (Auto) 0.2 % (0.0-3.0) 08/15/18 08:19 Gran # 9.85 (1.4-6.5) H 08/15/18 08:19 Lymph # (Auto) 2.4 (1.2-3.4) 08/15/18 08:19 Gilmer # (Auto) 0.8 (0.1-0.6) H 08/15/18 08:19 Eos # (Auto) 0.1 (0.0-0.7) 08/15/18 08:19 Baso # (Auto) 0.02 K/mm3 (0.0-2.0) 08/15/18 08:19 ESR 120 mm/hr (0.00-15.0) H 08/15/18 08:19 PT 12.9 SECONDS (9.4-12.5) H 08/13/18 01:30 INR 1.13 08/13/18 01:30 APTT 33.0 Seconds (25.1-36.5) 08/13/18 01:30 pCO2 29 mm/Hg (35-45) L 08/13/18 11:50 pO2 51 mm/Hg (30-55) 08/20/18 17:05 HCO3 21.6 mmol/L (21-28) 08/13/18 11:50 ABG pH 7.48 (7.35-7.45) H 08/13/18 11:50 ABG Total CO2 22.5 mmol.L (22-28) 08/13/18 11:50 ABG O2 Saturation 99.0 % (95-98) H 08/13/18 11:50 ABG Base Excess -0.8 mmol/L (-2.0-3.0) 08/13/18 11:50 ABG Potassium 4.2 mmol/L (3.6-5.2) 08/13/18 11:50 VBG pH 7.44 (7.32-7.43) H 08/20/18 17:05 VBG pCO2 34.0 (40-60) L 08/20/18 17:05 VBG HCO3 23.1 mmol/l (21-28) 08/20/18 17:05 VBG Total CO2 24.1 mmol.L (22-28) 08/20/18 17:05 VBG O2 Sat (Calc) 90.5 % (40-65) H 08/20/18 17:05 VBG Base Excess -0.5 mmol/L (0.0-2.0) L 08/20/18 17:05 VBG Potassium 4.3 mmol/L (3.6-5.2) 08/20/18 17:05 Sodium 132.0 mmol/L (132-148) 08/20/18 17:05 Chloride 105.0 mmol/L (98-107) 08/20/18 17:05 Glucose 213 mg/dl (75-110) H 08/20/18 17:05 Lactate 1.5 mmol/L (0.7-2.1) 08/20/18 17:05 FiO2 21.0 % 08/20/18 17:05 Sodium 134 mmol/L (132-148) 08/22/18 06:10 Potassium 4.3 mmol/L (3.6-5.0) 08/22/18 06:10 Chloride 102 mmol/L (98-107) 08/22/18 06:10 Carbon Dioxide 25 mmol/L (21-33) 08/22/18 06:10 Anion Gap 11 (10-20) 08/22/18 06:10 BUN 13 mg/dL (7-21) 08/22/18 06:10 Creatinine 0.5 mg/dl (0.8-1.5) L 08/22/18 06:10 Est GFR ( Amer) > 60 08/22/18 06:10 Est GFR (Non-Af Amer) > 60 08/22/18 06:10 POC Glucose (mg/dL) 152 mg/dL (65-110) H 08/22/18 07:35 Random Glucose 158 mg/dL (70-110) H 08/22/18 06:10 Hemoglobin A1c 7.4 % (4.2-6.5) H 08/15/18 08:19 Calcium 8.6 mg/dL (8.4-10.5) 08/22/18 06:10 Phosphorus 4.1 mg/dL (2.5-4.5) 08/15/18 08:19 Magnesium 1.6 mg/dL (1.7-2.2) L 08/20/18 13:30 Total Bilirubin 0.4 mg/dL (0.2-1.3) 08/22/18 06:10 AST 22 U/L (17-59) 08/22/18 06:10 ALT 44 U/L (7-56) 08/22/18 06:10 Alkaline Phosphatase 102 U/L (38-126) 08/22/18 06:10 Total Creatine Kinase 22 U/L (35-230) L 08/18/18 13:50 Troponin I 0.02 ng/mL 08/13/18 01:30 Total Protein 5.9 g/dL (5.8-8.3) 08/22/18 06:10 Albumin 2.6 g/dL (3.0-4.8) L 10/09/18 06:10 Globulin 3.3 gm/dL 08/22/18 06:10 Albumin/Globulin Ratio 0.8 (1.1-1.8) L 08/22/18 06:10 Triglycerides 236 mg/dL (35-160) H 08/15/18 08:19 Cholesterol 155 mg/dL (130-200) 08/15/18 08:19 LDL Cholesterol Direct 90 mg/dL (0-129) 08/15/18 08:19 HDL Cholesterol 17 mg/dL (29-60) L 08/15/18 08:19 Lipase 58 U/L (23-300) 08/13/18 01:30 Procalcitonin 1.35 NG/ML (0.19-0.49) H 08/14/18 07:00 TSH 3rd Generation 1.84 mIU/mL (0.46-4.68) 08/15/18 08:19 Arterial Blood Potassium 4.2 mmol/L (3.6-5.2) 08/13/18 11:50 Venous Blood Potassium 4.3 mmol/L (3.6-5.2) 08/20/18 17:05 Urine Color Schuyler (YELLOW) 08/20/18 13:30 Urine Appearance Cloudy (CLEAR) 08/20/18 13:30 Urine pH 5.5 (4.7-8.0) 08/20/18 13:30 Ur Specific Bosler 1.020 (1.005-1.035) 08/20/18 13:30 Urine Protein Trace mg/dL (<30 mg/dL) H 08/20/18 13:30 Urine Glucose (UA) 100 mg/dL (NEGATIVE) H 08/20/18 13:30 Urine Ketones Trace mg/dL (NEGATIVE) H 08/20/18 13:30 Urine Blood Negative (NEGATIVE) 08/20/18 13:30 Urine Nitrate Positive (NEGATIVE) H 08/20/18 13:30 Urine Bilirubin Negative (NEGATIVE) 08/20/18 13:30 Urine Urobilinogen 1.0 E.U./dL (<1 E.U./dL) H 08/20/18 13:30 Ur Leukocyte Esterase Trace Jagdeep/uL (NEGATIVE) H 08/20/18 13:30 Urine RBC 0 - 2 /hpf (0-2) 08/20/18 13:30 Urine WBC 2 - 5 /hpf (0-6) 08/20/18 13:30 Ur Epithelial Cells 3 - 4 /hpf (0-5) 08/20/18 13:30 Urine Bacteria Many (NEG) 08/20/18 13:30 Urine Other Uyeast 08/20/18 13:30 Vancomycin Trough 14.9 ug/mL (5.0-10.0) H 08/18/18 10:15 Ur L.pneumophila Ag Negative (NEGATIVE) 08/16/18 17:45 Blood Type O POSITIVE 08/13/18 01:30 Antibody Screen Negative 08/13/18 01:30 BBK History Checked Patient has bt 08/13/18 01:30 - Hospital Course Hospital Course: This is a 73yo male with past medical history of HTN, CAD s/p CABG 05/2018, AV replacement- prosthetic (open in 05/2018), NIDDM, OA, peptic ulcer disease who was admitted for sepsis as well as back pain. Patient was found to have bacteremia with multiple blood cultures positive for coag negative staph. ID was consulted and patient was placed on IV antibiotics.Cardiology was consulted. Patient had ANGELIA done which did not show any vegetation. Other imaging did not show acute signs of infection. Patient had complete septic work up and could not find another source of infection. Patient was treated for presumed endocarditis. Patient continued Coreg and ASA for HTN and CAD. He had MRI of the back for back pain. MRI lumbar spine showed multi-level degen disc dz worse in L4-L5 w/ post disc bulge. MRI cervical/thoracic spine showed multi-level degen disc dz worse in C6-C7. Neuro was consulted and recommended gabapentin and physical therapy. He also has poor PO intake from failure to thrive. Patient encouraged to increase PO intake and encouraged to participate in more physical therapy. Patient is tolerating diet and pain is controlled. He will need to complete 2 more days of Merrem. Patient will need 4 more weeks of Daptomycin. He has PICC line. Patient will complete course of Daptomycin on September 15, 2018. Patient will be d/c to [facility] for physical therapy. Patient verbalized and agreed with discharge plan. - Date & Time of H&P Date of H&P: 08/13/18 Time of H&P: 14:00 Discharge Exam - Head Exam Head Exam: NORMAL INSPECTION, NORMOCEPHALIC - Eye Exam Eye Exam: Normal appearance, PERRL Pupil Exam: NORMAL ACCOMODATION - ENT Exam ENT Exam: Mucous Membranes Moist - Neck Exam Neck exam: Full Rom, Normal Inspection - Respiratory Exam Respiratory Exam: Clear to PA & Lateral, NORMAL BREATHING PATTERN, UNREMARKABLE. absent: Rales, Rhonchi, Wheezes - Cardiovascular Exam Cardiovascular Exam: REGULAR RHYTHM, +S1, +S2, Systolic Murmur. absent: Diastolic murmur, Gallop, Rubs - GI/Abdominal Exam GI & Abdominal Exam: Normal Bowel Sounds, Soft, Unremarkable. absent: Mass, Rebound, Rigid - Extremities Exam Extremities exam: normal inspection - Neurological Exam Neurological exam: Alert, CN II-XII Intact, Oriented x3 - Psychiatric Exam Psychiatric exam: Normal Affect, Normal Mood - Skin Skin Exam: Dry, Intact, Normal Color, Warm Discharge Plan - Follow Up Plan Condition: FAIR Disposition: REHAB FACILITY/REHAB UNIT Instructions: Blood Culture, Failure to Thrive, Adult (DC) Additional Instructions: 1. Complete 4 weeks of IV Daptomycin. Will finish course on Sep 15 2018 Referrals: Jose Flood MD [Primary Care Provider] - <Jose Flood - Last Filed: 08/22/18 16:27> Provider - Provider Date of Admission: 08/13/18 04:43 Attending physician: Jose Flood MD Primary care physician: Jose Flood MD Hospital Course - Lab Results Lab Results: Micro Results 08/18/18 10:15 Blood Blood Culture - Preliminary NO GROWTH AFTER 4 DAYS 08/20/18 17:00 Urine,Catheterized Urine Culture - Final No Growth (<1,000 CFU/ML) 08/18/18 07:00 Blood Blood Culture - Preliminary NO GROWTH AFTER 4 DAYS 08/20/18 17:05 Blood Blood Culture - Preliminary NO GROWTH AFTER 24 HOURS 08/20/18 17:05 Blood Blood Culture - Preliminary NO GROWTH AFTER 24 HOURS 08/15/18 10:00 Blood-Venous Blood Culture - Final Coagulase Neg Staphylococcus 08/15/18 10:00 Blood-Venous Gram Stain - Final 08/15/18 08:19 Blood-Venous Blood Culture - Final Staphylococcus Sp Coag Neg 08/15/18 08:19 Blood-Venous Gram Stain - Final 08/14/18 13:50 Blood-Venous S.aureus & Coag-Neg Staph PNA FISH - Final TEST NOT PERFORMED 08/14/18 13:50 Blood-Venous Blood Culture - Final Coagulase Neg Staphylococcus 08/14/18 13:50 Blood-Venous Gram Stain - Final 08/13/18 12:20 Blood-Venous Blood Culture - Final Coagulase Neg Staphylococcus 08/13/18 12:20 Blood-Venous Gram Stain - Final 08/13/18 12:15 Blood-Venous S.aureus & Coag-Neg Staph PNA FISH - Final 08/13/18 12:15 Blood-Venous Blood Culture - Final Coagulase Neg Staphylococcus 08/13/18 12:15 Blood-Venous Gram Stain - Final 08/13/18 14:25 Urine Urine Culture - Final No Growth (<1,000 CFU/ML) 08/13/18 03:45 Urine,Catheterized Urine Culture - Final No Growth (<1,000 CFU/ML) Most Recent Lab Values WBC 14.5 10^3/ul (4.5-11.0) H 08/22/18 06:10 RBC 3.22 10^6/uL (3.5-6.1) L 08/22/18 06:10 Hgb 8.6 g/dL (14.0-18.0) L 08/22/18 06:10 Hct 27.2 % (42.0-52.0) L 08/22/18 06:10 MCV 84.5 fl (80.0-105.0) 08/22/18 06:10 MCH 26.7 pg (25.0-35.0) 08/22/18 06:10 MCHC 31.6 g/dl (31.0-37.0) 08/22/18 06:10 RDW 15.8 % (11.5-14.5) H 08/22/18 06:10 Plt Count 288 10^3/uL (120.0-450.0) 08/22/18 06:10 MPV 9.2 fl (7.0-11.0) 08/22/18 06:10 Gran % 75.1 % (50.0-68.0) H 08/15/18 08:19 Lymph % (Auto) 18.3 % (22.0-35.0) L 08/15/18 08:19 Gilmer % (Auto) 6.0 % (1.0-6.0) 08/15/18 08:19 Eos % (Auto) 0.4 % (1.5-5.0) L 08/15/18 08:19 Baso % (Auto) 0.2 % (0.0-3.0) 08/15/18 08:19 Gran # 9.85 (1.4-6.5) H 08/15/18 08:19 Lymph # (Auto) 2.4 (1.2-3.4) 08/15/18 08:19 Gilmer # (Auto) 0.8 (0.1-0.6) H 08/15/18 08:19 Eos # (Auto) 0.1 (0.0-0.7) 08/15/18 08: Baso # (Auto) 0.02 K/mm3 (0.0-2.0) 08/15/18 08:19 ESR 120 mm/hr (0.00-15.0) H 08/15/18 08:19 PT 12.9 SECONDS (9.4-12.5) H 08/13/18 01:30 INR 1.13 08/13/18 01:30 APTT 33.0 Seconds (25.1-36.5) 08/13/18 01:30 pCO2 29 mm/Hg (35-45) L 08/13/18 11:50 pO2 51 mm/Hg (30-55) 08/20/18 17:05 HCO3 21.6 mmol/L (21-28) 08/13/18 11:50 ABG pH 7.48 (7.35-7.45) H 08/13/18 11:50 ABG Total CO2 22.5 mmol.L (22-28) 08/13/18 11:50 ABG O2 Saturation 99.0 % (95-98) H 08/13/18 11:50 ABG Base Excess -0.8 mmol/L (-2.0-3.0) 08/13/18 11:50 ABG Potassium 4.2 mmol/L (3.6-5.2) 08/13/18 11:50 VBG pH 7.44 (7.32-7.43) H 08/20/18 17:05 VBG pCO2 34.0 (40-60) L 08/20/18 17:05 VBG HCO3 23.1 mmol/l (21-28) 08/20/18 17:05 VBG Total CO2 24.1 mmol.L (22-28) 08/20/18 17:05 VBG O2 Sat (Calc) 90.5 % (40-65) H 08/20/18 17:05 VBG Base Excess -0.5 mmol/L (0.0-2.0) L 08/20/18 17:05 VBG Potassium 4.3 mmol/L (3.6-5.2) 08/20/18 17:05 Sodium 132.0 mmol/L (132-148) 08/20/18 17:05 Chloride 105.0 mmol/L (98-107) 08/20/18 17:05 Glucose 213 mg/dl (75-110) H 08/20/18 17:05 Lactate 1.5 mmol/L (0.7-2.1) 08/20/18 17:05 FiO2 21.0 % 08/20/18 17:05 Sodium 134 mmol/L (132-148) 08/22/18 06:10 Potassium 4.3 mmol/L (3.6-5.0) 08/22/18 06:10 Chloride 102 mmol/L (98-107) 08/22/18 06:10 Carbon Dioxide 25 mmol/L (21-33) 08/22/18 06:10 Anion Gap 11 (10-20) 08/22/18 06:10 BUN 13 mg/dL (7-21) 08/22/18 06:10 Creatinine 0.5 mg/dl (0.8-1.5) L 08/22/18 06:10 Est GFR ( Amer) > 60 08/22/18 06:10 Est GFR (Non-Af Amer) > 60 08/22/18 06:10 POC Glucose (mg/dL) 216 mg/dL (65-110) H 08/22/18 11:23 Random Glucose 158 mg/dL (70-110) H 08/22/18 06:10 Hemoglobin A1c 7.4 % (4.2-6.5) H 08/15/18 08:19 Calcium 8.6 mg/dL (8.4-10.5) 08/22/18 06:10 Phosphorus 4.1 mg/dL (2.5-4.5) 08/15/18 08:19 Magnesium 1.6 mg/dL (1.7-2.2) L 08/20/18 13:30 Total Bilirubin 0.4 mg/dL (0.2-1.3) 08/22/18 06:10 AST 22 U/L (17-59) 08/22/18 06:10 ALT 44 U/L (7-56) 08/22/18 06:10 Alkaline Phosphatase 102 U/L (38-126) 08/22/18 06:10 Total Creatine Kinase 22 U/L (35-230) L 08/18/18 13:50 Troponin I 0.02 ng/mL 08/13/18 01:30 Total Protein 5.9 g/dL (5.8-8.3) 08/22/18 06:10 Albumin 2.6 g/dL (3.0-4.8) L 08/22/18 06:10 Globulin 3.3 gm/dL 08/22/18 06:10 Albumin/Globulin Ratio 0.8 (1.1-1.8) L 08/22/18 06:10 Triglycerides 236 mg/dL (35-160) H 08/15/18 08:19 Cholesterol 155 mg/dL (130-200) 08/15/18 08:19 LDL Cholesterol Direct 90 mg/dL (0-129) 08/15/18 08:19 HDL Cholesterol 17 mg/dL (29-60) L 08/15/18 08:19 Lipase 58 U/L (23-300) 08/13/18 01:30 Procalcitonin 1.35 NG/ML (0.19-0.49) H 08/14/18 07:00 TSH 3rd Generation 1.84 mIU/mL (0.46-4.68) 08/15/18 08:19 Arterial Blood Potassium 4.2 mmol/L (3.6-5.2) 08/13/18 11:50 Venous Blood Potassium 4.3 mmol/L (3.6-5.2) 08/20/18 17:05 Urine Color Schuyler (YELLOW) 08/20/18 13:30 Urine Appearance Cloudy (CLEAR) 08/20/18 13:30 Urine pH 5.5 (4.7-8.0) 08/20/18 13:30 Ur Specific Bosler 1.020 (1.005-1.035) 08/20/18 13:30 Urine Protein Trace mg/dL (<30 mg/dL) H 08/20/18 13:30 Urine Glucose (UA) 100 mg/dL (NEGATIVE) H 08/20/18 13:30 Urine Ketones Trace mg/dL (NEGATIVE) H 08/20/18 13:30 Urine Blood Negative (NEGATIVE) 08/20/18 13:30 Urine Nitrate Positive (NEGATIVE) H 08/20/18 13:30 Urine Bilirubin Negative (NEGATIVE) 08/20/18 13:30 Urine Urobilinogen 1.0 E.U./dL (<1 E.U./dL) H 08/20/18 13:30 Ur Leukocyte Esterase Trace Jagdeep/uL (NEGATIVE) H 08/20/18 13:30 Urine RBC 0 - 2 /hpf (0-2) 08/20/18 13:30 Urine WBC 2 - 5 /hpf (0-6) 08/20/18 13:30 Ur Epithelial Cells 3 - 4 /hpf (0-5) 08/20/18 13:30 Urine Bacteria Many (NEG) 08/20/18 13:30 Urine Other Uyeast 08/20/18 13:30 Urine Chloride 26 mmol/L (32-290) L 08/20/18 17:00 Vancomycin Trough 14.9 ug/mL (5.0-10.0) H 08/18/18 10:15 Ur L.pneumophila Ag Negative (NEGATIVE) 08/16/18 17:45 Blood Type O POSITIVE 08/13/18 01:30 Antibody Screen Negative 08/13/18 01:30 BBK History Checked Patient has bt 08/13/18 01:30 - Hospital Course Hospital Course: Pt seen and examined by me. I have reviewed the note by the veterinary medical officer. The case was discussed and reviewed with the resident. I reviewed the medications and labs. Pt with new UTI and on IV Abx. His UCx has been negative. Spoke ot and pt will be discharged home. He is not participating with PT. His pain is better controlled. He will need continued Daptomycin for a total of [address] of the Avd/pelvis is neg for infection. Eating ok.
[2018-08-22] MEDS: Insulin Lispro (humaLOG) LOW Coverage SC SCH (08:28)
--- NOTE | 2018-08-22 08:32 | PN ---
DATE: 08/21/2018 REASON FOR CONSULTATION AND FOLLOWUP: Rule out endocarditis, ANGELIA negative for endocarditis. SUBJECTIVE: The patient was scheduled to go for rehab facility, but last night, the patient had fever, possible UTI. Blood culture is pending, done yesterday. Chest x-ray negative. Th patient has persistently bacteremia since 08/13, but last blood culture drawn on 08/18/2018 is still negative. History of aortic valve replacement 2 months ago, 06/07/2018. Recommend to follow up. Repeat blood culture. If remain stable, possible discharge to rehab facility tomorrow. WBC is trending down. Monitor electrolytes. Thank you, Dr. Flood, for providing us the opportunity in taking care of the patient, Reji Chand. Bala Bearden MD
[2018-08-22 08:46] VITALS: BP 135/76; PULSE 87; TEMP 98; O2SAT 96
[2018-08-22] MEDS: POLYETHYLENE GLYCOL 3350 17 GM/Dose PACKET PO SCH (09:56)
[2018-08-22] MEDS: Multivitamin Therapeutic Tab PO SCH (09:59)
--- NOTE | 2018-08-22 11:38 | CP.PCM.PN ---
<Shelby Reid - Last Filed: 08/22/18 13:38> Subjective - Date & Time of Evaluation Date of Evaluation: 08/22/18 Time of Evaluation: 08:00 - Subjective Subjective: PGY-3 ID resident progress note for Dr. Mcghee No overnight acute events. Patient doing better overall. No fevers. Still complaining of back pain. able to tolerate po, no abdominal pain, n/v or diarrhea. Objective - Vital Signs/Intake and Output Vital Signs (last 24 hours): Temp Pulse Resp BP Pulse Ox 98 F 87 20 135/76 96 08/22/18 08:46 08/22/18 09:57 08/22/18 08:46 08/22/18 09:57 08/22/18 08:46 Intake and Output: 08/22/18 08/22/18 06:59 18:59 Intake Total 160 Output Total 300 Balance -140 - Medications Medications: Current Medications Acetaminophen (Tylenol 325mg Tab) 650 mg PO Q6H PRN PRN Reason: Pain, Mild (1-3) Last Admin: 08/21/18 01:40 Dose: 650 mg Acetaminophen (Tylenol 325 Mg Supp) 325 mg RC Q6H PRN PRN Reason: Fever >100.4 F Last Admin: 08/20/18 13:37 Dose: 325 mg Aspirin (Aspirin Chewable) 81 mg PO DAILY [facility] Last Admin: 08/22/18 09:57 Dose: 81 mg Carvedilol (Coreg) 3.125 mg PO BID [facility] Last Admin: 08/22/18 09:57 Dose: 3.125 mg Gabapentin (Neurontin) 100 mg PO TID SHAKA; Protocol Last Admin: 08/22/18 09:57 Dose: 100 mg Daptomycin 340 mg/ Sodium (Chloride) 100 mls @ 200 mls/hr IV Q24H SHAKA Stop: 08/23/18 13:16 Last Admin: 08/21/18 13:07 Dose: 200 mls/hr Meropenem (Merrem Iv 1 Gm Premix) 1 gm in 50 mls @ 100 mls/hr IVPB Q8 SHAKA; Protocol Last Admin: 08/22/18 05:36 Dose: 100 mls/hr Insulin Human Lispro (Humalog Low) 0 units SC ACHS SHAKA; Protocol Last Admin: 08/22/18 08:28 Dose: Not Given Ketorolac Tromethamine (Toradol) 15 mg IVP Q6 PRN PRN Reason: Pain, moderate (4-7) Last Admin: 08/21/18 20:54 Dose: 15 mg Lisinopril (Zestril) 2.5 mg PO DAILY [facility] Last Admin: 08/22/18 09:56 Dose: 2.5 mg Multivitamins (Thera Tab) 1 tab PO 0800 [facility] Last Admin: 08/22/18 09:59 Dose: 1 tab Oxycodone/Acetaminophen (Percocet 5/325 Mg Tab) 1 tab PO Q4H PRN PRN Reason: Pain, severe (8-10) Stop: 08/23/18 16:31 Last Admin: 08/22/18 09:58 Dose: 1 tab Polyethylene Glycol (Miralax) 17 gm PO BID [facility] Last Admin: 08/22/18 09:56 Dose: 17 gm - Labs Labs: 08/22/18 06:10 08/22/18 06:10 PT 12.9 SECONDS (9.4-12.5) H 08/13/18 01:30 INR 1.13 08/13/18 01:30 APTT 33.0 Seconds (25.1-36.5) 08/13/18 01:30 - Constitutional Appears: No Acute Distress, Older Than Stated Age, Cachectic, Chronically Ill - Head Exam Head Exam: ATRAUMATIC, NORMAL INSPECTION, NORMOCEPHALIC - Eye Exam Eye Exam: Normal appearance - ENT Exam ENT Exam: Mucous Membranes Moist - Neck Exam Neck Exam: Tenderness - Respiratory Exam Respiratory Exam: Clear to Ausculation Bilateral, NORMAL BREATHING PATTERN. absent: Rales, Rhonchi, Wheezes, Respiratory Distress, Stridor - Cardiovascular Exam Cardiovascular Exam: REGULAR RHYTHM, +S1, +S2 - GI/Abdominal Exam GI & Abdominal Exam: Soft, Normal Bowel Sounds. absent: Distended, Firm, Guarding, Rigid, Tenderness - Extremities Exam Extremities Exam: Normal Inspection - Neurological Exam Neurological Exam: Alert, Awake - Psychiatric Exam Psychiatric exam: Normal Mood - Skin Skin Exam: Dry, Intact, Warm Assessment and Plan - Assessment and Plan (Free Text) Assessment: Patient is a 73 y/o with: Sepsis from coagulase negative staph bacteremia R/O endocarditis in this patient with aortic valve replacement; Superimposed with new onset SIRS with N/V on 08/18/18- s/p CT abdomen and pelvis with no intraabdominal infection, and SIRS resolved DM CAD S/P CABG S/P aortic valve replacement Chronic back and neck pain, MRI with degenerative changes Plan: Repeat cultures on 08/18 and 08/20 so far with no growth, negative on repeat urine cultures. afebrile for over 24 hours, and leukocytosis is trending down. Continue Daptomycin due to persistent bacteremia despite negative ANGELIA (4 weeks total) with weekly CRP, CBC, CMP, CPK. Will discontinue Merrem due to negative repeat cultures. Patient seen, examined and case discussed with Dr. Mcghee. <Juan R Mcghee - Last Filed: 08/22/18 20:59> Objective - Vital Signs/Intake and Output Vital Signs (last 24 hours): Temp Pulse Resp BP Pulse Ox 98 F 87 20 135/76 96 08/22/18 08:46 08/22/18 09:57 08/22/18 08:46 08/22/18 09:57 08/22/18 08:46 - Labs Labs: 08/22/18 06:10 08/22/18 06:10 PT 12.9 SECONDS (9.4-12.5) H 08/13/18 01:30 INR 1.13 08/13/18 01:30 APTT 33.0 Seconds (25.1-36.5) 08/13/18 01:30 Assessment and Plan - Assessment and Plan (Free Text) Plan: Infectious diseases attending physician attestation Patient seen and examined, discussed with medical affairs director. I agree with the above findings, assessment and plan, In addition: Assessment sepsis from coagulase negative staph bacteremia R/O endocarditis in this patient with aortic valve replacement; new onset SIRS with N/V, no evidence of new onset sepsis DM CAD S/P CABG S/P aortic valve replacement Plan continue Daptomycin; ANGELIA is negative for valvular vegetations especially the prosthetic valve - bacteremia is persistent and will need prolonged antibiotics (i.e 4 weeks from 08/17/2018) with weekly CRP, CBC, CMP, CPK repeat blood and urine cx are negative (08/17) and CT A/P and CXR are negative, will d/c Merrem
--- NOTE | 2018-08-23 08:55 | PN ---
DATE: 08/22/2018 REASON FOR CONSULTATION AND FOLLOWUP: Rule out endocarditis, ANGELIA negative for endocarditis. This note is an addendum to the initial progress note dictated by nurse practitioner, Annika Lindsey APN. Repeat blood cultures are negative. The patient got Align for antibiotic. We will continue it facility. History of recent valve replacement on 06/07/2018. RECOMMENDATIONS: Continue antibiotic, possible discharge home today. Discussed with resident. Bala Bearden MD
== END 2018-08-22 18:25 | DRG 871 ==
LOC: ED 00:41 → ERH 04:43 → 3RNO 07:08
PROVIDERS: ADMIT Internal Medicine; ATTEND Internal Medicine Nephrology
PROC: B24BZZ4 Ultrasonography of Heart with Aorta, Transesophageal (ICD-10-PCS; 2018-08-18)
PROC: 02HV33Z Insertion of Infusion Device into Superior Vena Cava, Percutaneous Approach (ICD-10-PCS; principal; 2018-08-18 07:30)
DX: A41.1 Sepsis due to other specified staphylococcus (principal); I33.0 Acute and subacute infective endocarditis; N39.0 Urinary tract infection, site not specified; I31.3 Pericardial effusion (noninflammatory); K92.2 Gastrointestinal hemorrhage, unspecified; T82.6XXA Infection and inflammatory reaction due to cardiac valve prosthesis, initial encounter; M51.34 Other intervertebral disc degeneration, thoracic region; M47.9 Spondylosis, unspecified; E11.9 Type 2 diabetes mellitus without complications; I10 Essential (primary) hypertension; I27.20 Pulmonary hypertension, unspecified; M41.9 Scoliosis, unspecified; I44.0 Atrioventricular block, first degree; R62.7 Adult failure to thrive; I25.10 Atherosclerotic heart disease of native coronary artery without angina pectoris; Z86.73 Personal history of transient ischemic attack (TIA), and cerebral infarction without residual deficits; M15.9 Polyosteoarthritis, unspecified; Z87.11 Personal history of peptic ulcer disease; Z95.3 Presence of xenogenic heart valve; M48.02 Spinal stenosis, cervical region; M48.061 Spinal stenosis, lumbar region without neurogenic claudication; D64.9 Anemia, unspecified; E11.59 Type 2 diabetes mellitus with other circulatory complications; E78.5 Hyperlipidemia, unspecified; G89.29 Other chronic pain; K27.9 Peptic ulcer, site unspecified, unspecified as acute or chronic, without hemorrhage or perforation; K59.00 Constipation, unspecified; Y83.1 Surgical operation with implant of artificial internal device as the cause of abnormal reaction of the patient, or of later complication, without mention of misadventure at the time of the procedure; Z95.1 Presence of aortocoronary bypass graft; I08.3 Combined rheumatic disorders of mitral, aortic and tricuspid valves; M51.36 Other intervertebral disc degeneration, lumbar region